=== PATIENT | male | born 1945 | race Caucasian/White ===

== ENCOUNTER 2018-12-30 11:49 | Emergency (ER) | payer OTHER ==
[~2018-12-30] VITALS: Ht 165.1 cm; Wt 50.5 kg
[2018-12-30 11:59] VITALS: Ht 165.1 cm; Wt 50.5 kg
[2018-12-30] MEDS ORDERED: LACTATED RINGER'S 1,000 ML IV STA (13:18)
[2018-12-30] MEDS ORDERED: SOD CHLORIDE 0.9% 1,000 ML IV STA (13:18)
--- NOTE | 2018-12-30 13:31 | ERD ---
ER Documentation Chief Complaint Chief Complaint sent by pcp - headahcer, neck pain, no appetite; increased bp; low hgb; HPI 73-year-old man referred here by medical clinic with complaints of anterior neck mass causing pain radiating to the back, trouble swallowing for at least 1 week, hypertension, generalized weakness, suspected anemia, and complaints of headache. Patient states he feels dizzy and weak times about 2 weeks, he has had no fevers or chills, no vomiting or diarrhea, no complaints of chest pain or shortness of breath. HPI was limited but supplemented by speaking to family member who is at the bedside and referring to his physician's notes ROS All systems reviewed and are negative except as per history of present illness. Medications Home Meds No Active Prescriptions or Reported Meds Allergies Allergies: Coded Allergies: No Known Allergy (Unverified , 12/30/18) FmHx Family History: No diabetes Physical Exam Vitals Vital Signs Date Temp Pulse Resp B/P (MAP) Pulse Ox O2 O2 Flow FiO2 Time Delivery Rate 12/30/18 75 16 194/73 98 Room Air 18:10 (113) 12/30/18 98.1 84 16 184/70 Room Air 17:00 (108) 12/30/18 83 16 208/80 100 Room Air 15:08 (122) 12/30/18 98.8 94 18 212/93 97 11:59 (132) Physical Exam GENERAL: Well-developed, appears weak, dehydrated, afebrile HEENT: Dry mucous membranes with tongue forrowing, right anterior soft nontender mass noted just above the sternum, 3/6 right carotid bruit auscultated, possible goiter, no cervical spine deformity or tenderness. No ptosis. Extremely poor dentition NEURO: Alert and oriented 3, cranial nerves II through XII intact bilaterally, pupils equal round reactive to light, no focal deficits or facial asymmetry, sensation intact distally Strength 5/5 in upper and lower extremities bilaterally CARDIAC: Tachycardic and regular, no murmurs rubs or gallops LUNGS: Clear bilaterally no wheezing crackles or stridor ABDOMEN: Soft nontender, no guarding, no rigidity, no rebound, no psoas sign no obturator sign. SKIN: Warm and dry to touch, no abrasions, contusions, or hematomas, no lacerations, no ecchymosis, no target lesions, and without ulcers EXTREMITIES: No clubbing cyanosis or edema, calves are bilaterally symmetrical, no Homans sign, no popliteal cord sign. Distal pulses equal and bilateral PSYCH: Normal affect without agitation or irritability Result Diagram: 12/30/18 1332 12/30/18 1332 Results 24 hrs Laboratory Tests Test 12/30/18 13:32 White Blood Count 15.8 10^3/ul Red Blood Count 3.90 10^6/ul Hemoglobin 10.9 g/dl Hematocrit 33.8 % Mean Corpuscular Volume 86.7 fl Mean Corpuscular Hemoglobin 27.9 pg Mean Corpuscular Hemoglobin Concent 32.2 g/dl Red Cell Distribution Width 13.4 % Platelet Count 309 10^3/UL Mean Platelet Volume 8.4 fl Immature Granulocytes % 0.600 % Neutrophils % 91.3 % Lymphocytes % 3.7 % Monocytes % 4.1 % Eosinophils % 0.0 % Basophils % 0.3 % Nucleated Red Blood Cells % 0.0 /100WBC Immature Granulocytes # 0.090 10^3/ul Neutrophils # 14.4 10^3/ul Lymphocytes # 0.6 10^3/ul Monocytes # 0.7 10^3/ul Eosinophils # 0.0 10^3/ul Basophils # 0.1 10^3/ul Nucleated Red Blood Cells # 0.0 10^3/ul Prothrombin Time 13.8 Sec Prothrombin Time Ratio 1.1 INR International Normalized Ratio 1.05 Activated Partial Thromboplast Time 35.4 Sec Sodium Level 139 mmol/L Potassium Level 3.9 mmol/L Chloride Level 100 mmol/L Carbon Dioxide Level 29 mmol/L Anion Gap 10 Blood Urea Nitrogen 16 mg/dl Creatinine 0.59 mg/dl Est Glomerular Filtrat Rate mL/min mL/min Glucose Level 145 mg/dl Calcium Level 9.3 mg/dl Total Bilirubin 0.5 mg/dl Direct Bilirubin 0.00 mg/dl Indirect Bilirubin 0.5 mg/dl Aspartate Amino Transf (AST/SGOT) 21 IU/L Alanine Aminotransferase (ALT/SGPT) 19 IU/L Alkaline Phosphatase 96 IU/L Troponin I 0.014 ng/ml Total Protein 7.5 g/dl Albumin 3.9 g/dl Globulin 3.60 g/dl Albumin/Globulin Ratio 1.08 Lipase 48 U/L Thyroid Stimulating Hormone (TSH) 0.454 MIU/L Free Thyroxine 1.68 ng/dl Free Triiodothyronine (T3) pg/mL 3.83 pg/ml Random Cortisol 22.9 ug/dl Ethyl Alcohol Level < 10.0 mg/dl Current Medications Medications Dose Sig/Mamie Start Time Status Last (Trade) Ordered Route PRN Stop Time Admin Dose Reason Admin Sodium 1,000 ml @ Q1H STAT 12/30/18 DC 12/30/18 Chloride 1,000 mls/hr IV 13:18 15:02 12/30/18 14:17 Lactated 1,000 ml @ Q1H STAT 12/30/18 DC 12/30/18 Ringer's 1,000 mls/hr IV 13:18 15:03 12/30/18 14:17 Ketorolac 15 mg ONCE STAT 12/30/18 DC 12/30/18 Tromethamine IV 15:15 15:19 (Toradol) 12/30/18 15:16 IV Flush 10 ml STK-MED 12/30/18 DC (NS 10 ml) ONCE .ROUTE 16:52 12/30/18 16:53 Sodium 100 ml @ ud STK-MED 12/30/18 DC Chloride ONCE .ROUTE 16:52 12/30/18 16:53 Iohexol 150 ml STK-MED 12/30/18 DC (Omnipaque ONCE .ROUTE 16:52 300mg/ ml) 12/30/18 16:53 Enalaprilat 1.25 mg ONCE ONCE 12/30/18 DC 12/30/18 (Vasotec Iv) IV 18:30 18:48 12/30/18 18:31 IV Flush 10 ml STK-MED 12/30/18 DC (NS 10 ml) ONCE .ROUTE 18:30 12/30/18 18:31 Sodium 100 ml @ ud STK-MED 12/30/18 DC Chloride ONCE .ROUTE 18:30 12/30/18 18:31 Iohexol 100 ml @ ud STK-MED 12/30/18 DC ONCE .ROUTE 18:30 12/30/18 18:31 Procedures/MDM IV line was established patient was placed on athletic monitor rhythm strip revealed a sinus tachycardia at 100 bpm with upright P and T waves. Patient was afebrile I administered 2 L of crystalloid IV for initial dehydration. EKG performed, read by me revealed a normal sinus rhythm at 87 bpm, normal axis, narrow QRS complex, nonspecific ST changes in precordial leads, no concerning ST elevations or depressions noted, LVH in precordial leads 1 view chest x-ray performed, read by me revealed a right supra mediastinal mass, smooth bordered, possibly vascular, aortic knob appears normal, trachea reveals mild left tracheal deviation, no acute infiltrates, no pneumothorax. CT scan of the brain was performed that was negative for acute bleed mass or shift, chronic ischemic changes noted CTA of the neck was performed, IMPRESSION: 1. 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 Stat vascular/thoracic surgery consultation recommended. 2. Associated mass effect moderately displacing the cervicothoracic trachea and esophagus to the left with resultant tracheal narrowing to 6 mm transverse dimension just above the thoracic inlet, displacing the right thyroid lobe, and right common carotid artery with flattening and displacement of the inferior right jugular vein and the right brachiocephalic vein. 3. Nonspecific lack of enhancement of the right sigmoid sinus, jugular bulb and superior right internal jugular vein may be technical related to contrast phase in the presence of a left dominant jugular venous drainage system, or could reflect venous thrombosis. Clinical correlation recommended with consideration for further evaluation with MR or CT venography of the head and neck. 4. Visualized intracranial and cervical arterial vasculature, which this examination is not tailored to evaluate, appears patent. 5. Mild reversal of upper cervical lordosis with minimal chronic degenerative C4-5 and C7-T1 listheses. 6. Multilevel cervical spondylotic changes appear most pronounced at C3-4, C4-5, C5-6 and C6-7 where there is moderate - severe canal and neural foraminal stenosis. This can be better evaluated by MRI C-spine if clinically warranted. 7. Poor dentition with multiple missing teeth, dental caries and periapical lucencies. Correlation with follow-up clinical dental exam suggested. Critical findings discussed with and acknowledged by Dr. Sullivan at 06:25 p.m. 12/30/2018. For hypertension I administered enalapril 1.25 mg IV x1 CBC reveals a leukocytosis, electrolytes revealed dehydration, liver function tests normal, troponin negative, coagulation profile normal ethanol level negative, thyroid panel unremarkable Cardiothoracic surgeon Dr. Rosenberg was consulted he agreed to see the patient in the ER, recommendations pending. Critical Care: Time: 39 minutes, this was time separate from other billable procedures. Treatments/Evaluations: Close monitoring and treatment of unstable vital signs, cardiorespiratory, and neurologic status, while maintaining tight balance of fluid, respiratory, and cardiac interventions. Departure Diagnosis: Primary Impression: Aneurysm, common carotid artery Additional Impressions: Partial obstruction of airway Dehydration Dental caries Hypertension Hypertension type: essential hypertension Qualified Codes: I10 - Essential (primary) hypertension Condition: Critical GERMAIN SULLIVAN MD Dec 30, 2018 13:31
[2018-12-30] MEDS ORDERED: KETOROLAC 15 MG INJ IV STA (15:15)
[2018-12-30] MEDS ORDERED: IOHEXOL 300MG/ML 150 ML BTL ONE (16:52)
[2018-12-30] MEDS ORDERED: SOD CHLORIDE 0.9% 100 ML ONE ×2 (16:52→18:30)
[2018-12-30] MEDS ORDERED: IOHEXOL 100 ML ONE (18:30)
[2018-12-30] MEDS ORDERED: ENALAPRILAT 1.25 MG INJ IV ONE (18:30)
[2018-12-30] MEDS ORDERED: LABETALOL HCL 20MG INJ IV ONE (23:00)
[2018-12-30] MEDS ORDERED: ESMOLOL 250 ML IV SCH (23:30)
[2018-12-30] MEDS ORDERED: hydrALAzine 20 MG INJ IV ONE (23:30)
--- NOTE | 2018-12-31 01:08 | CONS ---
DATE OF ADMISSION: 12/30/2018 DATE OF CONSULTATION: REASON FOR CONSULTATION: Innominate pseudoaneurysm. HISTORY OF PRESENT ILLNESS: This is a 73-year-old male who is homeless, cannot give us any history. He presents to us with a few day history of neck pain and a bulging mass in the neck. A CAT scan of the neck has been done which shows a large 5 cm pseudoaneurysm from the innominate artery right at i ts bifurcation extending into the right neck and having a mass effect on the trachea to the left side . The patient is breathing well. No evidence of any breathing issues, saturations are 99%. No use of accessory muscles or difficulty breathing. PAST MEDICAL HISTORY: Unknown. PAST SURGICAL HISTORY: Unknown. ALLERGIES: Unknown. MEDICATIONS: Unknown. PHYSICAL EXAMINATION: GENERAL: The patient is disheveled 73-year-old male, appears to be comfortable. VITAL SIGNS: Blood pressure is 122/63, pulse is 80, respirations 18, saturation 99% on room air. NECK: There is a mass in the right anterior to the sternal notch, which is pulsating. The right nec k is full. The left neck is softer. There is palpable radial and femoral pulses. No signs of ische lucio. CARDIOVASCULAR: Regular rate and rhythm. LUNGS: Clear. ABDOMEN: Soft. LABORATORY VALUES: Significant for hemoglobin of 10.9, white count 15.8, platelet count 309. Creati nine 0.59 and INR of 1.05 with a PTT of 35. 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 This p rocess is at least several days old, according to the patient. I have looked at the CAT scan of the chest. This patient is at a very high risk of major bleeding if he undergoes a sternotomy and open s urgical repair. He would be best treated with a stent extending from the innominate artery into the carotid artery and possible subsequent right arm bypass grafting. I discussed the patient at length with the ER physician, Dr. Martin. Arrangements have been made for this patient to be transferred to a tertiary care hospital. Dictated By: BEV PERKINS/MELYSSA Conf#: [id number] DID#: [id number]
[2018-12-31 01:22] VITALS: BP 189/68; PULSE 70; RESP 18
== END 2018-12-31 01:22 | disposition short-term general hospital (02) ==
LOC: E/R 11:49
DX: I72.0 Aneurysm of carotid artery (principal); J98.8 Other specified respiratory disorders; E86.0 Dehydration; K02.9 Dental caries, unspecified; I10 Essential (primary) hypertension; R10.9 Unspecified abdominal pain
CPT/HCPCS: 70450; 70491; 71045; 71275; 80053; 80307; 82533; 83690; 84439; 84443; 84481; 84484; 85025; 85610; 85730; 86850; 86900; 86901; 93005; 96374; 96375; 99285; J0360; J1885; J7030; J7120; Q9967

== ENCOUNTER 2019-02-04 09:26 | Emergency (ER) | payer OTHER ==
[~2019-02-04] VITALS: Wt 52.0 kg
[2019-02-04] MEDS ORDERED: CEPH-443 PO (12:01)
--- NOTE | 2019-02-04 12:08 | ERD ---
ER Documentation Chief Complaint Chief Complaint PT FROM [facility] FOR RE-INSERTION OF LUNDBERG CATH HPI This is a 73-year-old male with a known history of hypertension previous CVA atrial fibrillation and BPH. The patient resides at [facility]. He had an indwelling Lundberg catheter which was accidentally removed yesterday evening. Nursing staff noticed a small amount of blood present in his diaper. They felt that the abdomen was distended and therefore sent the patient for placement of his Lundberg catheter. He said no recent fever shaking or chills. His primary care physician is Dr. Moreno. He has a history of a repair of a brachiocephalic pseudoaneurysm. The patient said no fevers or shaking or chills. There is no other complaints other than that the patient is brought to the emergency department for replacement of his Lundberg catheter. ROS All systems reviewed and are negative except as per history of present illness. Medications Home Meds Active Scripts Cephalexin* (Keflex*) 500 Mg Capsule, 500 MG PO Q6, #40 CAP Prov:SANTOS HOLT MD 02/04/19 Allergies Allergies: Coded Allergies: No Known Allergy (Unverified , 12/30/18) PMhx/Soc History of Surgery: Yes (CABG/OPEN HEART, ABD?) Hx Neurological Disorder: Yes (CVA) Hx Cardiac Disorders: Yes (HTN, A-FIB) Hx Miscellaneous Medical Probl: Yes (BPH, ANEMIA) Hx Alcohol Use: No Hx Substance Use: No Hx Tobacco Use: No Smoking Status: Unknown if ever smoked Physical Exam Vitals Vital Signs Date Temp Pulse Resp B/P (MAP) Pulse Ox O2 O2 Flow FiO2 Time Delivery Rate 02/04/19 97.6 68 17 122/54 99 09:43 (76) Physical Exam Constitutional:Well-developed. Well-nourished. HEENT:Normocephalic. Atraumatic.Pupils were equal round reactive to light. Moist mucous membranes.No tonsillar exudates. Neck: No nuchal rigidity. No lymphadenopathy. No posterior cervical spine tenderness or step-offs. Respiratory: Not using accessory muscles of respiration.Lungs were clear to auscultation bilaterally. No rhonchi. No rales. No wheezing. Cardiovascular: Regular rate regular rhythm.No murmurs. No rubs were appreciated.S1, S2 normal. Distal pulses are palpable 2+ bilaterally. GI: Abdomen was soft. Nontender. Non Distended. No pulsatile abdominal masses or bruits. No rebound. No guarding. Bowel sounds were present and normal. Muscle skeletal: Muscle atrophy of the bilateral lower extremities : No blood present at the urethral meatus. No testicular swelling or tenderness. Skin: No petechia, no purpura. No lesions on the palms or the soles of the feet. No maculopapular rash. NEURO: Patient was alert and awake. Patient is bedbound so gait was not observed. Patient follows verbal command. Patient is Japanese-speaking. Results 24 hrs Laboratory Tests Test 02/04/19 10:48 Urine Color YELLOW Urine Clarity TURBID Urine pH 7.0 Urine Specific Bandon 1.013 Urine Ketones NEGATIVE mg/dL Urine Nitrite NEGATIVE mg/dL Urine Bilirubin NEGATIVE mg/dL Urine Urobilinogen NEGATIVE mg/dL Urine Leukocyte Esterase 2+ Claudia/ul Urine Microscopic RBC > 182 /HPF Urine Microscopic WBC > 182 /HPF Urine Bacteria FEW /HPF Urine Hemoglobin 3+ mg/dL Urine Glucose NEGATIVE mg/dL Urine Total Protein 2+ mg/dl Procedures/MDM This is a 73-year-old male that presented to the emergency department with hematuria after removal accidental of a Lundberg catheter. Patient had no signs of severe anemia. There was no blood present at the urethral meatus. Lundberg catheter had been replaced and there is no blood present in the Lundberg bag. The patient did have a palpable bladder that had resolved after the Lundberg catheter had been placed. There was microscopic hematuria that was present in the urinalysis that was thought to be secondary to traumatic removal of the Lundberg catheter, however again there was no gross blood that was present. The patient had pyuria which could be consistent with a urinary tract infection. The patient will be sent home with Keflex. I did feel the patient was stable to be discharged and no ancillary laboratory work was obtained as the patient presented to the emergency department for Lundberg catheter replacement. The patient was discharged home in fair condition. They were instructed to return to the emergency department at any time if there was any worsening of their condition. The patient stated they would follow up with their PCP in the next 24-48 hours to initiate a suitable medication regimen under the care of their PCP as well as to allow their PCP to monitor any drug reactions. The patient was discharged home with prescriptions after they gave informed consent to the new medication. They were also fully informed by myself on the adverse effects and adverse drug interactions in order to provide adequate safeguards to prevent possible adverse reactions to medications. Departure Diagnosis: Primary Impression: Encounter for urinary catheter Additional Impression: Urinary tract infection Urinary tract infection type: acute cystitis Hematuria presence: with hematuria Qualified Codes: N30.01 - Acute cystitis with hematuria Condition: Fair Patient Instructions: Urinary Tract Infections in Men, Hematuria Referrals: NO PRIMARY,CARE PHYSICIAN (PCP) SANTOS HOLT MD February 04, 2019 12:08
[2019-02-04] MEDS ORDERED: AMIO200T4 PO (12:16)
[2019-02-04] MEDS ORDERED: ASPI-903 PO (12:17)
[2019-02-04] MEDS ORDERED: AMLO-147 PO (12:17)
[2019-02-04] MEDS ORDERED: BISA10SU55 RC (12:18)
[2019-02-04] MEDS ORDERED: DOCU50LI23 PO (12:18)
[2019-02-04] MEDS ORDERED: FURO20TA3 PO (12:19)
[2019-02-04] MEDS ORDERED: HEPA500021 IJ (12:19)
[2019-02-04] MEDS ORDERED: LISI10TA2 PO (12:20)
[2019-02-04] MEDS ORDERED: NOVO3I SC (12:20)
[2019-02-04] MEDS ORDERED: POLY17PO28 PO (12:21)
[2019-02-04] MEDS ORDERED: MELA5TAB4 PO (12:21)
[2019-02-04] MEDS ORDERED: TAMS-14 PO (12:22)
[2019-02-04] MEDS ORDERED: ALBU2.5V3 NEB (12:23)
[2019-02-04] MEDS ORDERED: ACET325T33 PO (12:24)
[2019-02-04] MEDS ORDERED: MAGN400O19 PO (12:25)
[2019-02-04] MEDS ORDERED: LISI40TA3 PO (12:31)
[2019-02-04 13:19] VITALS: BP 126/45; PULSE 58; RESP 17
== END 2019-02-04 13:20 | disposition home or self-care (01) ==
LOC: E/R 09:26
DX: N30.01 Acute cystitis with hematuria (principal); R40.2252 Coma scale, best verbal response, oriented, at arrival to emergency department; I10 Essential (primary) hypertension; Z86.73 Personal history of transient ischemic attack (TIA), and cerebral infarction without residual deficits; Z95.1 Presence of aortocoronary bypass graft
CPT/HCPCS: 81001; 87086

== ENCOUNTER 2019-02-10 13:53 | Inpatient (IN) | payer OTHER ==
[~2019-02-10] VITALS: Ht 157.5 cm; Wt 58.0 kg
[~2019-02-10 13:53] MED LIST: ACET325T33 PO; ALBU2.5V3 NEB; AMIO200T4 PO; AMLO-147 PO; ASPI-903 PO; BISA10SU55 RC; CEPH-443 PO; DOCU50LI23 PO; FURO20TA3 PO; HEPA500021 IJ; LISI40TA3 PO; MAGN400O19 PO; MELA5TAB4 PO; NOVO3I SC; POLY17PO28 PO; TAMS-14 PO
[2019-02-10] MEDS ORDERED: CEFTRIAXONE 1 GM/50 ML (PMX) 50 ML IVPB STA (14:16)
[2019-02-10] MEDS ORDERED: ACETAMINOPHEN 325 MG TAB PO PRN ×2 (14:30→18:00)
[2019-02-10] MEDS ORDERED: ONDANSETRON 4 MG INJ IV PRN ×2 (14:30→18:00)
[2019-02-10 14:56] VITALS: Ht 157.5 cm; Wt 58.0 kg
[2019-02-10] MEDS ORDERED: SODIUM CHLORIDE 0.9% 1L BAG IV* STA (15:08)
--- NOTE | 2019-02-10 17:33 | HP ---
Date/Time of Note Date/Time of Note DATE: 02/10/19 TIME: 17:27 Assessment/Plan VTE Prophylaxis SCD applied (from Nsg): Yes Pharmacological prophylaxis: NA/contraindicated Pharm contraindication: bleeding Lines/Catheters IV Catheter Type (from Nrsg): Saline Lock Urinary Cath still in place: Yes Reason Cath still needed: urinary retention Assessment/Plan Assessment/Plan -Severe sepsis, continue IV fluids, broad-spectrum antibiotics, monitor lactate -Hematuria, will obtain urine culture, continue broad-spectrum antibiotics. -History of aortic aneurysm, status post repair. -Hypertension -Cerebrovascular disease -Urinary retention with urethral stricture, continue Cavanaugh catheter -Diabetes Further recommendations based on clinical course. Plan of care discussed with Dr. Moreno. Result Diagram: 02/10/19 1459 02/10/19 1459 Results 24hrs Laboratory Tests Test 02/10/19 14:59 02/10/19 15:06 02/10/19 16:51 White Blood Count 15.5 H Red Blood Count 3.47 L Hemoglobin 10.2 L Hematocrit 30.8 L Mean Corpuscular Volume 88.8 Mean Corpuscular Hemoglobin 29.4 Mean Corpuscular Hemoglobin Concent 33.1 Red Cell Distribution Width 15.2 H Platelet Count 293 Mean Platelet Volume 8.9 Immature Granulocytes % 0.600 H Neutrophils % 90.3 H Lymphocytes % 3.3 L Monocytes % 5.5 Eosinophils % 0.0 Basophils % 0.3 Nucleated Red Blood Cells % 0.0 Immature Granulocytes # 0.090 H Neutrophils # 14.0 H Lymphocytes # 0.5 L Monocytes # 0.9 Eosinophils # 0.0 Basophils # 0.0 Nucleated Red Blood Cells # 0.0 Prothrombin Time 12.5 Prothrombin Time Ratio 1.0 INR International Normalized Ratio 0.92 Activated Partial Thromboplast Time 32.7 Sodium Level 132 L Potassium Level 4.6 Chloride Level 97 Carbon Dioxide Level 27 Anion Gap 8 Blood Urea Nitrogen 15 Creatinine 0.70 Est Glomerular Filtrat Rate mL/min Glucose Level 239 H Calcium Level 9.2 Total Bilirubin 0.4 Direct Bilirubin 0.00 Indirect Bilirubin 0.4 Aspartate Amino Transf (AST/SGOT) 20 Alanine Aminotransferase (ALT/SGPT) 20 Alkaline Phosphatase 126 H Troponin I < 0.012 Total Protein 6.9 Albumin 4.0 Globulin 2.90 Albumin/Globulin Ratio 1.37 POC Venous Lactate 2.4 *H Lactic Acid Level 2.0 HPI/ROS Admit Date/Time Admit Date/Time Hx of Present Illness The patient is 73-year-old gentleman with history of aortic aneurysm, primary hypertension, late syphilis, cerebrovascular disease, pneumonia, atrial fibrillation, urinary retention, diabetes, BPH, history of urethral stricture. Patient is awake alert however cannot provide any detailed medical history, most of the history was obtained from medical records and talking to nursing staff. Patient presented from half-way facility for hematuria, patient had Cavanaugh catheter on admission. He recently finished Keflex for 10 days for UTI. Patient noted to have elevated white blood cells, hypertension, and elevated lactate. No nausea vomiting, chest pain or shortness of breath reported. ROS Unable to obtain due to patient's condition PMH/Family/Social Past Medical History per HPI Medical History: diabetes, hypertension Medications Current Medications Ondansetron HCl (Zofran Inj) 4 mg BRIDGE ORDER PRN IV NAUSEA/VOMITING; Start 02/10/19 at 14:30; Stop 02/11/19 at 14:29 Acetaminophen (Tylenol Tab) 650 mg ER BRIDGE PRN PO .MILD PAIN 1-3 OR TEMP; Start 02/10/19 at 14:30; Stop 02/11/19 at 14:29 Coded Allergies: No Known Allergy (Unverified , 02/10/19) Past Surgical History Past Surgical Hx: other (Status post aortic aneurysm repair, details are not available) Family History Significant Family History: no pertinent family hx Social History Smoking Status: Never smoker Exam/Review of Systems Vital Signs Vitals Vital Signs Date Temp Pulse Resp B/P (MAP) Pulse Ox O2 O2 Flow FiO2 Time Delivery Rate 02/10/19 88 16 130/91 100 Room Air 16:50 (104) 02/10/19 2 15:05 02/10/19 98.6 14:56 Exam Constitutional: alert, oriented Head: normocephalic Neck: supple Respiratory: clear to auscultation Cardiovascular: irregular rhythm, other (Chest healed surgical incision) Gastrointestinal: soft, non-tender Genitourinary - Male: other (Cavanaugh catheter with hematuria) Extremities: normal pulses Neurological: confused Skin: GIANNA Maddox February 10, 2019 17:33
[2019-02-10] MEDS ORDERED: DOCUSATE SODIUM 100 MG CAP PO PRN (18:00)
[2019-02-10] MEDS ORDERED: BISACODYL (EC) 5 MG TAB PO PRN (18:00)
--- NOTE | 2019-02-10 18:54 | ERD ---
ER Documentation Chief Complaint Chief Complaint from [facility], c/o hematuria HPI Patient is a 73-year-old male with dementia and previous UTI who presents with hematuria. The patient was brought in by ambulance. He recently finished Keflex for 10 days for UTI. The patient was sent by Dr. Moreno for admission. Upon review of old medical records this is the patient's third visit to the ER since December 2018. Primary doctor is Dr. Moreno. ROS All systems reviewed and are negative except as per history of present illness. Medications Home Meds Active Scripts Cephalexin* (Keflex*) 500 Mg Capsule, 500 MG PO Q6, #40 CAP Prov:SANTOS HOLT MD 02/04/19 Reported Medications Lisinopril* (Lisinopril*) 40 Mg Tablet, 40 MG PO DAILY, #30 TAB 02/04/19 Magnesium Hydroxide* (Milk Of Magnesia*) 400 Mg/5 Ml Oral.susp, 30 ML PO BID, ML 02/04/19 Acetaminophen* (Tylenol*) 325 Mg Tablet, 650 MG PO Q4H PRN for MILD PAIN LEVEL 1-3, TAB AND FEVER >100f 02/04/19 Albuterol Sulfate* (Albuterol Sulfate* Neb) 0.083%-3 Ml Neb, 2.5 MG NEB Q4H PRN for WHEEZING AND SOB, #30 VIAL 02/04/19 Tamsulosin Hcl* (Flomax*) 0.4 Mg Cap.er.24h, 0.4 MG PO DAILY, CAP 02/04/19 Polyethylene Glycol* (Polyethylene Glycol*) 17 Gm Powd.pack, 17 GM PO DAILY, #30 PACKET 02/04/19 Melatonin (Melatonin) 5 Mg Tablet, 5 MG PO HS, TAB 02/04/19 Insulin Aspart* (Novolog Insulin Pen*) 100 Unit/Ml Soln, 0 SC .SLIDING SCALE AC, EA IF BS 150-199=2 UNITS. 200-249=4 UNITS, 250-299=6 UNITS,300-349-8 UNITS,350-399=10 UNITS,400-449=12 UNITS AND CALL . 02/04/19 Heparin Sodium,Porcine/Pf (HEPARIN SOD 5,000 UNIT/ 0.5 ML) 5,000 Unit/0.5 Ml Vial, 5000 UNIT IJ Q8H, VIAL 02/04/19 Bisacodyl (Dulcolax) 10 Mg Supp.rect, 10 MG RC DAILY, SUPP.RECT 02/04/19 Aspirin* (Aspirin* Chew) 81 Mg Tab.chew, 81 MG PO DAILY, TAB.CHEW 02/04/19 Amlodipine Besylate* (Amlodipine Besylate*) 10 Mg Tablet, 10 MG PO DAILY, #30 TAB 02/04/19 Amiodarone Hcl* (Amiodarone Hcl*) 200 Mg Tablet, 200 MG PO BID, #60 TAB 02/04/19 Discontinued Reported Medications Furosemide* (Furosemide*) 20 Mg Tablet, 20 MG PO BID, #30 TAB 02/04/19 Docusate Sodium* (Colace* Liq) 50 Mg/5 Ml Liquid, 10 ML PO BID, EA 02/04/19 Lisinopril* (Lisinopril*) 10 Mg Tablet, 10 MG PO DAILY, #30 TAB 02/04/19 Allergies Allergies: Coded Allergies: No Known Allergy (Unverified , 02/10/19) PMhx/Soc History of Surgery: Yes (CABG/OPEN HEART, ABD?) Hx Neurological Disorder: Yes (CVA) Hx Cardiac Disorders: Yes (HTN, A-FIB) Hx Miscellaneous Medical Probl: Yes (BPH, ANEMIA,late stage siphylis) Hx Alcohol Use: No Hx Substance Use: No Hx Tobacco Use: No Smoking Status: Never smoker FmHx Unable to obtain Physical Exam Vitals Vital Signs Date Temp Pulse Resp B/P (MAP) Pulse Ox O2 O2 Flow FiO2 Time Delivery Rate 02/10/19 86 15 159/99 100 Room Air 18:42 (119) 02/10/19 88 16 130/91 100 Room Air 16:50 (104) 02/10/19 53 20 195/53 99 15:55 (100) 02/10/19 Nasal 2 15:05 Cannula 02/10/19 98.6 89 18 171/73 97 14:56 (105) Physical Exam Const: No acute distress Head: Atraumatic Eyes: Normal Conjunctiva ENT: Normal External Ears, Nose and Mouth. Neck: Full range of motion. No meningismus. Resp: Clear to auscultation bilaterally Cardio: Regular rate and rhythm, no murmurs Abd: Soft, non tender, non distended. Normal bowel sounds, Cavanaugh catheter in place with red urine Skin: No petechiae or rashes Back: No midline or flank tenderness Ext: No cyanosis, or edema Neur: Demented at baseline Psych: Normal Mood and Affect Result Diagram: 02/10/19 1459 02/10/19 1459 Results 24 hrs Laboratory Tests Test 02/10/19 14:59 02/10/19 15:06 02/10/19 16:51 White Blood Count 15.5 10^3/ul Red Blood Count 3.47 10^6/ul Hemoglobin 10.2 g/dl Hematocrit 30.8 % Mean Corpuscular Volume 88.8 fl Mean Corpuscular Hemoglobin 29.4 pg Mean Corpuscular 33.1 g/dl Hemoglobin Concent Red Cell Distribution Width 15.2 % Platelet Count 293 10^3/UL Mean Platelet Volume 8.9 fl Immature Granulocytes % 0.600 % Neutrophils % 90.3 % Lymphocytes % 3.3 % Monocytes % 5.5 % Eosinophils % 0.0 % Basophils % 0.3 % Nucleated Red Blood Cells % 0.0 /100WBC Immature Granulocytes # 0.090 10^3/ul Neutrophils # 14.0 10^3/ul Lymphocytes # 0.5 10^3/ul Monocytes # 0.9 10^3/ul Eosinophils # 0.0 10^3/ul Basophils # 0.0 10^3/ul Nucleated Red Blood Cells # 0.0 10^3/ul Prothrombin Time 12.5 Sec Prothrombin Time Ratio 1.0 INR International Normalized Ratio 0.92 Activated Partial Thromboplast 32.7 Sec Time Sodium Level 132 mmol/L Potassium Level 4.6 mmol/L Chloride Level 97 mmol/L Carbon Dioxide Level 27 mmol/L Anion Gap 8 Blood Urea Nitrogen 15 mg/dl Creatinine 0.70 mg/dl Est Glomerular Filtrat Rate mL/min mL/min Glucose Level 239 mg/dl Calcium Level 9.2 mg/dl Total Bilirubin 0.4 mg/dl Direct Bilirubin 0.00 mg/dl Indirect Bilirubin 0.4 mg/dl Aspartate Amino Transf (AST/SGOT) 20 IU/L Alanine 20 IU/L Aminotransferase (ALT/SGPT) Alkaline Phosphatase 126 IU/L Troponin I < 0.012 ng/ml Total Protein 6.9 g/dl Albumin 4.0 g/dl Globulin 2.90 g/dl Albumin/Globulin Ratio 1.37 POC Venous Lactate 2.4 mmol/L Lactic Acid Level 2.0 mmol/L Current Medications Medications Dose Sig/Mamie Start Time Status Last (Trade) Ordered Route PRN Stop Time Admin Dose Reason Admin Ceftriaxone 50 ml @ ONCE STAT 02/10/19 DC 02/10/19 Sodium 100 mls/hr IVPB 14:16 15:21 02/10/19 14:45 Ondansetron 4 mg BRIDGE ORDER 02/10/19 HCl (Zofran PRN IV 14:30 Inj) NAUSEA/VOMITI 02/11/19 14:29 NG 650 mg ER BRIDGE 02/10/19 Acetaminophen PRN PO 14:30 (Tylenol .MILD PAIN 02/11/19 14:29 Tab) 1-3 OR TEMP Sodium 1,740 ml BOLUS OVER 2 02/10/19 DC 02/10/19 Chloride HOURS STAT 15:08 15:20 (NS) IV* 02/10/19 15:09 Amiodarone 200 mg BID PO 02/10/19 HCl 21:00 (Cordarone) Amlodipine 10 mg DAILY PO 02/11/19 Besylate 09:00 (Norvasc) Lisinopril 40 mg DAILY PO 02/11/19 (Zestril) 09:00 Melatonin 5 mg HS PO 02/10/19 (Melatonin) 21:00 Tamsulosin 0.4 mg DAILY PO 02/11/19 HCl 09:00 (Flomax) Ondansetron 4 mg Q6H PRN 02/10/19 HCl (Zofran IV 18:00 Inj) NAUSEA/VOMITI NG 650 mg Q6H PRN 02/10/19 Acetaminophen PO .PAIN 1-3 18:00 (Tylenol OR TEMP Tab) Docusate 100 mg Q12H PRN 02/10/19 Sodium PO 18:00 (Colace) .CONSTIPATION Bisacodyl 5 mg DAILY PRN 02/10/19 (Dulcolax) PO 18:00 .CONSTIPATION 40 mg DAILY@06 02/11/19 Pantoprazole PO 06:00 (Protonix Tab) Ceftriaxone 50 ml @ Q24H IVPB 02/11/19 Sodium 100 mls/hr 15:00 Procedures/MDM Sepsis Documentation: Patient's infectious symptoms have not stabilized and the patient is at risk of rapid decompensation. The patient will be admitted for careful hydration, antibiotic therapy, and infectious source control. SEVERE SEPSIS CRITERIA: Infectious source: Likely cystitis End organ damage indicated by: Lactate greater than 2 SEPSIS MANAGEMENT Time of recognition of sepsis: 1506. Time of recognition of severe sepsis: 1506. Time of recognition of septic shock: No septic shock at this time. 3 HOUR BUNDLE Blood cultures x 2 before broad-spectrum antibiotics: Yes 30 ml/kg NS bolus completed Initial lactate 2.4 Repeat lactate 2.0 SEPTIC SHOCK ASSESSMENT: No lactic acid > 4.0 No persistent hypotension (SBP < 90 or 40 mmHg drop, MAP < 65) despite 30 mL/kg IV fluid bolus VOLUME REASSESSMENT FOR SEPTIC SHOCK: No septic shock at this time PERSISTENT HYPOTENSION TREATMENT: Comfort care no Central line not Required Vasopressor started not required I considered further perfusion assessment with CVP measurement, SCVO2, bedside ultrasound volume assessment, passive leg raise, trial of further fluid bolus. And proceeded with 30 ml/kg fluid bolus of NSS, broad spectrum antibiotics, and admission. I spoke with Dr. Moreno for admission to a medical surgical bed. CRITICAL CARE Critical care time 35 minutes Emergent fluid management while maintaining close respiratory support. Pr ovision of immediate and broad-spectrum antibiotic therapy. Simultaneous assessment for possible sources in order to direct targeted therapy. Consideration for invasive and chemical support to prevent cardiopulmonary collapse. Critical care time is independent of procedures performed. Departure Diagnosis: Primary Impression: Cystitis Additional Impressions: Hematuria Hematuria type: unspecified type Qualified Codes: R31.9 - Hematuria, unspecified Severe sepsis Condition: CECI Strange MD February 10, 2019 18:54
[2019-02-10] MEDS: MELATONIN 5 MG TABLET PO SCH (20:47)
[2019-02-10] MEDS: AMIODARONE 200 MG TAB PO SCH (20:47)
[2019-02-10 21:51] VITALS: BP 166/72; PULSE 84; RESP 18
[2019-02-10] MEDS ORDERED: GLUCOSE GEL 15 GRAM TUBE PO PRN ×2 (23:00)
[2019-02-10] MEDS ORDERED: GLUCOSE GEL 15 GRAM TUBE BUCCAL PRN (23:00)
[2019-02-10] MEDS ORDERED: DEXTROSE 50% 50 ML SYRINGE IV PRN ×2 (23:00)
[2019-02-10] MEDS ORDERED: GLUCAGON 1 MG INJ IM PRN (23:00)
[2019-02-11] MEDS: ACCU-CHEK XX SCH (02:00)
[2019-02-11] MEDS: PANTOPRAZOLE (EC) 40 MG TAB PO SCH (06:14)
[2019-02-11] MEDS: INSULIN ASPART [NOVOLOG] 3 ML PEN SC SCH ×4 (07:50→21:00)
[2019-02-11 07:52] VITALS: BP 146/63; PULSE 62; RESP 18
[2019-02-11] MEDS: TAMSULOSIN (SR) 0.4 MG CAP PO SCH (08:38)
[2019-02-11] MEDS: AMLODIPINE 10 MG TAB PO SCH (08:38)
[2019-02-11] MEDS: LISINOPRIL 20 MG TAB PO SCH (08:39)
[2019-02-11] MEDS: AMIODARONE 200 MG TAB PO SCH ×2 (08:39→21:16)
[2019-02-11 14:26] VITALS: BP 138/66; PULSE 64; RESP 18
[2019-02-11] MEDS: CEFTRIAXONE 1 GM/50 ML (PMX) 50 ML IVPB SCH (16:20)
[2019-02-11 19:20] VITALS: BP 116/58; PULSE 65; RESP 18
--- NOTE | 2019-02-11 19:55 | PN ---
Date/Time of Note Date/Time of Note DATE: 02/11/19 TIME: 19:52 Assessment/Plan VTE Prophylaxis Risk score (from Ns)>0 risk: 4 SCD applied (from Ns): Yes Pharmacological prophylaxis: NA/contraindicated Pharm contraindication: bleeding Lines/Catheters IV [facility]ine [facility] Urinary Cath still in place: Yes Reason Cath still needed: urinary retention Assessment/Plan Hospital Course Assessment/Plan -Severe sepsis, continue IV fluids, broad-spectrum antibiotics, monitor lactate. Dr. Amaro is asked to see patient in infection disease consultation. -Hematuria, f/up on urine culture, continue broad-spectrum antibiotics. Dr. Cristina is asked to see patient in urology consultation. -History of aortic aneurysm, status post repair. -Atrial fibrillation, anticoagulation is held due to hematuria. -Hypertension, continue Norvasc and lisinopril. -Cerebrovascular disease -Urinary retention with urethral stricture, continue Cavanaugh catheter -Diabetes, continue Lantus and NovoLog. Further recommendations based on clinical course. Plan of care discussed with Dr. Moreno. Result Diagram: 02/11/19 0430 02/11/19 0430 Results 24hrs Laboratory Tests Test 02/10/19 23:54 02/11/19 04:30 02/11/19 06:55 02/11/19 08:30 Bedside Glucose 142 113 White Blood Count 8.0 # Red Blood Count 3.15 L Hemoglobin 9.4 L Hematocrit 28.1 L Mean Corpuscular 89.2 Volume Mean Corpuscular 29.8 Hemoglobin Mean Corpuscular 33.5 Hemoglobin Concent Red Cell 15.0 H Distribution Width Platelet Count 253 Mean Platelet 8.8 Volume Immature 0.600 H Granulocytes % Neutrophils % 82.5 H Lymphocytes % 8.6 L Monocytes % 7.2 Eosinophils % 0.6 Basophils % 0.5 Nucleated Red 0.0 Blood Cells % Immature 0.050 H Granulocytes # Neutrophils # 6.6 Lymphocytes # 0.7 L Monocytes # 0.6 Eosinophils # 0.1 Basophils # 0.0 Nucleated Red 0.0 Blood Cells # Sodium Level 134 L Potassium Level 3.9 Chloride Level 101 Carbon Dioxide 27 Level Anion Gap 6 Blood Urea 7 Nitrogen Creatinine 0.54 L Est Glomerular Filtrat Rate mL/min Glucose Level 109 # Calcium Level 8.9 Lab Scanned Report REFERENCE LAB Test 02/11/19 12:19 02/11/19 17:49 Bedside Glucose 152 121 Exam/Review of Systems Exam Vitals Vital Signs Date Temp Pulse Resp B/P (MAP) Pulse Ox O2 O2 Flow FiO2 Time Delivery Rate 02/11/19 97.8 64 18 138/66 94 Room Air 14:26 (90) 02/10/19 2 15:05 Exam Constitutional: alert, oriented Respiratory: clear to auscultation Cardiovascular: irregular rhythm, other (Chest healed surgical incision) Gastrointestinal: soft, non-tender Genitourinary - Male: other (Cavanaugh catheter with hematuria) Extremities: normal pulses Neurological: confused Results Results 24hrs Laboratory Tests Test 02/10/19 23:54 02/11/19 04:30 02/11/19 06:55 02/11/19 08:30 Bedside Glucose 142 113 White Blood Count 8.0 # Red Blood Count 3.15 L Hemoglobin 9.4 L Hematocrit 28.1 L Mean Corpuscular 89.2 Volume Mean Corpuscular 29.8 Hemoglobin Mean Corpuscular 33.5 Hemoglobin Concent Red Cell 15.0 H Distribution Width Platelet Count 253 Mean Platelet 8.8 Volume Immature 0.600 H Granulocytes % Neutrophils % 82.5 H Lymphocytes % 8.6 L Monocytes % 7.2 Eosinophils % 0.6 Basophils % 0.5 Nucleated Red 0.0 Blood Cells % Immature 0.050 H Granulocytes # Neutrophils # 6.6 Lymphocytes # 0.7 L Monocytes # 0.6 Eosinophils # 0.1 Basophils # 0.0 Nucleated Red 0.0 Blood Cells # Sodium Level 134 L Potassium Level 3.9 Chloride Level 101 Carbon Dioxide 27 Level Anion Gap 6 Blood Urea 7 Nitrogen Creatinine 0.54 L Est Glomerular Filtrat Rate mL/min Glucose Level 109 # Calcium Level 8.9 Lab Scanned Report REFERENCE LAB Test 02/11/19 12:19 02/11/19 17:49 Bedside Glucose 152 121 Medications Medication Current Medications Amiodarone HCl (Cordarone) 200 mg BID PO Last administered on 02/11/19at 08:39; Admin Dose 200 MG; Start 02/10/19 at 21:00 Amlodipine Besylate (Norvasc) 10 mg DAILY PO Last administered on 02/11/19at 08:38; Admin Dose 10 MG; Start 02/11/19 at 09:00 Lisinopril (Zestril) 40 mg DAILY PO Last administered on 02/11/19at 08:39; Admin Dose 40 MG; Start 02/11/19 at 09:00 Melatonin (Melatonin) 5 mg HS PO Last administered on 02/10/19at 20:47; Admin Dose 5 MG; Start 02/10/19 at 21:00 Tamsulosin HCl (Flomax) 0.4 mg DAILY PO Last administered on 02/11/19at 08:38; Admin Dose 0.4 MG; Start 02/11/19 at 09:00 Ondansetron HCl (Zofran Inj) 4 mg Q6H PRN IV NAUSEA/VOMITING; Start 02/10/19 at 18:00 Acetaminophen (Tylenol Tab) 650 mg Q6H PRN PO .PAIN 1-3 OR TEMP; Start 02/10/19 at 18:00 Docusate Sodium (Colace) 100 mg Q12H PRN PO .CONSTIPATION; Start 02/10/19 at 18:00 Bisacodyl (Dulcolax) 5 mg DAILY PRN PO .CONSTIPATION; Start 02/10/19 at 18:00 Pantoprazole (Protonix Tab) 40 mg DAILY@06 PO Last administered on 02/11/19at 06:14; Admin Dose 40 MG; Start 02/11/19 at 06:00 Ceftriaxone Sodium 50 ml @ 100 mls/hr Q24H IVPB Last administered on 02/11/19at 16:20; Admin Dose 100 MLS/HR; Start 02/11/19 at 15:00 Diagnostic Test (Pha) (Accu-Chek) 1 ea 02 XX ; Start 02/11/19 at 02:00 Insulin Aspart (Novolog Insulin Pen) NOVOLOG *MODERATE* ALGORITHM WITH MEALS BEDTIME SC Last administered on 02/11/19at 12:26; Admin Dose 2 UNIT; Start 02/11/19 at 07:50 Miscellaneous Information 1 ea NOTE XX ; Start 02/10/19 at 23:00 Glucose (Glutose) 15 gm Q15M PRN PO DECREASED GLUCOSE; Start 02/10/19 at 23:00 Glucose (Glutose) 22.5 gm Q15M PRN PO DECREASED GLUCOSE; Start 02/10/19 at 23:00 Dextrose (D50w Syringe) 25 ml Q15M PRN IV DECREASED GLUCOSE; Start 02/10/19 at 23:00 Dextrose (D50w Syringe) 50 ml Q15M PRN IV DECREASED GLUCOSE; Start 02/10/19 at 23:00 Glucagon (Glucagen) 1 mg Q15M PRN IM DECREASED GLUCOSE; Start 02/10/19 at 23:00 Glucose (Glutose) 15 gm Q15M PRN BUCCAL DECREASED GLUCOSE; Start 02/10/19 at 23:00 GIANNA DE JESUS February 11, 2019 19:55
--- NOTE | 2019-02-11 20:29 | CONS ---
Assessment/Plan Assessment/Plan Hospital Course (Demo Recall) The patient is 73-year-old gentleman who presented from a [facility] facility with a history of gross hematuria. He does have a history of aortic aneurysm, hypertension, late syphilis, cerebrovascular disease, pneumonia, atrial fibrillation, diabetes, BPH and a history of urethral stricture. Patient is awake alert however cannot provide any detailed medical history. Most of the history was obtained from medical records. Patient had Cavanaugh catheter on admission and the urine was bloody but now it is clear. He recently finished Keflex for 10 days for UTI Presently the urine in the catheter is clear. I was concerned about the catheter not being all the way inside the bladder. I did hand irrigate it and it did irrigate well. I did deflate the balloon and advanced the catheter all the way inside the bladder, reinflated the balloon and irrigated it again and it did irrigate well. The rectal exam did not show a large prostate. And when I advanced the catheter into the bladder it did not feel that there is any stricture. For now we shall keep the catheter in and treat the infection and may try to give him another chance to urinate on his own. Consultation Date/Type/Reason Admit Date/Time February 10, 2019 Date of Consultation: February 11, 2019 Type of Consult Urology Reason for Consultation Hematuria Requesting Provider: CLARISA RODAS MD Date/Time of Note DATE: 02/11/19 TIME: 20:16 Hx of Present Illness The patient is 73-year-old gentleman who presented from a [facility] facility with a history of gross hematuria. He does have a history of aortic aneurysm, hypertension, late syphilis, cerebrovascular disease, pneumonia, atrial fibrillation, diabetes, BPH and a history of urethral stricture. Patient is awake alert however cannot provide any detailed medical history. Most of the history was obtained from medical records. Patient had Cavanaugh catheter on admission and the urine was bloody but now it is clear. He recently finished Keflex for 10 days for UTI Constitutional: other (Patient wants to sleep) Eyes: no complaints ENT: no complaints Respiratory: No shortness of breath Cardiovascular: No chest pain Gastrointestinal: No pain, No nausea, No vomiting Genitourinary: hematuria Skin: other (Patient has bedsores) Past Medical History Medical History: diabetes, hypertension Home Meds Active Scripts Cephalexin* (Keflex*) 500 Mg Capsule, 500 MG PO Q6, #40 CAP Prov:SANTOS HOLT MD 02/04/19 Reported Medications Lisinopril* (Lisinopril*) 40 Mg Tablet, 40 MG PO DAILY, #30 TAB 02/04/19 Magnesium Hydroxide* (Milk Of Magnesia*) 400 Mg/5 Ml Oral.susp, 30 ML PO BID, ML 02/04/19 Acetaminophen* (Tylenol*) 325 Mg Tablet, 650 MG PO Q4H PRN for MILD PAIN LEVEL 1-3, TAB AND FEVER >100f 02/04/19 Albuterol Sulfate* (Albuterol Sulfate* Neb) 0.083%-3 Ml Neb, 2.5 MG NEB Q4H PRN for WHEEZING AND SOB, #30 VIAL 02/04/19 Tamsulosin Hcl* (Flomax*) 0.4 Mg Cap.er.24h, 0.4 MG PO DAILY, CAP 02/04/19 Polyethylene Glycol* (Polyethylene Glycol*) 17 Gm Powd.pack, 17 GM PO DAILY, #30 PACKET 02/04/19 Melatonin (Melatonin) 5 Mg Tablet, 5 MG PO HS, TAB 02/04/19 Insulin Aspart* (Novolog Insulin Pen*) 100 Unit/Ml Soln, 0 SC .SLIDING SCALE AC, EA IF BS 150-199=2 UNITS. 200-249=4 UNITS, 250-299=6 UNITS,300-349-8 UNITS,350-399=10 UNITS,400-449=12 UNITS AND CALL . 02/04/19 Heparin Sodium,Porcine/Pf (HEPARIN SOD 5,000 UNIT/ 0.5 ML) 5,000 Unit/0.5 Ml Vial, 5000 UNIT IJ Q8H, VIAL 02/04/19 Bisacodyl (Dulcolax) 10 Mg Supp.rect, 10 MG RC DAILY, SUPP.RECT 02/04/19 Aspirin* (Aspirin* Chew) 81 Mg Tab.chew, 81 MG PO DAILY, TAB.CHEW 02/04/19 Amlodipine Besylate* (Amlodipine Besylate*) 10 Mg Tablet, 10 MG PO DAILY, #30 TAB 02/04/19 Amiodarone Hcl* (Amiodarone Hcl*) 200 Mg Tablet, 200 MG PO BID, #60 TAB 02/04/19 Discontinued Reported Medications Furosemide* (Furosemide*) 20 Mg Tablet, 20 MG PO BID, #30 TAB 02/04/19 Docusate Sodium* (Colace* Liq) 50 Mg/5 Ml Liquid, 10 ML PO BID, EA 02/04/19 Lisinopril* (Lisinopril*) 10 Mg Tablet, 10 MG PO DAILY, #30 TAB 02/04/19 Medications Current Medications Amiodarone HCl (Cordarone) 200 mg BID PO Last administered on 02/11/19at 08:39; Admin Dose 200 MG; Start 02/10/19 at 21:00 Amlodipine Besylate (Norvasc) 10 mg DAILY PO Last administered on 02/11/19at 08:38; Admin Dose 10 MG; Start 02/11/19 at 09:00 Lisinopril (Zestril) 40 mg DAILY PO Last administered on 02/11/19at 08:39; Admin Dose 40 MG; Start 02/11/19 at 09:00 Melatonin (Melatonin) 5 mg HS PO Last administered on 02/10/19at 20:47; Admin Dose 5 MG; Start 02/10/19 at 21:00 Tamsulosin HCl (Flomax) 0.4 mg DAILY PO Last administered on 02/11/19at 08:38; Admin Dose 0.4 MG; Start 02/11/19 at 09:00 Ondansetron HCl (Zofran Inj) 4 mg Q6H PRN IV NAUSEA/VOMITING; Start 02/10/19 at 18:00 Acetaminophen (Tylenol Tab) 650 mg Q6H PRN PO .PAIN 1-3 OR TEMP; Start 02/10/19 at 18:00 Docusate Sodium (Colace) 100 mg Q12H PRN PO .CONSTIPATION; Start 02/10/19 at 18:00 Bisacodyl (Dulcolax) 5 mg DAILY PRN PO .CONSTIPATION; Start 02/10/19 at 18:00 Pantoprazole (Protonix Tab) 40 mg DAILY@06 PO Last administered on 02/11/19at 06:14; Admin Dose 40 MG; Start 02/11/19 at 06:00 Ceftriaxone Sodium 50 ml @ 100 mls/hr Q24H IVPB Last administered on 02/11/19at 16:20; Admin Dose 100 MLS/HR; Start 02/11/19 at 15:00 Diagnostic Test (Pha) (Accu-Chek) 1 ea 02 XX ; Start 02/11/19 at 02:00 Insulin Aspart (Novolog Insulin Pen) NOVOLOG *MODERATE* ALGORITHM WITH MEALS BEDTIME SC Last administered on 02/11/19at 12:26; Admin Dose 2 UNIT; Start 02/11/19 at 07:50 Miscellaneous Information 1 ea NOTE XX ; Start 02/10/19 at 23:00 Glucose (Glutose) 15 gm Q15M PRN PO DECREASED GLUCOSE; Start 02/10/19 at 23:00 Glucose (Glutose) 22.5 gm Q15M PRN PO DECREASED GLUCOSE; Start 02/10/19 at 23:00 Dextrose (D50w Syringe) 25 ml Q15M PRN IV DECREASED GLUCOSE; Start 02/10/19 at 23:00 Dextrose (D50w Syringe) 50 ml Q15M PRN IV DECREASED GLUCOSE; Start 02/10/19 at 23:00 Glucagon (Glucagen) 1 mg Q15M PRN IM DECREASED GLUCOSE; Start 02/10/19 at 23:00 Glucose (Glutose) 15 gm Q15M PRN BUCCAL DECREASED GLUCOSE; Start 02/10/19 at 23:00 Allergies: Coded Allergies: No Known Allergy (Unverified , 02/10/19) Past Surgical History Past Surgical Hx: other (Status post aortic aneurysm repair) Social History Alcohol Use: other (Unknown) Smoking Status: Never smoker Exam/Review of Systems Exam Vitals Vital Signs Date Temp Pulse Resp B/P (MAP) Pulse Ox O2 O2 Flow FiO2 Time Delivery Rate 02/11/19 97.8 64 18 138/66 94 Room Air 14:26 (90) 02/10/19 2 15:05 Constitutional: alert, other (Cachectic) Psych: no complaints Head: normocephalic Eyes: nl conjunctiva ENMT: nl external ears & nose Neck: supple Respiratory: normal air movement, other (Scar on the chest and upper abdomen from his recent aortic aneurysm repair); No wheezing Cardiovascular: No jugular venous distention (JVD) Gastrointestinal: soft, other (Bladder is not distended) Genitourinary - Male: other (Has an indwelling Cavanaugh catheter that appeared not to be all the way inside the bladder.) Extremities: No calf tenderness, No edema Neurological: lethargic Skin: other (Bedsores) Results Result Diagram: 02/11/19 0430 02/11/19 0430 Results 24hrs Laboratory Tests Test 02/10/19 23:54 02/11/19 04:30 02/11/19 06:55 02/11/19 08:30 Bedside Glucose 142 113 White Blood Count 8.0 # Red Blood Count 3.15 L Hemoglobin 9.4 L Hematocrit 28.1 L Mean Corpuscular 89.2 Volume Mean Corpuscular 29.8 Hemoglobin Mean Corpuscular 33.5 Hemoglobin Concent Red Cell 15.0 H Distribution Width Platelet Count 253 Mean Platelet 8.8 Volume Immature 0.600 H Granulocytes % Neutrophils % 82.5 H Lymphocytes % 8.6 L Monocytes % 7.2 Eosinophils % 0.6 Basophils % 0.5 Nucleated Red 0.0 Blood Cells % Immature 0.050 H Granulocytes # Neutrophils # 6.6 Lymphocytes # 0.7 L Monocytes # 0.6 Eosinophils # 0.1 Basophils # 0.0 Nucleated Red 0.0 Blood Cells # Sodium Level 134 L Potassium Level 3.9 Chloride Level 101 Carbon Dioxide 27 Level Anion Gap 6 Blood Urea 7 Nitrogen Creatinine 0.54 L Est Glomerular Filtrat Rate mL/min Glucose Level 109 # Calcium Level 8.9 Lab Scanned Report REFERENCE LAB Test 02/11/19 12:19 02/11/19 17:49 Bedside Glucose 152 121 Medications Medication Current Medications Amiodarone HCl (Cordarone) 200 mg BID PO Last administered on 02/11/19 08:39; Admin Dose 200 MG; Start 02/10/19 at 21:00 Amlodipine Besylate (Norvasc) 10 mg DAILY PO Last administered on 02/11/19 08:38; Admin Dose 10 MG; Start 02/11/19 at 09:00 Lisinopril (Zestril) 40 mg DAILY PO Last administered on 02/11/19 08:39; Admin Dose 40 MG; Start 02/11/19 at 09:00 Melatonin (Melatonin) 5 mg HS PO Last administered on 02/10/19at 20:47; Admin Dose 5 MG; Start 02/10/19 at 21:00 Tamsulosin HCl (Flomax) 0.4 mg DAILY PO Last administered on 02/11/19 08:38; Admin Dose 0.4 MG; Start 02/11/19 at 09:00 Ondansetron HCl (Zofran Inj) 4 mg Q6H PRN IV NAUSEA/VOMITING; Start 02/10/19 at 18:00 Acetaminophen (Tylenol Tab) 650 mg Q6H PRN PO .PAIN 1-3 OR TEMP; Start 02/10/19 at 18:00 Docusate Sodium (Colace) 100 mg Q12H PRN PO .CONSTIPATION; Start 02/10/19 at 18:00 Bisacodyl (Dulcolax) 5 mg DAILY PRN PO .CONSTIPATION; Start 02/10/19 at 18:00 Pantoprazole (Protonix Tab) 40 mg DAILY@06 PO Last administered on 02/11/19at 06:14; Admin Dose 40 MG; Start 02/11/19 at 06:00 Ceftriaxone Sodium 50 ml @ 100 mls/hr Q24H IVPB Last administered on 02/11/19at 16:20; Admin Dose 100 MLS/HR; Start 02/11/19 at 15:00 Diagnostic Test (Pha) (Accu-Chek) 1 ea 02 XX ; Start 02/11/19 at 02:00 Insulin Aspart (Novolog Insulin Pen) NOVOLOG *MODERATE* ALGORITHM WITH MEALS BEDTIME SC Last administered on 02/11/19at 12:26; Admin Dose 2 UNIT; Start 02/11/19 at 07:50 Miscellaneous Information 1 ea NOTE XX ; Start 02/10/19 at 23:00 Glucose (Glutose) 15 gm Q15M PRN PO DECREASED GLUCOSE; Start 02/10/19 at 23:00 Glucose (Glutose) 22.5 gm Q15M PRN PO DECREASED GLUCOSE; Start 02/10/19 at 23:00 Dextrose (D50w Syringe) 25 ml Q15M PRN IV DECREASED GLUCOSE; Start 02/10/19 at 23:00 Dextrose (D50w Syringe) 50 ml Q15M PRN IV DECREASED GLUCOSE; Start 02/10/19 at 23:00 Glucagon (Glucagen) 1 mg Q15M PRN IM DECREASED GLUCOSE; Start 02/10/19 at 23:00 Glucose (Glutose) 15 gm Q15M PRN BUCCAL DECREASED GLUCOSE; Start 02/10/19 at 23:00 JEOVANNY VILLAGRAN MD February 11, 2019 20:28
[2019-02-11] MEDS: MELATONIN 5 MG TABLET PO SCH (21:16)
[2019-02-12] MEDS: ACCU-CHEK XX SCH (02:00)
[2019-02-12] MEDS: PANTOPRAZOLE (EC) 40 MG TAB PO SCH (06:20)
[2019-02-12 07:26] VITALS: BP 119/56; PULSE 51; RESP 18
[2019-02-12] MEDS: INSULIN ASPART [NOVOLOG] 3 ML PEN SC SCH ×4 (07:50→20:59)
[2019-02-12] MEDS: AMLODIPINE 10 MG TAB PO SCH (08:15)
[2019-02-12] MEDS: TAMSULOSIN (SR) 0.4 MG CAP PO SCH (08:15)
[2019-02-12] MEDS: AMIODARONE 200 MG TAB PO SCH ×2 (08:17→20:53)
[2019-02-12] MEDS: LISINOPRIL 20 MG TAB PO SCH (08:18)
--- NOTE | 2019-02-12 12:17 | PN ---
DATE: 02/12/2019 SUBJECTIVE: Patient denies any chest pain or shortness of breath. Urine is clear now. The patient was seen by Dr. Cristina yesterday and irrigated his Cavanaugh catheter and recommended to keep Cavanaugh in f or now and monitor closely. The patient did not have any fever or chills. The patient is awake, harvinder rt. VITAL SIGNS: Stable. Blood pressure 119/56, temperature 98.9, pulse 51, respirations 18, O2 saturat ion 100% on room air. HEENT: No eye discharge or redness. Conjunctivae normal. Oropharynx clear. NECK: No mass. CHEST: Fairly clear. CARDIOVASCULAR: S1, S2 normal. ABDOMEN: Soft, nondistended, nontender. EXTREMITIES: No edema. NEUROLOGIC: The patient is awake, alert, follows simple commands, does have generalized weakness. LABORATORY DATA: WBC 6.6, hemoglobin 9, platelet 243. Sodium 136, potassium 4.2, BUN 13, creatinine 38.7. Blood culture negative. Recent urine culture is negative after 48 hours. IMPRESSION: 1. Hematuria. 2. Recent urinary tract infection, status post antibiotic treatment. 3. History of aortic aneurysm repair. 4. Hypertension 5. History of CVA. 6. Atrial fibrillation. The patient is currently in sinus rhythm clinically and also had an EKG on 2018 which showed that he was in sinus rhythm. Patient also had EKG done on 02/10/2019 which al so revealed normal sinus rhythm. aortic aneurysm repair. The patient underwent repair of pseudoaneurysm innominate artery at a tertiary [facility] hospital recently. Dictated By: CLARISA MICHELLE/MELYSSA Conf#: [id number] DID#: [id number]
[2019-02-12 13:27] VITALS: BP 126/60; PULSE 62; RESP 18
[2019-02-12] MEDS: CEFTRIAXONE 1 GM/50 ML (PMX) 50 ML IVPB SCH (15:02)
--- NOTE | 2019-02-12 17:47 | CONS ---
DATE OF ADMISSION: 02/11/2019 DATE OF CONSULTATION: 02/12/2019 TYPE OF CONSULTATION: Infectious Disease REQUESTING PHYSICIAN: Klarissa Freeman NP Thank you for this consultation. HISTORY OF PRESENT ILLNESS: This is a chronically ill, debilitated, elderly man with a history of aortic aneurysm, hypertension, latent syphilis, CVA, pneumonia, atrial fibrillation, urinary retention, diabetes, BPH and history of urethral stricture with chronic Cavanaugh catheter. [facility] with [facility]. He is status post 10 days of Keflex for urinary tract infection. The patient came with white blood cell count of 15.5, H and H 10.2 and 30.8, platelets 293, neutrophils 90.3. Sodium 132, potassium 4.6, BUN 15, creatinine 0.7, normal bilirubin and LFT, alkaline phosphatase 126. All cultures have been negative since admission. Urinalysis was negative for nitrite, leukocyte esterase, positive for white blood cell. The patient has no allergies. He was started on IV Rocephin. The patient was seen by Dr. Cristina in urology consultation who recommends to keep the Cavanaugh catheter in. His rectal exam did not show a large prostate. LABORATORY DATA: WBC today 6.6 with platelets 243, neutrophils 76.3, BUN 13, creatinine 0.77. PHYSICAL EXAMINATION: GENERAL: This is a chronically ill-appearing, cachectic elderly man who is lethargic, in no distress. HEENT: Head atraumatic, normocephalic. Sclerae anicteric. Buccal mucosa dry. NECK: Supple. CHEST: Rise symmetrical. Breath sounds diminished to bases. HEART: S1, S2. ABDOMEN: Soft, bowel tones present. EXTREMITIES: Without cyanosis. DIAGNOSTIC IMPRESSION: A 73-year-old man admitted with sepsis secondary to urinary tract infection. The patient is being seen by Dr. Cristina. He has a chronic Cavanaugh catheter. His cultures are negative, likely secondary to the fact that he was on Keflex prior to admission. His white blood cell count improving, neutrophils normalized. We will continue him on IV Rocephin to complete 7 days' total. Discussed with Dr. Colvin who was covering Dr. Amaro. Dictated By: LUCINA DOMINGUEZ [employer] for [employer]/MELYSSA Conf#: [id number] [facility]#: [id number] MTDD
--- NOTE | 2019-02-12 18:13 | CONS ---
Consult Date/Type/Reason Admit Date/Time February 11, 2019 at 19:57 Initial Consult Date 02/11/19 Type of Consultation: Urology Reason for Consultation Hematuria Requesting Provider: CLARISA RODAS MD Date/Time of Note DATE: 02/12/19 TIME: 18:09 Subjective Patient is restless from time and tries to reach for the Cavanaugh catheter. Objective Vitals Vital Signs Date Temp Pulse Resp B/P (MAP) Pulse Ox O2 O2 Flow FiO2 Time Delivery Rate 02/12/19 99.2 62 18 126/60 99 13:27 (82) 02/11/19 Room Air 14:26 02/10/19 2 15:05 Intake and Output 02/11/19 02/11/19 02/12/19 1414:59 22:59 06:59 IntakeIntake Total 440 ml 300 ml OutputOutput Total 450 ml 350 ml BalanceBalance 440 ml -150 ml -350 ml Exam The Cavanaugh catheter is in place and it is draining clear urine. Urine culture showed no growth after 48 hours Results/Medications Result Diagram: 02/12/19 0444 02/12/19 0444 Results 24 hrs Laboratory Tests Test 02/11/19 21:14 02/12/19 04:44 02/12/19 08:20 02/12/19 12:34 Bedside Glucose 162 124 123 White Blood Count 6.6 Red Blood Count 2.99 L Hemoglobin 9.0 L Hematocrit 26.7 L Mean Corpuscular 89.3 Volume Mean Corpuscular 30.1 Hemoglobin Mean Corpuscular 33.7 Hemoglobin Concent Red Cell 14.9 H Distribution Width Platelet Count 243 Mean Platelet Volume 8.4 Immature 0.300 Granulocytes % Neutrophils % 76.3 Lymphocytes % 14.4 L Monocytes % 7.6 Eosinophils % 0.8 Basophils % 0.6 Nucleated Red Blood 0.0 Cells % Immature 0.020 Granulocytes # Neutrophils # 5.0 Lymphocytes # 1.0 Monocytes # 0.5 Eosinophils # 0.1 Basophils # 0.0 Nucleated Red Blood 0.0 Cells # Sodium Level 133 L Potassium Level 4.2 Chloride Level 100 Carbon Dioxide Level 27 Anion Gap 6 Blood Urea Nitrogen 13 Creatinine 0.77 Est Glomerular Filtrat Rate mL/min Glucose Level 99 Calcium Level 8.7 Test 02/12/19 17:47 Bedside Glucose 115 Home Meds Active Scripts Cephalexin* (Keflex*) 500 Mg Capsule, 500 MG PO Q6, #40 CAP Prov:SANTOS HOLT MD 02/04/19 Reported Medications Lisinopril* (Lisinopril*) 40 Mg Tablet, 40 MG PO DAILY, #30 TAB 02/04/19 Magnesium Hydroxide* (Milk Of Magnesia*) 400 Mg/5 Ml Oral.susp, 30 ML PO BID, ML 02/04/19 Acetaminophen* (Tylenol*) 325 Mg Tablet, 650 MG PO Q4H PRN for MILD PAIN LEVEL 1-3, TAB AND FEVER >100f 02/04/19 Albuterol Sulfate* (Albuterol Sulfate* Neb) 0.083%-3 Ml Neb, 2.5 MG NEB Q4H PRN for WHEEZING AND SOB, #30 VIAL 02/04/19 Tamsulosin Hcl* (Flomax*) 0.4 Mg Cap.er.24h, 0.4 MG PO DAILY, CAP 02/04/19 Polyethylene Glycol* (Polyethylene Glycol*) 17 Gm Powd.pack, 17 GM PO DAILY, #30 PACKET 02/04/19 Melatonin (Melatonin) 5 Mg Tablet, 5 MG PO HS, TAB 02/04/19 Insulin Aspart* (Novolog Insulin Pen*) 100 Unit/Ml Soln, 0 SC .SLIDING SCALE AC, EA IF BS 150-199=2 UNITS. 200-249=4 UNITS, 250-299=6 UNITS,300-349-8 UNITS,350-399=10 UNITS,400-449=12 UNITS AND CALL MD. 02/04/19 Heparin Sodium,Porcine/Pf (HEPARIN SOD 5,000 UNIT/ 0.5 ML) 5,000 Unit/0.5 Ml Vial, 5000 UNIT IJ Q8H, VIAL 02/04/19 Bisacodyl (Dulcolax) 10 Mg Supp.rect, 10 MG RC DAILY, SUPP.RECT 02/04/19 Aspirin* (Aspirin* Chew) 81 Mg Tab.chew, 81 MG PO DAILY, TAB.CHEW 02/04/19 Amlodipine Besylate* (Amlodipine Besylate*) 10 Mg Tablet, 10 MG PO DAILY, #30 TAB 02/04/19 Amiodarone Hcl* (Amiodarone Hcl*) 200 Mg Tablet, 200 MG PO BID, #60 TAB 02/04/19 Discontinued Reported Medications Furosemide* (Furosemide*) 20 Mg Tablet, 20 MG PO BID, #30 TAB 02/04/19 Docusate Sodium* (Colace* Liq) 50 Mg/5 Ml Liquid, 10 ML PO BID, EA 02/04/19 Medications Current Medications Amiodarone HCl (Cordarone) 200 mg BID PO Last administered on 02/12/19 08:17; Admin Dose 200 MG; Start 02/10/19 at 21:00 Amlodipine Besylate (Norvasc) 10 mg DAILY PO Last administered on 02/12/19at 08:15; Admin Dose 10 MG; Start 02/11/19 at 09:00 Lisinopril (Zestril) 40 mg DAILY PO Last administered on 02/12/19 08:18; Admin Dose 40 MG; Start 02/11/19 at 09:00 Melatonin (Melatonin) 5 mg HS PO Last administered on 02/11/19at 21:16; Admin Dose 5 MG; Start 02/10/19 at 21:00 Tamsulosin HCl (Flomax) 0.4 mg DAILY PO Last administered on 02/12/19at 08:15; Admin Dose 0.4 MG; Start 02/11/19 at 09:00 Ondansetron HCl (Zofran Inj) 4 mg Q6H PRN IV NAUSEA/VOMITING; Start 02/10/19 at 18:00 Acetaminophen (Tylenol Tab) 650 mg Q6H PRN PO .PAIN 1-3 OR TEMP; Start 02/10/19 at 18:00 Docusate Sodium (Colace) 100 mg Q12H PRN PO .CONSTIPATION; Start 02/10/19 at 18:00 Bisacodyl (Dulcolax) 5 mg DAILY PRN PO .CONSTIPATION; Start 02/10/19 at 18:00 Pantoprazole (Protonix Tab) 40 mg DAILY@06 PO Last administered on 02/12/19at 06:20; Admin Dose 40 MG; Start 02/11/19 at 06:00 Ceftriaxone Sodium 50 ml @ 100 mls/hr Q24H IVPB Last administered on 02/12/19at 15:02; Admin Dose 100 MLS/HR; Start 02/11/19 at 15:00 Diagnostic Test (Pha) (Accu-Chek) 1 ea 02 XX ; Start 02/11/19 at 02:00 Insulin Aspart (Novolog Insulin Pen) NOVOLOG *MODERATE* ALGORITHM WITH MEALS BEDTIME SC Last administered on 02/11/19at 12:26; Admin Dose 2 UNIT; Start 02/11/19 at 07:50 Miscellaneous Information 1 ea NOTE XX ; Start 02/10/19 at 23:00 Glucose (Glutose) 15 gm Q15M PRN PO DECREASED GLUCOSE; Start 02/10/19 at 23:00 Glucose (Glutose) 22.5 gm Q15M PRN PO DECREASED GLUCOSE; Start 02/10/19 at 23:00 Dextrose (D50w Syringe) 25 ml Q15M PRN IV DECREASED GLUCOSE; Start 02/10/19 at 23:00 Dextrose (D50w Syringe) 50 ml Q15M PRN IV DECREASED GLUCOSE; Start 02/10/19 at 23:00 Glucagon (Glucagen) 1 mg Q15M PRN IM DECREASED GLUCOSE; Start 02/10/19 at 23:00 Glucose (Glutose) 15 gm Q15M PRN BUCCAL DECREASED GLUCOSE; Start 02/10/19 at 23:00 Assessment/Plan Hospital Course (Demo Recall) The patient is 73-year-old gentleman who presented from a assisted facility with a history of gross hematuria. He does have a history of aortic aneurysm, hypertension, late syphilis, cerebrovascular disease, pneumonia, atrial fibrillation, diabetes, BPH and a history of urethral stricture. Patient is awake alert however cannot provide any detailed medical history. Most of the history was obtained from medical records. Patient had Cavanaugh catheter on admission and the urine was bloody. He recently finished Keflex for 10 days for UTI Presently the urine in the catheter is clear. He tends to reach for the catheter and pulled on it sometime. We will discontinue the Cavanaugh catheter in the morning and see if he is able to urinate on his own and check his postvoid residual. JEOVANNY VILLAGRAN MD February 12, 2019 18:13
[2019-02-12 19:25] VITALS: BP 143/62; PULSE 67; RESP 18
[2019-02-12] MEDS: MELATONIN 5 MG TABLET PO SCH (20:50)
[2019-02-13] MEDS: ACCU-CHEK XX SCH (02:00)
[2019-02-13 02:10] VITALS: BP 119/56; PULSE 58; RESP 20
[2019-02-13] MEDS: PANTOPRAZOLE (EC) 40 MG TAB PO SCH (06:58)
[2019-02-13] MEDS: INSULIN ASPART [NOVOLOG] 3 ML PEN SC SCH ×4 (07:50→21:00)
[2019-02-13 08:28] VITALS: BP 139/63; PULSE 56; RESP 19
[2019-02-13] MEDS: AMLODIPINE 10 MG TAB PO SCH (10:44)
[2019-02-13] MEDS: LISINOPRIL 20 MG TAB PO SCH (10:45)
[2019-02-13] MEDS: TAMSULOSIN (SR) 0.4 MG CAP PO SCH (10:45)
[2019-02-13] MEDS: AMIODARONE 200 MG TAB PO SCH ×2 (10:46→21:07)
[2019-02-13] MEDS: CEFTRIAXONE 1 GM/50 ML (PMX) 50 ML IVPB SCH (15:40)
[2019-02-13] MEDS: SOD CHLORIDE 0.45% 1,000 ML IV SCH (15:40)
[2019-02-13 16:57] VITALS: BP 151/69; PULSE 72
--- NOTE | 2019-02-13 17:09 | PN ---
Date/Time of Note Date/Time of Note DATE: 02/13/19 TIME: 17:07 Assessment/Plan VTE Prophylaxis Risk score (from Ns)>0 risk: 6 SCD applied (from Ns): Yes SCD contraindicated: other Pharmacological prophylaxis: other Pharm contraindication: other Lines/Catheters IV Catheter Type (from [facility]): Peripheral IV Urinary Cath still in place: No (Condom cath) Assessment/Plan Assessment/Plan 1. Hematuria. - PER UROLOGY 2. Recent urinary tract infection, status post antibiotic treatment. 3. History of aortic aneurysm repair. 4. Hypertension 5. History of CVA. 6. Atrial fibrillation. The patient is currently in sinus rhythm clinically and also had an EKG on 2019 which showed that he was in sinus rhythm. Patient also had EKG done on 02/10/2019 which also revealed normal sinus rhythm. 7. Aortic aneurysm repair. The patient underwent repair of pseudoaneurysm innominate artery at a tertiary care hospital recently. Patient seen in collaboration with Dr Moreno Result Diagram: 02/12/19 0444 02/12/19 0444 Results 24hrs Laboratory Tests Test 02/12/19 17:47 02/12/19 20:51 02/13/19 08:32 02/13/19 12:32 Bedside Glucose 115 129 127 126 Subjective 24 Hr Interval Summary Free Text/Dictation nad afebrile Hematuria positive no events reported last night dw staff Eyes: no complaints ENT: no complaints Respiratory: no complaints Cardiovascular: no complaints Gastrointestinal: no complaints Genitourinary: bleeding Musculoskeletal: no complaints Skin: no complaints Exam/Review of Systems Exam Vitals Vital Signs Date Temp Pulse Resp B/P (MAP) Pulse Ox O2 O2 Flow FiO2 Time Delivery Rate 02/13/19 98.4 72 151/69 98 16:57 (96) 02/13/19 19 08:28 02/13/19 Room Air 02:10 02/10/19 2 15:05 Intake and Output 02/12/19 02/12/19 02/13/19 1515:00 23:00 07:00 IntakeIntake Total 170 ml 120 ml OutputOutput Total 250 ml 400 ml BalanceBalance -80 ml -280 ml Constitutional: alert, well developed Psych: nl mood/affect Head: atraumatic Eyes: nl lids, nl sclera ENMT: nl external ears & nose Neck: non-tender Respiratory: clear to auscultation Cardiovascular: nl pulses, other Gastrointestinal: soft, non-tender Genitourinary - Male: other Musculoskeletal: nl extremities to inspection Extremities: normal pulses Neurological: nl speech, other Results Results 24hrs Laboratory Tests Test 02/12/19 17:47 02/12/19 20:51 02/13/19 08:32 02/13/19 12:32 Bedside Glucose 115 129 127 126 Medications Medication Current Medications Amiodarone HCl (Cordarone) 200 mg BID PO Last administered on 02/13/19 10:46; Admin Dose 200 MG; Start 02/10/19 at 21:00 Amlodipine Besylate (Norvasc) 10 mg DAILY PO Last administered on 02/13/19 10:44; Admin Dose 10 MG; Start 02/11/19 at 09:00 Lisinopril (Zestril) 40 mg DAILY PO Last administered on 02/13/19 10:45; Admin Dose 40 MG; Start 02/11/19 at 09:00 Melatonin (Melatonin) 5 mg HS PO Last administered on 02/12/19 20:50; Admin Dose 5 MG; Start 02/10/19 at 21:00 Tamsulosin HCl (Flomax) 0.4 mg DAILY PO Last administered on 02/13/19 10:45; Admin Dose 0.4 MG; Start 02/11/19 at 09:00 Ondansetron HCl (Zofran Inj) 4 mg Q6H PRN IV NAUSEA/VOMITING; Start 02/10/19 at 18:00 Acetaminophen (Tylenol Tab) 650 mg Q6H PRN PO .PAIN 1-3 OR TEMP; Start 02/10/19 at 18:00 Docusate Sodium (Colace) 100 mg Q12H PRN PO .CONSTIPATION; Start 02/10/19 at 18:00 Bisacodyl (Dulcolax) 5 mg DAILY PRN PO .CONSTIPATION; Start 02/10/19 at 18:00 Pantoprazole (Protonix Tab) 40 mg DAILY@06 PO Last administered on 02/13/19 06:58; Admin Dose 40 MG; Start 02/11/19 at 06:00 Ceftriaxone Sodium 50 ml @ 100 mls/hr Q24H IVPB Last administered on 02/13/19 15:40; Admin Dose 100 MLS/HR; Start 02/11/19 at 15:00 Diagnostic Test (Pha) (Accu-Chek) 1 ea 02 XX ; Start 02/11/19 at 02:00 Insulin Aspart (Novolog Insulin Pen) NOVOLOG *MODERATE* ALGORITHM WITH MEALS BEDTIME SC Last administered on 02/11/19at 12:26; Admin Dose 2 UNIT; Start 02/11/19 at 07:50 Miscellaneous Information 1 ea NOTE XX ; Start 02/10/19 at 23:00 Glucose (Glutose) 15 gm Q15M PRN PO DECREASED GLUCOSE; Start 02/10/19 at 23:00 Glucose (Glutose) 22.5 gm Q15M PRN PO DECREASED GLUCOSE; Start 02/10/19 at 23:00 Dextrose (D50w Syringe) 25 ml Q15M PRN IV DECREASED GLUCOSE; Start 02/10/19 at 23:00 Dextrose (D50w Syringe) 50 ml Q15M PRN IV DECREASED GLUCOSE; Start 02/10/19 at 23:00 Glucagon (Glucagen) 1 mg Q15M PRN IM DECREASED GLUCOSE; Start 02/10/19 at 23:00 Glucose (Glutose) 15 gm Q15M PRN BUCCAL DECREASED GLUCOSE; Start 02/10/19 at 2 3:00 Sodium Chloride 1,000 ml @ 50 mls/hr Q20H IV Last administered on 02/13/19at 15:40; Admin Dose 50 MLS/HR; Start 02/13/19 at 15:30 CAMILLE NIEVES February 13, 2019 17:09
--- NOTE | 2019-02-13 18:41 | CONS ---
Assessment/Plan Assessment/Plan Hospital Course (Demo Recall) ID PROGRESS NOTE CURRENT ABX: DAY #=>Ceftriaxone 24H INTERVAL SUMMARY * Patient w/dementia and non-verbal, no fever, VSS, NAD HPI * 73-yo M admit from SNF with UTI and gross hematuria. Patient had Cavanaugh cat heter on admission and the urine was bloody. He recently finished Keflex for 10 days for UTI. PMHX: * Aortic aneurysm, hypertension, late syphilis, cerebrovascular disease, pneu monia, atrial fibrillation, diabetes, BPH and a history of urethral stricture IMAGING * 12/30/18 CT BRAIN: Diffuse ventriculomegaly, cannot rule out normal pressure hydrocephalus. Periventricular low density area suggestive of deep white matter ischemic changes. Proportionate overlying brain atrophy seen. Brain stem, posterior fossa appears unremarkable. MICRO/OTHER * 02/10/19 BCX (-) * 02/10/19 URINE CX: (-) * 02/04/19 URINE CX: URINE CULTURE Final Organism 1 CITROBACTER KOSERI COLONY COUNT 80,000 - 90,000 CFU/ml C KOSERI M.I.C. RX --------- --- CEFOTAXIME S CIPROFLOXACIN 1 S GENTAMICIN <=1 S LEVOFLOXACIN 1 S NITROFURANTOIN 32 S TOBRAMYCIN <=1 S TRIMETHOPRIM/SULFAMETHOXAZOLE <=20 S PHYSICAL EXAMINATION: GENERAL: VSS, NAD, HEENT: AT, NC, NECK: WNL CHEST: Equal chest rise bilaterally without dyspnea on observation ABD: Soft, ND EXTREMITIES: Warm, dry SKIN: No rash, no diaphoresis ID ASSESSMENT 73 yo M admit with: 1. Gross Hematuria. 2. Recent GNR urinary tract infection, status post antibiotic treatment. 3. Urethral stricture -- urinary retention requires FC intermittent 4. Hypertension 5. 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 Atrial fibrillation. The patient is currently in sinus rhythm clinically and also had an EKG on 2019 which showed that he was in sinus rhythm. Patient also had EKG done on 02/10/2019 which also revealed normal sinus rhythm. 7. Aortic aneurysm repair. The patient underwent repair of pseudoaneurysm innominate artery at a tertiary care hospital recently. ABX ALLERGIES: NKDA INVASIVES: PIV CURRENT ABX: DAY # =>Ceftriaxone ID RECOMMENDATIONS/PLAN: 1. Per ID colleague -- treat for total 7 days w/current ABX 2. Follow recommendations re: urethral stricture & FC removal, PVRs . Consultation Date/Type/Reason Admit Date/Time February 11, 2019 at 19:57 Initial Consult Date 02/11/19 Requesting Provider: CLARISA RODAS MD Date/Time of Note DATE: 02/13/19 TIME: 18:40 Exam/Review of Systems Exam Vitals Vital Signs Date Temp Pulse Resp B/P (MAP) Pulse Ox O2 O2 Flow FiO2 Time Delivery Rate 02/13/19 98.4 72 151/69 98 16:57 (96) 02/13/19 08:28 02/13/19 Room Air 02:10 02/10/19 2 15:05 Intake and Output 02/12/19 02/12/19 02/13/19 1515:00 23:00 07:00 IntakeIntake Total 170 ml 120 ml OutputOutput Total 250 ml 400 ml BalanceBalance -80 ml -280 ml Results Result Diagram: 02/12/19 0444 02/12/19 0444 Results 24hrs Laboratory Tests Test 02/12/19 20:51 02/13/19 08:32 02/13/19 12:32 02/13/19 18:06 Bedside Glucose 129 127 126 174 Medications Medication Current Medications Amiodarone HCl (Cordarone) 200 mg BID PO Last administered on 02/13/19 10:46; Admin Dose 200 MG; Start 02/10/19 at 21:00 Amlodipine Besylate (Norvasc) 10 mg DAILY PO Last administered on 02/13/19 10:44; Admin Dose 10 MG; Start 02/11/19 at 09:00 Lisinopril (Zestril) 40 mg DAILY PO Last administered on 02/13/19 10:45; Admin Dose 40 MG; Start 02/11/19 at 09:00 Melatonin (Melatonin) 5 mg HS PO Last administered on 02/12/19at 20:50; Admin Dose 5 MG; Start 02/10/19 at 21:00 Tamsulosin HCl (Flomax) 0.4 mg DAILY PO Last administered on 02/13/19 10:45; Admin Dose 0.4 MG; Start 02/11/19 at 09:00 Ondansetron HCl (Zofran Inj) 4 mg Q6H PRN IV NAUSEA/VOMITING; Start 02/10/19 at 18:00 Acetaminophen (Tylenol Tab) 650 mg Q6H PRN PO .PAIN 1-3 OR TEMP; Start 02/10/19 at 18:00 Docusate Sodium (Colace) 100 mg Q12H PRN PO .CONSTIPATION; Start 02/10/19 at 18:00 Bisacodyl (Dulcolax) 5 mg DAILY PRN PO .CONSTIPATION; Start 02/10/19 at 18:00 Pantoprazole (Protonix Tab) 40 mg DAILY@06 PO Last administered on 02/13/19at 06:58; Admin Dose 40 MG; Start 02/11/19 at 06:00 Ceftriaxone Sodium 50 ml @ 100 mls/hr Q24H IVPB Last administered on 02/13/19at 15:40; Admin Dose 100 MLS/HR; Start 02/11/19 at 15:00 Diagnostic Test (Pha) (Accu-Chek) 1 ea 02 XX ; Start 02/11/19 at 02:00 Insulin Aspart (Novolog Insulin Pen) NOVOLOG *MODERATE* ALGORITHM WITH MEALS BEDTIME SC Last administered on 02/13/19at 18:17; Admin Dose 2 UNIT; Start 02/11/19 at 07:50 Miscellaneous Information 1 ea NOTE XX ; Start 02/10/19 at 23:00 Glucose (Glutose) 15 gm Q15M PRN PO DECREASED GLUCOSE; Start 02/10/19 at 23:00 Glucose (Glutose) 22.5 gm Q15M PRN PO DECREASED GLUCOSE; Start 02/10/19 at 23:00 Dextrose (D50w Syringe) 25 ml Q15M PRN IV DECREASED GLUCOSE; Start 02/10/19 at 23:00 Dextrose (D50w Syringe) 50 ml Q15M PRN IV DECREASED GLUCOSE; Start 02/10/19 at 23:00 Glucagon (Glucagen) 1 mg Q15M PRN IM DECREASED GLUCOSE; Start 02/10/19 at 23:00 Glucose (Glutose) 15 gm Q15M PRN BUCCAL DECREASED GLUCOSE; Start 02/10/19 at 23:00 Sodium Chloride 1,000 ml @ 50 mls/hr Q20H IV Last administered on 02/13/19at 15:40; Admin Dose 50 MLS/HR; Start 02/13/19 at 15:30 DAYAN DAILEY NP February 13, 2019 18:41
[2019-02-13 19:20] VITALS: BP 153/69; PULSE 66; RESP 20
[2019-02-13] MEDS: MELATONIN 5 MG TABLET PO SCH (21:07)
[2019-02-14] MEDS: ACCU-CHEK XX SCH (02:00)
[2019-02-14 02:10] VITALS: BP 155/65; PULSE 63; RESP 20
[2019-02-14] MEDS: PANTOPRAZOLE (EC) 40 MG TAB PO SCH (05:16)
--- NOTE | 2019-02-14 06:12 | PN ---
Date/Time of Note Date/Time of Note DATE: 02/14/19 TIME: 06:12 Assessment/Plan VTE Prophylaxis Risk score (from Ns)>0 risk: 6 SCD applied (from Ns): Yes SCD contraindicated: other Pharmacological prophylaxis: other Pharm contraindication: other Lines/Catheters [facility] IV Urinary Cath still in place: No (Condom catheter) Assessment/Plan Assessment/Plan 1. Hematuria. - PER UROLOGY 2. Recent urinary tract infection, status post antibiotic treatment. 3. History of aortic aneurysm repair. 4. Hypertension 5. History of CVA. 6. Atrial fibrillation. The patient is currently in sinus rhythm clinically and also had an EKG on 2019 which showed that he was in sinus rhythm. Patient also had EKG done on 02/10/2019 which also revealed normal sinus rhythm. 7. Aortic aneurysm repair. The patient underwent repair of pseudoaneurysm innominate artery at a tertiary care hospital recently. dw Dr Moreno Result Diagram: 02/12/19 0444 02/12/19 0444 Results 24hrs Laboratory Tests Test 02/13/19 08:32 02/13/19 12:32 02/13/19 18:06 02/13/19 21:05 Bedside Glucose 127 126 174 161 Exam/Review of Systems Exam Vitals Vital Signs Date Temp Pulse Resp B/P (MAP) Pulse Ox O2 O2 Flow FiO2 Time Delivery Rate 02/14/19 98.2 63 20 155/65 98 Room Air 02:10 (95) 02/10/19 2 15:05 Intake and Output 02/13/19 02/13/19 02/14/19 1515:00 23:00 07:00 IntakeIntake Total 340 ml 540 ml BalanceBalance 340 ml 540 ml Constitutional: alert, well developed Psych: nl mood/affect Head: atraumatic Eyes: nl lids ENMT: nl external ears & nose Neck: non-tender Respiratory: clear to auscultation Cardiovascular: nl pulses, other (s1s2) Gastrointestinal: soft, non-tender Neurological: other (alert/reponsive) Skin: nl turgor Lymph: nontender Results Results 24hrs Laboratory Tests Test 02/13/19 08:32 02/13/19 12:32 02/13/19 18:06 02/13/19 21:05 Bedside Glucose 127 126 174 161 Medications Medication Current Medications Amiodarone HCl (Cordarone) 200 mg BID PO Last administered on 02/13/19 21:07; Admin Dose 200 MG; Start 02/10/19 at 21:00 Amlodipine Besylate (Norvasc) 10 mg DAILY PO Last administered on 02/13/19 10:44; Admin Dose 10 MG; Start 02/11/19 at 09:00 Lisinopril (Zestril) 40 mg DAILY PO Last administered on 02/13/19 10:45; Admin Dose 40 MG; Start 02/11/19 at 09:00 Melatonin (Melatonin) 5 mg HS PO Last administered on 02/13/19 21:07; Admin Dose 5 MG; Start 02/10/19 at 21:00 Tamsulosin HCl (Flomax) 0.4 mg DAILY PO Last administered on 02/13/19 10:45; Admin Dose 0.4 MG; Start 02/11/19 at 09:00 Ondansetron HCl (Zofran Inj) 4 mg Q6H PRN IV NAUSEA/VOMITING; Start 02/10/19 at 18:00 Acetaminophen (Tylenol Tab) 650 mg Q6H PRN PO .PAIN 1-3 OR TEMP; Start 02/10/19 at 18:00 Docusate Sodium (Colace) 100 mg Q12H PRN PO .CONSTIPATION; Start 02/10/19 at 18:00 Bisacodyl (Dulcolax) 5 mg DAILY PRN PO .CONSTIPATION; Start 02/10/19 at 18:00 Pantoprazole (Protonix Tab) 40 mg DAILY@06 PO Last administered on 02/14/19at 05:16; Admin Dose 40 MG; Start 02/11/19 at 06:00 Ceftriaxone Sodium 50 ml @ 100 mls/hr Q24H IVPB Last administered on 02/13/19at 15:40; Admin Dose 100 MLS/HR; Start 02/11/19 at 15:00 Diagnostic Test (Pha) (Accu-Chek) 1 ea 02 XX ; Start 02/11/19 at 02:00 Insulin Aspart (Novolog Insulin Pen) NOVOLOG *MODERATE* ALGORITHM WITH MEALS BEDTIME SC Last administered on 02/13/19 18:17; Admin Dose 2 UNIT; Start 02/11/19 at 07:50 Miscellaneous Information 1 ea NOTE XX ; Start 02/10/19 at 23:00 Glucose (Glutose) 15 gm Q15M PRN PO DECREASED GLUCOSE; Start 02/10/19 at 23:00 Glucose (Glutose) 22.5 gm Q15M PRN PO DECREASED GLUCOSE; Start 02/10/19 at 23:00 Dextrose (D50w Syringe) 25 ml Q15M PRN IV DECREASED GLUCOSE; Start 02/10/19 at 23:00 Dextrose (D50w Syringe) 50 ml Q15M PRN IV DECREASED GLUCOSE; Start 02/10/19 at 23:00 Glucagon (Glucagen) 1 mg Q15M PRN IM DECREASED GLUCOSE; Start 02/10/19 at 23:00 Glucose (Glutose) 15 gm Q15M PRN BUCCAL DECREASED GLUCOSE; Start 02/10/19 at 23:00 Sodium Chloride 1,000 ml @ 50 mls/hr Q20H IV Last administered on 02/13/19at 15:40; Admin Dose 50 MLS/HR; Start 02/13/19 at 15:30 CAMILLE NIEVES February 14, 2019 06:12
[2019-02-14 08:18] VITALS: BP 156/68; PULSE 60; RESP 16
[2019-02-14] MEDS: INSULIN ASPART [NOVOLOG] 3 ML PEN SC SCH ×4 (09:20→21:00)
[2019-02-14] MEDS: LISINOPRIL 20 MG TAB PO SCH (09:21)
[2019-02-14] MEDS: AMLODIPINE 10 MG TAB PO SCH (09:21)
[2019-02-14] MEDS: TAMSULOSIN (SR) 0.4 MG CAP PO SCH (09:21)
[2019-02-14] MEDS: AMIODARONE 200 MG TAB PO SCH ×2 (09:21→21:23)
--- NOTE | 2019-02-14 12:14 | CONS ---
Assessment/Plan Assessment/Plan Hospital Course (Demo Recall) ID PROGRESS NOTE CURRENT ABX: DAY #4 =>Ceftriaxone 24H INTERVAL SUMMARY * Awake alert, in pain due to suprapubic distension -- Urinary retension due to hx of severe urethral stricture -- FC dependent, * FC was DC'd with instructions for PVR -- PVR with high volume; RNs not able to pass the In/Out catheter due to urethral stricture --- Dr. Cristina aware and to come in to assess. Admitted with gross hematuria and GNR UTI from 02/04/19 * Today => no fever, VSS HPI * 73-yo M admit from SNF with UTI and gross hematuria. Patient had Cavanaugh catheter on admission and the urine was bloody. He recently finished Keflex for 10 days for UTI. PMHX: * Aortic aneurysm, hypertension, late syphilis, cerebrovascular disease, pneumonia, atrial fibrillation, diabetes, BPH and a history of urethral stricture IMAGING * 12/30/18 CT BRAIN: Diffuse ventriculomegaly, cannot rule out normal pressure hydrocephalus. Periventricular low density area suggestive of deep white matter ischemic changes. Proportionate overlying brain atrophy seen. Brain stem, posterior fossa appears unremarkable. MICRO/OTHER * 02/10/19 BCX (-) * 02/10/19 URINE CX: (-) * 02/04/19 URINE CX: URINE CULTURE Final Organism 1 CITROBACTER KOSERI COLONY COUNT 80,000 - 90,000 CFU/ml C KOSERI M.I.C. RX --------- --- CEFOTAXIME S CIPROFLOXACIN 1 S GENTAMICIN <=1 S LEVOFLOXACIN 1 S NITROFURANTOIN 32 S TOBRAMYCIN <=1 S TRIMETHOPRIM/SULFAMETHOXAZOLE <=20 S PHYSICAL EXAMINATION: GENERAL: VSS, NAD, HEENT: AT, NC, NECK: WNL CHEST: Equal chest rise bilaterally without dyspnea on observation ABD: Soft, ND EXTREMITIES: Warm, dry SKIN: No rash, no diaphoresis ID ASSESSMENT 73 yo M admit with: 1. Gross Hematuria-- due to FC and severe urethral stricture. 2. Recent GNR urinary tract infection, status post antibiotic treatment. 3. Urethral stricture -- urinary retention requires FC intermittent * Severe urethral stricture - urinary retention post FC removal, PVRs high 4. Hypertension 5. 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 Atrial fibrillation. The patient is currently in sinus rhythm clinically and also had an EKG on 2019 which showed that he was in sinus rhythm. Patient a lso had EKG done on 02/10/2019 which also revealed normal sinus rhythm. 7. Aortic aneurysm repair. The patient underwent repair of pseudoaneurysm innominate artery at a tertiary care hospital recently. ABX ALLERGIES: NKDA INVASIVES: PIV CURRENT ABX: DAY # 4=>Ceftriaxone ID RECOMMENDATIONS/PLAN: 1. Per ID colleague -- treat for total 7 days w/current ABX 2. Follow recommendations re: Severe urethral stricture - urinary retention post FC removal, PVRs high * Needs FC re-inserted in order to void . Consultation Date/Type/Reason Admit Date/Time February 11, 2019 at 19:57 Initial Consult Date 02/11/19 Requesting Provider: CLARISA RODAS MD Date/Time of Note DATE: 02/14/19 TIME: 12:08 Exam/Review of Systems Exam Vitals Vital Signs Date Temp Pulse Resp B/P (MAP) Pulse Ox O2 O2 Flow FiO2 Time Delivery Rate 02/14/19 97.8 60 16 156/68 99 08:18 (97) 02/14/19 Room Air 02:10 02/10/19 2 15:05 Intake and Output 02/13/19 02/13/19 02/14/19 1515:00 23:00 07:00 IntakeIntake Total 340 ml 780 ml 240 ml OutputOutput Total 450 ml BalanceBalance 340 ml 330 ml 240 ml Results Result Diagram: 02/12/19 0444 02/12/19 0444 Results 24hrs Laboratory Tests Test 02/13/19 12:32 02/13/19 18:06 02/13/19 21:05 02/14/19 09:20 Bedside Glucose 126 174 161 107 Medications Medication Current Medications Amiodarone HCl (Cordarone) 200 mg BID PO Last administered on 02/14/19at 09:21; Admin Dose 200 MG; Start 02/10/19 at 21:00 Amlodipine Besylate (Norvasc) 10 mg DAILY PO Last administered on 02/14/19at 09:21; Admin Dose 10 MG; Start 02/11/19 at 09:00 Lisinopril (Zestril) 40 mg DAILY PO Last administered on 02/14/19at 09:21; Admin Dose 40 MG; Start 02/11/19 at 09:00 Melatonin (Melatonin) 5 mg HS PO Last administered on 02/13/19at 21:07; Admin Dose 5 MG; Start 02/10/19 at 21:00 Tamsulosin HCl (Flomax) 0.4 mg DAILY PO Last administered on 02/14/19at 09:21; Admin Dose 0.4 MG; Start 02/11/19 at 09:00 Ondansetron HCl (Zofran Inj) 4 mg Q6H PRN IV NAUSEA/VOMITING; Start 02/10/19 at 18:00 Acetaminophen (Tylenol Tab) 650 mg Q6H PRN PO .PAIN 1-3 OR TEMP; Start 02/10/19 at 18:00 Docusate Sodium (Colace) 100 mg Q12H PRN PO .CONSTIPATION; Start 02/10/19 at 18:00 Bisacodyl (Dulcolax) 5 mg DAILY PRN PO .CONSTIPATION; Start 02/10/19 at 18:00 Pantoprazole (Protonix Tab) 40 mg DAILY@06 PO Last administered on 02/14/19at 05:16; Admin Dose 40 MG; Start 02/11/19 at 06:00 Ceftriaxone Sodium 50 ml @ 100 mls/hr Q24H IVPB Last administered on 02/13/19at 15:40; Admin Dose 100 MLS/HR; Start 02/11/19 at 15:00 Diagnostic Test (Pha) (Accu-Chek) 1 ea 02 XX ; Start 02/11/19 at 02:00 Insulin Aspart (Novolog Insulin Pen) NOVOLOG *MODERATE* ALGORITHM WITH MEALS BEDTIME SC Last administered on 02/13/19at 18:17; Admin Dose 2 UNIT; Start 02/11/19 at 07:50 Miscellaneous Information 1 ea NOTE XX ; Start 02/10/19 at 23:00 Glucose (Glutose) 15 gm Q15M PRN PO DECREASED GLUCOSE; Start 02/10/19 at 23:00 Glucose (Glutose) 22.5 gm Q15M PRN PO DECREASED GLUCOSE; Start 02/10/19 at 23:00 Dextrose (D50w Syringe) 25 ml Q15M PRN IV DECREASED GLUCOSE; Start 02/10/19 at 23:00 Dextrose (D50w Syringe) 50 ml Q15M PRN IV DECREASED GLUCOSE; Start 02/10/19 at 23:00 Glucagon (Glucagen) 1 mg Q15M PRN IM DECREASED GLUCOSE; Start 02/10/19 at 23:00 Glucose (Glutose) 15 gm Q15M PRN BUCCAL DECREASED GLUCOSE; Start 02/10/19 at 23:00 Sodium Chloride 1,000 ml @ 50 mls/hr Q20H IV Last administered on 02/13/19at 15:40; Admin Dose 50 MLS/HR; Start 02/13/19 at 15:30 DAYAN DAILEY NP February 14, 2019 12:14
[2019-02-14] MEDS: SOD CHLORIDE 0.45% 1,000 ML IV SCH (12:41)
[2019-02-14] MEDS: CEFTRIAXONE 1 GM/50 ML (PMX) 50 ML IVPB SCH (14:35)
[2019-02-14 15:23] VITALS: BP 142/64; PULSE 59; RESP 18
--- NOTE | 2019-02-14 17:52 | CONS ---
Consult Date/Type/Reason Admit Date/Time February 11, 2019 at 19:57 Initial Consult Date 02/11/19 Type of Consultation: Urology Reason for Consultation Hematuria at the time of admission and urinary retention. Requesting Provider: CLARISA RODAS MD Date/Time of Note DATE: 02/14/19 TIME: 17:45 Subjective The patient is weak and laying in bed. He responds and very soft voice. Objective Vitals Vital Signs Date Temp Pulse Resp B/P (MAP) Pulse Ox O2 O2 Flow FiO2 Time Delivery Rate 02/14/19 98.7 59 18 142/64 100 15:23 (90) 02/14/19 Room Air 02:10 02/10/19 2 15:05 Intake and Output 02/13/19 02/13/19 02/14/19 1515:00 23:00 07:00 IntakeIntake Total 340 ml 780 ml 240 ml OutputOutput Total 450 ml BalanceBalance 340 ml 330 ml 240 ml Exam The patient had the urinal at his bedside and had urinated and it and the urine is clear. I did do bladder scan on him and the bladder volume was about 157 mL. The abdomen is soft and the bladder is not percussible Results/Medications Result Diagram: 02/12/19 0444 02/12/19 0444 Results 24 hrs Laboratory Tests Test 02/13/19 18:06 02/13/19 21:05 02/14/19 09:20 02/14/19 12:40 Bedside Glucose 174 161 107 238 H Home Meds Active Scripts Cephalexin* (Keflex*) 500 Mg Capsule, 500 MG PO Q6, #40 CAP Prov:SANTOS HOLT MD 02/04/19 Reported Medications Lisinopril* (Lisinopril*) 40 Mg Tablet, 40 MG PO DAILY, #30 TAB 02/04/19 Magnesium Hydroxide* (Milk Of Magnesia*) 400 Mg/5 Ml Oral.susp, 30 ML PO BID, ML 02/04/19 Acetaminophen* (Tylenol*) 325 Mg Tablet, 650 MG PO Q4H PRN for MILD PAIN LEVEL 1-3, TAB AND FEVER >100f 02/04/19 Albuterol Sulfate* (Albuterol Sulfate* Neb) 0.083%-3 Ml Neb, 2.5 MG NEB Q4H PRN for WHEEZING AND SOB, #30 VIAL 02/04/19 Tamsulosin Hcl* (Flomax*) 0.4 Mg Cap.er.24h, 0.4 MG PO DAILY, CAP 02/04/19 Polyethylene Glycol* (Polyethylene Glycol*) 17 Gm Powd.pack, 17 GM PO DAILY, #30 PACKET 02/04/19 Melatonin (Melatonin) 5 Mg Tablet, 5 MG PO HS, TAB 02/04/19 Insulin Aspart* (Novolog Insulin Pen*) 100 Unit/Ml Soln, 0 SC .SLIDING SCALE AC, JINA IF BS 150-199=2 UNITS. 200-249=4 UNITS, 250-299=6 UNITS,300-349-8 UNITS,350-399=10 UNITS,400-449=12 UNITS AND CALL MD. 02/04/19 Heparin Sodium,Porcine/Pf (HEPARIN SOD 5,000 UNIT/ 0.5 ML) 5,000 Unit/0.5 Ml Vial, 5000 UNIT IJ Q8H, VIAL 02/04/19 Bisacodyl (Dulcolax) 10 Mg Supp.rect, 10 MG RC DAILY, SUPP.RECT 02/04/19 Aspirin* (Aspirin* Chew) 81 Mg Tab.chew, 81 MG PO DAILY, TAB.CHEW 02/04/19 Amlodipine Besylate* (Amlodipine Besylate*) 10 Mg Tablet, 10 MG PO DAILY, #30 TAB 02/04/19 Amiodarone Hcl* (Amiodarone Hcl*) 200 Mg Tablet, 200 MG PO BID, #60 TAB 02/04/19 Discontinued Reported Medications Furosemide* (Furosemide*) 20 Mg Tablet, 20 MG PO BID, #30 TAB 02/04/19 Docusate Sodium* (Colace* Liq) 50 Mg/5 Ml Liquid, 10 ML PO BID, EA 02/04/19 Medications Current Medications Amiodarone HCl (Cordarone) 200 mg BID PO Last administered on 02/14/19at 09:21; Admin Dose 200 MG; Start 02/10/19 at 21:00 Amlodipine Besylate (Norvasc) 10 mg DAILY PO Last administered on 02/14/19at 09:21; Admin Dose 10 MG; Start 02/11/19 at 09:00 Lisinopril (Zestril) 40 mg DAILY PO Last administered on 02/14/19at 09:21; Admin Dose 40 MG; Start 02/11/19 at 09:00 Melatonin (Melatonin) 5 mg HS PO Last administered on 02/13/19at 21:07; Admin Dose 5 MG; Start 02/10/19 at 21:00 Tamsulosin HCl (Flomax) 0.4 mg DAILY PO Last administered on 02/14/19at 09:21; Admin Dose 0.4 MG; Start 02/11/19 at 09:00 Ondansetron HCl (Zofran Inj) 4 mg Q6H PRN IV NAUSEA/VOMITING; Start 02/10/19 at 18:00 Acetaminophen (Tylenol Tab) 650 mg Q6H PRN PO .PAIN 1-3 OR TEMP; Start 02/10/19 at 18:00 Docusate Sodium (Colace) 100 mg Q12H PRN PO .CONSTIPATION; Start 02/10/19 at 18:00 Bisacodyl (Dulcolax) 5 mg DAILY PRN PO .CONSTIPATION; Start 02/10/19 at 18:00 Pantoprazole (Protonix Tab) 40 mg DAILY@06 PO Last administered on 02/14/19at 05:16; Admin Dose 40 MG; Start 02/11/19 at 06:00 Ceftriaxone Sodium 50 ml @ 100 mls/hr Q24H IVPB Last administered on 02/14/19at 14:35; Admin Dose 100 MLS/HR; Start 02/11/19 at 15:00 Diagnostic Test (Pha) (Accu-Chek) 1 ea 02 XX ; Start 02/11/19 at 02:00 Insulin Aspart (Novolog Insulin Pen) NOVOLOG *MODERATE* ALGORITHM WITH MEALS BEDTIME SC Last administered on 02/14/19at 12:45; Admin Dose 6 UNIT; Start 02/11/19 at 07:50 Miscellaneous Information 1 ea NOTE XX ; Start 02/10/19 at 23:00 Glucose (Glutose) 15 gm Q15M PRN PO DECREASED GLUCOSE; Start 02/10/19 at 23:00 Glucose (Glutose) 22.5 gm Q15M PRN PO DECREASED GLUCOSE; Start 02/10/19 at 23:00 Dextrose (D50w Syringe) 25 ml Q15M PRN IV DECREASED GLUCOSE; Start 02/10/19 at 23:00 Dextrose (D50w Syringe) 50 ml Q15M PRN IV DECREASED GLUCOSE; Start 02/10/19 at 23:00 Glucagon (Glucagen) 1 mg Q15M PRN IM DECREASED GLUCOSE; Start 02/10/19 at 23:00 Glucose (Glutose) 15 gm Q15M PRN BUCCAL DECREASED GLUCOSE; Start 02/10/19 at 23:00 Sodium Chloride 1,000 ml @ 50 mls/hr Q20H IV Last administered on 02/14/19at 12:41; Admin Dose 50 MLS/HR; Start 02/13/19 at 15:30 Assessment/Plan Hospital Course (Demo Recall) The patient is 73-year-old gentleman who presented from a [facility] facility with a history of gross hematuria. He does have a history of aortic aneurysm, hypertension, late syphilis, cerebrovascular disease, pneumonia, atrial fibrillation, diabetes, BPH and a history of urethral stricture.Patient had Cavanaugh catheter on admission and the urine was bloody. The Cavanaugh catheter was removed yesterday. The patient has voided and the postvoid residual has been less then 200 mL. As a matter of fact I just did a bladder scan on him and the bladder volume ranged between 150-170ml. Earlier in the day the nurses were checking him and the bladder scan was showing over 500 mL and the nurses had difficulty doing in and out cath for him. Later on the patient sat at the edge of the bed and used the urinal and voided about 210 mL and the postvoid residual was less than 200. Therefore for now we will not do any in and out cath on him and continue to monitor his voiding and check his residual urine. I prefer not to do in and out cath so no trauma to his urethra would happen as the nursing staff were having difficulty doing the straight cath on him today.. JEOVANNY VILLAGRAN MD February 14, 2019 17:52
[2019-02-14 19:55] VITALS: BP 129/65; PULSE 64; RESP 18
[2019-02-14] MEDS: MELATONIN 5 MG TABLET PO SCH (21:21)
[2019-02-15 01:42] VITALS: BP 133/60; PULSE 52; RESP 16
[2019-02-15] MEDS: ACCU-CHEK XX SCH (02:00)
[2019-02-15] MEDS: PANTOPRAZOLE (EC) 40 MG TAB PO SCH (05:15)
[2019-02-15 07:24] VITALS: BP 128/62; PULSE 68; RESP 18
[2019-02-15] MEDS: INSULIN ASPART [NOVOLOG] 3 ML PEN SC SCH ×4 (09:00→21:13)
[2019-02-15] MEDS: TAMSULOSIN (SR) 0.4 MG CAP PO SCH (09:37)
[2019-02-15] MEDS: AMIODARONE 200 MG TAB PO SCH ×2 (09:38→21:23)
[2019-02-15] MEDS: LISINOPRIL 20 MG TAB PO SCH (09:38)
[2019-02-15] MEDS: AMLODIPINE 10 MG TAB PO SCH (09:38)
[2019-02-15] MEDS: SOD CHLORIDE 0.45% 1,000 ML IV SCH (09:56)
--- NOTE | 2019-02-15 14:47 | CONS ---
Assessment/Plan Assessment/Plan Hospital Course (Demo Recall) ID PROGRESS NOTE CURRENT ABX: DAY #5 =>Ceftriaxone 24H INTERVAL SUMMARY * Patient is stable -- voiding trials ongoing under supervision of Dr. Cristina who advises no IN/Out catheterizations PVR due to recurrent urethral stricture trauma w/hematuria. * Awake, alerft, no fever, VSS, resting comfortably without complaints today, NAD * He attempts to get OOB to void; hence his room was changed to location in front of nursing station with bed alarm HPI * 73-yo M admit from SNF with UTI and gross hematuria. Patient had Cavanaugh catheter on admission and the urine was bloody. He recently finished Keflex for 10 days for UTI. PMHX: * Aortic aneurysm, hypertension, late syphilis, cerebrovascular disease, pneumonia, atrial fibrillation, diabetes, BPH and a history of urethral stricture IMAGING * 12/30/18 CT BRAIN: Diffuse ventriculomegaly, cannot rule out normal pressure hydrocephalus. Periventricular low density area suggestive of deep white m atter ischemic changes. Proportionate overlying brain atrophy seen. Brain stem, posterior fossa appears unremarkable. MICRO/OTHER * 02/10/19 BCX (-) * 02/10/19 URINE CX: (-) * 02/04/19 URINE CX: URINE CULTURE Final Organism 1 CITROBACTER KOSERI COLONY COUNT 80,000 - 90,000 CFU/ml C KOSERI M.I.C. RX --------- --- CEFOTAXIME S CIPROFLOXACIN 1 S GENTAMICIN <=1 S LEVOFLOXACIN 1 S NITROFURANTOIN 32 S TOBRAMYCIN <=1 S TRIMETHOPRIM/SULFAMETHOXAZOLE <=20 S PHYSICAL EXAMINATION: GENERAL: VSS, NAD, HEENT: AT, NC, NECK: WNL CHEST: Equal chest rise bilaterally without dyspnea on observation ABD: Soft, ND EXTREMITIES: Warm, dry SKIN: No rash, no diaphoresis ID ASSESSMENT 73 yo M admit with: 1. Gross Hematuria-- due to FC and severe urethral stricture. 2. Recent GNR urinary tract infection, status post antibiotic treatment. 3. Urinary retention * Urethral stricture * Query BPH as he attempts to get OOB to void; hence his room was changed to location in front of nursing station with bed alarm 4. Hypertension 5. 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 Atrial fibrillation. The patient is currently in sinus rhythm clinically and also had an EKG on 2019 which showed that he was in sinus rhythm. Patient also had EKG done on 02/10/2019 which also revealed normal sinus rhythm. 7. Aortic aneurysm repair. The patient underwent repair of pseudoaneurysm innominate artery at a tertiary [facility] recently. ABX ALLERGIES: NKDA INVASIVES: PIV CURRENT ABX: DAY # 5=>Ceftriaxone ID RECOMMENDATIONS/PLAN: 1. Per ID colleague -- treat for total 7 days w/current ABX 2. Follow recommendations which are appreciated 3. Falls risk * => ?BPH as he attempts to get OOB to STAND to void (unassisted); hence room changed to location in front RN station with bed alarm . Consultation Date/Type/Reason Admit Date/Time February 11, 2019 at 19:57 Initial Consult Date 02/11/19 Requesting Provider: CLARISA RODAS MD Date/Time of Note DATE: 02/15/19 TIME: 14:45 Exam/Review of Systems Exam Vitals Vital Signs Date Temp Pulse Resp B/P (MAP) Pulse Ox O2 O2 Flow FiO2 Time Delivery Rate 02/15/19 98.2 68 18 128/62 99 Room Air 07:24 (84) Intake and Output 02/14/19 02/14/19 02/15/19 1515:00 23:00 07:00 IntakeIntake Total 950 ml 325 ml 620 ml OutputOutput Total 240 ml 430 ml 260 ml BalanceBalance 710 ml -105 ml 360 ml Results Result Diagram: 02/15/19 0454 02/15/19 0454 Results 24hrs Laboratory Tests Test 02/14/19 18:13 02/14/19 21:18 02/15/19 04:54 02/15/19 09:33 Bedside Glucose 85 93 95 White Blood Count 7.7 Red Blood Count 3.21 L Hemoglobin 9.4 L Hematocrit 28.4 L Mean Corpuscular 88.5 Volume Mean Corpuscular 29.3 Hemoglobin Mean Corpuscular 33.1 Hemoglobin Concent Red Cell 14.6 H Distribution Width Platelet Count 276 Mean Platelet Volume 8.8 Immature 0.400 Granulocytes % Neutrophils % 79.6 H Lymphocytes % 11.7 L Monocytes % 6.1 Eosinophils % 1.7 Basophils % 0.5 Nucleated Red Blood 0.0 Cells % Immature 0.030 Granulocytes # Neutrophils # 6.1 Lymphocytes # 0.9 Monocytes # 0.5 Eosinophils # 0.1 Basophils # 0.0 Nucleated Red Blood 0.0 Cells # Sodium Level 133 L Potassium Level 4.1 Chloride Level 100 Carbon Dioxide Level 27 Anion Gap 6 Blood Urea Nitrogen 14 Creatinine 0.62 Est Glomerular Filtrat Rate mL/min Glucose Level 79 Calcium Level 8.5 Test 02/15/19 12:46 Bedside Glucose 112 Medications Medication Current Medications Amiodarone HCl (Cordarone) 200 mg BID PO Last administered on 02/15/19 09:38; Admin Dose 200 MG; Start 02/10/19 at 21:00 Amlodipine Besylate (Norvasc) 10 mg DAILY PO Last administered on 02/15/19 09:38; Admin Dose 10 MG; Start 02/11/19 at 09:00 Lisinopril (Zestril) 40 mg DAILY PO Last administered on 02/15/19 09:38; Admin Dose 40 MG; Start 02/11/19 at 09:00 Melatonin (Melatonin) 5 mg HS PO Last administered on 02/14/19 21:21; Admin Dose 5 MG; Start 02/10/19 at 21:00 Tamsulosin HCl (Flomax) 0.4 mg DAILY PO Last administered on 02/15/19 09:37; Admin Dose 0.4 MG; Start 02/11/19 at 09:00 Ondansetron HCl (Zofran Inj) 4 mg Q6H PRN IV NAUSEA/VOMITING; Start 02/10/19 at 18:00 Acetaminophen (Tylenol Tab) 650 mg Q6H PRN PO .PAIN 1-3 OR TEMP; Start 02/10/19 at 18:00 Docusate Sodium (Colace) 100 mg Q12H PRN PO .CONSTIPATION; Start 02/10/19 at 18:00 Bisacodyl (Dulcolax) 5 mg DAILY PRN PO .CONSTIPATION; Start 02/10/19 at 18:00 Pantoprazole (Protonix Tab) 40 mg DAILY@06 PO Last administered on 02/15/19 05:15; Admin Dose 40 MG; Start 02/11/19 at 06:00 Ceftriaxone Sodium 50 ml @ 100 mls/hr Q24H IVPB Last administered on 02/14/19 14:35; Admin Dose 100 MLS/HR; Start 02/11/19 at 15:00 Diagnostic Test (Pha) (Accu-Chek) 1 ea 02 XX ; Start 02/11/19 at 02:00 Insulin Aspart (Novolog Insulin Pen) NOVOLOG *MODERATE* ALGORITHM WITH MEALS BEDTIME SC Last administered on 02/14/19at 12:45; Admin Dose 6 UNIT; Start 02/11/19 at 07:50 Miscellaneous Information 1 ea NOTE XX ; Start 02/10/19 at 23:00 Glucose (Glutose) 15 gm Q15M PRN PO DECREASED GLUCOSE; Start 02/10/19 at 23:00 Glucose (Glutose) 22.5 gm Q15M PRN PO DECREASED GLUCOSE; Start 02/10/19 at 23:00 Dextrose (D50w Syringe) 25 ml Q15M PRN IV DECREASED GLUCOSE; Start 02/10/19 at 23:00 Dextrose (D50w Syringe) 50 ml Q15M PRN IV DECREASED GLUCOSE; Start 02/10/19 at 23:00 Glucagon (Glucagen) 1 mg Q15M PRN IM DECREASED GLUCOSE; Start 02/10/19 at 23:00 Glucose (Glutose) 15 gm Q15M PRN BUCCAL DECREASED GLUCOSE; Start 02/10/19 at 23:00 Sodium Chloride 1,000 ml @ 50 mls/hr Q20H IV Last administered on 02/15/19at 09:56; Admin Dose 50 MLS/HR; Start 02/13/19 at 15:30 DAYAN DAILEY NP February 15, 2019 14:47
[2019-02-15 15:42] VITALS: BP 132/64; RESP 19
[2019-02-15] MEDS: CEFTRIAXONE 1 GM/50 ML (PMX) 50 ML IVPB SCH (15:43)
--- NOTE | 2019-02-15 17:27 | PN ---
Date/Time of Note Date/Time of Note DATE: 02/15/19 TIME: 17:26 Assessment/Plan VTE Prophylaxis Risk score (from Ns)>0 risk: 7 SCD applied (from [facility] [place]): Yes Pharmacological prophylaxis: NA/contraindicated Pharm contraindication: bleeding Lines/Catheters IV Catheter Type (from [facility]): Peripheral IV Urinary Cath still in place: No Assessment/Plan Hospital Course Patient is awake alert however impulsive continue close monitoring with room close to nursing station, patient currently able to void after Cavanaugh catheter discontinued, continue to monitor. No hematuria reported. Assessment/Plan -Severe sepsis due to recent gram-negative rods UTI, resolving, continue antibiotics per ID. Dr. Amaro is following in infection disease consultation. -Hematuria, resolving. Dr. Cristina is following in urology consultation. -History of aortic aneurysm, status post repair. -Atrial fibrillation, anticoagulation is held due to hematuria. -Hypertension, continue Norvasc and lisinopril. -Cerebrovascular disease -Urinary retention with urethral stricture. -Diabetes, continue Lantus and NovoLog. -Fall risk, continue close monitoring fall precaution. Further recommendations based on clinical course. Plan of care discussed with Dr. Moreno. Result Diagram: 02/15/19 0454 02/15/19 0454 Results 24hrs Laboratory Tests Test 02/14/19 18:13 02/14/19 21:18 02/15/19 04:54 02/15/19 09:33 Bedside Glucose 85 93 95 White Blood Count 7.7 Red Blood Count 3.21 L Hemoglobin 9.4 L Hematocrit 28.4 L Mean Corpuscular 88.5 Volume Mean Corpuscular 29.3 Hemoglobin Mean Corpuscular 33.1 Hemoglobin Concent Red Cell 14.6 H Distribution Width Platelet Count 276 Mean Platelet Volume 8.8 Immature 0.400 Granulocytes % Neutrophils % 79.6 H Lymphocytes % 11.7 L Monocytes % 6.1 Eosinophils % 1.7 Basophils % 0.5 Nucleated Red Blood 0.0 Cells % Immature 0.030 Granulocytes # Neutrophils # 6.1 Lymphocytes # 0.9 Monocytes # 0.5 Eosinophils # 0.1 Basophils # 0.0 Nucleated Red Blood 0.0 Cells # Sodium Level 133 L Potassium Level 4.1 Chloride Level 100 Carbon Dioxide Level 27 Anion Gap 6 Blood Urea Nitrogen 14 Creatinine 0.62 Est Glomerular Filtrat Rate mL/min Glucose Level 79 Calcium Level 8.5 Test 02/15/19 12:46 Bedside Glucose 112 Exam/Review of Systems Exam Vitals Vital Signs Date Temp Pulse Resp B/P (MAP) Pulse Ox O2 O2 Flow FiO2 Time Delivery Rate 02/15/19 98.0 19 132/64 99 15:42 (86) 02/15/19 68 Room Air 07:24 Intake and Output 02/14/19 02/14/19 02/15/19 1515:00 23:00 07:00 IntakeIntake Total 950 ml 325 ml 620 ml OutputOutput Total 240 ml 430 ml 260 ml BalanceBalance 710 ml -105 ml 360 ml Exam Constitutional: alert, oriented *2 Respiratory: clear to auscultation Cardiovascular: irregular rhythm, other (Chest healed surgical incision) Gastrointestinal: soft, non-tender Extremities: normal pulses Neurological: confused Results Results 24hrs Laboratory Tests Test 02/14/19 18:13 02/14/19 21:18 02/15/19 04:54 02/15/19 09:33 Bedside Glucose 85 93 95 White Blood Count 7.7 Red Blood Count 3.21 L Hemoglobin 9.4 L Hematocrit 28.4 L Mean Corpuscular 88.5 Volume Mean Corpuscular 29.3 Hemoglobin Mean Corpuscular 33.1 Hemoglobin Concent Red Cell 14.6 H Distribution Width Platelet Count 276 Mean Platelet Volume 8.8 Immature 0.400 Granulocytes % Neutrophils % 79.6 H Lymphocytes % 11.7 L Monocytes % 6.1 Eosinophils % 1.7 Basophils % 0.5 Nucleated Red Blood 0.0 Cells % Immature 0.030 Granulocytes # Neutrophils # 6.1 Lymphocytes # 0.9 Monocytes # 0.5 Eosinophils # 0.1 Basophils # 0.0 Nucleated Red Blood 0.0 Cells # Sodium Level 133 L Potassium Level 4.1 Chloride Level 100 Carbon Dioxide Level 27 Anion Gap 6 Blood Urea Nitrogen 14 Creatinine 0.62 Est Glomerular Filtrat Rate mL/min Glucose Level 79 Calcium Level 8.5 Test 02/15/19 12:46 Bedside Glucose 112 Medications Medication Current Medications Amiodarone HCl (Cordarone) 200 mg BID PO Last administered on 02/15/19at 09:38; Admin Dose 200 MG; Start 02/10/19 at 21:00 Amlodipine Besylate (Norvasc) 10 mg DAILY PO Last administered on 02/15/19at 09:38; Admin Dose 10 MG; Start 02/11/19 at 09:00 Lisinopril (Zestril) 40 mg DAILY PO Last administered on 02/15/19at 09:38; Admin Dose 40 MG; Start 02/11/19 at 09:00 Melatonin (Melatonin) 5 mg HS PO Last administered on 02/14/19at 21:21; Admin Dose 5 MG; Start 02/10/19 at 21:00 Tamsulosin HCl (Flomax) 0.4 mg DAILY PO Last administered on 02/15/19at 09:37; Admin Dose 0.4 MG; Start 02/11/19 at 09:00 Ondansetron HCl (Zofran Inj) 4 mg Q6H PRN IV NAUSEA/VOMITING; Start 02/10/19 at 18:00 Acetaminophen (Tylenol Tab) 650 mg Q6H PRN PO .PAIN 1-3 OR TEMP; Start 02/10/19 at 18:00 Docusate Sodium (Colace) 100 mg Q12H PRN PO .CONSTIPATION; Start 02/10/19 at 18:00 Bisacodyl (Dulcolax) 5 mg DAILY PRN PO .CONSTIPATION; Start 02/10/19 at 18:00 Pantoprazole (Protonix Tab) 40 mg DAILY@06 PO Last administered on 02/15/19at 05:15; Admin Dose 40 MG; Start 02/11/19 at 06:00 Ceftriaxone Sodium 50 ml @ 100 mls/hr Q24H IVPB Last administered on 02/15/19at 15:43; Admin Dose 100 MLS/HR; Start 02/11/19 at 15:00 Diagnostic Test (Pha) (Accu-Chek) 1 ea 02 XX ; Start 02/11/19 at 02:00 Insulin Aspart (Novolog Insulin Pen) NOVOLOG *MODERATE* ALGORITHM WITH MEALS BEDTIME SC Last administered on 02/14/19at 12:45; Admin Dose 6 UNIT; Start at 07:50 Miscellaneous Information 1 ea NOTE XX ; Start 02/10/19 at 23:00 Glucose (Glutose) 15 gm Q15M PRN PO DECREASED GLUCOSE; Start 02/10/19 at 23:00 Glucose (Glutose) 22.5 gm Q15M PRN PO DECREASED GLUCOSE; Start 02/10/19 at 23:00 Dextrose (D50w Syringe) 25 ml Q15M PRN IV DECREASED GLUCOSE; Start 02/10/19 at 23:00 Dextrose (D50w Syringe) 50 ml Q15M PRN IV DECREASED GLUCOSE; Start 02/10/19 at 23:00 Glucagon (Glucagen) 1 mg Q15M PRN IM DECREASED GLUCOSE; Start 02/10/19 at 23:00 Glucose (Glutose) 15 gm Q15M PRN BUCCAL DECREASED GLUCOSE; Start 02/10/19 at 23:00 Sodium Chloride 1,000 ml @ 50 mls/hr Q20H IV Last administered on 02/15/19at 09:56; Admin Dose 50 MLS/HR; Start 02/13/19 at 15:30 GIANNA DE JESUS February 15, 2019 17:27
[2019-02-15 20:30] VITALS: BP 158/67; PULSE 62; RESP 17
--- NOTE | 2019-02-15 20:38 | CONS ---
Consult Date/Type/Reason Admit Date/Time February 11, 2019 at 19:57 Initial Consult Date 02/11/19 Type of Consultation: Urology Reason for Consultation Hematuria Requesting Provider: CLARISA ORDAS MD Date/Time of Note DATE: 02/15/19 TIME: 20:35 Subjective Patient appears to be comfortable and he complains of constipation. Objective Vitals Vital Signs Date Temp Pulse Resp B/P (MAP) Pulse Ox O2 O2 Flow FiO2 Time Delivery Rate 02/15/19 98.0 19 132/64 99 15:42 (86) 02/15/19 68 Room Air 07:24 Intake and Output 02/14/19 02/14/19 02/15/19 1515:00 23:00 07:00 IntakeIntake Total 950 ml 325 ml 620 ml OutputOutput Total 240 ml 430 ml 260 ml BalanceBalance 710 ml -105 ml 360 ml Exam Abdomen is soft, the bladder is not distended. Results/Medications Result Diagram: 02/15/19 0454 02/15/19 0454 Results 24 hrs Laboratory Tests Test 02/14/19 21:18 02/15/19 04:54 02/15/19 09:33 02/15/19 12:46 Bedside Glucose 93 95 112 White Blood Count 7.7 Red Blood Count 3.21 L Hemoglobin 9.4 L Hematocrit 28.4 L Mean Corpuscular 88.5 Volume Mean Corpuscular 29.3 Hemoglobin Mean Corpuscular 33.1 Hemoglobin Concent Red Cell 14.6 H Distribution Width Platelet Count 276 Mean Platelet Volume 8.8 Immature 0.400 Granulocytes % Neutrophils % 79.6 H Lymphocytes % 11.7 L Monocytes % 6.1 Eosinophils % 1.7 Basophils % 0.5 Nucleated Red Blood 0.0 Cells % Immature 0.030 Granulocytes # Neutrophils # 6.1 Lymphocytes # 0.9 Monocytes # 0.5 Eosinophils # 0.1 Basophils # 0.0 Nucleated Red Blood 0.0 Cells # Sodium Level 133 L Potassium Level 4.1 Chloride Level 100 Carbon Dioxide Level 27 Anion Gap 6 Blood Urea Nitrogen 14 Creatinine 0.62 Est Glomerular Filtrat Rate mL/min Glucose Level 79 Calcium Level 8.5 Test 02/15/19 17:40 Bedside Glucose 172 Home Meds Active Scripts Cephalexin* (Keflex*) 500 Mg Capsule, 500 MG PO Q6, #40 CAP Prov:SANTOS HOLT MD 02/04/19 Reported Medications Lisinopril* (Lisinopril*) 40 Mg Tablet, 40 MG PO DAILY, #30 TAB 02/04/19 Magnesium Hydroxide* (Milk Of Magnesia*) 400 Mg/5 Ml Oral.susp, 30 ML PO BID, ML 02/04/19 Acetaminophen* (Tylenol*) 325 Mg Tablet, 650 MG PO Q4H PRN for MILD PAIN LEVEL 1-3, TAB AND FEVER >100f 02/04/19 Albuterol Sulfate* (Albuterol Sulfate* Neb) 0.083%-3 Ml Neb, 2.5 MG NEB Q4H PRN for WHEEZING AND SOB, #30 VIAL 02/04/19 Tamsulosin Hcl* (Flomax*) 0.4 Mg Cap.er.24h, 0.4 MG PO DAILY, CAP 02/04/19 Polyethylene Glycol* (Polyethylene Glycol*) 17 Gm Powd.pack, 17 GM PO DAILY, #30 PACKET 02/04/19 Melatonin (Melatonin) 5 Mg Tablet, 5 MG PO HS, TAB 02/04/19 Insulin Aspart* (Novolog Insulin Pen*) 100 Unit/Ml Soln, 0 SC .SLIDING SCALE AC, EA IF BS 150-199=2 UNITS. 200-249=4 UNITS, 250-299=6 UNITS,300-349-8 UNITS,350-399=10 UNITS,400-449=12 UNITS AND CALL . 02/04/19 Heparin Sodium,Porcine/Pf (HEPARIN SOD 5,000 UNIT/ 0.5 ML) 5,000 Unit/0.5 Ml V ial, 5000 UNIT IJ Q8H, VIAL 02/04/19 Bisacodyl (Dulcolax) 10 Mg Supp.rect, 10 MG RC DAILY, SUPP.RECT 02/04/19 Aspirin* (Aspirin* Chew) 81 Mg Tab.chew, 81 MG PO DAILY, TAB.CHEW 02/04/19 Amlodipine Besylate* (Amlodipine Besylate*) 10 Mg Tablet, 10 MG PO DAILY, #30 TAB 02/04/19 Amiodarone Hcl* (Amiodarone Hcl*) 200 Mg Tablet, 200 MG PO BID, #60 TAB 02/04/19 Discontinued Reported Medications Furosemide* (Furosemide*) 20 Mg Tablet, 20 MG PO BID, #30 TAB 02/04/19 Docusate Sodium* (Colace* Liq) 50 Mg/5 Ml Liquid, 10 ML PO BID, EA 02/04/19 Medications Current Medications Amiodarone HCl (Cordarone) 200 mg BID PO Last administered on 02/15/19 09:38; Admin Dose 200 MG; Start 02/10/19 at 21:00 Amlodipine Besylate (Norvasc) 10 mg DAILY PO Last administered on 02/15/19 09:38; Admin Dose 10 MG; Start 02/11/19 at 09:00 Lisinopril (Zestril) 40 mg DAILY PO Last administered on 02/15/19 09:38; Admin Dose 40 MG; Start 02/11/19 at 09:00 Melatonin (Melatonin) 5 mg HS PO Last administered on 02/14/19at 21:21; Admin Dose 5 MG; Start 02/10/19 at 21:00 Tamsulosin HCl (Flomax) 0.4 mg DAILY PO Last administered on 02/15/19 09:37; Admin Dose 0.4 MG; Start 02/11/19 at 09:00 Ondansetron HCl (Zofran Inj) 4 mg Q6H PRN IV NAUSEA/VOMITING; Start 02/10/19 at 18:00 Acetaminophen (Tylenol Tab) 650 mg Q6H PRN PO .PAIN 1-3 OR TEMP; Start 02/10/19 at 18:00 Docusate Sodium (Colace) 100 mg Q12H PRN PO .CONSTIPATION Last administered on 02/15/19at 17:49; Admin Dose 100 MG; Start 02/10/19 at 18:00 Bisacodyl (Dulcolax) 5 mg DAILY PRN PO .CONSTIPATION; Start 02/10/19 at 18:00 Pantoprazole (Protonix Tab) 40 mg DAILY@06 PO Last administered on 02/15/19at 05:15; Admin Dose 40 MG; Start 02/11/19 at 06:00 Ceftriaxone Sodium 50 ml @ 100 mls/hr Q24H IVPB Last administered on 02/15/19at 15:43; Admin Dose 100 MLS/HR; Start 02/11/19 at 15:00 Diagnostic Test (Pha) (Accu-Chek) 1 ea 02 XX ; Start 02/11/19 at 02:00 Insulin Aspart (Novolog Insulin Pen) NOVOLOG *MODERATE* ALGORITHM WITH MEALS BEDTIME SC Last administered on 02/15/19at 17:45; Admin Dose 2 UNIT; Start 02/11/19 at 07:50 Miscellaneous Information 1 ea NOTE XX ; Start 02/10/19 at 23:00 Glucose (Glutose) 15 gm Q15M PRN PO DECREASED GLUCOSE; Start 02/10/19 at 23:00 Glucose (Glutose) 22.5 gm Q15M PRN PO DECREASED GLUCOSE; Start 02/10/19 at 23:00 Dextrose (D50w Syringe) 25 ml Q15M PRN IV DECREASED GLUCOSE; Start 02/10/19 at 23:00 Dextrose (D50w Syringe) 50 ml Q15M PRN IV DECREASED GLUCOSE; Start 02/10/19 at 23:00 Glucagon (Glucagen) 1 mg Q15M PRN IM DECREASED GLUCOSE; Start 02/10/19 at 23:00 Glucose (Glutose) 15 gm Q15M PRN BUCCAL DECREASED GLUCOSE; Start 02/10/19 at 23 :00 Sodium Chloride 1,000 ml @ 50 mls/hr Q20H IV Last administered on 02/15/19at 09:56; Admin Dose 50 MLS/HR; Start 02/13/19 at 15:30 Assessment/Plan Hospital Course (Demo Recall) The patient is 73-year-old gentleman who presented from a correction facility with a history of gross hematuria. He does have a history of aortic aneurysm, hypertension, late syphilis, cerebrovascular disease, pneumonia, atrial fibrillation, diabetes, BPH and a history of urethral stricture.Patient had Cavanaugh catheter on admission and the urine was bloody. The Cavanaugh catheter was removed . The patient has voided and the postvoid residual has been less then 200 mL. At the present he complains of constipation and he states that he is urinating well. Urologically continue to observe him. JEOVANNY VILLAGRAN MD February 15, 2019 20:38
[2019-02-15] MEDS: MELATONIN 5 MG TABLET PO SCH (21:14)
[2019-02-16] MEDS: ACCU-CHEK XX SCH (02:00)
[2019-02-16 02:36] VITALS: BP 136/63; PULSE 63; RESP 18
[2019-02-16] MEDS: PANTOPRAZOLE (EC) 40 MG TAB PO SCH (05:49)
[2019-02-16] MEDS: SOD CHLORIDE 0.45% 1,000 ML IV SCH (05:49)
[2019-02-16 08:10] VITALS: BP 121/54; PULSE 54; RESP 18
[2019-02-16] MEDS: INSULIN ASPART [NOVOLOG] 3 ML PEN SC SCH ×4 (08:45→21:00)
[2019-02-16] MEDS: TAMSULOSIN (SR) 0.4 MG CAP PO SCH (08:57)
[2019-02-16] MEDS: AMLODIPINE 10 MG TAB PO SCH (08:57)
[2019-02-16] MEDS: LISINOPRIL 20 MG TAB PO SCH (08:58)
[2019-02-16] MEDS: AMIODARONE 200 MG TAB PO SCH ×2 (08:58→21:55)
--- NOTE | 2019-02-16 14:32 | CONS ---
Assessment/Plan Assessment/Plan Hospital Course (Demo Recall) Patient is alert feels good denies pain he is voiding without difficulties. He remains on Rocephin, day #6 PHYSICAL EXAMINATION: GENERAL: This is a chronically ill-appearing, cachectic elderly man who is lethargic, in no distress. HEENT: Head atraumatic, normocephalic. Sclerae anicteric. Buccal mucosa dry. NECK: Supple. CHEST: Rise symmetrical. Breath sounds diminished to bases. HEART: S1, S2. ABDOMEN: Soft, bowel tones present. EXTREMITIES: Without cyanosis. Assessment: 1. Resolving UTI 2. Diabetes 3. BPH 4. History of CVA 5. History of atrial fibrillation 6. History of latent syphilis Plan: Patient remains stable, urology follows, continue antibiotics for 1 more d ay Consultation Date/Type/Reason Admit Date/Time February 11, 2019 at 19:57 Initial Consult Date 02/11/19 Type of Consult id Requesting Provider: CLARISA RODAS MD Date/Time of Note DATE: 02/16/19 TIME: 14:32 Exam/Review of Systems Exam Vitals Vital Signs Date Temp Pulse Resp B/P (MAP) Pulse Ox O2 O2 Flow FiO2 Time Delivery Rate 02/16/19 98.0 54 18 121/54 90 Room Air 08:10 (76) Intake and Output 02/15/19 02/15/19 02/16/19 1515:00 23:00 07:00 IntakeIntake Total 175 ml 510 ml 740 ml OutputOutput Total 250 ml 300 ml BalanceBalance -75 ml 210 ml 740 ml Results Result Diagram: 02/15/19 0454 02/16/19 0437 Results 24hrs Laboratory Tests Test 02/15/19 17:40 02/15/19 21:09 02/16/19 02:16 02/16/19 04:37 Bedside Glucose 172 188 108 Sodium Level 131 L Potassium Level 4.0 Chloride Level 100 Carbon Dioxide Level 27 Anion Gap 4 L Blood Urea Nitrogen 13 Creatinine 0.66 Est Glomerular Filtrat Rate mL/min Glucose Level 90 Calcium Level 8.5 Test 02/16/19 08:53 02/16/19 12:54 Bedside Glucose 110 112 Medications Medication Current Medications Amiodarone HCl (Cordarone) 200 mg BID PO Last administered on 02/16/19at 08:58; Admin Dose 200 MG; Start 02/10/19 at 21:00 Amlodipine Besylate (Norvasc) 10 mg DAILY PO Last administered on 02/16/19 08:57; Admin Dose 10 MG; Start 02/11/19 at 09:00 Lisinopril (Zestril) 40 mg DAILY PO Last administered on 02/16/19 08:58; Admin Dose 40 MG; Start 02/11/19 at 09:00 Melatonin (Melatonin) 5 mg HS PO Last administered on 02/15/19 21:14; Admin Dose 5 MG; Start 02/10/19 at 21:00 Tamsulosin HCl (Flomax) 0.4 mg DAILY PO Last administered on 02/16/19 08:57; Admin Dose 0.4 MG; Start 02/11/19 at 09:00 Ondansetron HCl (Zofran Inj) 4 mg Q6H PRN IV NAUSEA/VOMITING; Start 02/10/19 at 18:00 Acetaminophen (Tylenol Tab) 650 mg Q6H PRN PO .PAIN 1-3 OR TEMP; Start 02/10/19 at 18:00 Docusate Sodium (Colace) 100 mg Q12H PRN PO .CONSTIPATION Last administered on 02/15/19 17:49; Admin Dose 100 MG; Start 02/10/19 at 18:00 Bisacodyl (Dulcolax) 5 mg DAILY PRN PO .CONSTIPATION; Start 02/10/19 at 18:00 Pantoprazole (Protonix Tab) 40 mg DAILY@06 PO Last administered on 02/16/19 05:49; Admin Dose 40 MG; Start 02/11/19 at 06:00 Ceftriaxone Sodium 50 ml @ 100 mls/hr Q24H IVPB Last administered on 02/15/19at 15:43; Admin Dose 100 MLS/HR; Start 02/11/19 at 15:00 Diagnostic Test (Pha) (Accu-Chek) 1 ea 02 XX ; Start 02/11/19 at 02:00 Insulin Aspart (Novolog Insulin Pen) NOVOLOG *MODERATE* ALGORITHM WITH MEALS BEDTIME SC Last administered on 02/15/19 21:13; Admin Dose 1 UNIT; Start 02/11/19 at 07:50 Miscellaneous Information 1 ea NOTE XX ; Start 02/10/19 at 23:00 Glucose (Glutose) 15 gm Q15M PRN PO DECREASED GLUCOSE; Start 02/10/19 at 23:00 Glucose (Glutose) 22.5 gm Q15M PRN PO DECREASED GLUCOSE; Start 02/10/19 at 23:00 Dextrose (D50w Syringe) 25 ml Q15M PRN IV DECREASED GLUCOSE; Start 02/10/19 at 23:00 Dextrose (D50w Syringe) 50 ml Q15M PRN IV DECREASED GLUCOSE; Start 02/10/19 at 23:00 Glucagon (Glucagen) 1 mg Q15M PRN IM DECREASED GLUCOSE; Start 02/10/19 at 23:00 Glucose (Glutose) 15 gm Q15M PRN BUCCAL DECREASED GLUCOSE; Start 02/10/19 at 23:00 Sodium Chloride 1,000 ml @ 50 mls/hr Q20H IV Last administered on 02/16/19at 05:49; Admin Dose 50 MLS/HR; Start 02/13/19 at 15:30 LUCINA DOMINGUEZ NP February 16, 2019 14:32
[2019-02-16 15:12] VITALS: BP 128/62; PULSE 60; RESP 18
--- NOTE | 2019-02-16 15:26 | PN ---
Date/Time of Note Date/Time of Note DATE: 02/16/19 TIME: 15:22 Assessment/Plan VTE Prophylaxis Risk score (from Ns)>0 risk: 7 SCD applied (from Ns): Yes Pharmacological prophylaxis: NA/contraindicated Pharm contraindication: bleeding Lines/Catheters IV [facility] Peripheral IV Central line still needed: Yes Urinary Cath still in place: No Assessment/Plan Hospital Course Patient started on regimen for constipation, able to void, incontinent on urine, continue to monitor, urology recommendations. Assessment/Plan -Severe sepsis due to recent gram-negative rods UTI, resolving, continue antibiotics per ID. Dr. Amaro is following in infection disease consultation. -Hematuria, resolving. Dr. Cristina is following in urology consultation. -History of aortic aneurysm, status post repair. -Atrial fibrillation, anticoagulation is held due to hematuria. -Hypertension, continue Norvasc and lisinopril. -Cerebrovascular disease -Urinary retention with urethral stricture. -Diabetes, continue Lantus and NovoLog. -Fall risk, continue close monitoring fall precaution. Further recommendations based on clinical course. Plan of care discussed with Dr. Moreno. Result Diagram: 02/15/19 0454 02/16/19 0437 Results 24hrs Laboratory Tests Test 02/15/19 17:40 02/15/19 21:09 02/16/19 02:16 02/16/19 04:37 Bedside Glucose 172 188 108 Sodium Level 131 L Potassium Level 4.0 Chloride Level 100 Carbon Dioxide Level 27 Anion Gap 4 L Blood Urea Nitrogen 13 Creatinine 0.66 Est Glomerular Filtrat Rate mL/min Glucose Level 90 Calcium Level 8.5 Test 02/16/19 08:53 02/16/19 12:54 Bedside Glucose 110 112 Exam/Review of Systems Exam Vitals Vital Signs Date Temp Pulse Resp B/P (MAP) Pulse Ox O2 O2 Flow FiO2 Time Delivery Rate 02/16/19 98.0 60 18 128/62 94 Room Air 15:12 (84) Intake and Output 02/15/19 02/15/19 02/16/19 1515:00 23:00 07:00 IntakeIntake Total 175 ml 510 ml 740 ml OutputOutput Total 250 ml 300 ml BalanceBalance -75 ml 210 ml 740 ml Exam Constitutional: alert, oriented *2 Respiratory: clear to auscultation Cardiovascular: irregular rhythm, other (Mid Chest healed surgical incision) Gastrointestinal: soft, non-tender Extremities: normal pulses Neurological: confused Results Results 24hrs Laboratory Tests Test 02/15/19 17:40 02/15/19 21:09 02/16/19 02:16 02/16/19 04:37 Bedside Glucose 172 188 108 Sodium Level 131 L Potassium Level 4.0 Chloride Level 100 Carbon Dioxide Level 27 Anion Gap 4 L Blood Urea Nitrogen 13 Creatinine 0.66 Est Glomerular Filtrat Rate mL/min Glucose Level 90 Calcium Level 8.5 Test 02/16/19 08:53 02/16/19 12:54 Bedside Glucose 110 112 Medications Medication Current Medications Amiodarone HCl (Cordarone) 200 mg BID PO Last administered on 02/16/19 08:58; Admin Dose 200 MG; Start 02/10/19 at 21:00 Amlodipine Besylate (Norvasc) 10 mg DAILY PO Last administered on 02/16/19 08:57; Admin Dose 10 MG; Start 02/11/19 at 09:00 Lisinopril (Zestril) 40 mg DAILY PO Last administered on 02/16/19 08:58; Admin Dose 40 MG; Start 02/11/19 at 09:00 Melatonin (Melatonin) 5 mg HS PO Last administered on 02/15/19 21:14; Admin Dose 5 MG; Start 02/10/19 at 21:00 Tamsulosin HCl (Flomax) 0.4 mg DAILY PO Last administered on 02/16/19 08:57; Admin Dose 0.4 MG; Start 02/11/19 at 09:00 Ondansetron HCl (Zofran Inj) 4 mg Q6H PRN IV NAUSEA/VOMITING; Start 02/10/19 at 18:00 Acetaminophen (Tylenol Tab) 650 mg Q6H PRN PO .PAIN 1-3 OR TEMP; Start 02/10/19 at 18:00 Docusate Sodium (Colace) 100 mg Q12H PRN PO .CONSTIPATION Last administered on 02/15/19 17:49; Admin Dose 100 MG; Start 02/10/19 at 18:00 Bisacodyl (Dulcolax) 5 mg DAILY PRN PO .CONSTIPATION; Start 02/10/19 at 18:00 Pantoprazole (Protonix Tab) 40 mg DAILY@06 PO Last administered on 02/16/19at 05:49; Admin Dose 40 MG; Start 02/11/19 at 06:00 Ceftriaxone Sodium 50 ml @ 100 mls/hr Q24H IVPB Last administered on 02/15/19at 15:43; Admin Dose 100 MLS/HR; Start 02/11/19 at 15:00 Diagnostic Test (Pha) (Accu-Chek) 1 ea 02 XX ; Start 02/11/19 at 02:00 Insulin Aspart (Novolog Insulin Pen) NOVOLOG *MODERATE* ALGORITHM WITH MEALS BEDTIME SC Last administered on 02/15/19at 21:13; Admin Dose 1 UNIT; Start 02/11/19 at 07:50 Miscellaneous Information 1 ea NOTE XX ; Start 02/10/19 at 23:00 Glucose (Glutose) 15 gm Q15M PRN PO DECREASED GLUCOSE; Start 02/10/19 at 23:00 Glucose (Glutose) 22.5 gm Q15M PRN PO DECREASED GLUCOSE; Start 02/10/19 at 23:00 Dextrose (D50w Syringe) 25 ml Q15M PRN IV DECREASED GLUCOSE; Start 02/10/19 at 23:00 Dextrose (D50w Syringe) 50 ml Q15M PRN IV DECREASED GLUCOSE; Start 02/10/19 at 23:00 Glucagon (Glucagen) 1 mg Q15M PRN IM DECREASED GLUCOSE; Start 02/10/19 at 23:00 Glucose (Glutose) 15 gm Q15M PRN BUCCAL DECREASED GLUCOSE; Start 02/10/19 at 23:00 Sodium Chloride 1,000 ml @ 50 mls/hr Q20H IV Last administered on 02/16/19at 05:49; Admin Dose 50 MLS/HR; Start 02/13/19 at 15:30 GIANNA DE JESUS February 16, 2019 15:26
[2019-02-16] MEDS: CEFTRIAXONE 1 GM/50 ML (PMX) 50 ML IVPB SCH (15:27)
[2019-02-16] MEDS: POLYETHYLENE GLYCOL 17 GM PACKET PO SCH (15:30)
[2019-02-16] MEDS: DOCUSATE SODIUM 100 MG CAP PO SCH (17:49)
[2019-02-16 20:25] VITALS: BP 141/64; PULSE 58; RESP 18
[2019-02-16] MEDS: MELATONIN 5 MG TABLET PO SCH (21:53)
[2019-02-17 01:06] VITALS: BP 146/65; PULSE 62; RESP 18
[2019-02-17] MEDS: ACCU-CHEK XX SCH (02:00)
[2019-02-17] MEDS: DOCUSATE SODIUM 100 MG CAP PO SCH (05:25)
[2019-02-17] MEDS: PANTOPRAZOLE (EC) 40 MG TAB PO SCH (05:51)
[2019-02-17] MEDS: INSULIN ASPART [NOVOLOG] 3 ML PEN SC SCH ×2 (07:50→12:29)
[2019-02-17 07:58] VITALS: BP 157/87; PULSE 69; RESP 20
[2019-02-17] MEDS: AMIODARONE 200 MG TAB PO SCH (08:31)
[2019-02-17] MEDS: AMLODIPINE 10 MG TAB PO SCH (08:31)
[2019-02-17] MEDS: LISINOPRIL 20 MG TAB PO SCH (08:32)
[2019-02-17] MEDS: POLYETHYLENE GLYCOL 17 GM PACKET PO SCH (08:32)
[2019-02-17] MEDS: TAMSULOSIN (SR) 0.4 MG CAP PO SCH (08:32)
[2019-02-17] MEDS ORDERED: QUETIAPINE 25 MG TAB PO SCH (09:00)
[2019-02-17] MEDS: CEFTRIAXONE 1 GM/50 ML (PMX) 50 ML IVPB SCH (12:26)
--- NOTE | 2019-02-17 14:35 | CONS ---
Assessment/Plan Assessment/Plan Hospital Course (Demo Recall) Patient is alert feels good PHYSICAL EXAMINATION: GENERAL: This is a chronically ill-appearing, cachectic elderly man who is lethargic, in no distress. HEENT: Head atraumatic, normocephalic. Sclerae anicteric. Buccal mucosa dry. NECK: Supple. CHEST: Rise symmetrical. Breath sounds diminished to bases. HEART: S1, S2. ABDOMEN: Soft, bowel tones present. EXTREMITIES: Without cyanosis. Assessment: 1. Resolving UTI 2. Diabetes 3. BPH 4. History of CVA 5. History of atrial fibrillation 6. History of latent syphilis Plan: Patient remains stable, dc abx in am Consultation Date/Type/Reason Admit Date/Time February 11, 2019 at 19:57 Initial Consult Date 02/11/19 Type of Consult id Requesting Provider: CLARISA RODAS MD Date/Time of Note DATE: 02/17/19 TIME: 14:34 Exam/Review of Systems Exam Vitals Vital Signs Date Temp Pulse Resp B/P (MAP) Pulse Ox O2 O2 Flow FiO2 Time Delivery Rate 02/17/19 98.6 69 20 157/87 97 07:58 (110) 02/17/19 Room Air 01:06 Intake and Output 02/16/19 02/16/19 02/17/19 1515:00 23:00 07:00 IntakeIntake Total 320 ml 340 ml 350 ml OutputOutput Total 150 ml 200 ml 200 ml BalanceBalance 170 ml 140 ml 150 ml Results Result Diagram: 02/17/19 0549 02/17/19 0549 Results 24hrs Laboratory Tests Test 02/16/19 17:45 02/16/19 21:50 02/17/19 05:49 02/17/19 08:29 Bedside Glucose 103 108 126 White Blood Count 9.1 Red Blood Count 2.99 L Hemoglobin 8.8 L Hematocrit 26.3 L Mean Corpuscular 88.0 Volume Mean Corpuscular 29.4 Hemoglobin Mean Corpuscular 33.5 Hemoglobin Concent Red Cell 14.6 H Distribution Width Platelet Count 253 Mean Platelet Volume 8.7 Immature 0.400 Granulocytes % Neutrophils % 88.1 H Lymphocytes % 5.9 L Monocytes % 4.8 Eosinophils % 0.3 Basophils % 0.5 Nucleated Red Blood 0.0 Cells % Immature 0.040 H Granulocytes # Neutrophils # 8.0 H Lymphocytes # 0.5 L Monocytes # 0.4 Eosinophils # 0.0 Basophils # 0.1 Nucleated Red Blood 0.0 Cells # Sodium Level 130 L Potassium Level 3.8 Chloride Level 98 Carbon Dioxide Level 27 Anion Gap 5 Blood Urea Nitrogen 12 Creatinine 0.68 Est Glomerular Filtrat Rate mL/min Glucose Level 152 Calcium Level 8.3 L Test 02/17/19 12:25 Bedside Glucose 143 Medications Medication Current Medications Amiodarone HCl (Cordarone) 200 mg BID PO Last administered on 02/17/19 08:31; Admin Dose 200 MG; Start 02/10/19 at 21:00 Amlodipine Besylate (Norvasc) 10 mg DAILY PO Last administered on 02/17/19 08:31; Admin Dose 10 MG; Start 02/11/19 at 09:00 Lisinopril (Zestril) 40 mg DAILY PO Last administered on 02/17/19 08:32; Admin Dose 40 MG; Start 02/11/19 at 09:00 Melatonin (Melatonin) 5 mg HS PO Last administered on 02/16/19 21:53; Admin Dose 5 MG; Start 02/10/19 at 21:00 Tamsulosin HCl (Flomax) 0.4 mg DAILY PO Last administered on 02/17/19 08:32; Admin Dose 0.4 MG; Start 02/11/19 at 09:00 Ondansetron HCl (Zofran Inj) 4 mg Q6H PRN IV NAUSEA/VOMITING; Start 02/10/19 at 18:00 Acetaminophen (Tylenol Tab) 650 mg Q6H PRN PO .PAIN 1-3 OR TEMP; Start 02/10/19 at 18:00 Bisacodyl (Dulcolax) 5 mg DAILY PRN PO .CONSTIPATION; Start 02/10/19 at 18:00 Pantoprazole (Protonix Tab) 40 mg DAILY@06 PO Last administered on 02/17/19 05:51; Admin Dose 40 MG; Start 02/11/19 at 06:00 Ceftriaxone Sodium 50 ml @ 100 mls/hr Q24H IVPB Last administered on 02/17/19 12:26; Admin Dose 100 MLS/HR; Start 02/11/19 at 15:00 Diagnostic Test (Pha) (Accu-Chek) 1 ea 02 XX ; Start 02/11/19 at 02:00 Insulin Aspart (Novolog Insulin Pen) NOVOLOG *MODERATE* ALGORITHM WITH MEALS BEDTIME SC Last administered on 02/17/19at 12:29; Admin Dose 2 UNIT; Start 02/11/19 at 07:50 Miscellaneous Information 1 ea NOTE XX ; Start 02/10/19 at 23:00 Glucose (Glutose) 15 gm Q15M PRN PO DECREASED GLUCOSE; Start 02/10/19 at 23:00 Glucose (Glutose) 22.5 gm Q15M PRN PO DECREASED GLUCOSE; Start 02/10/19 at 23:00 Dextrose (D50w Syringe) 25 ml Q15M PRN IV DECREASED GLUCOSE; Start 02/10/19 at 23:00 Dextrose (D50w Syringe) 50 ml Q15M PRN IV DECREASED GLUCOSE; Start 02/10/19 at 23:00 Glucagon (Glucagen) 1 mg Q15M PRN IM DECREASED GLUCOSE; Start 02/10/19 at 23:00 Glucose (Glutose) 15 gm Q15M PRN BUCCAL DECREASED GLUCOSE; Start 02/10/19 at 23:00 Docusate Sodium (Colace) 100 mg Q12H PO Last administered on 02/16/19at 17:49; Admin Dose 100 MG; Start 02/16/19 at 18:00 Polyethylene Glycol (Miralax) 8.5 gm DAILY PO Last administered on 02/17/19at 08:32; Admin Dose 8.5 GM; Start 02/16/19 at 15:30 Quetiapine Fumarate (Seroquel) 25 mg BID PO Last administered on 02/17/19at 08:30; Admin Dose 25 MG; Start 02/17/19 at 09:00 LUCINA DOMINGUEZ NP February 17, 2019 14:35
--- NOTE | 2019-02-17 20:37 | DS ---
Date/Time of Note Date/Time of Note DATE: 02/17/19 TIME: 20:34 Discharge Summary Admission/Discharge Info Admit Date/Time February 11, 2019 at 19:57 Discharge Date/Time February 17, 2019 at 14:36 Patient Condition: Stable Hx of Present Illness The patient is 73-year-old gentleman with history of aortic aneurysm, primary hypertension, late syphilis, cerebrovascular disease, pneumonia, atrial fibrillation, urinary retention, diabetes, BPH, history of urethral stricture. Patient is awake alert however cannot provide any detailed medical history, most of the history was obtained from medical records and talking to nursing staff. [facility] for hematuria, patient had Cavanaugh catheter on admission. He recently finished Keflex for 10 days for UTI. Patient noted to have elevated white blood cells, hypertension, and elevated lactate. No nausea vomiting, chest pain or shortness of breath reported. Hospital Course -Severe sepsis due to recent gram-negative rods UTI, resolved, completed treatment with antibiotics. Dr. Amaro is following in infection disease consultation. -Hematuria, resolved, pt is able to void, low post void residual, continue Flomax. Dr. Cristina is following in urology consultation. -Constipation, resolved. -History of aortic aneurysm, status post repair. -Atrial fibrillation, anticoagulation is held due to hematuria. -Hypertension, continue Norvasc and lisinopril. -Cerebrovascular disease -Urinary retention with urethral stricture. -Diabetes, continue Lantus and NovoLog. -Fall risk, continue close monitoring fall precaution. Plan of care discussed with Dr. Moreno. Home Meds Active Scripts Cephalexin* (Keflex*) 500 Mg Capsule, 500 MG PO Q6, #40 CAP Prov:SANTOS HOLT MD 02/04/19 Reported Medications Lisinopril* (Lisinopril*) 40 Mg Tablet, 40 MG PO DAILY, #30 TAB 02/04/19 Magnesium Hydroxide* (Milk Of Magnesia*) 400 Mg/5 Ml Oral.susp, 30 ML PO BID, ML 02/04/19 Acetaminophen* (Tylenol*) 325 Mg Tablet, 650 MG PO Q4H PRN for MILD PAIN LEVEL 1-3, TAB AND FEVER >100f 02/04/19 Albuterol Sulfate* (Albuterol Sulfate* Neb) 0.083%-3 Ml Neb, 2.5 MG NEB Q4H PRN for WHEEZING AND SOB, #30 VIAL 02/04/19 Tamsulosin Hcl* (Flomax*) 0.4 Mg Cap.er.24h, 0.4 MG PO DAILY, CAP 02/04/19 Polyethylene Glycol* (Polyethylene Glycol*) 17 Gm Powd.pack, 17 GM PO DAILY, #30 PACKET 02/04/19 Melatonin (Melatonin) 5 Mg Tablet, 5 MG PO HS, TAB 02/04/19 Insulin Aspart* (Novolog Insulin Pen*) 100 Unit/Ml Soln, 0 SC .SLIDING SCALE AC, EA IF BS 150-199=2 UNITS. 200-249=4 UNITS, 250-299=6 UNITS,300-349-8 UNITS,350-399=10 UNITS,400-449=12 UNITS AND CALL MD. 02/04/19 Heparin Sodium,Porcine/Pf (HEPARIN SOD 5,000 UNIT/ 0.5 ML) 5,000 Unit/0.5 Ml Vial, 5000 UNIT IJ Q8H, VIAL 02/04/19 Bisacodyl (Dulcolax) 10 Mg Supp.rect, 10 MG RC DAILY, SUPP.RECT 02/04/19 Aspirin* (Aspirin* Chew) 81 Mg Tab.chew, 81 MG PO DAILY, TAB.CHEW 02/04/19 Amlodipine Besylate* (Amlodipine Besylate*) 10 Mg Tablet, 10 MG PO DAILY, #30 TAB 02/04/19 Amiodarone Hcl* (Amiodarone Hcl*) 200 Mg Tablet, 200 MG PO BID, #60 TAB 02/04/19 Discontinued Reported Medications Furosemide* (Furosemide*) 20 Mg Tablet, 20 MG PO BID, #30 TAB 02/04/19 Docusate Sodium* (Colace* Liq) 50 Mg/5 Ml Liquid, 10 ML PO BID, EA 02/04/19 Follow-up Plan BMP in 1 week. Primary Care Provider Care Physician No Primary Time spent on discharge: > 30 minutes Pending Labs Laboratory Tests Test 02/16/19 21:50 02/17/19 05:49 02/17/19 08:29 02/17/19 12:25 Bedside 108 126 143 Glucose mg/dL (70-220) mg/dL (70-220) mg/dL (70-220) White Blood 9.1 Count 10^3/ul (4.8-1 0.8) Red Blood 2.99 Count 10^6/ul (4.70- 6.10) Hemoglobin 8.8 g/dl (14.0-18. 0) Hematocrit 26.3 % (42.0-52.0) Mean 88.0 Corpuscular fl (82.0-101.0 Volume ) Mean 29.4 Corpuscular pg (29.0-33.0) Hemoglobin Mean 33.5 Corpuscular g/dl (32.0-37. Hemoglobin Conc 0) ent Red Cell 14.6 Distribution % (11.5-14.5) Width Platelet Count 253 10^3/UL (140-4 15) Mean Platelet 8.7 Volume fl (7.4-10.4) Immature 0.400 Granulocytes % % (0.001-0.429 ) Neutrophils % 88.1 % (39.0-77.0) Lymphocytes % 5.9 % (15.0-51.0) Monocytes % 4.8 % (0.0-11.0) Eosinophils % 0.3 % (0.0-7.0) Basophils % 0.5 % (0.0-2.0) Nucleated Red 0.0 Blood Cells % /100WBC (0.0-0 .0) Immature 0.040 Granulocytes # 10^3/ul (0.0-0 .031) Neutrophils # 8.0 10^3/ul (1.6-7 .5) Lymphocytes # 0.5 10^3/ul (0.8-2 .9) Monocytes # 0.4 10^3/ul (0.3-0 .9) Eosinophils # 0.0 10^3/ul (0.0-0 .5) Basophils # 0.1 10^3/ul (0.0-0 .1) Nucleated Red 0.0 Blood Cells # 10^3/ul (0.0-0 .0) Sodium Level 130 mmol/L (135-14 4) Potassium 3.8 Level mmol/L (3.5-5. 1) Chloride Level 98 mmol/L (97-110 ) Carbon Dioxide 27 Level mmol/L (21-31) Anion Gap 5 (5-13) Blood Urea 12 Nitrogen mg/dl (7-20) Creatinine 0.68 mg/dl (0.61-1. 24) Est Glomerular mL/min (>60) Filtrat Rate mL/min Glucose Level 152 mg/dl (70-220) Calcium Level 8.3 mg/dl (8.4-10. 2) GIANNA DE JESUS February 17, 2019 20:37
[2019-02-18] MEDS ORDERED: QUET25TA33 PO (17:48)
[2019-02-18] MEDS ORDERED: PANT40TA4 PO (17:49)
== END 2019-02-17 14:36 | DRG 872 ==
LOC: E/R 13:53 → MS1 14:17 → OBSVTOIN 02-11 19:57 → MS1 02-15 09:01
PROVIDERS: ADMIT Internal Medicine; ATTEND Internal Medicine
DX: A41.9 Sepsis, unspecified organism (principal); R64 Cachexia; N39.0 Urinary tract infection, site not specified; E11.8 Type 2 diabetes mellitus with unspecified complications; I48.91 Unspecified atrial fibrillation; D64.9 Anemia, unspecified; I10 Essential (primary) hypertension; I67.9 Cerebrovascular disease, unspecified; Z68.23 Body mass index [BMI] 23.0-23.9, adult; K59.00 Constipation, unspecified; N40.1 Benign prostatic hyperplasia with lower urinary tract symptoms; R33.8 Other retention of urine; A53.0 Latent syphilis, unspecified as early or late; R31.0 Gross hematuria; G93.89 Other specified disorders of brain
CPT/HCPCS: 36415; 80048; 80053; 81001; 82962; 83605; 84484; 85025; 85610; 85730; 87086; 93005; A4310; G0378; J0696; J1815; J7030

== ENCOUNTER 2019-02-18 17:17 | Inpatient (IN) | payer OTHER ==
[~2019-02-18] VITALS: Ht 162.6 cm; Wt 48.7 kg
[2019-02-18] MEDS: TAMSULOSIN (SR) 0.4 MG CAP PO SCH
[2019-02-18] MEDS: D5W-0.45 NACL + KCL 20 MEQ 1,000 ML IV SCH
[2019-02-18] MEDS: INSULIN ASPART [NOVOLOG] 3 ML PEN SC SCH
[~2019-02-18 17:17] MED LIST changes: +ACET325T33 GTB; -ACET325T33 PO; +AMIO200T4 GTB; -AMIO200T4 PO; +AMLO-147 GTB; -AMLO-147 PO; +ASPI-903 GTB; -ASPI-903 PO; -DOCU50LI23 PO; +ETOMIDATE 20 MG INJ ONE; -FURO20TA3 PO; +LISI40TA3 GTB; -LISI40TA3 PO; +MAGN400O19 GTB; -MAGN400O19 PO; +POLY17PO28 GTB; -POLY17PO28 PO; +SUCCINYLCHOLINE CHLORIDE 100 MG/5 ML SYG IV ONE; +TAMS-14 GTB; -TAMS-14 PO
[2019-02-18] MEDS ORDERED: ACETAMINOPHEN 650 MG SUPP PR STA (17:26)
[2019-02-18] MEDS ORDERED: CEFEPIME 2GM/50 ML (PMX) 50 ML IVPB STA (17:26)
[2019-02-18] MEDS ORDERED: PROPOFOL 100 ML IV STA (17:26)
[2019-02-18] MEDS ORDERED: FENTAnyl (DRIP) 1000 mcg/100mL 100 ML IV ONE (17:30)
[2019-02-18] MEDS ORDERED: ETOMIDATE 20 MG INJ IV ONE (17:30)
[2019-02-18] MEDS ORDERED: SUCCINYLCHOLINE CHLORIDE 100 MG/5 ML SYG IV ONE (17:30)
[2019-02-18] MEDS ORDERED: VANCOMYCIN 1 GM (PMX) 250 ML IVPB ONE (17:30)
[2019-02-18] MEDS ORDERED: QUET25TA33 GTB (17:48)
[2019-02-18] MEDS ORDERED: PANT40TA4 PO (17:49)
[2019-02-18] MEDS: SODIUM CHLORIDE 0.9% 1L BAG IV* STA ×2 (18:35→18:36)
--- NOTE | 2019-02-18 18:49 | ERD ---
ER Documentation Chief Complaint Chief Complaint BIBA, resp distress per EMS from SNF; bagged by EMT upon arrival sat @95% HPI Patient is a 73-year-old male who presents altered and hypoxic. The patient was brought in by ambulance. Please note the history and physical exam is limited secondary to the patient's altered mental status. He came from a [place] [facility] facility. Paramedics were bagging upon arrival. The patient's sugar was 226. He was discharged yesterday from the hospital after having a gram- negative UTI. I cannot obtain history otherwise given mental status. ROS All systems reviewed and are negative except as per history of present illness. Medications Home Meds Active Scripts Cephalexin* (Keflex*) 500 Mg Capsule, 500 MG PO Q6, #40 CAP Prov:SANTOS HOLT MD 02/04/19 Reported Medications Pantoprazole* (Pantoprazole*) 40 Mg Tablet.dr, 40 MG PO AC BREAKFAST, TAB 02/18/19 Quetiapine Fumarate* (Quetiapine Fumarate*) 25 Mg Tablet, 25 MG PO BID, TAB 02/18/19 Lisinopril* (Lisinopril*) 40 Mg Tablet, 40 MG PO DAILY, #30 TAB 02/04/19 Magnesium Hydroxide* (Milk Of Magnesia*) 400 Mg/5 Ml Oral.susp, 30 ML PO BID, ML 02/04/19 Acetaminophen* (Tylenol*) 325 Mg Tablet, 650 MG PO Q4H PRN for MILD PAIN LEVEL 1-3, TAB AND FEVER >100f 02/04/19 Albuterol Sulfate* (Albuterol Sulfate* Neb) 0.083%-3 Ml Neb, 2.5 MG NEB Q4H PRN for WHEEZING AND SOB, #30 VIAL 02/04/19 Tamsulosin Hcl* (Flomax*) 0.4 Mg Cap.er.24h, 0.4 MG PO DAILY, CAP 02/04/19 Polyethylene Glycol* (Polyethylene Glycol*) 17 Gm Powd.pack, 17 GM PO DAILY, #30 PACKET 02/04/19 Melatonin (Melatonin) 5 Mg Tablet, 5 MG PO HS, TAB 02/04/19 Insulin Aspart* (Novolog Insulin Pen*) 100 Unit/Ml Soln, 0 SC .SLIDING SCALE AC, EA IF BS 150-199=2 UNITS. 200-249=4 UNITS, 250-299=6 UNITS,300-349-8 UNITS,350-399=10 UNITS,400-449=12 UNITS AND CALL MD. 02/04/19 Heparin Sodium,Porcine/Pf (HEPARIN SOD 5,000 UNIT/ 0.5 ML) 5,000 Unit/0.5 Ml Vial, 5000 UNIT IJ Q8H, VIAL 02/04/19 Bisacodyl (Dulcolax) 10 Mg Supp.rect, 10 MG RC DAILY, SUPP.RECT 02/04/19 Aspirin* (Aspirin* Chew) 81 Mg Tab.chew, 81 MG PO DAILY, TAB.CHEW 02/04/19 Amlodipine Besylate* (Amlodipine Besylate*) 10 Mg Tablet, 10 MG PO DAILY, #30 TAB 02/04/19 Amiodarone Hcl* (Amiodarone Hcl*) 200 Mg Tablet, 200 MG PO BID, #60 TAB 02/04/19 Allergies Allergies: Coded Allergies: No Known Allergy (Unverified , 02/18/19) PMhx/Soc History of Surgery: Yes (CABG/OPEN HEART, ABD?) Anesthesia Reaction: No Hx Neurological Disorder: Yes (CVA) Hx Respiratory Disorders: Yes (respiratory distress) Hx Cardiac Disorders: Yes (HTN, A-FIB) Hx Psychiatric Problems: No Hx Miscellaneous Medical Probl: No Hx Alcohol Use: No Hx Substance Use: No Hx Tobacco Use: No Smoking Status: Unknown if ever smoked FmHx Unable to obtain Physical Exam Vitals Vital Signs Date Temp Pulse Resp B/P (MAP) Pulse Ox O2 O2 Flow FiO2 Time Delivery Rate 02/18/19 96.7 17:52 02/18/19 96.7 97 17 138/72 94 17:34 (94) 02/18/19 89 28 100 100 17:30 02/18/19 Bag Valve 10.0 17:20 Mask Physical Exam Const: No acute distress Head: Atraumatic Eyes: Normal Conjunctiva ENT: Normal External Ears, Nose and Mouth. Neck: Full range of motion. No meningismus. Resp: Clear to auscultation bilaterally Cardio: Regular rate and rhythm, no murmurs Abd: Soft, non tender, non distended. Normal bowel sounds Skin: No petechiae or rashes Back: No midline or flank tenderness Ext: No cyanosis, or edema Neur: Awake and alert Psych: Normal Mood and Affect Result Diagram: 02/18/19 1817 02/18/19 1739 Results 24 hrs Laboratory Tests Test 02/18/19 17:26 02/18/19 17:27 02/18/19 17:39 02/18/19 18:17 Blood Gas Blood arterial Specimen Source Arterial Blood 02/18/2019 6:10: Date Drawn 44 PM Arterial Blood 7.348 pH (Temp corrected ) Arterial Blood 41.7 mmhg pCO2 (Temp correct) Arterial Blood 228.2 mmHG pO2 (Temp corrected ) Arterial Blood 22.4 mmol/L HCO3 Arterial Blood -3.1 mmol/L Base Excess Arterial Blood 98.9 mmHG Oxygen Saturati on Sven Test ACCEPTAB Arterial Blood Left Radial Gas Puncture Site Arterial 0.3 % Blood Carboxyhe moglobin Arterial Blood 0.4 % Methemoglobin Blood Gas A-a 443.1 mmHg O2 Differential Oxyhemoglobin 98.2 % Percent Blood Gas 37.0 C Temperature Blood Gas 16.0 Respiration Rate Blood Gas 28 Actual Respiration Rat e Blood Gas VENT - AC Modality FiO2 100.0 % Blood Gas Tidal 500.0 mL Volume Blood Gas Low 5.0 cmH2O PEEP Setting Blood Gas MDA Notified Whom Blood Gas 02/18/2019 6:13: Notified Time 34 PM POC Venous 2.1 mmol/L Lactate Prothrombin 13.4 Sec Time Prothrombin 1.0 Time Ratio INR 1.01 International Normalized Rati o Activated 28.1 Sec Partial Thrombo plast Time Urine Color YELLOW Urine Clarity CLEAR Urine pH 6.0 Urine Specific 1.006 [place] Urine Ketones NEGATIVE mg/dL Urine Nitrite NEGATIVE mg/dL Urine Bilirubin NEGATIVE mg/dL Urine NEGATIVE mg/dL Urobilinogen Urine Leukocyte NEGATIVE Claudia/ul Esterase Urine 1 /HPF Microscopic RBC Urine 2 /HPF Microscopic WBC Urine 1+ mg/dL Hemoglobin Urine Glucose NEGATIVE mg/dL Urine Total NEGATIVE mg/dl Protein Sodium Level 134 mmol/L Potassium Level 5.1 mmol/L Chloride Level 101 mmol/L Carbon Dioxide 24 mmol/L Level Anion Gap 9 Blood Urea 17 mg/dl Nitrogen Creatinine 0.62 mg/dl Est Glomerular mL/min Filtrat Rate mL/min Glucose Level 209 mg/dl Calcium Level 9.2 mg/dl Total Bilirubin 0.4 mg/dl Direct 0.00 mg/dl Bilirubin Indirect 0.4 mg/dl Bilirubin Aspartate Amino 25 IU/L Transf (AST/SGO T) Alanine 25 IU/L Aminotransferas e (ALT/SGPT) Alkaline 123 IU/L Phosphatase Troponin I < 0.012 ng/ml Total Protein 7.0 g/dl Albumin 3.7 g/dl Globulin 3.30 g/dl Albumin/Globuli 1.12 n Ratio White Blood 32.1 10^3/ul Count Red Blood Count 3.26 10^6/ul Hemoglobin 9.7 g/dl Hematocrit 29.6 % Mean 90.8 fl Corpuscular Volume Mean 29.8 pg Corpuscular Hemoglobin Mean 32.8 g/dl Corpuscular Hemoglobin Conc ent Red Cell 15.1 % Distribution Width Platelet Count 239 10^3/UL Mean Platelet 8.6 fl Volume Immature 0.900 % Granulocytes % Neutrophils % % Lymphocytes % % Monocytes % % Eosinophils % % Basophils % % Nucleated Red 0.0 /100WBC Blood Cells % Immature 0.290 10^3/ul Granulocytes # Neutrophils # 10^3/ul Lymphocytes # 10^3/ul Monocytes # 10^3/ul Eosinophils # 10^3/ul Basophils # 10^3/ul Nucleated Red 10^3/ul Blood Cells # Current Medications Medications Dose Sig/Mamie Start Time Status Last (Trade) Ordered Route PRN Stop Time Admin Dose Reason Admin Etomidate 20 mg ONCE ONCE 02/18/19 DC (Amidate) IV 17:30 02/18/19 17:31 150 mg ONCE ONCE 02/18/19 DC Succinylcholi IV 17:30 ne Chloride 02/18/19 17:31 (Anectine Syringe) Propofol 100 ml @ ONCE STAT 02/18/19 02/18/19 2.1 mls/hr IV 17:26 02/20/19 17:53 17:03 Fentanyl 100 ml @ 5 CONTINUOUS 02/18/19 mls/hr DRIP ONCE 17:30 IV 02/19/19 13:29 650 mg ONCE STAT 02/18/19 DC 02/18/19 Acetaminophen NH 17:26 17:52 (Tylenol 02/18/19 17:29 Supp) Cefepime HCl 50 ml @ ONCE STAT 02/18/19 DC 02/18/19 100 mls/hr IVPB 17:26 17:53 02/18/19 17:55 Vancomycin 250 ml @ ONCE ONCE 02/18/19 02/18/19 HCl 125 mls/hr IVPB 17:30 18:29 02/18/19 19:29 Sodium 1,740 ml BOLUS OVER 2 02/18/19 DC 02/18/19 Chloride HOURS STAT 17:36 18:36 (NS) IV* 02/18/19 17:37 Procedures/MDM EKG read by me: Rate/Rhythm: Regular rate and rhythm at a normal rate Intervals: Normal Impression: No evidence of ischemia or arrhythmia Endotracheal Intubation by me: Pre assessment performed. Pre-oxygenation performed with 100% oxygen RSI: Performed w/o complication or hypoxic events. Medications as ordered. Blade: MAC 4 video laryngoscope ET Tube: 7.5 cm Depth: 24 cm at the lip Intubation confirmed by colorimetric CO2, equal breath sounds, quiet over the stomach. Chest x-ray read by radiology shows ET tube in good position without pneumonia or pneumothorax. Sepsis Documentation: Patient's infectious symptoms have not stabilized and the patient is at risk of rapid decompensation. The patient will be admitted for careful hydration, antibiotic therapy, and infectious source control. SEVERE SEPSIS CRITERIA: Infectious source: Likely bacteremia End organ damage indicated by: Lactate greater than 2 and respiratory failure SEPSIS MANAGEMENT Time of recognition of sepsis: 1726. Time of recognition of severe sepsis: 1726. Time of recognition of septic shock: No septic shock at this time. 3 HOUR BUNDLE Blood cultures x 2 before broad-spectrum antibiotics: Yes 30 ml/kg NS bolus completed Initial lactate 2.1 Repeat lactate pending SEPTIC SHOCK ASSESSMENT: No lactic acid > 4.0 No persistent hypotension (SBP < 90 or 40 mmHg drop, MAP < 65) despite 30 mL/kg IV fluid bolus VOLUME REASSESSMENT FOR SEPTIC SHOCK: No septic shock at this time PERSISTENT HYPOTENSION TREATMENT: Comfort care no Central line not Required Vasopressor started not required I considered further perfusion assessment with CVP measurement, SCVO2, bedside ultrasound volume assessment, passive leg raise, trial of further fluid bolus. And proceeded with 30 ml/kg fluid bolus of NSS, broad spectrum antibiotics, and admission. The patient required intubation upon arrival for altered mental status and hypoxia. The patient was just discharged yesterday by Dr. Moreno and will be readmitted to Dr. Moreno for continuity of care. CRITICAL CARE Critical care time 35 minutes Emergent fluid management while maintaining close respiratory support. Provision of immediate and broad-spectrum antibiotic therapy. Simultaneous assessment for possible sources in order to direct targeted therapy. Consideration for invasive and chemical support to prevent cardiopulmonary collapse. Critical care time is independent of procedures performed. Departure Diagnosis: Primary Impression: Respiratory failure Chronicity: acute Respiratory failure complication: hypoxia Qualified Codes: J96.01 - Acute respiratory failure with hypoxia Additional Impressions: Severe sepsis Altered mental status Altered mental status type: unspecified Qualified Codes: R41.82 - Altered mental status, unspecified Condition: Critical CECI CESPEDES MD February 18, 2019 18:49
--- NOTE | 2019-02-18 19:42 | HP ---
Date/Time of Note Date/Time of Note DATE: 02/18/19 TIME: 19:37 Assessment/Plan VTE Prophylaxis SCD applied (from Nsg): Yes Pharmacological prophylaxis: LMWH Lines/Catheters IV Catheter Type (from Nrsg): Saline Lock Assessment/Plan Assessment/Plan -Acute respiratory failure requiring intubation and placement on mechanical ventilation. Will obtain pulm consult from Dr Addison. -Severe sepsis with shock. UA and CXR unremarkable. Will obtain Urine and Blood cx. Started on broad-spectrum antibiotics and IV fluids. ID Consult Dr. Guevara. -ALOC, brains CT -History of aortic aneurysm, status post repair. -Atrial fibrillation -Hypertension -Cerebrovascular disease -Urinary retention with urethral stricture. -Diabetes, continue Lantus and NovoLog. Further recommendations based on clinical course. Plan of care discussed with Fabio Moreno. Result Diagram: 02/18/19 1817 02/18/19 1739 Results 24hrs Laboratory Tests Test 02/18/19 17:26 02/18/19 17:27 02/18/19 17:39 02/18/19 18:17 Blood Gas Blood arterial Specimen Source Arterial Blood 02/18/2019 6:10:4 Date Drawn 4 PM Arterial Blood pH 7.348 L (Temp corrected) Arterial Blood 41.7 pCO2 (Temp correct) Arterial Blood 228.2 H pO2 (Temp corrected) Arterial Blood 22.4 HCO3 Arterial Blood -3.1 L Base Excess Arterial Blood 98.9 Oxygen Saturation Sven Test ACCEPTAB Arterial Blood Left Radial Gas Puncture Site Arterial 0.3 Blood Carboxyhemo globin Arterial Blood 0.4 Methemoglobin Blood Gas A-a O2 443.1 H Differential Oxyhemoglobin 98.2 Percent Blood Gas 37.0 Temperature Blood Gas 16.0 Respiration Rate Blood Gas Actual 28 Respiration Rate Blood Gas VENT - AC Modality FiO2 100.0 Blood Gas Tidal 500.0 Volume Blood Gas Low 5.0 PEEP Setting Blood Gas MDA Notified Whom Blood Gas 02/18/2019 6:13:3 Notified Time 4 PM POC Venous 2.1 *H Lactate Prothrombin Time 13.4 Prothrombin Time 1.0 Ratio INR International 1.01 Normalized Ratio Activated 28.1 Partial Thrombopl ast Time Urine Color YELLOW Urine Clarity CLEAR Urine pH 6.0 Urine Specific 1.006 [place] Urine Ketones NEGATIVE Urine Nitrite NEGATIVE Urine Bilirubin NEGATIVE Urine NEGATIVE Urobilinogen Urine Leukocyte NEGATIVE Esterase Urine Microscopic 1 RBC Urine Microscopic 2 WBC Urine Hemoglobin 1+ H Urine Glucose NEGATIVE Urine Total NEGATIVE Protein Sodium Level 134 L Potassium Level 5.1 Chloride Level 101 Carbon Dioxide 24 Level Anion Gap 9 Blood Urea 17 Nitrogen Creatinine 0.62 Est Glomerular Filtrat Rate mL/min Glucose Level 209 Calcium Level 9.2 Total Bilirubin 0.4 Direct Bilirubin 0.00 Indirect 0.4 Bilirubin Aspartate Amino 25 Transf (AST/SGOT) Alanine 25 Aminotransferase (ALT/SGPT) Alkaline 123 H Phosphatase Troponin I < 0.012 Total Protein 7.0 Albumin 3.7 Globulin 3.30 H Albumin/Globulin 1.12 Ratio White Blood Count 32.1 #H Red Blood Count 3.26 L Hemoglobin 9.7 L Hematocrit 29.6 L Mean Corpuscular 90.8 Volume Mean Corpuscular 29.8 Hemoglobin Mean Corpuscular 32.8 Hemoglobin Concen t Red Cell 15.1 H Distribution Width Platelet Count 239 Mean Platelet 8.6 Volume Immature 0.900 H Granulocytes % Neutrophils % Segmented 90 H Neutrophils % (Manual) Band Neutrophils 7 H % (Manual) Lymphocytes % Monocytes % Monocytes % 3 (Manual) Eosinophils % Basophils % Nucleated Red 0.0 Blood Cells % Immature 0.290 H Granulocytes # Neutrophils # Neutrophils # 29.6 H (Manual) Band Neutrophils 2.2 H # Lymphocytes # Monocytes # Monocytes # 0.9 (Manual) Eosinophils # Basophils # Nucleated Red Blood Cells # Platelet Estimate NORMAL Polychromasia 1+ Poikilocytosis 3+ Anisocytosis 2+ Microcytosis 1+ Macrocytosis 1+ HPI/ROS Admit Date/Time Admit Date/Time Hx of Present Illness The patient is 73-year-old male known to me from previous admission. Patient with extensive medical history including aortic aneurysm status post repair, hypertension, CVA, late syphilis, diabetes, history of pneumonia and urinary tract infection, diabetes BPH, history of urethral stricture. Patient was recently admitted UTI and hematuria. Patient was able void, completed treatment with antibiotic for urinary tract infection, and was discharged to [facility] in stable condition. Patient was brought tonight to emergency room from [facility] due to hypoxic respiratory failure and altered mental status. Patient was intubated and placed on mechanical ventilation patient. Patient was noted to have leukocytosis and elevated lactate. Urinalysis and chest x-ray were unremarkable. Patient was started on broad-spectrum antibiotics. Patient is seen in ER and he will be admitted for further evaluation and management to intensive care unit. ROS Unable to obtain due to patient's condition PMH/Family/Social Past Medical History per HPI Medications Current Medications Propofol 100 ml @ 2.1 mls/hr ONCE STAT IV Last administered on 02/18/19at 17:53; Admin Dose 2.1 MLS/HR; Start 02/18/19 at 17:26; Stop 02/20/19 at 17:03 Fentanyl 100 ml @ 5 mls/hr CONTINUOUS DRIP ONCE IV Last administered on 02/18/19at 19:14; Admin Dose 5 MLS/HR; Start 02/18/19 at 17:30; Stop 02/19/19 at 13:29 Coded Allergies: No Known Allergy (Unverified , 02/18/19) Past Surgical History Past Surgical Hx: other (Status post aortic aneurysm repair, details are not available) Family History Significant Family History: no pertinent family hx Social History Alcohol Use: none Smoking Status: Unknown if ever smoked Drug Use: none Exam/Review of Systems Vital Signs Vitals Vital Signs Date Temp Pulse Resp B/P (MAP) Pulse Ox O2 O2 Flow FiO2 Time Delivery Rate 02/18/19 87 28 99 50 18:49 02/18/19 96.7 17:52 02/18/19 138/72 17:34 (94) 02/18/19 Bag Valve 10.0 17:20 Mask Exam Constitutional: frail Head: normocephalic Neck: supple Respiratory: clear to auscultation Cardiovascular: regular rate and rhythm Gastrointestinal: soft, non-tender Musculoskeletal: nl extremities to inspection Extremities: normal pulses Neurological: other (sedated) Skin: nl GIANNA Huber February 18, 2019 19:42
[2019-02-18] MEDS ORDERED: MIDAZOLAM (DRIP) 50 mg/50 mL 50 ML IV STA (20:20)
[2019-02-18] MEDS ORDERED: ONDANSETRON 4 MG INJ IV PRN (20:30)
[2019-02-18] MEDS ORDERED: NACL 0.9% 3 ML SYG IV SCH (20:30)
[2019-02-18] MEDS: ALBUTEROL/IPRATROPIUM (NEB) 3 ML AMP NEB SCH (21:00)
[2019-02-18] MEDS ORDERED: AMIODARONE 200 MG TAB PO SCH (21:00)
[2019-02-18] MEDS ORDERED: NORepinephrine 8MG/250 ML (PMX 250 ML IV STA (22:25)
[2019-02-18 23:33] VITALS: BP 149/65; PULSE 130
[2019-02-18 23:40] VITALS: RESP 16
[2019-02-18 23:45] VITALS: BP 139/47; PULSE 78; RESP 17
[2019-02-19] VITALS (86 sets, daily range): BP systolic 91–196; BP diastolic 38–95; PULSE 60–120; RESP 13–25; Ht 162.6 cm; Wt 48.7 kg
[2019-02-19] MEDS: FAMOTIDINE 20 MG INJ IV SCH ×3 (00:14→21:06)
[2019-02-19] MEDS: INSULIN ASPART [NOVOLOG] 3 ML PEN SC SCH ×6 (00:28→21:05)
[2019-02-19] MEDS: ALBUTEROL/IPRATROPIUM (NEB) 3 ML AMP NEB SCH (01:00)
[2019-02-19] MEDS ORDERED: NORepinephrine 8MG/250 ML (PMX 250 ML IV SCH (02:30)
[2019-02-19] MEDS ORDERED: FENTAnyl (DRIP) 1000 mcg/100mL 100 ML IV SCH ×2 (02:30→21:30)
[2019-02-19] MEDS ORDERED: MIDAZOLAM (DRIP) 50 mg/50 mL 50 ML IV SCH ×2 (02:30→21:30)
[2019-02-19] MEDS: D5W-0.45 NACL + KCL 20 MEQ 1,000 ML IV SCH ×2 (06:53→17:22)
[2019-02-19] MEDS ORDERED: PANTOPRAZOLE (EC) 40 MG TAB PO SCH (07:00)
[2019-02-19] MEDS: BISACODYL 10 MG SUPP PR SCH (08:48)
[2019-02-19] MEDS: ALBUTEROL HFA 8 GM INHALER INH SCH ×4 (08:54→20:04)
[2019-02-19] MEDS: IPRATROPIUM (HFA) 12.9 GM INHALER INH SCH ×4 (08:54→20:04)
[2019-02-19] MEDS: AMIODARONE 200 MG TAB GTB SCH ×2 (08:57→21:08)
[2019-02-19] MEDS: ASPIRIN 81 MG TAB GTB SCH (08:58)
[2019-02-19] MEDS: AMLODIPINE 10 MG TAB GTB SCH (08:58)
[2019-02-19] MEDS: LISINOPRIL 20 MG TAB GTB SCH (08:58)
[2019-02-19] MEDS: POLYETHYLENE GLYCOL 17 GM PACKET GTB SCH (08:59)
[2019-02-19] MEDS ORDERED: POLYETHYLENE GLYCOL 17 GM PACKET PO SCH (09:00)
[2019-02-19] MEDS ORDERED: LISINOPRIL 20 MG TAB PO SCH (09:00)
[2019-02-19] MEDS ORDERED: ASPIRIN 81 MG TAB PO SCH (09:00)
[2019-02-19] MEDS ORDERED: AMLODIPINE 10 MG TAB PO SCH (09:00)
[2019-02-19] MEDS: ENOXAPARIN 30 MG/0.3 ML SYG SC SCH (09:01)
[2019-02-19] MEDS ORDERED: VANCOMYCIN IV PER PHARMACY XX SCH (11:30)
[2019-02-19] MEDS: CEFEPIME 2GM/50 ML (PMX) 50 ML IVPB SCH (12:32)
--- NOTE | 2019-02-19 15:22 | CONS ---
DATE OF ADMISSION: 02/18/2019 DATE OF CONSULTATION: 02/19/2019 TYPE OF CONSULTATION: Pulmonary. Thank you, Dr. Moreno, for this consultation. HISTORY OF PRESENT ILLNESS: This is a 73-year-old gentleman transferred from [facility] for altered mental status, respiratory failure requiring emergent intubation and mechanical ventila tion. The patient is currently intubated. His history is from the chart. He is a 73-year-old gentl eman with past medical history of aortic aneurysm status post repair, hypertension, hyperlipidemia, C VA, syphilis and recent urinary tract infection, now with worsening altered mental status, found to h ave significant leukocytosis and brain CT showing significant encephalomalacia; chest x-ray demonstra ting small pleural effusion, unchanged retrocardiac opacity. PAST MEDICAL HISTORY: As above. MEDICATIONS: Per chart. ALLERGIES: NONE. SYSTEMS REVIEW: A 12-point review of systems was unable to perform. PHYSICAL EXAMINATION: GENERAL: Elderly-appearing gentleman, orally intubated on mechanical ventilation. VITAL SIGNS: Currently afebrile, pulse is 70, blood pressure 122/49, O2 saturation 96%, FiO2 of 30%. NECK: Supple. No JVD or lymphadenopathy. CARDIAC: S1, S2. No added sounds or murmurs. CHEST: Diminished air entry bilaterally. ABDOMEN: Soft, nontender. No guarding or rebound. EXTREMITIES: No cyanosis, clubbing, edema. NEUROLOGIC: Unable to assess. LABORATORY DATA: White count initially 32, now 38, hemoglobin 9.3, platelets 270. BUN 18, creatinin e 0.66. INR 1.01. Arterial blood gas: pH 7.35, pCO2 of 39, pO2 of 62 on FiO2 of 50%. IMPRESSION: 1. Acute hypoxemic respiratory failure. 2. Acute on chronic encephalopathy. 3. Severe leukocytosis, unclear source, possible aspiration pneumonia. 4. Incomplete data. PLAN: 1. Continue mechanical ventilation. 2. antibiotics pending. 3. Continue vent support. 4. DVT and GI prophylaxis. 5. Tube feeding as tolerated. Dictated By: SHAHZAD FIERRO MD SV/NTS Conf#: [id number] DID#: [id number] CC: CLARISA MORENO MD; HUGH MONTANA MD;*End*
--- NOTE | 2019-02-19 16:01 | CONS ---
DATE OF ADMISSION: 02/18/2019 DATE OF CONSULTATION: 02/19/2019 TYPE OF CONSULTATION: Infectious disease. REASON FOR CONSULTATION: Antibiotic management. HISTORY OF PRESENT ILLNESS: Conor Damon is a 73-year-old male was brought in respiratory dist ress from shelter facility and is being seen for antibiotic management. The patient presente d with altered and hypoxic, brought in by ambulance. His sugar was 226. He was discharged on 2018 from [facility] after having gram-negative UTI. PAST MEDICAL HISTORY: Includes: 1. Coronary artery bypass grafting. 2. Abdominal surgery. 3. CVA. 4. Respiratory distress. 5. Hypertension and atrial fibrillation. FAMILY HISTORY: Noncontributory. SOCIAL HISTORY: He does not smoke, drink or abuse drugs. ALLERGIES: NONE TO PENICILLIN, SULFA OR FOODS. MEDICATIONS: Per chart. REVIEW OF SYSTEMS: Noncontributory. PHYSICAL EXAMINATION: GENERAL: The patient is an elderly appearing male who is confused and altered, in no acute distress. VITAL SIGNS: Stable. He is afebrile. SKIN: Without generalized rash. HEENT: Within normal limits. NECK: Supple. LYMPH NODES: None palpable. CHEST: Decreased breath sounds at the bases. HEART: Without murmur or gallop. ABDOMEN: Soft, nontender without organosplenomegaly or masses. EXTREMITIES: Without cyanosis, clubbing or edema. RECTAL AND GENITAL: Deferred. NEUROLOGIC: No focal neurological abnormality. HOSPITAL COURSE: White count of 32.1, H and H of 9.7 and 29.6, platelet count 279,000. BUN and crea tinine is 17/0.62. The patient's urine is negative for nitrite and leukocyte esterase. The patient was started on vancomycin and cefepime. The patient was intubated. Chest x-ray shows the ET tube in good position. Blood cultures were ordered. Urine culture so far is negative at 24 hours. Chest x -ray today shows an NG tube in the proximal stomach, ET tube and a right central line which was meza ed. There are sternotomy wires and mediastinal clips, retrocardiac opacity, small pleural effusion. There is tubing artifact over the lung apices limiting evaluation. IMPRESSION AND PLAN: The patient has what appears to be healthcare-associated pneumonia with retroca rdiac infiltrate and hypoxemia. He required intubation and has an NG tube and a new right jugular ce ntral line. I will dictate my findings to Dr. Rodas and to nurse practitioner Pete. Dictated By: HUGH MONTANA MD, JD/MELYSSA Conf#: [id number] DID#: [id number] CC: CLARISA RODAS MD;*EndCC*
[2019-02-19] MEDS: VANCOMYCIN 750 MG (PMX) 250 ML IVPB SCH (17:22)
[2019-02-19] MEDS: TAMSULOSIN (SR) 0.4 MG CAP PO SCH (21:00)
[2019-02-20] VITALS (44 sets, daily range): BP systolic 101–159; BP diastolic 29–93; PULSE 54–87; RESP 12–21
[2019-02-20] MEDS: INSULIN ASPART [NOVOLOG] 3 ML PEN SC SCH ×5 (01:00→21:00)
[2019-02-20] MEDS: IPRATROPIUM (HFA) 12.9 GM INHALER INH SCH ×6 (01:30→21:23)
[2019-02-20] MEDS: ALBUTEROL HFA 8 GM INHALER INH SCH ×6 (01:31→21:23)
[2019-02-20] MEDS: D5W-0.45 NACL + KCL 20 MEQ 1,000 ML IV SCH ×3 (01:34→21:50)
[2019-02-20] MEDS: POLYETHYLENE GLYCOL 17 GM PACKET GTB SCH (10:00)
[2019-02-20] MEDS: BISACODYL 10 MG SUPP PR SCH (10:00)
[2019-02-20] MEDS: AMLODIPINE 10 MG TAB GTB SCH (10:08)
[2019-02-20] MEDS: ENOXAPARIN 30 MG/0.3 ML SYG SC SCH (10:08)
[2019-02-20] MEDS: AMIODARONE 200 MG TAB GTB SCH ×2 (10:09→21:00)
[2019-02-20] MEDS: ASPIRIN 81 MG TAB GTB SCH (10:09)
[2019-02-20] MEDS: LISINOPRIL 20 MG TAB GTB SCH (10:16)
[2019-02-20] MEDS: FAMOTIDINE 20 MG INJ IV SCH ×2 (10:18→21:47)
--- NOTE | 2019-02-20 10:53 | PN ---
Date/Time of Note Date/Time of Note DATE: 02/20/19 TIME: 10:53 Assessment/Plan VTE Prophylaxis Risk score (from [employer] [facility] [employer])>0 risk: 10 SCD applied (from Ns): Yes Pharmacological prophylaxis: LMWH Lines/Catheters IV C[facility]ter Type (from [facility] Central Line Central line still needed: Yes Urinary Cath still in place: Yes Reason Cath still needed: skin wounds contaminated by urine Assessment/Plan Hospital Course -Acute respiratory failure requiring intubation and placement on mechanical ventilation. Will obtain pulm consult from Dr Addison. -Severe sepsis with shock. UA and CXR unremarkable. Will obtain Urine and Blood cx. Started on broad-spectrum antibiotics and IV fluids. ID Consult Dr. Guevara. -ALOC, brains CT -History of aortic aneurysm, status post repair. -Paroxysmal atrial fibrillation -Hypertension -Cerebrovascular disease -Urinary retention with urethral stricture. -Diabetes, continue Lantus and NovoLog. Result Diagram: 02/20/19 0426 02/20/19 0426 Results 24hrs Laboratory Tests Test 02/19/19 12:04 02/19/19 12:16 02/19/19 17:26 02/19/19 21:02 Lactic Acid Level 1.2 Bedside Glucose 166 172 168 Test 02/20/19 01:30 02/20/19 04:26 02/20/19 05:03 02/20/19 10:11 Bedside Glucose 117 111 116 White Blood Count 11.5 #H Red Blood Count 2.90 L Hemoglobin 8.5 L Hematocrit 26.4 L Mean Corpuscular 91.0 Volume Mean Corpuscular 29.3 Hemoglobin Mean Corpuscular 32.2 Hemoglobin Concent Red Cell 15.4 H Distribution Width Platelet Count 214 # Mean Platelet Volume 9.0 Immature 0.300 Granulocytes % Neutrophils % 89.3 H Lymphocytes % 3.7 L Monocytes % 4.6 Eosinophils % 1.8 Basophils % 0.3 Nucleated Red Blood 0.0 Cells % Immature 0.040 H Granulocytes # Neutrophils # 10.3 H Lymphocytes # 0.4 L Monocytes # 0.5 Eosinophils # 0.2 Basophils # 0.0 Nucleated Red Blood 0.0 Cells # Sodium Level 136 Potassium Level 4.5 Chloride Level 107 Carbon Dioxide Level 26 Anion Gap 3 L Blood Urea Nitrogen 18 Creatinine 0.59 L Est Glomerular Filtrat Rate mL/min Glucose Level 129 Lactic Acid Level 1.0 Calcium Level 8.5 Phosphorus Level 2.0 #L Magnesium Level 1.9 Subjective 24 Hr Interval Summary Free Text/Dictation Patient is sedated and intubated Exam/Review of Systems Exam Vitals Vital Signs Date Temp Pulse Resp B/P (MAP) Pulse Ox O2 O2 Flow FiO2 Time Delivery Rate 02/20/19 98.7 16 100 Mechanical 08:13 Ventilator 02/20/19 54 08:00 02/20/19 40 05:48 02/18/19 10.0 17:20 Intake and Output 02/19/19 02/19/19 02/20/19 1515:00 23:00 07:00 IntakeIntake Total 1051.250 ml 1259.2 ml 1240.0 ml OutputOutput Total 300 ml 390 ml 320 ml BalanceBalance 751.250 ml 869.2 ml 920.0 ml Constitutional: well developed Head: normocephalic, atraumatic Neck: supple Respiratory: diminished breath sounds Cardiovascular: regular rate and rhythm Gastrointestinal: soft, non-tender Extremities: normal pulses Results Results 24hrs Laboratory Tests Test 02/19/19 12:04 02/19/19 12:16 02/19/19 17:26 02/19/19 21:02 Lactic Acid Level 1.2 Bedside Glucose 166 172 168 Test 02/20/19 01:30 02/20/19 04:26 02/20/19 05:03 02/20/19 10:11 Bedside Glucose 117 111 116 White Blood Count 11.5 #H Red Blood Count 2.90 L Hemoglobin 8.5 L Hematocrit 26.4 L Mean Corpuscular 91.0 Volume Mean Corpuscular 29.3 Hemoglobin Mean Corpuscular 32.2 Hemoglobin Concent Red Cell 15.4 H Distribution Width Platelet Count 214 # Mean Platelet Volume 9.0 Immature 0.300 Granulocytes % Neutrophils % 89.3 H Lymphocytes % 3.7 L Monocytes % 4.6 Eosinophils % 1.8 Basophils % 0.3 Nucleated Red Blood 0.0 Cells % Immature 0.040 H Granulocytes # Neutrophils # 10.3 H Lymphocytes # 0.4 L Monocytes # 0.5 Eosinophils # 0.2 Basophils # 0.0 Nucleated Red Blood 0.0 Cells # Sodium Level 136 Potassium Level 4.5 Chloride Level 107 Carbon Dioxide Level 26 Anion Gap 3 L Blood Urea Nitrogen 18 Creatinine 0.59 L Est Glomerular Filtrat Rate mL/min Glucose Level 129 Lactic Acid Level 1.0 Calcium Level 8.5 Phosphorus Level 2.0 #L Magnesium Level 1.9 Medications Medication Current Medications Bisacodyl (Dulcolax Supp) 10 mg DAILY IN Last administered on 02/19/19 08:48; Admin Dose 10 MG; Start 02/19/19 at 09:00 Tamsulosin HCl (Flomax) 0.4 mg HS PO ; Start 02/18/19 at 22:00 Potassium Chloride/Dextrose/ Sod Cl 1,000 ml @ 100 mls/hr Q10H IV Last administered on 02/20/19 01:34; Admin Dose 100 MLS/HR; Start 02/18/19 at 20:27 IV Flush (NS 3 ml) 3 ml PER PROTOCOL IV ; Start 02/18/19 at 20:30 Ondansetron HCl (Zofran Inj) 4 mg Q6H PRN IV NAUSEA AND/OR VOMITING; Start 02/18/19 at 20:30 Acetaminophen (Tylenol Liquid) 650 mg Q6H PRN PO PAIN LEVEL 1-3 OR FEVER; Start 02/18/19 at 20:30 Famotidine (Pepcid Iv) 20 mg Q12 IV Last administered on 02/20/19 10:18; Admin Dose 20 MG; Start 02/18/19 at 21:00 Enoxaparin Sodium (Lovenox) 30 mg DAILY SC Last administered on 02/20/19 10:08; Admin Dose 30 MG; Start 02/19/19 at 09:00 Insulin Aspart (Novolog Insulin Pen) NOVOLOG *MILD* ALGORITHM Q4 SC Last administered on 02/19/19at 21:05; Admin Dose 1 UNIT; Start 02/18/19 at 21:00 Norepinephrine 250 ml @ 1.875 mls/ hr TITRATE IV ; Start 02/19/19 at 02:30 Ipratropium [place] (Atrovent Hfa) 4 puff Q4H RESP THERAPY INH Last administered on 02/20/19 08:42; Admin Dose 4 PUFF; Start 02/19/19 at 09:00 Albuterol (Ventolin Hfa) 4 puff Q4H RESP THERAPY INH Last administered on 02/20/19 08:42; Admin Dose 4 PUFF; Start 02/19/19 at 09:00 Amlodipine Besylate (Norvasc) 10 mg DAILY GTB Last administered on 02/20/19 10:08; Admin Dose 10 MG; Start 02/19/19 at 09:00 Aspirin (Aspirin) 81 mg DAILY GTB Last administered on 02/20/19 10:09; Admin Dose 81 MG; Start 02/19/19 at 09:00 Lisinopril (Zestril) 40 mg DAILY GTB Last administered on 02/20/19 10:16; Admin Dose 40 MG; Start 02/19/19 at 09:00 Polyethylene Glycol (Miralax) 17 gm DAILY GTB Last administered on 02/19/19 08:59; Admin Dose 17 GM; Start 02/19/19 at 09:00 Amiodarone HCl (Cordarone) 200 mg BID GTB Last administered on 02/20/19 10:09; Admin Dose 200 MG; Start 02/19/19 at 09:00 Cefepime HCl 50 ml @ 100 mls/hr Q24H IVPB Last administered on 02/19/19at 12:32; Admin Dose 100 MLS/HR; Start 02/19/19 at 12:00 Vancomycin HCl (Vanco Iv Per Pharmacy) VANCOMYCIN PER PHARMACY PER PROTOCOL XX ; Start 02/19/19 at 11:30 Vancomycin/Sodium Chloride 250 ml @ 125 mls/hr Q24H IVPB Last administered on 02/19/19 17:22; Admin Dose 125 MLS/HR; Start 02/19/19 at 17:00 Hydralazine HCl (Apresoline) 10 mg Q4H PRN IV ELEVATED BLOOD PRESSURE; Start 02/19/19 at 20:30 Carvedilol (Coreg) 6.25 mg BID NGT Last administered on 02/19/19 21:08; Admin Dose 6.25 MG; Start 02/19/19 at 21:00 Fentanyl 100 ml @ 2.5 mls/hr TITRATE IV Last administered on 02/20/19 01:38; Admin Dose 2.5 MLS/HR; Start 02/19/19 at 21:30 Midazolam HCl 50 ml @ 1 mls/hr TITRATE IV ; Start 02/19/19 at 21:30 LINK ACOSTA Feb 20, 2019 10:53
[2019-02-20] MEDS: CEFEPIME 2GM/50 ML (PMX) 50 ML IVPB SCH (11:44)
--- NOTE | 2019-02-20 13:28 | CONS ---
Assessment/Plan Assessment/Plan Hospital Course (Demo Recall) No acute events overnight patient is noncommunicative intubated in no distress, no fevers overnight. WBC 11.5 platelets 214 neutrophils 89.3 BUN 18 creatinine 0.59 Microbiology: All cultures negative Chest x-ray this morning revealed small left pleural effusion Indwelling's: Endotracheal tube, orogastric tube, Cavanaugh, right subclavian triple-lumen catheter Antimicrobials: Vancomycin, cefepime Physical examination: This is a well-developed very seen elderly man who is intubated sedated in no distress. Head atraumatic normocephalic, sclera nonicteric vehicle mucosa dry neck is supple chest rise symmetrical breath sounds diminished bases. Heart: S1-S2. Abdomen soft bowel sounds present. Extremities without cyanosis Assessment: 1. Sepsis, status post shock likely secondary to aspiration 2. Acute hypoxemic respiratory failure 3. Possible pneumonia 4. History of CABG 5. History of CVA 6. Atrial fibrillation Plan: Patient is hemodynamically stable, leukocytosis improving, continue present care, antibiotics, vent management per pulmonary Consultation Date/Type/Reason Admit Date/Time February 18, 2019 at 17:32 Initial Consult Date Type of Consult id Date/Time of Note DATE: 02/20/19 TIME: 13:28 Exam/Review of Systems Exam Vitals Vital Signs Date Temp Pulse Resp B/P (MAP) Pulse Ox O2 O2 Flow FiO2 Time Delivery Rate 02/20/19 98.5 63 16 131/43 Mechanical 12:30 (72) Ventilator 02/20/19 100 08:13 02/20/19 40 08:00 02/18/19 10.0 17:20 Intake and Output 02/19/19 02/19/19 02/20/19 1515:00 23:00 07:00 IntakeIntake Total 1051.250 ml 1259.2 ml 1290.0 ml OutputOutput Total 300 ml 390 ml 320 ml BalanceBalance 751.250 ml 869.2 ml 970.0 ml Results Result Diagram: 02/20/19 0426 02/20/19 0426 Results 24hrs Laboratory Tests Test 02/19/19 17:26 02/19/19 21:02 02/20/19 01:30 02/20/19 04:26 Bedside Glucose 172 168 117 White Blood Count 11.5 #H Red Blood Count 2.90 L Hemoglobin 8.5 L Hematocrit 26.4 L Mean Corpuscular 91.0 Volume Mean Corpuscular 29.3 Hemoglobin Mean Corpuscular 32.2 Hemoglobin Concent Red Cell Distribution 15.4 H Width Platelet Count 214 # Mean Platelet Volume 9.0 Immature Granulocytes 0.300 % Neutrophils % 89.3 H Lymphocytes % 3.7 L Monocytes % 4.6 Eosinophils % 1.8 Basophils % 0.3 Nucleated Red Blood 0.0 Cells % Immature Granulocytes 0.040 H # Neutrophils # 10.3 H Lymphocytes # 0.4 L Monocytes # 0.5 Eosinophils # 0.2 Basophils # 0.0 Nucleated Red Blood 0.0 Cells # Sodium Level 136 Potassium Level 4.5 Chloride Level 107 Carbon Dioxide Level 26 Anion Gap 3 L Blood Urea Nitrogen 18 Creatinine 0.59 L Est Glomerular Filtrat Rate mL/min Glucose Level 129 Lactic Acid Level 1.0 Calcium Level 8.5 Phosphorus Level 2.0 #L Magnesium Level 1.9 Test 02/20/19 05:03 02/20/19 10:11 Bedside Glucose 111 116 Medications Medication Current Medications Bisacodyl (Dulcolax Supp) 10 mg DAILY ME Last administered on 02/19/19at 08:48; Admin Dose 10 MG; Start 02/19/19 at 09:00 Tamsulosin HCl (Flomax) 0.4 mg HS PO ; Start 02/18/19 at 22:00 Potassium Chloride/Dextrose/ Sod Cl 1,000 ml @ 100 mls/hr Q10H IV Last administered on 02/20/19at 11:44; Admin Dose 100 MLS/HR; Start 02/18/19 at 20:27 IV Flush (NS 3 ml) 3 ml PER PROTOCOL IV ; Start 02/18/19 at 20:30 Ondansetron HCl (Zofran Inj) 4 mg Q6H PRN IV NAUSEA AND/OR VOMITING; Start 02/18/19 at 20:30 Acetaminophen (Tylenol Liquid) 650 mg Q6H PRN PO PAIN LEVEL 1-3 OR FEVER; Start 02/18/19 at 20:30 Famotidine (Pepcid Iv) 20 mg Q12 IV Last administered on 02/20/19at 10:18; Admin Dose 20 MG; Start 02/18/19 at 21:00 Enoxaparin Sodium (Lovenox) 30 mg DAILY SC Last administered on 02/20/19 10:08; Admin Dose 30 MG; Start 02/19/19 at 09:00 Insulin Aspart (Novolog Insulin Pen) NOVOLOG *MILD* ALGORITHM Q4 SC Last adm inistered on 02/19/19 21:05; Admin Dose 1 UNIT; Start 02/18/19 at 21:00 Norepinephrine 250 ml @ 1.875 mls/ hr TITRATE IV ; Start 02/19/19 at 02:30 Ipratropium [place] (Atrovent Hfa) 4 puff Q4H RESP THERAPY INH Last administered on 02/20/19 08:42; Admin Dose 4 PUFF; Start 02/19/19 at 09:00 Albuterol (Ventolin Hfa) 4 puff Q4H RESP THERAPY INH Last administered on 02/20/19 08:42; Admin Dose 4 PUFF; Start 02/19/19 at 09:00 Amlodipine Besylate (Norvasc) 10 mg DAILY GTB Last administered on 02/20/19 10:08; Admin Dose 10 MG; Start 02/19/19 at 09:00 Aspirin (Aspirin) 81 mg DAILY GTB Last administered on 02/20/19 10:09; Admin Dose 81 MG; Start 02/19/19 at 09:00 Lisinopril (Zestril) 40 mg DAILY GTB Last administered on 02/20/19 10:16; Admin Dose 40 MG; Start 02/19/19 at 09:00 Polyethylene Glycol (Miralax) 17 gm DAILY GTB Last administered on 02/19/19 08:59; Admin Dose 17 GM; Start 02/19/19 at 09:00 Amiodarone HCl (Cordarone) 200 mg BID GTB Last administered on 02/20/19 10:09; Admin Dose 200 MG; Start 02/19/19 at 09:00 Cefepime HCl 50 ml @ 100 mls/hr Q24H IVPB Last administered on 02/20/19 11:44; Admin Dose 100 MLS/HR; Start 02/19/19 at 12:00 Vancomycin HCl (Vanco Iv Per Pharmacy) VANCOMYCIN PER PHARMACY PER PROTOCOL XX ; Start 02/19/19 at 11:30 Vancomycin/Sodium Chloride 250 ml @ 125 mls/hr Q24H IVPB Last administered on 02/19/19 17:22; Admin Dose 125 MLS/HR; Start 02/19/19 at 17:00 Hydralazine HCl (Apresoline) 10 mg Q4H PRN IV ELEVATED BLOOD PRESSURE; Start 02/19/19 at 20:30 Carvedilol (Coreg) 6.25 mg BID NGT Last administered on 02/19/19at 21:08; Admin Dose 6.25 MG; Start 02/19/19 at 21:00 Fentanyl 100 ml @ 2.5 mls/hr TITRATE IV Last administered on 02/20/19at 01:38; Admin Dose 2.5 MLS/HR; Start 02/19/19 at 21:30 Midazolam HCl 50 ml @ 1 mls/hr TITRATE IV ; Start 02/19/19 at 21:30 Miscellaneous Information (*Rx Drug Level Order Reminder*) VANCO TROUGH 02/21 @ 1,600 1600 ONCE XX ; Start 02/21/19 at 16:00; Stop 02/21/19 at 16:01 LUCINA DOMINGUEZ NP Feb 20, 2019 13:28
--- NOTE | 2019-02-20 13:54 | CONS ---
Consult Date/Type/Reason Admit Date/Time February 18, 2019 at 17:32 Initial Consult Date Type of Consultation: Pulm/CCM Date/Time of Note DATE: 02/20/19 TIME: 13:50 Subjective Sedated on the vent. Objective Vitals Vital Signs Date Temp Pulse Resp B/P (MAP) Pulse Ox O2 O2 Flow FiO2 Time Delivery Rate 02/20/19 98.5 63 16 131/43 Mechanical 12:30 (72) Ventilator 02/20/19 100 40 11:20 02/18/19 10.0 17:20 Intake and Output 02/19/19 02/19/19 02/20/19 1515:00 23:00 07:00 IntakeIntake Total 1051.250 ml 1259.2 ml 1290.0 ml OutputOutput Total 300 ml 390 ml 320 ml BalanceBalance 751.250 ml 869.2 ml 970.0 ml Exam HEENT: Neck supple; no JVD; no LAD; +ET tube CVS: RRR, S1 and S2 CHEST: Clear ABD: Soft, NT, + BS EXT: No c/c/e NEURO: Sedated; moves all extremities Results/Medications Result Diagram: 02/20/19 0426 02/20/19 0426 Results 24 hrs Laboratory Tests Test 02/19/19 17:26 02/19/19 21:02 02/20/19 01:30 02/20/19 04:26 Bedside Glucose 172 168 117 White Blood Count 11.5 #H Red Blood Count 2.90 L Hemoglobin 8.5 L Hematocrit 26.4 L Mean Corpuscular 91.0 Volume Mean Corpuscular 29.3 Hemoglobin Mean Corpuscular 32.2 Hemoglobin Concent Red Cell Distribution 15.4 H Width Platelet Count 214 # Mean Platelet Volume 9.0 Immature Granulocytes 0.300 % Neutrophils % 89.3 H Lymphocytes % 3.7 L Monocytes % 4.6 Eosinophils % 1.8 Basophils % 0.3 Nucleated Red Blood 0.0 Cells % Immature Granulocytes 0.040 H # Neutrophils # 10.3 H Lymphocytes # 0.4 L Monocytes # 0.5 Eosinophils # 0.2 Basophils # 0.0 Nucleated Red Blood 0.0 Cells # Sodium Level 136 Potassium Level 4.5 Chloride Level 107 Carbon Dioxide Level 26 Anion Gap 3 L Blood Urea Nitrogen 18 Creatinine 0.59 L Est Glomerular Filtrat Rate mL/min Glucose Level 129 Lactic Acid Level 1.0 Calcium Level 8.5 Phosphorus Level 2.0 #L Magnesium Level 1.9 Test 02/20/19 05:03 02/20/19 10:11 Bedside Glucose 111 116 Home Meds Active Scripts Cephalexin* (Keflex*) 500 Mg Capsule, 500 MG PO Q6, #40 CAP Prov:SANTOS HOLT MD 02/04/19 Reported Medications Pantoprazole* (Pantoprazole*) 40 Mg Tablet.dr, 40 MG PO AC BREAKFAST, TAB 02/18/19 Quetiapine Fumarate* (Quetiapine Fumarate*) 25 Mg Tablet, 25 MG PO BID, TAB 02/18/19 Lisinopril* (Lisinopril*) 40 Mg Tablet, 40 MG PO DAILY, #30 TAB 02/04/19 Magnesium Hydroxide* (Milk Of Magnesia*) 400 Mg/5 Ml Oral.susp, 30 ML PO BID, ML 02/04/19 Acetaminophen* (Tylenol*) 325 Mg Tablet, 650 MG PO Q4H PRN for MILD PAIN LEVEL 1-3, TAB AND FEVER >100f 02/04/19 Albuterol Sulfate* (Albuterol Sulfate* Neb) 0.083%-3 Ml Neb, 2.5 MG NEB Q4H PRN for WHEEZING AND SOB, #30 VIAL 02/04/19 Tamsulosin Hcl* (Flomax*) 0.4 Mg Cap.er.24h, 0.4 MG PO DAILY, CAP 02/04/19 Polyethylene Glycol* (Polyethylene Glycol*) 17 Gm Powd.pack, 17 GM PO DAILY, #30 PACKET 02/04/19 Melatonin (Melatonin) 5 Mg Tablet, 5 MG PO HS, TAB 02/04/19 Insulin Aspart* (Novolog Insulin Pen*) 100 Unit/Ml Soln, 0 SC .SLIDING SCALE AC, EA IF BS 150-199=2 UNITS. 200-249=4 UNITS, 250-299=6 UNITS,300-349-8 UNITS,350-399=10 UNITS,400-449=12 UNITS AND CALL . 02/04/19 Heparin Sodium,Porcine/Pf (HEPARIN SOD 5,000 UNIT/ 0.5 ML) 5,000 Unit/0.5 Ml Vial, 5000 UNIT IJ Q8H, VIAL 02/04/19 Bisacodyl (Dulcolax) 10 Mg Supp.rect, 10 MG RC DAILY, SUPP.RECT 02/04/19 Aspirin* (Aspirin* Chew) 81 Mg Tab.chew, 81 MG PO DAILY, TAB.CHEW 02/04/19 Amlodipine Besylate* (Amlodipine Besylate*) 10 Mg Tablet, 10 MG PO DAILY, #30 TAB 02/04/19 Amiodarone Hcl* (Amiodarone Hcl*) 200 Mg Tablet, 200 MG PO BID, #60 TAB 02/04/19 Medications Current Medications Bisacodyl (Dulcolax Supp) 10 mg DAILY PA Last administered on 02/19/19at 08:48; Admin Dose 10 MG; Start 02/19/19 at 09:00 Tamsulosin HCl (Flomax) 0.4 mg HS PO ; Start 02/18/19 at 22:00 Potassium Chloride/Dextrose/ Sod Cl 1,000 ml @ 100 mls/hr Q10H IV Last administered on 02/20/19at 11:44; Admin Dose 100 MLS/HR; Start 02/18/19 at 20:27 IV Flush (NS 3 ml) 3 ml PER PROTOCOL IV ; Start 02/18/19 at 20:30 Ondansetron HCl (Zofran Inj) 4 mg Q6H PRN IV NAUSEA AND/OR VOMITING; Start at 20:30 Acetaminophen (Tylenol Liquid) 650 mg Q6H PRN PO PAIN LEVEL 1-3 OR FEVER; Start 02/18/19 at 20:30 Famotidine (Pepcid Iv) 20 mg Q12 IV Last administered on 02/20/19at 10:18; Admin Dose 20 MG; Start 02/18/19 at 21:00 Enoxaparin Sodium (Lovenox) 30 mg DAILY SC Last administered on 02/20/19at 10:08; Admin Dose 30 MG; Start 02/19/19 at 09:00 Insulin Aspart (Novolog Insulin Pen) NOVOLOG *MILD* ALGORITHM Q4 SC Last administered on 02/19/19at 21:05; Admin Dose 1 UNIT; Start 02/18/19 at 21:00 Norepinephrine 250 ml @ 1.875 mls/ hr TITRATE IV ; Start 02/19/19 at 02:30 Ipratropium [place] (Atrovent Hfa) 4 puff Q4H RESP THERAPY INH Last administered on 6/1/19at 08:42; Admin Dose 4 PUFF; Start 02/19/19 at 09:00 Albuterol (Ventolin Hfa) 4 puff Q4H RESP THERAPY INH Last administered on 02/20/19 08:42; Admin Dose 4 PUFF; Start 02/19/19 at 09:00 Amlodipine Besylate (Norvasc) 10 mg DAILY GTB Last administered on 02/20/19 10:08; Admin Dose 10 MG; Start 02/19/19 at 09:00 Aspirin (Aspirin) 81 mg DAILY GTB Last administered on 02/20/19 10:09; Admin Dose 81 MG; Start 02/19/19 at 09:00 Lisinopril (Zestril) 40 mg DAILY GTB Last administered on 02/20/19 10:16; Admin Dose 40 MG; Start 02/19/19 at 09:00 Polyethylene Glycol (Miralax) 17 gm DAILY GTB Last administered on 02/19/19 08:59; Admin Dose 17 GM; Start 02/19/19 at 09:00 Amiodarone HCl (Cordarone) 200 mg BID GTB Last administered on 02/20/19 10:09; Admin Dose 200 MG; Start 02/19/19 at 09:00 Cefepime HCl 50 ml @ 100 mls/hr Q24H IVPB Last administered on 02/20/19 11:44; Admin Dose 100 MLS/HR; Start 02/19/19 at 12:00 Vancomycin HCl (Vanco Iv Per Pharmacy) VANCOMYCIN PER PHARMACY PER PROTOCOL XX ; Start 02/19/19 at 11:30 Vancomycin/Sodium Chloride 250 ml @ 125 mls/hr Q24H IVPB Last administered on 02/19/19 17:22; Admin Dose 125 MLS/HR; Start 02/19/19 at 17:00 Hydralazine HCl (Apresoline) 10 mg Q4H PRN IV ELEVATED BLOOD PRESSURE; Start 02/19/19 at 20:30 Carvedilol (Coreg) 6.25 mg BID NGT Last administered on 02/19/19 21:08; Admin Dose 6.25 MG; Start 02/19/19 at 21:00 Fentanyl 100 ml @ 2.5 mls/hr TITRATE IV Last administered on 02/20/19 01:38; Admin Dose 2.5 MLS/HR; Start 02/19/19 at 21:30 Midazolam HCl 50 ml @ 1 mls/hr TITRATE IV ; Start 02/19/19 at 21:30 Miscellaneous Information (*Rx Drug Level Order Reminder*) VANCO TROUGH 02/21 @ 1,600 1600 ONCE XX ; Start 02/21/19 at 16:00; Stop 02/21/19 at 16:01 Assessment/Plan Assessment/Plan (Daily) IMP: 1. Acute hypoxemic respiratory failure--likely 2/2 central airway obstruction due to aspiration 2. Acute on chronic encephalopathy 3. Severe leukocytosis, unclear source, possible aspiration pneumonia. 4. Anemia PLAN: 1. Continue mechanical ventilation. 2. Abx per ID 3. Follow Cx's 4. DVT and GI prophylaxis. 5. Tube feeding as tolerated. 40 min cc time MORGAN KEY MD Feb 20, 2019 13:54
[2019-02-20] MEDS: VANCOMYCIN 750 MG (PMX) 250 ML IVPB SCH (17:59)
[2019-02-20] MEDS: FENTAnyl (DRIP) 1000 mcg/100mL 100 ML IV SCH (21:37)
[2019-02-20] MEDS: TAMSULOSIN (SR) 0.4 MG CAP PO SCH (21:42)
[2019-02-21] VITALS (36 sets, daily range): BP systolic 89–200; BP diastolic 32–110; PULSE 46–84; RESP 10–33
[2019-02-21] MEDS: INSULIN ASPART [NOVOLOG] 3 ML PEN SC SCH ×6 (01:00→20:43)
[2019-02-21] MEDS: IPRATROPIUM (HFA) 12.9 GM INHALER INH SCH ×6 (01:27→21:00)
[2019-02-21] MEDS: ALBUTEROL HFA 8 GM INHALER INH SCH ×6 (01:28→21:00)
[2019-02-21] MEDS: AMIODARONE 200 MG TAB GTB SCH ×2 (08:33→20:47)
[2019-02-21] MEDS: LISINOPRIL 20 MG TAB GTB SCH (08:34)
[2019-02-21] MEDS: AMLODIPINE 10 MG TAB GTB SCH (08:34)
[2019-02-21] MEDS: D5W-0.45 NACL + KCL 20 MEQ 1,000 ML IV SCH ×2 (08:36→18:22)
[2019-02-21] MEDS: POLYETHYLENE GLYCOL 17 GM PACKET GTB SCH (08:37)
[2019-02-21] MEDS: ASPIRIN 81 MG TAB GTB SCH (08:37)
[2019-02-21] MEDS: FAMOTIDINE 20 MG INJ IV SCH ×2 (08:38→20:54)
[2019-02-21] MEDS: BISACODYL 10 MG SUPP PR SCH (08:38)
[2019-02-21] MEDS: ENOXAPARIN 30 MG/0.3 ML SYG SC SCH (08:47)
--- NOTE | 2019-02-21 10:13 | PN ---
Date/Time of Note Date/Time of Note DATE: 02/21/19 TIME: 10:13 Assessment/Plan VTE Prophylaxis Risk score (from Ns)>0 risk: 8 SCD applied (from Ns): Yes Pharmacological prophylaxis: LMWH Lines/Catheters IV Catheter Type (from [facility] Central Line Central line still needed: Yes Urinary Cath still in place: Yes Reason Cath still needed: skin wounds contaminated by urine Assessment/Plan Hospital Course -Acute respiratory failure requiring intubation and placement on mechanical ventilation. Will obtain pulm consult from Dr Addison. -Severe sepsis with shock. UA and CXR unremarkable. Will obtain Urine and Blood cx. Started on broad-spectrum antibiotics and IV fluids. ID Consult Dr. Guevara. -ALOC, brains CT -History of aortic aneurysm, status post repair. -Paroxysmal atrial fibrillation -Hypertension -Cerebrovascular disease -Urinary retention with urethral stricture. -Diabetes, continue Lantus and NovoLog. Result Diagram: 02/21/19 0415 02/21/19 0415 Results 24hrs Laboratory Tests Test 02/20/19 15:14 02/20/19 18:00 02/20/19 21:49 02/21/19 00:46 Bedside Glucose 119 134 120 107 Test 02/21/19 04:15 02/21/19 04:22 02/21/19 05:00 02/21/19 08:47 White Blood Count 18.3 #H Red Blood Count 3.00 L Hemoglobin 8.9 L Hematocrit 27.1 L Mean Corpuscular 90.3 Volume Mean Corpuscular 29.7 Hemoglobin Mean Corpuscular 32.8 Hemoglobin Concent Red Cell 15.4 H Distribution Width Platelet Count 263 # Mean Platelet 9.4 Volume Immature 0.600 H Granulocytes % Neutrophils % 89.9 H Lymphocytes % 5.0 L Monocytes % 3.6 Eosinophils % 0.7 Basophils % 0.2 Nucleated Red 0.0 Blood Cells % Immature 0.110 H Granulocytes # Neutrophils # 16.4 H Lymphocytes # 0.9 Monocytes # 0.7 Eosinophils # 0.1 Basophils # 0.0 Nucleated Red 0.0 Blood Cells # Sodium Level 133 L Potassium Level 4.7 Chloride Level 104 Carbon Dioxide 23 Level Anion Gap 6 Blood Urea 14 Nitrogen Creatinine 0.55 L Est Glomerular Filtrat Rate mL/min Glucose Level 131 Lactic Acid Level 1.0 Calcium Level 8.4 Bedside Glucose 112 129 Blood Gas Specimen Blood arterial Source Arterial Blood 02/21/2019 5:00:30 Date Drawn AM Arterial Blood pH 7.393 (Temp corrected) Arterial Blood 36.8 pCO2 (Temp correct) Arterial Blood pO2 96.9 H (Temp corrected) Arterial Blood 21.9 L HCO3 Arterial Blood -2.4 Base Excess Arterial Blood 97.8 Oxygen Saturation Sven Test ACCEPTAB Arterial Blood Gas Right Radial Puncture Site Arterial 0.5 Blood Carboxyhemog lobin Arterial Blood 0.4 Methemoglobin Blood Gas A-a O2 73.8 H Differential Oxyhemoglobin 96.9 Percent Blood Gas 37.0 Temperature Blood Gas 16.0 Respiration Rate Blood Gas Actual 17 Respiration Rate Blood Gas Modality VENT - AC FiO2 30.0 Blood Gas Tidal 450.0 Volume Blood Gas Low PEEP 5.0 Setting Blood Gas Notified ID Whom Blood Gas Notified 02/21/2019 5:42:20 Time AM Subjective 24 Hr Interval Summary Free Text/Dictation Patient sedated, remain intubated Exam/Review of Systems Exam Vitals Vital Signs Date Temp Pulse Resp B/P (MAP) Pulse Ox O2 O2 Flow FiO2 Time Delivery Rate 02/21/19 53 08:00 02/21/19 16 101/35 97 Mechanical 06:00 (57) Ventilator 02/21/19 30 05:03 02/21/19 98.2 04:00 02/18/19 10.0 17:20 Intake and Output 02/20/19 02/20/19 02/21/19 1515:00 23:00 07:00 IntakeIntake Total 977.5 ml 1115 ml 1066 ml OutputOutput Total 200 ml 580 ml 240 ml BalanceBalance 777.5 ml 535 ml 826 ml Constitutional: well developed Head: normocephalic, atraumatic Neck: supple Respiratory: diminished breath sounds Cardiovascular: regular rate and rhythm Gastrointestinal: soft, non-tender Extremities: normal pulses Results Results 24hrs Laboratory Tests Test 02/20/19 15:14 02/20/19 18:00 02/20/19 21:49 02/21/19 00:46 Bedside Glucose 119 134 120 107 Test 02/21/19 04:15 02/21/19 04:22 02/21/19 05:00 02/21/19 08:47 White Blood Count 18.3 #H Red Blood Count 3.00 L Hemoglobin 8.9 L Hematocrit 27.1 L Mean Corpuscular 90.3 Volume Mean Corpuscular 29.7 Hemoglobin Mean Corpuscular 32.8 Hemoglobin Concent Red Cell 15.4 H Distribution Width Platelet Count 263 # Mean Platelet 9.4 Volume Immature 0.600 H Granulocytes % Neutrophils % 89.9 H Lymphocytes % 5.0 L Monocytes % 3.6 Eosinophils % 0.7 Basophils % 0.2 Nucleated Red 0.0 Blood Cells % Immature 0.110 H Granulocytes # Neutrophils # 16.4 H Lymphocytes # 0.9 Monocytes # 0.7 Eosinophils # 0.1 Basophils # 0.0 Nucleated Red 0.0 Blood Cells # Sodium Level 133 L Potassium Level 4.7 Chloride Level 104 Carbon Dioxide 23 Level Anion Gap 6 Blood Urea 14 Nitrogen Creatinine 0.55 L Est Glomerular Filtrat Rate mL/min Glucose Level 131 Lactic Acid Level 1.0 Calcium Level 8.4 Bedside Glucose 112 129 Blood Gas Specimen Blood arterial Source Arterial Blood 02/21/2019 5:00:30 Date Drawn AM Arterial Blood pH 7.393 (Temp corrected) Arterial Blood 36.8 pCO2 (Temp correct) Arterial Blood pO2 96.9 H (Temp corrected) Arterial Blood 21.9 L HCO3 Arterial Blood -2.4 Base Excess Arterial Blood 97.8 Oxygen Saturation Sven Test ACCEPTAB Arterial Blood Gas Right Radial Puncture Site Arterial 0.5 Blood Carboxyhemog lobin Arterial Blood 0.4 Methemoglobin Blood Gas A-a O2 73.8 H Differential Oxyhemoglobin 96.9 Percent Blood Gas 37.0 Temperature Blood Gas 16.0 Respiration Rate Blood Gas Actual 17 Respiration Rate Blood Gas Modality VENT - AC FiO2 30.0 Blood Gas Tidal 450.0 Volume Blood Gas Low PEEP 5.0 Setting Blood Gas Notified [place] Whom Blood Gas Notified 02/21/2019 5:42:20 Time AM Medications Medication Current Medications Bisacodyl (Dulcolax Supp) 10 mg DAILY [place] Last administered on 02/21/19 08:38; Admin Dose 10 MG; Start 02/19/19 at 09:00 Tamsulosin HCl (Flomax) 0.4 mg HS PO Last administered on 02/20/19 21:42; Admin Dose 0.4 MG; Start 02/18/19 at 22:00 Potassium Chloride/Dextrose/ Sod Cl 1,000 ml @ 100 mls/hr Q10H IV Last administered on 6/2/19at 08:36; Admin Dose 100 MLS/HR; Start 02/18/19 at 20:27 IV Flush (NS 3 ml) 3 ml PER PROTOCOL IV ; Start 02/18/19 at 20:30 Ondansetron HCl (Zofran Inj) 4 mg Q6H PRN IV NAUSEA AND/OR VOMITING; Start 02/18/19 at 20:30 Acetaminophen (Tylenol Liquid) 650 mg Q6H PRN PO PAIN LEVEL 1-3 OR FEVER; St art 02/18/19 at 20:30 Famotidine (Pepcid Iv) 20 mg Q12 IV Last administered on 02/21/19 08:38; Admin Dose 20 MG; Start 02/18/19 at 21:00 Enoxaparin Sodium (Lovenox) 30 mg DAILY [place] Last administered on 02/21/19 08:47; Admin Dose 30 MG; Start 02/19/19 at 09:00 Insulin Aspart (Novolog Insulin Pen) NOVOLOG *MILD* ALGORITHM Q4 SC Last administered on 02/19/19 21:05; Admin Dose 1 UNIT; Start 02/18/19 at 21:00 Norepinephrine 250 ml @ 1.875 mls/ hr TITRATE IV ; Start 02/19/19 at 02:30 Ipratropium [place] (Atrovent Hfa) 4 puff Q4H RESP THERAPY INH Last administered on 02/21/19 09:24; Admin Dose 4 PUFF; Start 02/19/19 at 09:00 Albuterol (Ventolin Hfa) 4 puff Q4H RESP THERAPY INH Last administered on 02/21/19 09:24; Admin Dose 4 PUFF; Start 02/19/19 at 09:00 Amlodipine Besylate (Norvasc) 10 mg DAILY GTB Last administered on 02/20/19 10:08; Admin Dose 10 MG; Start 02/19/19 at 09:00 Aspirin (Aspirin) 81 mg DAILY GTB Last administered on 02/21/19 08:37; Admin Dose 81 MG; Start 02/19/19 at 09:00 Lisinopril (Zestril) 40 mg DAILY GTB Last administered on 02/20/19 10:16; Admin Dose 40 MG; Start 02/19/19 at 09:00 Polyethylene Glycol (Miralax) 17 gm DAILY GTB Last administered on 02/21/19 08:37; Admin Dose 17 GM; Start 02/19/19 at 09:00 Amiodarone HCl (Cordarone) 200 mg BID GTB Last administered on 02/20/19at 10:09; Admin Dose 200 MG; Start 02/19/19 at 09:00 Cefepime HCl 50 ml @ 100 mls/hr Q24H IVPB Last administered on 02/20/19at 11:44; Admin Dose 100 MLS/HR; Start 02/19/19 at 12:00 Vancomycin HCl (Vanco Iv Per Pharmacy) VANCOMYCIN PER PHARMACY PER PROTOCOL XX ; Start 02/19/19 at 11:30 Vancomycin/Sodium Chloride 250 ml @ 125 mls/hr Q24H IVPB Last administered on 02/20/19at 17:59; Admin Dose 125 MLS/HR; Start 02/19/19 at 17:00 Hydralazine HCl (Apresoline) 10 mg Q4H PRN IV ELEVATED BLOOD PRESSURE; Start 02/19/19 at 20:30 Midazolam HCl 50 ml @ 1 mls/hr TITRATE IV Last administered on 02/21/19at 04:48; Admin Dose 3 MLS/HR; Start 02/19/19 at 21:30 Miscellaneous Information (*Rx Drug Level Order Reminder*) VANCO TROUGH 02/21 @ 1,600 1600 ONCE XX ; Start 02/21/19 at 16:00; Stop 02/21/19 at 16:01 Fentanyl 100 ml @ 2.5 mls/hr TITRATE IV Last administered on 02/20/19at 21:37; Admin Dose 50 MLS/HR; Start 02/20/19 at 17:30 LINK ACOSTA Feb 21, 2019 10:13
[2019-02-21] MEDS: CEFEPIME 2GM/50 ML (PMX) 50 ML IVPB SCH (12:29)
[2019-02-21] MEDS: METOCLOPRAMIDE 10 MG INJ IV SCH ×2 (12:29→18:20)
--- NOTE | 2019-02-21 14:15 | CONS ---
Assessment/Plan Assessment/Plan Hospital Course (Demo Recall) No acute events patient remains intubated sedated in no distress no fevers overnight WBC 18.3 H&H 8.9 and 27.1 platelets 263 neutrophils 89.9 BUN 14 creatinine 0.55 Microbiology: All cultures negative Indwelling's: Endotracheal tube, orogastric tube, Cavanaugh, right subclavian triple-lumen catheter Antimicrobials: Vancomycin, cefepime Physical examination: This is a well-developed very seen elderly man who is intubated sedated in no distress. Head atraumatic normocephalic, sclera nonicte beatriz vehicle mucosa dry neck is supple chest rise symmetrical breath sounds diminished bases. Heart: S1-S2. Abdomen soft bowel sounds present. Extremities without cyanosis Assessment: 1. Sepsis, status post shock likely secondary to aspiration 2. Acute hypoxemic respiratory failure 3. Possible pneumonia 4. History of CABG 5. History of CVA 6. Atrial fibrillation Plan: Remains stable, continue present care, antibiotics, vent management per pulmonary Consultation Date/Type/Reason Admit Date/Time February 18, 2019 at 17:32 Initial Consult Date Type of Consult id Date/Time of Note DATE: 02/21/19 TIME: 14:14 Exam/Review of Systems Exam Vitals Vital Signs Date Temp Pulse Resp B/P (MAP) Pulse Ox O2 O2 Flow FiO2 Time Delivery Rate 02/21/19 52 12:00 02/21/19 16 97 30 11:40 02/21/19 114/40 Mechanical 10:00 (64) Ventilator 02/21/19 97.6 08:00 02/18/19 10.0 17:20 Intake and Output 02/20/19 02/20/19 02/21/19 1515:00 23:00 07:00 IntakeIntake Total 977.5 ml 1115 ml 1201 ml OutputOutput Total 200 ml 580 ml 270 ml BalanceBalance 777.5 ml 535 ml 931 ml Results Result Diagram: 02/21/19 0415 02/21/19 0415 Results 24hrs Laboratory Tests Test 02/20/19 15:14 02/20/19 18:00 02/20/19 21:49 02/21/19 00:46 Bedside Glucose 119 134 120 107 Test 02/21/19 04:15 02/21/19 04:22 02/21/19 05:00 02/21/19 08:47 White Blood Count 18.3 #H Red Blood Count 3.00 L Hemoglobin 8.9 L Hematocrit 27.1 L Mean Corpuscular 90.3 Volume Mean Corpuscular 29.7 Hemoglobin Mean Corpuscular 32.8 Hemoglobin Concent Red Cell 15.4 H Distribution Width Platelet Count 263 # Mean Platelet 9.4 Volume Immature 0.600 H Granulocytes % Neutrophils % 89.9 H Lymphocytes % 5.0 L Monocytes % 3.6 Eosinophils % 0.7 Basophils % 0.2 Nucleated Red 0.0 Blood Cells % Immature 0.110 H Granulocytes # Neutrophils # 16.4 H Lymphocytes # 0.9 Monocytes # 0.7 Eosinophils # 0.1 Basophils # 0.0 Nucleated Red 0.0 Blood Cells # Sodium Level 133 L Potassium Level 4.7 Chloride Level 104 Carbon Dioxide 23 Level Anion Gap 6 Blood Urea 14 Nitrogen Creatinine 0.55 L Est Glomerular Filtrat Rate mL/min Glucose Level 131 Lactic Acid Level 1.0 Calcium Level 8.4 Bedside Glucose 112 129 Blood Gas Specimen Blood arterial Source Arterial Blood 02/21/2019 5:00:30 Date Drawn AM Arterial Blood pH 7.393 (Temp corrected) Arterial Blood 36.8 pCO2 (Temp correct) Arterial Blood pO2 96.9 H (Temp corrected) Arterial Blood 21.9 L HCO3 Arterial Blood -2.4 Base Excess Arterial Blood 97.8 Oxygen Saturation Sven Test ACCEPTAB Arterial Blood Gas Right Radial Puncture Site Arterial 0.5 Blood Carboxyhemog lobin Arterial Blood 0.4 Methemoglobin Blood Gas A-a O2 73.8 H Differential Oxyhemoglobin 96.9 Percent Blood Gas 37.0 Temperature Blood Gas 16.0 Respiration Rate Blood Gas Actual 17 Respiration Rate Blood Gas Modality VENT - AC FiO2 30.0 Blood Gas Tidal 450.0 Volume Blood Gas Low PEEP 5.0 Setting Blood Gas Notified [place] Whom Blood Gas Notified 02/21/2019 5:42:20 Time AM Test 02/21/19 12:33 Bedside Glucose 145 Medications Medication Current Medications Bisacodyl (Dulcolax Supp) 10 mg DAILY [place] Last administered on 02/21/19at 08:38; Admin Dose 10 MG; Start 02/19/19 at 09:00 Tamsulosin HCl (Flomax) 0.4 mg HS PO Last administered on 02/20/19at 21:42; Admin Dose 0.4 MG; Start 02/18/19 at 22:00 Potassium Chloride/Dextrose/ Sod Cl 1,000 ml @ 100 mls/hr Q10H IV Last administered on 02/21/19 08:36; Admin Dose 100 MLS/HR; Start 02/18/19 at 20:27 IV Flush (NS 3 ml) 3 ml PER PROTOCOL IV ; Start 02/18/19 at 20:30 Ondansetron HCl (Zofran Inj) 4 mg Q6H PRN IV NAUSEA AND/OR VOMITING; Start 02/18/19 at 20:30 Acetaminophen (Tylenol Liquid) 650 mg Q6H PRN PO PAIN LEVEL 1-3 OR FEVER; Start 02/18/19 at 20:30 Famotidine (Pepcid Iv) 20 mg Q12 IV Last administered on 02/21/19 08:38; Admin Dose 20 MG; Start 02/18/19 at 21:00 Enoxaparin Sodium (Lovenox) 30 mg DAILY [place] Last administered on 02/21/19 08:47; Admin Dose 30 MG; Start 02/19/19 at 09:00 Insulin Aspart (Novolog Insulin Pen) NOVOLOG *MILD* ALGORITHM Q4 SC Last administered on 02/21/19 12:38; Admin Dose 1 UNIT; Start 02/18/19 at 21:00 Norepinephrine 250 ml @ 1.875 mls/ hr TITRATE IV ; Start 02/19/19 at 02:30 Ipratropium [place] (Atrovent Hfa) 4 puff Q4H RESP THERAPY INH Last administered on 02/21/19 09:24; Admin Dose 4 PUFF; Start 02/19/19 at 09:00 Albuterol (Ventolin Hfa) 4 puff Q4H RESP THERAPY INH Last administered on 02/21/19 09:24; Admin Dose 4 PUFF; Start 02/19/19 at 09:00 Amlodipine Besylate (Norvasc) 10 mg DAILY GTB Last administered on 02/20/19 10:08; Admin Dose 10 MG; Start 02/19/19 at 09:00 Aspirin (Aspirin) 81 mg DAILY GTB Last administered on 02/21/19 08:37; Admin Dose 81 MG; Start 02/19/19 at 09:00 Lisinopril (Zestril) 40 mg DAILY GTB Last administered on 02/20/19 10:16; Admin Dose 40 MG; Start 02/19/19 at 09:00 Polyethylene Glycol (Miralax) 17 gm DAILY GTB Last administered on 02/21/19 08:37; Admin Dose 17 GM; Start 02/19/19 at 09:00 Amiodarone HCl (Cordarone) 200 mg BID GTB Last administered on 02/20/19 10:09; Admin Dose 200 MG; Start 02/19/19 at 09:00 Cefepime HCl 50 ml @ 100 mls/hr Q24H IVPB Last administered on 02/21/19 12:29; Admin Dose 100 MLS/HR; Start 02/19/19 at 12:00 Vancomycin HCl (Vanco Iv Per Pharmacy) VANCOMYCIN PER PHARMACY PER PROTOCOL XX ; Start 02/19/19 at 11:30 Vancomycin/Sodium Chloride 250 ml @ 125 mls/hr Q24H IVPB Last administered on 02/20/19 17:59; Admin Dose 125 MLS/HR; Start 02/19/19 at 17:00 Hydralazine HCl (Apresoline) 10 mg Q4H PRN IV ELEVATED BLOOD PRESSURE; Start 02/19/19 at 20:30 Midazolam HCl 50 ml @ 1 mls/hr TITRATE IV Last administered on 02/21/19 04:48; Admin Dose 3 MLS/HR; Start 02/19/19 at 21:30 Miscellaneous Information (*Rx Drug Level Order Reminder*) VANCO TROUGH 02/21 @ 1,600 1600 ONCE XX ; Start 02/21/19 at 16:00; Stop 02/21/19 at 16:01 Fentanyl 100 ml @ 2.5 mls/hr TITRATE IV Last administered on 02/20/19 21:37; Admin Dose 50 MLS/HR; Start 02/20/19 at 17:30 Metoclopramide HCl (Reglan) 10 mg Q6 IV Last administered on 02/21/19 12:29; Admin Dose 10 MG; Start 02/21/19 at 12:00 LUCINA DOMINGUEZ NP Feb 21, 2019 14:15
--- NOTE | 2019-02-21 15:29 | CONS ---
Consult Date/Type/Reason Admit Date/Time February 18, 2019 at 17:32 Initial Consult Date Type of Consultation: Pulm/CCM Date/Time of Note DATE: 02/21/19 TIME: 15:27 Subjective No events. Sedated on the vent. Objective Vitals Vital Signs Date Temp Pulse Resp B/P (MAP) Pulse Ox O2 O2 Flow FiO2 Time Delivery Rate 02/21/19 52 12:00 02/21/19 16 97 30 11:40 02/21/19 114/40 Mechanical 10:00 (64) Ventilator 02/21/19 97.6 08:00 02/18/19 10.0 17:20 Intake and Output 02/20/19 02/20/19 02/21/19 1515:00 23:00 07:00 IntakeIntake Total 977.5 ml 1115 ml 1201 ml OutputOutput Total 200 ml 580 ml 270 ml BalanceBalance 777.5 ml 535 ml 931 ml Exam HEENT: Neck supple; no JVD; no LAD; +ET tube CVS: RRR, S1 and S2 CHEST: Clear ABD: Soft, NT, + BS EXT: No c/c/e NEURO: Sedated; moves all extremities Results/Medications Result Diagram: 02/21/19 0415 02/21/19 0415 Results 24 hrs Laboratory Tests Test 02/20/19 18:00 02/20/19 21:49 02/21/19 00:46 02/21/19 04:15 Bedside Glucose 134 120 107 White Blood Count 18.3 #H Red Blood Count 3.00 L Hemoglobin 8.9 L Hematocrit 27.1 L Mean Corpuscular 90.3 Volume Mean Corpuscular 29.7 Hemoglobin Mean Corpuscular 32.8 Hemoglobin Concent Red Cell 15.4 H Distribution Width Platelet Count 263 # Mean Platelet 9.4 Volume Immature 0.600 H Granulocytes % Neutrophils % 89.9 H Lymphocytes % 5.0 L Monocytes % 3.6 Eosinophils % 0.7 Basophils % 0.2 Nucleated Red 0.0 Blood Cells % Immature 0.110 H Granulocytes # Neutrophils # 16.4 H Lymphocytes # 0.9 Monocytes # 0.7 Eosinophils # 0.1 Basophils # 0.0 Nucleated Red 0.0 Blood Cells # Sodium Level 133 L Potassium Level 4.7 Chloride Level 104 Carbon Dioxide 23 Level Anion Gap 6 Blood Urea 14 Nitrogen Creatinine 0.55 L Est Glomerular Filtrat Rate mL/min Glucose Level 131 Lactic Acid Level 1.0 Calcium Level 8.4 Test 02/21/19 04:22 02/21/19 05:00 02/21/19 08:47 02/21/19 12:33 Bedside Glucose 112 129 145 Blood Gas Specimen Blood arterial Source Arterial Blood 02/21/2019 5:00:30 Date Drawn AM Arterial Blood pH 7.393 (Temp corrected) Arterial Blood 36.8 pCO2 (Temp correct) Arterial Blood pO2 96.9 H (Temp corrected) Arterial Blood 21.9 L HCO3 Arterial Blood -2.4 Base Excess Arterial Blood 97.8 Oxygen Saturation Sven Test ACCEPTAB Arterial Blood Gas Right Radial Puncture Site Arterial 0.5 Blood Carboxyhemog lobin Arterial Blood 0.4 Methemoglobin Blood Gas A-a O2 73.8 H Differential Oxyhemoglobin 96.9 Percent Blood Gas 37.0 Temperature Blood Gas 16.0 Respiration Rate Blood Gas Actual 17 Respiration Rate Blood Gas Modality VENT - AC FiO2 30.0 Blood Gas Tidal 450.0 Volume Blood Gas Low PEEP 5.0 Setting Blood Gas Notified [place] Whom Blood Gas Notified 02/21/2019 5:42:20 Time AM Home Meds Active Scripts Cephalexin* (Keflex*) 500 Mg Capsule, 500 MG PO Q6, #40 CAP Prov:SANTOS HOLT MD 02/04/19 Reported Medications Pantoprazole* (Pantoprazole*) 40 Mg Tablet.dr, 40 MG PO AC BREAKFAST, TAB 02/18/19 Quetiapine Fumarate* (Quetiapine Fumarate*) 25 Mg Tablet, 25 MG PO BID, TAB 02/18/19 Lisinopril* (Lisinopril*) 40 Mg Tablet, 40 MG PO DAILY, #30 TAB 02/04/19 Magnesium Hydroxide* (Milk Of Magnesia*) 400 Mg/5 Ml Oral.susp, 30 ML PO BID, ML 02/04/19 Acetaminophen* (Tylenol*) 325 Mg Tablet, 650 MG PO Q4H PRN for MILD PAIN LEVEL 1-3, TAB AND FEVER >100f 02/04/19 Albuterol Sulfate* (Albuterol Sulfate* Neb) 0.083%-3 Ml Neb, 2.5 MG NEB Q4H PRN for WHEEZING AND SOB, #30 VIAL 02/04/19 Tamsulosin Hcl* (Flomax*) 0.4 Mg Cap.er.24h, 0.4 MG PO DAILY, CAP 02/04/19 Polyethylene Glycol* (Polyethylene Glycol*) 17 Gm Powd.pack, 17 GM PO DAILY, #30 PACKET 02/04/19 Melatonin (Melatonin) 5 Mg Tablet, 5 MG PO HS, TAB 02/04/19 Insulin Aspart* (Novolog Insulin Pen*) 100 Unit/Ml Soln, 0 SC .SLIDING SCALE AC, EA IF BS 150-199=2 UNITS. 200-249=4 UNITS, 250-299=6 UNITS,300-349-8 UNITS,350-399=10 UNITS,400-449=12 UNITS AND CALL MD. 02/04/19 Heparin Sodium,Porcine/Pf (HEPARIN SOD 5,000 UNIT/ 0.5 ML) 5,000 Unit/0.5 Ml Vial, 5000 UNIT IJ Q8H, VIAL 02/04/19 Bisacodyl (Dulcolax) 10 Mg Supp.rect, 10 MG RC DAILY, SUPP.RECT 02/04/19 Aspirin* (Aspirin* Chew) 81 Mg Tab.chew, 81 MG PO DAILY, TAB.CHEW 02/04/19 Amlodipine Besylate* (Amlodipine Besylate*) 10 Mg Tablet, 10 MG PO DAILY, #30 TAB 02/04/19 Amiodarone Hcl* (Amiodarone Hcl*) 200 Mg Tablet, 200 MG PO BID, #60 TAB 02/04/19 Medications Current Medications Bisacodyl (Dulcolax Supp) 10 mg DAILY [place] Last administered on 02/21/19at 08:38; Admin Dose 10 MG; Start 02/19/19 at 09:00 Tamsulosin HCl (Flomax) 0.4 mg HS PO Last administered on 02/20/19at 21:42; Admin Dose 0.4 MG; Start 02/18/19 at 22:00 Potassium Chloride/Dextrose/ Sod Cl 1,000 ml @ 100 mls/hr Q10H IV Last administered on 02/21/19at 08:36; Admin Dose 100 MLS/HR; Start 02/18/19 at 20:27 IV Flush (NS 3 ml) 3 ml PER PROTOCOL IV ; Start 02/18/19 at 20:30 Ondansetron HCl (Zofran Inj) 4 mg Q6H PRN IV NAUSEA AND/OR VOMITING; Start 02/18/19 at 20:30 Acetaminophen (Tylenol Liquid) 650 mg Q6H PRN PO PAIN LEVEL 1-3 OR FEVER; Start 02/18/19 at 20:30 Famotidine (Pepcid Iv) 20 mg Q12 IV Last administered on 02/21/19 08:38; Admin Dose 20 MG; Start 02/18/19 at 21:00 Enoxaparin Sodium (Lovenox) 30 mg DAILY [place] Last administered on 02/21/19 08:47; Admin Dose 30 MG; Start 02/19/19 at 09:00 Insulin Aspart (Novolog Insulin Pen) NOVOLOG *MILD* ALGORITHM Q4 [place] Last administered on 02/21/19 12:38; Admin Dose 1 UNIT; Start 02/18/19 at 21:00 Norepinephrine 250 ml @ 1.875 mls/ hr TITRATE IV ; Start 02/19/19 at 02:30 Ipratropium [place] (Atrovent Hfa) 4 puff Q4H RESP THERAPY INH Last administered on 02/21/19 14:45; Admin Dose 4 PUFF; Start 02/19/19 at 09:00 Albuterol (Ventolin Hfa) 4 puff Q4H RESP THERAPY INH Last administered on 02/21/19 14:45; Admin Dose 4 PUFF; Start 02/19/19 at 09:00 Amlodipine Besylate (Norvasc) 10 mg DAILY GTB Last administered on 02/20/19 10:08; Admin Dose 10 MG; Start 02/19/19 at 09:00 Aspirin (Aspirin) 81 mg DAILY GTB Last administered on 02/21/19 08:37; Admin Dose 81 MG; Start 02/19/19 at 09:00 Lisinopril (Zestril) 40 mg DAILY GTB Last administered on 02/20/19 10:16; Admin Dose 40 MG; Start 02/19/19 at 09:00 Polyethylene Glycol (Miralax) 17 gm DAILY GTB Last administered on 02/21/19 08:37; Admin Dose 17 GM; Start 02/19/19 at 09:00 Amiodarone HCl (Cordarone) 200 mg BID GTB Last administered on 02/20/19 10:09; Admin Dose 200 MG; Start 02/19/19 at 09:00 Cefepime HCl 50 ml @ 100 mls/hr Q24H IVPB Last administered on 02/21/19at 12:29; Admin Dose 100 MLS/HR; Start 02/19/19 at 12:00 Vancomycin HCl (Vanco Iv Per Pharmacy) VANCOMYCIN PER PHARMACY PER PROTOCOL XX ; Start 02/19/19 at 11:30 Vancomycin/Sodium Chloride 250 ml @ 125 mls/hr Q24H IVPB Last administered on 02/20/19at 17:59; Admin Dose 125 MLS/HR; Start 02/19/19 at 17:00 Hydralazine HCl (Apresoline) 10 mg Q4H PRN IV ELEVATED BLOOD PRESSURE; Start 02/19/19 at 20:30 Midazolam HCl 50 ml @ 1 mls/hr TITRATE IV Last administered on 02/21/19at 04:48; Admin Dose 3 MLS/HR; Start 02/19/19 at 21:30 Miscellaneous Information (*Rx Drug Level Order Reminder*) VANCO TROUGH 02/21 @ 1,600 1600 ONCE XX ; Start 02/21/19 at 16:00; Stop 02/21/19 at 16:01 Fentanyl 100 ml @ 2.5 mls/hr TITRATE IV Last administered on 02/20/19at 21:37; Admin Dose 50 MLS/HR; Start 02/20/19 at 17:30 Metoclopramide HCl (Reglan) 10 mg Q6 IV Last administered on 02/21/19at 12:29; Admin Dose 10 MG; Start 02/21/19 at 12:00 Assessment/Plan Assessment/Plan (Daily) IMP: 1. Acute hypoxemic respiratory failure--likely 2/2 central airway obstruction due to aspiration 2. Acute on chronic encephalopathy 3. Severe leukocytosis, unclear source, possible aspiration pneumonia. 4. Anemia PLAN: 1. Continue mechanical ventilation--> plan to wean in am 2. Abx per ID 3. Follow Cx's 4. DVT and GI prophylaxis. 5. Tube feeding as tolerated 6. D/C versed; start precedex gtt 7. Hold TF after midnight 40 min cc time MORGAN KEY MD Feb 21, 2019 15:29
[2019-02-21] MEDS: DEXMEDETOMIDINE HCL 200 MCG in SOD CHLORIDE 0.9% 48 ML IV SCH (16:54)
[2019-02-21] MEDS: VANCOMYCIN 750 MG (PMX) 250 ML IVPB SCH (18:20)
[2019-02-21] MEDS: TAMSULOSIN (SR) 0.4 MG CAP PO SCH (20:46)
[2019-02-22] VITALS (40 sets, daily range): BP systolic 75–174; BP diastolic 33–132; PULSE 51–94; RESP 13–37
[2019-02-22] MEDS: INSULIN ASPART [NOVOLOG] 3 ML PEN SC SCH ×6 (00:37→21:00)
[2019-02-22] MEDS: METOCLOPRAMIDE 10 MG INJ IV SCH ×4 (00:38→17:57)
[2019-02-22] MEDS: ALBUTEROL HFA 8 GM INHALER INH SCH ×6 (01:01→21:52)
[2019-02-22] MEDS: IPRATROPIUM (HFA) 12.9 GM INHALER INH SCH ×6 (01:01→21:52)
[2019-02-22] MEDS: DEXMEDETOMIDINE HCL 200 MCG in SOD CHLORIDE 0.9% 48 ML IV SCH (04:48)
[2019-02-22] MEDS ORDERED: VANCOMYCIN 500 MG (PMX) 100 ML IVPB SCH (05:00)
[2019-02-22] MEDS: VANCOMYCIN 750 MG (PMX) 250 ML IVPB SCH ×2 (05:39→17:57)
[2019-02-22] MEDS: FENTAnyl (DRIP) 1000 mcg/100mL 100 ML IV SCH (06:47)
[2019-02-22] MEDS: D5W-0.45 NACL + KCL 20 MEQ 1,000 ML IV SCH ×3 (07:00→16:14)
[2019-02-22] MEDS: AMLODIPINE 10 MG TAB GTB SCH (09:43)
[2019-02-22] MEDS: ASPIRIN 81 MG TAB GTB SCH (09:43)
[2019-02-22] MEDS: POLYETHYLENE GLYCOL 17 GM PACKET GTB SCH (09:43)
[2019-02-22] MEDS: BISACODYL 10 MG SUPP PR SCH (09:43)
[2019-02-22] MEDS: AMIODARONE 200 MG TAB GTB SCH ×2 (09:43→21:00)
--- NOTE | 2019-02-22 09:43 | CONS ---
Consult Date/Type/Reason Admit Date/Time February 18, 2019 at 17:32 Initial Consult Date Type of Consult Pulmonary Date/Time of Note DATE: 02/22/19 TIME: 09:42 Subjective Patient continues mechanical ventilation. Awake alert this morning no respiratory distress. Agitated. Sedation is being decreased for weaning trial. Objective Vital Signs Date Temp Pulse Resp B/P (MAP) Pulse Ox O2 O2 Flow FiO2 Time Delivery Rate 02/22/19 60 13 100 30 09:18 02/22/19 97.6 150/52 Mechanical 08:00 (84) Ventilator 02/18/19 10.0 17:20 Intake and Output 02/21/19 02/21/19 02/22/19 1515:00 23:00 07:00 IntakeIntake Total 1286 ml 1118.25 ml 224.20 ml OutputOutput Total 310 ml 595 ml 860 ml BalanceBalance 976 ml 523.25 ml -635.80 ml Exam GENERAL: Elderly appearing gentleman orally intubated on mechanical ventilation VITAL SIGNS: per chart NECK: Supple. No JVD or lymphadenopathy. CARDIAC EXAM: S1, S2. No added sounds or murmurs. CHEST: clear bilaterally, No added sounds, rales or wheezes ABDOMEN: Soft, nontender. No guarding or rebound. EXTREMITIES: No cyanosis, clubbing or edema. NEUROLOGIC: Generalized weakness. Vent Setting Ventilator Support Mode: SPONT Fraction of Inspired Oxygen pe: 30 Positive End Expiratory Pressu: 5.0 Results/Medications Result Diagram: 02/22/19 0705 02/22/19 0510 Results 24 hrs Laboratory Tests Test 02/21/19 12:33 02/21/19 15:48 02/21/19 17:46 02/21/19 20:42 Bedside Glucose 145 135 184 Vancomycin Level Trough 5.8 L Test 02/22/19 00:35 02/22/19 05:10 02/22/19 05:37 02/22/19 07:05 Bedside Glucose 159 124 White Blood Count 7.8 # 8.6 Red Blood Count 2.39 #L 2.64 L Hemoglobin 7.1 #L 7.8 L Hematocrit 21.2 #L 23.4 L Mean Corpuscular Volume 88.7 88.6 Mean Corpuscular 29.7 29.5 Hemoglobin Mean Corpuscular 33.5 33.3 Hemoglobin Concent Red Cell Distribution 14.6 H 14.8 H Width Platelet Count 176 # 184 Mean Platelet Volume 9.1 9.3 Immature Granulocytes % 0.500 H 0.600 H Neutrophils % 88.3 H 84.3 H Lymphocytes % 5.4 L 9.1 L Monocytes % 4.9 4.8 Eosinophils % 0.8 1.0 Basophils % 0.1 0.2 Nucleated Red Blood 0.0 0.0 Cells % Immature Granulocytes # 0.040 H 0.050 H Neutrophils # 6.9 7.3 Lymphocytes # 0.4 L 0.8 Monocytes # 0.4 0.4 Eosinophils # 0.1 0.1 Basophils # 0.0 0.0 Nucleated Red Blood 0.0 0.0 Cells # Sodium Level 132 L Potassium Level 4.1 Chloride Level 102 Carbon Dioxide Level 26 Anion Gap 4 L Blood Urea Nitrogen 10 Creatinine 0.49 L Est Glomerular Filtrat Rate mL/min Glucose Level 112 Calcium Level 7.9 L Medications Current Medications Bisacodyl (Dulcolax Supp) 10 mg DAILY [place] Last administered on 02/21/19at 08:38; Admin Dose 10 MG; Start 02/19/19 at 09:00 Tamsulosin HCl (Flomax) 0.4 mg HS PO Last administered on 02/21/19at 20:46; Admin Dose 0.4 MG; Start 02/18/19 at 22:00 IV Flush (NS 3 ml) 3 ml PER PROTOCOL IV ; Start 02/18/19 at 20:30 Ondansetron HCl (Zofran Inj) 4 mg Q6H PRN IV NAUSEA AND/OR VOMITING; Start 02/18/19 at 20:30 Acetaminophen (Tylenol Liquid) 650 mg Q6H PRN PO PAIN LEVEL 1-3 OR FEVER; Start 02/18/19 at 20:30 Famotidine (Pepcid Iv) 20 mg Q12 IV Last administered on 02/21/19at 20:54; Admin Dose 20 MG; Start 02/18/19 at 21:00 Enoxaparin Sodium (Lovenox) 30 mg DAILY SC Last administered on 02/21/19at 08:47; Admin Dose 30 MG; Start 02/19/19 at 09:00 Insulin Aspart (Novolog Insulin Pen) NOVOLOG *MILD* ALGORITHM Q4 SC Last administered on 02/22/19at 00:37; Admin Dose 1 UNIT; Start 02/18/19 at 21:00 Norepinephrine 250 ml @ 1.875 mls/ hr TITRATE IV ; Start 02/19/19 at 02:30 Ipratropium [place] (Atrovent Hfa) 4 puff Q4H RESP THERAPY INH Last administered on 02/22/19 09:04; Admin Dose 4 PUFF; Start 02/19/19 at 09:00 Albuterol (Ventolin Hfa) 4 puff Q4H RESP THERAPY INH Last administered on 02/22/19 09:03; Admin Dose 4 PUFF; Start 02/19/19 at 09:00 Amlodipine Besylate (Norvasc) 10 mg DAILY GTB Last administered on 02/20/19 10:08; Admin Dose 10 MG; Start 02/19/19 at 09:00 Aspirin (Aspirin) 81 mg DAILY GTB Last administered on 02/21/19 08:37; Admin Dose 81 MG; Start 02/19/19 at 09:00 Lisinopril (Zestril) 40 mg DAILY GTB Last administered on 02/20/19 10:16; Admin Dose 40 MG; Start 02/19/19 at 09:00 Polyethylene Glycol (Miralax) 17 gm DAILY GTB Last administered on 02/21/19 08:37; Admin Dose 17 GM; Start 02/19/19 at 09:00 Amiodarone HCl (Cordarone) 200 mg BID GTB Last administered on 02/21/19 20:47; Admin Dose 200 MG; Start 02/19/19 at 09:00 Cefepime HCl 50 ml @ 100 mls/hr Q24H IVPB Last administered on 02/21/19 12:29; Admin Dose 100 MLS/HR; Start 02/19/19 at 12:00 Vancomycin HCl (Vanco Iv Per Pharmacy) VANCOMYCIN PER PHARMACY PER PROTOCOL XX ; Start 02/19/19 at 11:30 Hydralazine HCl (Apresoline) 10 mg Q4H PRN IV ELEVATED BLOOD PRESSURE; Start 02/19/19 at 20:30 Midazolam HCl 50 ml @ 1 mls/hr TITRATE IV Last administered on 02/21/19 04:48; Admin Dose 3 MLS/HR; Start 02/19/19 at 21:30 Fentanyl 100 ml @ 2.5 mls/hr TITRATE IV Last administered on 02/22/19 06:47; Admin Dose 2.5 MLS/HR; Start 02/20/19 at 17:30 Metoclopramide HCl (Reglan) 10 mg Q6 IV Last administered on 02/22/19at 05:39; Admin Dose 10 MG; Start 02/21/19 at 12:00 Dexmedetomidine HCl 200 mcg/ Sodium Chloride 50 ml @ 2.44 mls/hr TITRATE IV Last administered on 02/22/19at 04:48; Admin Dose 4.26 MLS/HR; Start 02/21/19 at 16:00 Vancomycin/Sodium Chloride 250 ml @ 125 mls/hr Q12H IVPB Last administered on 02/22/19 05:39; Admin Dose 125 MLS/HR; Start 02/22/19 at 05:00 Potassium Chloride/Dextrose/ Sod Cl 1,000 ml @ 100 mls/hr Q10H IV ; Start 02/22/19 at 07:00 Assessment/Plan Hospital Course (Demo Recall) IMP: 1. Acute hypoxemic respiratory failure--likely 2/2 central airway obstruction due to aspiration 2. Acute on chronic encephalopathy 3. Severe leukocytosis, unclear source, possible aspiration pneumonia. 4. Anemia PLAN: 1. Continue mechanical ventilation--> CPAP trial this morning 2. Abx per ID 3. Follow Cx's 4. DVT and GI prophylaxis. 5. Tube feeding as tolerated 6. D/C versed; start precedex gtt 7. Speech therapy evaluation post extubation. 40 min cc time SHAHZAD FIERRO MD, [facility] Feb 22, 2019 09:43
[2019-02-22] MEDS: LISINOPRIL 20 MG TAB GTB SCH (09:44)
[2019-02-22] MEDS: FAMOTIDINE 20 MG INJ IV SCH ×2 (09:46→21:32)
[2019-02-22] MEDS: ENOXAPARIN 30 MG/0.3 ML SYG SC SCH (09:49)
[2019-02-22] MEDS: CEFEPIME 2GM/50 ML (PMX) 50 ML IVPB SCH (12:41)
--- NOTE | 2019-02-22 13:23 | CONS ---
Assessment/Plan Assessment/Plan Hospital Course (Demo Recall) No events overnight patient remains intubated looks comfortable no fevers. WBC 8.6 H&H 7.8 and 23.4 platelets 184 neutrophils 84.3 BUN 10 creatinine 0.49 Chest x-ray this morning revealed bibasilar infiltrates/atelectasis and small left pleural effusion Microbiology: All cultures negative Indwelling's: Endotracheal tube, orogastric tube, Cavanaugh, right subclavian triple-lumen catheter Antimicrobials: Vancomycin, cefepime Physical examination: This is a well-developed very seen elderly man who is intubated sedated in no distress. Head atraumatic normocephalic, sclera nonicteric vehicle mucosa dry neck is supple chest rise symmetrical breath sounds diminished bases. Heart: S1-S2. Abdomen soft bowel sounds present. Extremities without cyanosis Assessment: 1. Sepsis, status post shock likely secondary to aspiration 2. Acute hypoxemic respiratory failure 3. Possible pneumonia 4. History of CABG 5. History of CVA 6. Atrial fibrillation Plan: Remains stable, continue present care, antibiotics, vent management per pulmonary Consultation Date/Type/Reason Admit Date/Time February 18, 2019 at 17:32 Initial Consult Date Type of Consult id Date/Time of Note DATE: 02/22/19 TIME: 13:22 Exam/Review of Systems Exam Vitals Vital Signs Date Temp Pulse Resp B/P (MAP) Pulse Ox O2 O2 Flow FiO2 Time Delivery Rate 02/22/19 97.8 81 20 159/93 100 Mechanical 12:00 (115) Ventilator 02/22/19 30 11:18 02/18/19 10.0 17:20 Intake and Output 02/21/19 02/21/19 02/22/19 1515:00 23:00 07:00 IntakeIntake Total 1286 ml 1118.25 ml 224.20 ml OutputOutput Total 310 ml 595 ml 960 ml BalanceBalance 976 ml 523.25 ml -735.80 ml Results Result Diagram: 02/22/19 0705 02/22/19 0510 Results 24hrs Laboratory Tests Test 02/21/19 15:48 02/21/19 17:46 02/21/19 20:42 02/22/19 00:35 Vancomycin Level 5.8 L Trough Bedside Glucose 135 184 159 Test 02/22/19 05:10 02/22/19 05:37 02/22/19 07:05 02/22/19 09:51 White Blood Count 7.8 # 8.6 Red Blood Count 2.39 #L 2.64 L Hemoglobin 7.1 #L 7.8 L Hematocrit 21.2 #L 23.4 L Mean Corpuscular 88.7 88.6 Volume Mean Corpuscular 29.7 29.5 Hemoglobin Mean Corpuscular 33.5 33.3 Hemoglobin Concent Red Cell 14.6 H 14.8 H Distribution Width Platelet Count 176 # 184 Mean Platelet 9.1 9.3 Volume Immature 0.500 H 0.600 H Granulocytes % Neutrophils % 88.3 H 84.3 H Lymphocytes % 5.4 L 9.1 L Monocytes % 4.9 4.8 Eosinophils % 0.8 1.0 Basophils % 0.1 0.2 Nucleated Red 0.0 0.0 Blood Cells % Immature 0.040 H 0.050 H Granulocytes # Neutrophils # 6.9 7.3 Lymphocytes # 0.4 L 0.8 Monocytes # 0.4 0.4 Eosinophils # 0.1 0.1 Basophils # 0.0 0.0 Nucleated Red 0.0 0.0 Blood Cells # Sodium Level 132 L Potassium Level 4.1 Chloride Level 102 Carbon Dioxide 26 Level Anion Gap 4 L Blood Urea 10 Nitrogen Creatinine 0.49 L Est Glomerular Filtrat Rate mL/min Glucose Level 112 Calcium Level 7.9 L Bedside Glucose 124 137 Test 02/22/19 11:30 02/22/19 12:44 Blood Gas Specimen Blood arterial Source Arterial Blood 02/22/2019 11:28:55 Date Drawn AM Arterial Blood pH 7.451 H (Temp corrected) Arterial Blood 37.6 pCO2 (Temp correct) Arterial Blood pO2 100.2 H (Temp corrected) Arterial Blood 25.6 HCO3 Arterial Blood 1.7 Base Excess Arterial Blood 97.8 Oxygen Saturation Sven Test ACCEPTAB Arterial Blood Gas Right Radial Puncture Site Arterial 0.3 Blood Carboxyhemog lobin Arterial Blood 0.3 Methemoglobin Blood Gas A-a O2 69.5 H Differential Oxyhemoglobin 97.2 Percent Blood Gas 37.0 Temperature Blood Gas Actual 17 Respiration Rate Blood Gas VENT - BIPHASIC Modality FiO2 30.0 Blood Gas Low PEEP 5.0 Setting Blood Gas Pressure 10 Support Blood Gas Notified TM Whom Blood Gas Notified 02/22/2019 11:38:50 Time AM Bedside Glucose 141 Medications Medication Current Medications Bisacodyl (Dulcolax Supp) [address] Last administered on 02/22/19 09:43; Admin Dose 10 MG; Start 02/19/19 at 09:00 Tamsulosin HCl (Flomax) 0.4 mg HS PO Last administered on 02/21/19 20:46; Admin Dose 0.4 MG; Start 02/18/19 at 22:00 IV Flush (NS 3 ml) 3 ml PER PROTOCOL IV ; Start 02/18/19 at 20:30 Ondansetron HCl (Zofran Inj) 4 mg Q6H PRN IV NAUSEA AND/OR VOMITING; Start 02/18/19 at 20:30 Acetaminophen (Tylenol Liquid) 650 mg Q6H PRN PO PAIN LEVEL 1-3 OR FEVER; Start 02/18/19 at 20:30 Famotidine (Pepcid Iv) 20 mg Q12 IV Last administered on 02/22/19 09:46; Admin Dose 20 MG; Start 02/18/19 at 21:00 Enoxaparin Sodium (Lovenox) 30 mg DAILY SC Last administered on 02/22/19 09:49; Admin Dose 30 MG; Start 02/19/19 at 09:00 Insulin Aspart (Novolog Insulin Pen) NOVOLOG *MILD* ALGORITHM Q4 SC Last administered on 02/22/19 12:47; Admin Dose 1 UNIT; Start 02/18/19 at 21:00 Norepinephrine 250 ml @ 1.875 mls/ hr TITRATE IV ; Start 02/19/19 at 02:30 Ipratropium [place] (Atrovent Hfa) 4 puff Q4H RESP THERAPY INH Last administ ered on 02/22/19 09:04; Admin Dose 4 PUFF; Start 02/19/19 at 09:00 Albuterol (Ventolin Hfa) 4 puff Q4H RESP THERAPY INH Last administered on 02/22/19 09:03; Admin Dose 4 PUFF; Start 02/19/19 at 09:00 Amlodipine Besylate (Norvasc) 10 mg DAILY GTB Last administered on 02/22/19 09:43; Admin Dose 10 MG; Start 02/19/19 at 09:00 Aspirin (Aspirin) 81 mg DAILY GTB Last administered on 02/22/19 09:43; Admin Dose 81 MG; Start 02/19/19 at 09:00 Lisinopril (Zestril) 40 mg DAILY GTB Last administered on 02/22/19 09:44; Admin Dose 40 MG; Start 02/19/19 at 09:00 Polyethylene Glycol (Miralax) 17 gm DAILY GTB Last administered on 02/22/19 09:43; Admin Dose 17 GM; Start 02/19/19 at 09:00 Amiodarone HCl (Cordarone) 200 mg BID GTB Last administered on 02/22/19 09:43; Admin Dose 200 MG; Start 02/19/19 at 09:00 Cefepime HCl 50 ml @ 100 mls/hr Q24H IVPB Last administered on 02/22/19 12:41; Admin Dose 100 MLS/HR; Start 02/19/19 at 12:00 Vancomycin HCl (Vanco Iv Per Pharmacy) VANCOMYCIN PER PHARMACY PER PROTOCOL XX ; Start 02/19/19 at 11:30 Hydralazine HCl (Apresoline) 10 mg Q4H PRN IV ELEVATED BLOOD PRESSURE; Start 02/19/19 at 20:30 Midazolam HCl 50 ml @ 1 mls/hr TITRATE IV Last administered on 02/21/19 04:48; Admin Dose 3 MLS/HR; Start 02/19/19 at 21:30 Fentanyl 100 ml @ 2.5 mls/hr TITRATE IV Last administered on 02/22/19 06:47; Admin Dose 2.5 MLS/HR; Start 02/20/19 at 17:30 Metoclopramide HCl (Reglan) 10 mg Q6 IV Last administered on 02/22/19 12:40; Admin Dose 10 MG; Start 02/21/19 at 12:00 Dexmedetomidine HCl 200 mcg/ Sodium Chloride 50 ml @ 2.44 mls/hr TITRATE IV Last administered on 02/22/19 04:48; Admin Dose 4.26 MLS/HR; Start 02/21/19 at 16:00 Vancomycin/Sodium Chloride 250 ml @ 125 mls/hr Q12H IVPB Last administered on 02/22/19 05:39; Admin Dose 125 MLS/HR; Start 02/22/19 at 05:00 Potassium Chloride/Dextrose/ Sod Cl 1,000 ml @ 100 mls/hr Q10H IV ; Start 02/22/19 at 07:00 Miscellaneous Information (*Rx Drug Level Order Reminder*) VANCO TROUGH 02/23 @ 1,600 1600 ONCE XX ; Start 02/23/19 at 16:00; Stop 02/23/19 at 16:01 LUCINA DOMINGUEZ NP Feb 22, 2019 13:23
[2019-02-22] MEDS ORDERED: LORAZEPAM 2 MG INJ ONE (15:59)
[2019-02-22] MEDS: LORAZEPAM 2 MG INJ IV PRN (16:05)
[2019-02-22] MEDS: hydrALAzine 20 MG INJ IV PRN (16:11)
--- NOTE | 2019-02-22 17:07 | PN ---
Date/Time of Note Date/Time of Note DATE: 02/22/19 TIME: 17:05 Assessment/Plan VTE Prophylaxis Risk score (from Ns)>0 risk: 6 SCD applied (from Ns): Yes Pharmacological prophylaxis: LMWH Lines/Catheters IV [facility]from [facility] Central Line Central line still needed: Yes Urinary Cath still in place: Yes Reason Cath still needed: urinary retention Assessment/Plan Hospital Course Patient is extubated early in the morning currently continues on supplemental oxygen via nasal cannula get agitated at times. Assessment/Plan -Acute respiratory failure requiring intubation and placement on mechanical ventilation, now extubated. Dr Addison for pulm consult. -Severe sepsis with shock secondary to pneumonia. Continue antibiotics per ID. ID Consult Dr. Guevara. -ALOC -History of aortic aneurysm, status post repair. -Atrial fibrillation -Hypertension -Cerebrovascular disease -Urinary retention with urethral stricture. -Diabetes, continue Lantus and NovoLog. Further recommendations based on clinical course. Plan of care discussed with Dr. Moreno. Result Diagram: 02/22/19 0705 02/22/19 0510 Results 24hrs Laboratory Tests Test 02/21/19 17:46 02/21/19 20:42 02/22/19 00:35 02/22/19 05:10 Bedside Glucose 135 184 159 White Blood Count 7.8 # Red Blood Count 2.39 #L Hemoglobin 7.1 #L Hematocrit 21.2 #L Mean Corpuscular 88.7 Volume Mean Corpuscular 29.7 Hemoglobin Mean Corpuscular 33.5 Hemoglobin Concent Red Cell 14.6 H Distribution Width Platelet Count 176 # Mean Platelet 9.1 Volume Immature 0.500 H Granulocytes % Neutrophils % 88.3 H Lymphocytes % 5.4 L Monocytes % 4.9 Eosinophils % 0.8 Basophils % 0.1 Nucleated Red 0.0 Blood Cells % Immature 0.040 H Granulocytes # Neutrophils # 6.9 Lymphocytes # 0.4 L Monocytes # 0.4 Eosinophils # 0.1 Basophils # 0.0 Nucleated Red 0.0 Blood Cells # Sodium Level 132 L Potassium Level 4.1 Chloride Level 102 Carbon Dioxide 26 Level Anion Gap 4 L Blood Urea 10 Nitrogen Creatinine 0.49 L Est Glomerular Filtrat Rate mL/min Glucose Level 112 Calcium Level 7.9 L Test 02/22/19 05:37 02/22/19 07:05 02/22/19 09:51 02/22/19 11:30 Bedside Glucose 124 137 White Blood Count 8.6 Red Blood Count 2.64 L Hemoglobin 7.8 L Hematocrit 23.4 L Mean Corpuscular 88.6 Volume Mean Corpuscular 29.5 Hemoglobin Mean Corpuscular 33.3 Hemoglobin Concent Red Cell 14.8 H Distribution Width Platelet Count 184 Mean Platelet 9.3 Volume Immature 0.600 H Granulocytes % Neutrophils % 84.3 H Lymphocytes % 9.1 L Monocytes % 4.8 Eosinophils % 1.0 Basophils % 0.2 Nucleated Red 0.0 Blood Cells % Immature 0.050 H Granulocytes # Neutrophils # 7.3 Lymphocytes # 0.8 Monocytes # 0.4 Eosinophils # 0.1 Basophils # 0.0 Nucleated Red 0.0 Blood Cells # Blood Gas Specimen Blood arterial Source Arterial Blood 02/22/2019 11:28:55 Date Drawn AM Arterial Blood pH 7.451 H (Temp corrected) Arterial Blood 37.6 pCO2 (Temp correct) Arterial Blood pO2 100.2 H (Temp corrected) Arterial Blood 25.6 HCO3 Arterial Blood 1.7 Base Excess Arterial Blood 97.8 Oxygen Saturation Sven Test ACCEPTAB Arterial Blood Gas Right Radial Puncture Site Arterial 0.3 Blood Carboxyhemog lobin Arterial Blood 0.3 Methemoglobin Blood Gas A-a O2 69.5 H Differential Oxyhemoglobin 97.2 Percent Blood Gas 37.0 Temperature Blood Gas Actual 17 Respiration Rate Blood Gas VENT - BIPHASIC Modality FiO2 30.0 Blood Gas Low PEEP 5.0 Setting Blood Gas Pressure 10 Support Blood Gas Notified TM Whom Blood Gas Notified 02/22/2019 11:38:50 Time AM Test 02/22/19 12:44 Bedside Glucose 141 Exam/Review of Systems Exam Vitals Vital Signs Date Temp Pulse Resp B/P (MAP) Pulse Ox O2 O2 Flow FiO2 Time Delivery Rate 02/22/19 83 18 137/61 99 16:30 (86) 02/22/19 97.9 Nasal 16:00 Cannula 02/22/19 2.0 12:30 02/22/19 30 11:18 Intake and Output 02/21/19 02/21/19 02/22/19 1515:00 23:00 07:00 IntakeIntake Total 1286 ml 1118.25 ml 224.20 ml OutputOutput Total 310 ml 595 ml 960 ml BalanceBalance 976 ml 523.25 ml -735.80 ml Exam Constitutional: frail Respiratory: clear to auscultation Cardiovascular: regular rate and rhythm Gastrointestinal: soft, non-tender Musculoskeletal: nl extremities to inspection Extremities: normal pulses Neurological: other (sedated) Skin: nl turgor Results Results 24hrs Laboratory Tests Test 02/21/19 17:46 02/21/19 20:42 02/22/19 00:35 02/22/19 05:10 Bedside Glucose 135 184 159 White Blood Count 7.8 # Red Blood Count 2.39 #L Hemoglobin 7.1 #L Hematocrit 21.2 #L Mean Corpuscular 88.7 Volume Mean Corpuscular 29.7 Hemoglobin Mean Corpuscular 33.5 Hemoglobin Concent Red Cell 14.6 H Distribution Width Platelet Count 176 # Mean Platelet 9.1 Volume Immature 0.500 H Granulocytes % Neutrophils % 88.3 H Lymphocytes % 5.4 L Monocytes % 4.9 Eosinophils % 0.8 Basophils % 0.1 Nucleated Red 0.0 Blood Cells % Immature 0.040 H Granulocytes # Neutrophils # 6.9 Lymphocytes # 0.4 L Monocytes # 0.4 Eosinophils # 0.1 Basophils # 0.0 Nucleated Red 0.0 Blood Cells # Sodium Level 132 L Potassium Level 4.1 Chloride Level 102 Carbon Dioxide 26 Level Anion Gap 4 L Blood Urea 10 Nitrogen Creatinine 0.49 L Est Glomerular Filtrat Rate mL/min Glucose Level 112 Calcium Level 7.9 L Test 02/22/19 05:37 02/22/19 07:05 02/22/19 09:51 02/22/19 11:30 Bedside Glucose 124 137 White Blood Count 8.6 Red Blood Count 2.64 L Hemoglobin 7.8 L Hematocrit 23.4 L Mean Corpuscular 88.6 Volume Mean Corpuscular 29.5 Hemoglobin Mean Corpuscular 33.3 Hemoglobin Concent Red Cell 14.8 H Distribution Width Platelet Count 184 Mean Platelet 9.3 Volume Immature 0.600 H Granulocytes % Neutrophils % 84.3 H Lymphocytes % 9.1 L Monocytes % 4.8 Eosinophils % 1.0 Basophils % 0.2 Nucleated Red 0.0 Blood Cells % Immature 0.050 H Granulocytes # Neutrophils # 7.3 Lymphocytes # 0.8 Monocytes # 0.4 Eosinophils # 0.1 Basophils # 0.0 Nucleated Red 0.0 Blood Cells # Blood Gas Specimen Blood arterial Source Arterial Blood 02/22/2019 11:28:55 Date Drawn AM Arterial Blood pH 7.451 H (Temp corrected) Arterial Blood 37.6 pCO2 (Temp correct) Arterial Blood pO2 100.2 H (Temp corrected) Arterial Blood 25.6 HCO3 Arterial Blood 1.7 Base Excess Arterial Blood 97.8 Oxygen Saturation Sven Test ACCEPTAB Arterial Blood Gas Right Radial Puncture Site Arterial 0.3 Blood Carboxyhemog lobin Arterial Blood 0.3 Methemoglobin Blood Gas A-a O2 69.5 H Differential Oxyhemoglobin 97.2 Percent Blood Gas 37.0 Temperature Blood Gas Actual 17 Respiration Rate Blood Gas VENT - BIPHASIC Modality FiO2 30.0 Blood Gas Low PEEP 5.0 Setting Blood Gas Pressure 10 Support Blood Gas Notified TM Whom Blood Gas Notified 02/22/2019 11:38:50 Time AM Test 02/22/19 12:44 Bedside Glucose 141 Medications Medication Current Medications Bisacodyl (Dulcolax Supp) 10 mg DAILY [place] Last administered on 02/22/19 09:43; Admin Dose 10 MG; Start 02/19/19 at 09:00 Tamsulosin HCl (Flomax) 0.4 mg HS PO Last administered on 02/21/19at 20:46; Admin Dose 0.4 MG; Start 02/18/19 at 22:00 IV Flush (NS 3 ml) 3 ml PER PROTOCOL IV ; Start 02/18/19 at 20:30 Ondansetron HCl (Zofran Inj) 4 mg Q6H PRN IV NAUSEA AND/OR VOMITING; Start 02/18/19 at 20:30 Acetaminophen (Tylenol Liquid) 650 mg Q6H PRN PO PAIN LEVEL 1-3 OR FEVER; Start 02/18/19 at 20:30 Famotidine (Pepcid Iv) 20 mg Q12 IV Last administered on 02/22/19 09:46; Admin Dose 20 MG; Start 02/18/19 at 21:00 Enoxaparin Sodium (Lovenox) 30 mg DAILY SC Last administered on 02/22/19 09:49; Admin Dose 30 MG; Start 02/19/19 at 09:00 Insulin Aspart (Novolog Insulin Pen) NOVOLOG *MILD* ALGORITHM Q4 SC Last ad ministered on 02/22/19at 12:47; Admin Dose 1 UNIT; Start 02/18/19 at 21:00 Norepinephrine 250 ml @ 1.875 mls/ hr TITRATE IV ; Start 02/19/19 at 02:30 Ipratropium [place] (Atrovent Hfa) 4 puff Q4H RESP THERAPY INH Last administered on 02/22/19 09:04; Admin Dose 4 PUFF; Start 02/19/19 at 09:00 Albuterol (Ventolin Hfa) 4 puff Q4H RESP THERAPY INH Last administered on 02/22/19 09:03; Admin Dose 4 PUFF; Start 02/19/19 at 09:00 Amlodipine Besylate (Norvasc) 10 mg DAILY GTB Last administered on 02/22/19 09:43; Admin Dose 10 MG; Start 02/19/19 at 09:00 Aspirin (Aspirin) 81 mg DAILY GTB Last administered on 02/22/19 09:43; Admin Dose 81 MG; Start 02/19/19 at 09:00 Lisinopril (Zestril) 40 mg DAILY GTB Last administered on 02/22/19 09:44; Admin Dose 40 MG; Start 02/19/19 at 09:00 Polyethylene Glycol (Miralax) 17 gm DAILY GTB Last administered on 02/22/19 09:43; Admin Dose 17 GM; Start 02/19/19 at 09:00 Amiodarone HCl (Cordarone) 200 mg BID GTB Last administered on 02/22/19 09:43; Admin Dose 200 MG; Start 02/19/19 at 09:00 Cefepime HCl 50 ml @ 100 mls/hr Q24H IVPB Last administered on 02/22/19 12:41; Admin Dose 100 MLS/HR; Start 02/19/19 at 12:00 Vancomycin HCl (Vanco Iv Per Pharmacy) VANCOMYCIN PER PHARMACY PER PROTOCOL XX ; Start 02/19/19 at 11:30 Hydralazine HCl (Apresoline) 10 mg Q4H PRN IV ELEVATED BLOOD PRESSURE Last administered on 02/22/19 16:11; Admin Dose 10 MG; Start 02/19/19 at 20:30 Midazolam HCl 50 ml @ 1 mls/hr TITRATE IV Last administered on 02/21/19 04:48; Admin Dose 3 MLS/HR; Start 02/19/19 at 21:30 Fentanyl 100 ml @ 2.5 mls/hr TITRATE IV Last administered on 02/22/19 06:47; Admin Dose 2.5 MLS/HR; Start 02/20/19 at 17:30 Metoclopramide HCl (Reglan) 10 mg Q6 IV Last administered on 02/22/19 12:40; Admin Dose 10 MG; Start 02/21/19 at 12:00 Dexmedetomidine HCl 200 mcg/ Sodium Chloride 50 ml @ 2.44 mls/hr TITRATE IV Last administered on 02/22/19 04:48; Admin Dose 4.26 MLS/HR; Start 02/21/19 at 16:00 Vancomycin/Sodium Chloride 250 ml @ 125 mls/hr Q12H IVPB Last administered on 02/22/19 05:39; Admin Dose 125 MLS/HR; Start 02/22/19 at 05:00 Potassium Chloride/Dextrose/ Sod Cl 1,000 ml @ 100 mls/hr Q10H IV Last administered on 02/22/19 16:14; Admin Dose 100 MLS/HR; Start 02/22/19 at 07:00 Miscellaneous Information (*Rx Drug Level Order Reminder*) VANCO TROUGH 02/23 @ 1,600 1600 ONCE XX ; Start 02/23/19 at 16:00; Stop 02/23/19 at 16:01 Lorazepam (Ativan) 0.5 mg Q6H PRN IV AGITATION/ANXIETY Last administered on 02/22/19 16:05; Admin Dose 0.5 MG; Start 02/22/19 at 16:00 GIANNA DE JESUS Feb 22, 2019 17:07
[2019-02-22] MEDS: TAMSULOSIN (SR) 0.4 MG CAP PO SCH (21:00)
[2019-02-23] VITALS (31 sets, daily range): BP systolic 116–166; BP diastolic 40–88; PULSE 62–88; RESP 14–63
[2019-02-23] MEDS: METOCLOPRAMIDE 10 MG INJ IV SCH ×4 (00:45→17:44)
[2019-02-23] MEDS: INSULIN ASPART [NOVOLOG] 3 ML PEN SC SCH ×6 (00:47→20:45)
[2019-02-23] MEDS: ALBUTEROL HFA 8 GM INHALER INH SCH ×2 (01:15→05:00)
[2019-02-23] MEDS: IPRATROPIUM (HFA) 12.9 GM INHALER INH SCH ×2 (01:16→05:00)
[2019-02-23] MEDS: hydrALAzine 20 MG INJ IV PRN (03:08)
[2019-02-23] MEDS: D5W-0.45 NACL + KCL 20 MEQ 1,000 ML IV SCH ×2 (04:51→15:11)
[2019-02-23] MEDS: VANCOMYCIN 750 MG (PMX) 250 ML IVPB SCH (04:58)
[2019-02-23] MEDS: ENOXAPARIN 30 MG/0.3 ML SYG SC SCH (09:00)
[2019-02-23] MEDS: AMIODARONE 200 MG TAB GTB SCH ×2 (09:00→20:43)
[2019-02-23] MEDS: ASPIRIN 81 MG TAB GTB SCH (09:00)
[2019-02-23] MEDS: LISINOPRIL 20 MG TAB GTB SCH (09:00)
[2019-02-23] MEDS: AMLODIPINE 10 MG TAB GTB SCH (09:00)
[2019-02-23] MEDS: POLYETHYLENE GLYCOL 17 GM PACKET GTB SCH (09:00)
[2019-02-23] MEDS: BISACODYL 10 MG SUPP PR SCH (09:01)
[2019-02-23] MEDS: FAMOTIDINE 20 MG INJ IV SCH ×2 (09:21→20:47)
--- NOTE | 2019-02-23 09:44 | CONS ---
Assessment/Plan Assessment/Plan Assessment/Plan (Daily) Acute Respiratory Failure Altered Mental Status S/P repair of AAA Patient does qualify for SNF Hospice Care...consider [facility] also.. I will contact family Consultation Date/Type/Reason Admit Date/Time February 18, 2019 at 17:32 Date/Time of Note DATE: 02/23/19 TIME: 09:38 Hx of Present Illness Briefly reviewed patient's medical records. Patient was readmitted to [facility] in respiratory failure required intubation on February 18, 2019. Patient was admitted to the intensive care unit and has done reasonably well with white blood cell counts decreasing and patient was extubated on 02/22/2019 patient is a full code. According to medical records and speaking to patient's critical care nurse patient has a history of baseline severe dementia requires total body care at the outpatient facility. There are family members who have visited patient at the correction unit but according to nursing no and has been here to visit patient. Other comorbid medical problems including sepsis syndrome,S/P repair AAA,HTN,AFib. Past Medical History Home Meds Active Scripts Cephalexin* (Keflex*) 500 Mg Capsule, 500 MG PO Q6, #40 CAP Prov:SANTOS HOLT MD 02/04/19 Reported Medications Pantoprazole* (Pantoprazole*) 40 Mg Tablet.dr, 40 MG PO AC BREAKFAST, TAB 02/18/19 Quetiapine Fumarate* (Quetiapine Fumarate*) 25 Mg Tablet, 25 MG PO BID, TAB 02/18/19 Lisinopril* (Lisinopril*) 40 Mg Tablet, 40 MG PO DAILY, #30 TAB 02/04/19 Magnesium Hydroxide* (Milk Of Magnesia*) 400 Mg/5 Ml Oral.susp, 30 ML PO BID, ML 02/04/19 Acetaminophen* (Tylenol*) 325 Mg Tablet, 650 MG PO Q4H PRN for MILD PAIN LEVEL 1-3, TAB AND FEVER >100f 02/04/19 Albuterol Sulfate* (Albuterol Sulfate* Neb) 0.083%-3 Ml Neb, 2.5 MG NEB Q4H PRN for WHEEZING AND SOB, #30 VIAL 02/04/19 Tamsulosin Hcl* (Flomax*) 0.4 Mg Cap.er.24h, 0.4 MG PO DAILY, CAP 02/04/19 Polyethylene Glycol* (Polyethylene Glycol*) 17 Gm Powd.pack, 17 GM PO DAILY, #30 PACKET 02/04/19 Melatonin (Melatonin) 5 Mg Tablet, 5 MG PO HS, TAB 02/04/19 Insulin Aspart* (Novolog Insulin Pen*) 100 Unit/Ml Soln, 0 SC .SLIDING SCALE AC, EA IF BS 150-199=2 UNITS. 200-249=4 UNITS, 250-299=6 UNITS,300-349-8 UNITS,350-399=10 UNITS,400-449=12 UNITS AND CALL MDPalma 02/04/19 Heparin Sodium,Porcine/Pf (HEPARIN SOD 5,000 UNIT/ 0.5 ML) 5,000 Unit/0.5 Ml Vial, 5000 UNIT IJ Q8H, VIAL 02/04/19 Bisacodyl (Dulcolax) 10 Mg Supp.rect, 10 MG RC DAILY, SUPP.RECT 02/04/19 Aspirin* (Aspirin* Chew) 81 Mg Tab.chew, 81 MG PO DAILY, TAB.CHEW 02/04/19 Amlodipine Besylate* (Amlodipine Besylate*) 10 Mg Tablet, 10 MG PO DAILY, #30 TAB 02/04/19 Amiodarone Hcl* (Amiodarone Hcl*) 200 Mg Tablet, 200 MG PO BID, #60 TAB 02/04/19 Medications Current Medications Bisacodyl (Dulcolax Supp) 10 mg DAILY [place] Last administered on 02/23/19at 09:01; Admin Dose 10 MG; Start 02/19/19 at 09:00 Tamsulosin HCl (Flomax) 0.4 mg HS PO Last administered on 02/21/19at 20:46; Admin Dose 0.4 MG; Start 02/18/19 at 22:00 IV Flush (NS 3 ml) 3 ml PER PROTOCOL IV ; Start 02/18/19 at 20:30 Ondansetron HCl (Zofran Inj) 4 mg Q6H PRN IV NAUSEA AND/OR VOMITING; Start 02/18/19 at 20:30 Acetaminophen (Tylenol Liquid) 650 mg Q6H PRN PO PAIN LEVEL 1-3 OR FEVER; Start 02/18/19 at 20:30 Famotidine (Pepcid Iv) 20 mg Q12 IV Last administered on 02/23/19at 09:21; Admin Dose 20 MG; Start 02/18/19 at 21:00 Enoxaparin Sodium (Lovenox) 30 mg DAILY SC Last administered on 02/23/19 09:00; Admin Dose 30 MG; Start 02/19/19 at 09:00 Insulin Aspart (Novolog Insulin Pen) NOVOLOG *MILD* ALGORITHM Q4 SC Last administered on 02/23/19 09:00; Admin Dose 1 UNIT; Start 02/18/19 at 21:00 Norepinephrine 250 ml @ 1.875 mls/ hr TITRATE IV ; Start 02/19/19 at 02:30 Amlodipine Besylate (Norvasc) 10 mg DAILY GTB Last administered on 02/22/19 09:43; Admin Dose 10 MG; Start 02/19/19 at 09:00 Aspirin (Aspirin) 81 mg DAILY GTB Last administered on 02/22/19 09:43; Admin Dose 81 MG; Start 02/19/19 at 09:00 Lisinopril (Zestril) 40 mg DAILY GTB Last administered on 02/22/19 09:44; Admin Dose 40 MG; Start 02/19/19 at 09:00 Polyethylene Glycol (Miralax) 17 gm DAILY GTB Last administered on 02/22/19 09:43; Admin Dose 17 GM; Start 02/19/19 at 09:00 Amiodarone HCl (Cordarone) 200 mg BID GTB Last administered on 02/22/19 09:43; Admin Dose 200 MG; Start 02/19/19 at 09:00 Cefepime HCl 50 ml @ 100 mls/hr Q24H IVPB Last administered on 02/22/19 12:41; Admin Dose 100 MLS/HR; Start 02/19/19 at 12:00 Vancomycin HCl (Vanco Iv Per Pharmacy) VANCOMYCIN PER PHARMACY PER PROTOCOL XX ; Start 02/19/19 at 11:30 Hydralazine HCl (Apresoline) 10 mg Q4H PRN IV ELEVATED BLOOD PRESSURE Last administered on 02/23/19 03:08; Admin Dose 10 MG; Start 02/19/19 at 20:30 Midazolam HCl 50 ml @ 1 mls/hr TITRATE IV Last administered on 02/21/19 04:48; Admin Dose 3 MLS/HR; Start 02/19/19 at 21:30 Fentanyl 100 ml @ 2.5 mls/hr TITRATE IV Last administered on 02/22/19at 06:47; Admin Dose 2.5 MLS/HR; Start 02/20/19 at 17:30 Metoclopramide HCl (Reglan) 10 mg Q6 IV Last administered on 02/23/19at 05:02; Admin Dose 10 MG; Start 02/21/19 at 12:00 Dexmedetomidine HCl 200 mcg/ Sodium Chloride 50 ml @ 2.44 mls/hr TITRATE IV Last administered on 02/22/19at 04:48; Admin Dose 4.26 MLS/HR; Start 02/21/19 at 16:00 Vancomycin/Sodium Chloride 250 ml @ 125 mls/hr Q12H IVPB Last administered on 02/23/19at 04:58; Admin Dose 125 MLS/HR; Start 02/22/19 at 05:00 Potassium Chloride/Dextrose/ Sod Cl 1,000 ml @ 100 mls/hr Q10H IV Last administered on 02/23/19at 04:51; Admin Dose 100 MLS/HR; Start 02/22/19 at 07:00 Miscellaneous Information (*Rx Drug Level Order Reminder*) VANCO TROUGH 02/23 @ 1,600 1600 ONCE XX ; Start 02/23/19 at 16:00; Stop 02/23/19 at 16:01 Lorazepam (Ativan) 0.5 mg Q6H PRN IV AGITATION/ANXIETY Last administered on 02/22/19at 16:05; Admin Dose 0.5 MG; Start 02/22/19 at 16:00 Albuterol/ Ipratropium (Duoneb) 3 ml Q6H RESP THERAPY HHN ; Start 02/23/19 at 09:30; Status UNV Allergies: Coded Allergies: No Known Allergy (Unverified , 02/18/19) Past Surgical History Past Surgical Hx: other (Status post aortic aneurysm repair, details are not available) Social History Alcohol Use: none Smoking Status: Unknown if ever smoked Drug Use: none Exam/Review of Systems Exam Vitals Vital Signs Date Temp Pulse Resp B/P (MAP) Pulse Ox O2 O2 Flow FiO2 Time Delivery Rate 02/23/19 Nasal 2.0 08:00 Cannula 02/23/19 98.0 66 38 124/61 98 08:00 (82) 02/22/19 30 11:18 Intake and Output 602/22/19 02/23/19 1515:00 23:00 07:00 IntakeIntake Total 619.35 ml 1050 ml 1050 ml OutputOutput Total 1150 ml 1300 ml 1650 ml BalanceBalance -530.65 ml -250 ml -600 ml Results Result Diagram: 02/23/19 0400 02/23/19 0445 Results 24hrs Laboratory Tests Test 02/22/19 09:51 02/22/19 11:30 02/22/19 12:44 02/22/19 17:56 Bedside Glucose 137 141 130 Blood Gas Specimen Blood arterial Source Arterial Blood 02/22/2019 11:28:55 Date Drawn AM Arterial Blood pH 7.451 H (Temp corrected) Arterial Blood 37.6 pCO2 (Temp correct) Arterial Blood pO2 100.2 H (Temp corrected) Arterial Blood 25.6 HCO3 Arterial Blood 1.7 Base Excess Arterial Blood 97.8 Oxygen Saturation Sven Test ACCEPTAB Arterial Blood Gas Right Radial Puncture Site Arterial 0.3 Blood Carboxyhemog lobin Arterial Blood 0.3 Methemoglobin Blood Gas A-a O2 69.5 H Differential Oxyhemoglobin 97.2 Percent Blood Gas 37.0 Temperature Blood Gas Actual 17 Respiration Rate Blood Gas VENT - BIPHASIC Modality FiO2 30.0 Blood Gas Low PEEP 5.0 Setting Blood Gas Pressure 10 Support Blood Gas Notified TM Whom Blood Gas Notified 02/22/2019 11:38:50 Time AM Test 02/22/19 21:31 02/23/19 00:47 02/23/19 04:00 02/23/19 04:45 Bedside Glucose 139 168 White Blood Count 9.4 Red Blood Count 2.81 L Hemoglobin 8.2 L Hematocrit 24.5 L Mean Corpuscular 87.2 Volume Mean Corpuscular 29.2 Hemoglobin Mean Corpuscular 33.5 Hemoglobin Concent Red Cell 14.5 Distribution Width Platelet Count 253 # Mean Platelet 9.3 Volume Immature 0.600 H Granulocytes % Neutrophils % 89.1 H Lymphocytes % 4.1 L Monocytes % 5.8 Eosinophils % 0.2 Basophils % 0.2 Nucleated Red 0.0 Blood Cells % Immature 0.060 H Granulocytes # Neutrophils # 8.4 H Lymphocytes # 0.4 L Monocytes # 0.6 Eosinophils # 0.0 Basophils # 0.0 Nucleated Red 0.0 Blood Cells # Sodium Level 133 L Potassium Level 3.4 L Chloride Level 99 Carbon Dioxide 30 Level Anion Gap 4 L Blood Urea 4 L Nitrogen Creatinine 0.46 L Est Glomerular Filtrat Rate mL/min Glucose Level 160 Calcium Level 8.1 L Test 02/23/19 04:57 02/23/19 08:58 Bedside Glucose 186 159 Medications Medication Current Medications Bisacodyl (Dulcolax Supp) 10 mg DAILY TX Last administered on 02/23/19 09:01; Admin Dose 10 MG; Start 02/19/19 at 09:00 Tamsulosin HCl (Flomax) 0.4 mg HS PO Last administered on 02/21/19 20:46; Admin Dose 0.4 MG; Start 02/18/19 at 22:00 IV Flush (NS 3 ml) 3 ml PER PROTOCOL IV ; Start 02/18/19 at 20:30 Ondansetron HCl (Zofran Inj) 4 mg Q6H PRN IV NAUSEA AND/OR VOMITING; Start 02/18/19 at 20:30 Acetaminophen (Tylenol Liquid) 650 mg Q6H PRN PO PAIN LEVEL 1-3 OR FEVER; Start 02/18/19 at 20:30 Famotidine (Pepcid Iv) 20 mg Q12 IV Last administered on 02/23/19 09:21; Admin Dose 20 MG; Start 02/18/19 at 21:00 Enoxaparin Sodium (Lovenox) 30 mg DAILY SC Last administered on 02/23/19 09:00; Admin Dose 30 MG; Start 02/19/19 at 09:00 Insulin Aspart (Novolog Insulin Pen) NOVOLOG *MILD* ALGORITHM Q4 SC Last administered on 02/23/19 09:00; Admin Dose 1 UNIT; Start 02/18/19 at 21:00 Norepinephrine 250 ml @ 1.875 mls/ hr TITRATE IV ; Start 02/19/19 at 02:30 Amlodipine Besylate (Norvasc) 10 mg DAILY GTB Last administered on 02/22/19 09:43; Admin Dose 10 MG; Start 02/19/19 at 09:00 Aspirin (Aspirin) 81 mg DAILY GTB Last administered on 02/22/19 09:43; Admin Dose 81 MG; Start 02/19/19 at 09:00 Lisinopril (Zestril) 40 mg DAILY GTB Last administered on 02/22/19 09:44; Admin Dose 40 MG; Start 02/19/19 at 09:00 Polyethylene Glycol (Miralax) 17 gm DAILY GTB Last administered on 02/22/19 09:43; Admin Dose 17 GM; Start 02/19/19 at 09:00 Amiodarone HCl (Cordarone) 200 mg BID GTB Last administered on 02/22/19 09:43; Admin Dose 200 MG; Start 02/19/19 at 09:00 Cefepime HCl 50 ml @ 100 mls/hr Q24H IVPB Last administered on 02/22/19 12:41; Admin Dose 100 MLS/HR; Start 02/19/19 at 12:00 Vancomycin HCl (Vanco Iv Per Pharmacy) VANCOMYCIN PER PHARMACY PER PROTOCOL XX ; Start 02/19/19 at 11:30 Hydralazine HCl (Apresoline) 10 mg Q4H PRN IV ELEVATED BLOOD PRESSURE Last administered on 02/23/19 03:08; Admin Dose 10 MG; Start 02/19/19 at 20:30 Midazolam HCl 50 ml @ 1 mls/hr TITRATE IV Last administered on 02/21/19 04:48; Admin Dose 3 MLS/HR; Start 02/19/19 at 21:30 Fentanyl 100 ml @ 2.5 mls/hr TITRATE IV Last administered on 02/22/19 06:47; Admin Dose 2.5 MLS/HR; Start 02/20/19 at 17:30 Metoclopramide HCl (Reglan) 10 mg Q6 IV Last administered on 02/23/19 05:02; Admin Dose 10 MG; Start 02/21/19 at 12:00 Dexmedetomidine HCl 200 mcg/ Sodium Chloride 50 ml @ 2.44 mls/hr TITRATE IV Last administered on 02/22/19 04:48; Admin Dose 4.26 MLS/HR; Start 02/21/19 at 16:00 Vancomycin/Sodium Chloride 250 ml @ 125 mls/hr Q12H IVPB Last administered on 02/23/19 04:58; Admin Dose 125 MLS/HR; Start 02/22/19 at 05:00 Potassium Chloride/Dextrose/ Sod Cl 1,000 ml @ 100 mls/hr Q10H IV Last administered on 02/23/19 04:51; Admin Dose 100 MLS/HR; Start 02/22/19 at 07:00 Miscellaneous Information (*Rx Drug Level Order Reminder*) VANCO TROUGH 02/23 @ 1,600 1600 ONCE XX ; Start 02/23/19 at 16:00; Stop 02/23/19 at 16:01 Lorazepam (Ativan) 0.5 mg Q6H PRN IV AGITATION/ANXIETY Last administered on 02/22/19at 16:05; Admin Dose 0.5 MG; Start 02/22/19 at 16:00 Albuterol/ Ipratropium (Duoneb) 3 ml Q6H RESP THERAPY HHN ; Start 02/23/19 at 09:30; Status UNV KATERIN CALVERT Feb 23, 2019 09:44
[2019-02-23] MEDS: ALBUTEROL/IPRATROPIUM (NEB) 3 ML AMP HHN SCH ×3 (09:59→20:18)
--- NOTE | 2019-02-23 10:51 | CONS ---
Consult Date/Type/Reason Admit Date/Time February 18, 2019 at 17:32 Initial Consult Date Type of Consult Pulmonary Date/Time of Note DATE: 02/23/19 TIME: 10:50 Subjective Patient extubated yesterday. Still somewhat somnolent. Moderate secretions. Objective Vital Signs Date Temp Pulse Resp B/P (MAP) Pulse Ox O2 O2 Flow FiO2 Time Delivery Rate 02/23/19 76 22 99 Nasal 2.0 10:06 Cannula 02/23/19 98.0 124/61 08:00 (82) 02/22/19 30 11:18 Intake and Output 02/22/19 02/22/19 02/23/19 1515:00 23:00 07:00 IntakeIntake Total 619.35 ml 1050 ml 1050 ml OutputOutput Total 1150 ml 1300 ml 1650 ml BalanceBalance -530.65 ml -250 ml -600 ml Exam GENERAL: Elderly appearing gentleman on nasal cannula O2. VITAL SIGNS: per chart NECK: Supple. No JVD or lymphadenopathy. CARDIAC EXAM: S1, S2. No added sounds or murmurs. CHEST: Diminished air entry bilaterally with rales ABDOMEN: Soft, nontender. No guarding or rebound. EXTREMITIES: No cyanosis, clubbing or edema. NEUROLOGIC: Generalized weakness. Vent Setting Ventilator Support Mode: SPONT Fraction of Inspired Oxygen pe: 30 Positive End Expiratory Pressu: 5.0 Results/Medications Result Diagram: 02/23/19 0400 02/23/19 0445 Results 24 hrs Laboratory Tests Test 02/22/19 11:30 02/22/19 12:44 02/22/19 17:56 02/22/19 21:31 Blood Gas Specimen Blood arterial Source Arterial Blood 02/22/2019 11:28:55 Date Drawn AM Arterial Blood pH 7.451 H (Temp corrected) Arterial Blood 37.6 pCO2 (Temp correct) Arterial Blood pO2 100.2 H (Temp corrected) Arterial Blood 25.6 HCO3 Arterial Blood 1.7 Base Excess Arterial Blood 97.8 Oxygen Saturation Sven Test ACCEPTAB Arterial Blood Gas Right Radial Puncture Site Arterial 0.3 Blood Carboxyhemog lobin Arterial Blood 0.3 Methemoglobin Blood Gas A-a O2 69.5 H Differential Oxyhemoglobin 97.2 Percent Blood Gas 37.0 Temperature Blood Gas Actual 17 Respiration Rate Blood Gas VENT - BIPHASIC Modality FiO2 30.0 Blood Gas Low PEEP 5.0 Setting Blood Gas Pressure 10 Support Blood Gas Notified TM Whom Blood Gas Notified 02/22/2019 11:38:50 Time AM Bedside Glucose 141 130 139 Test 02/23/19 00:47 02/23/19 04:00 02/23/19 04:45 02/23/19 04:57 Bedside Glucose 168 186 White Blood Count 9.4 Red Blood Count 2.81 L Hemoglobin 8.2 L Hematocrit 24.5 L Mean Corpuscular 87.2 Volume Mean Corpuscular 29.2 Hemoglobin Mean Corpuscular 33.5 Hemoglobin Concent Red Cell 14.5 Distribution Width Platelet Count 253 # Mean Platelet 9.3 Volume Immature 0.600 H Granulocytes % Neutrophils % 89.1 H Lymphocytes % 4.1 L Monocytes % 5.8 Eosinophils % 0.2 Basophils % 0.2 Nucleated Red 0.0 Blood Cells % Immature 0.060 H Granulocytes # Neutrophils # 8.4 H Lymphocytes # 0.4 L Monocytes # 0.6 Eosinophils # 0.0 Basophils # 0.0 Nucleated Red 0.0 Blood Cells # Sodium Level 133 L Potassium Level 3.4 L Chloride Level 99 Carbon Dioxide 30 Level Anion Gap 4 L Blood Urea 4 L Nitrogen Creatinine 0.46 L Est Glomerular Filtrat Rate mL/min Glucose Level 160 Calcium Level 8.1 L Test 02/23/19 08:58 Bedside Glucose 159 Medications Current Medications Bisacodyl (Dulcolax Supp) 10 mg DAILY [place] Last administered on 02/23/19at 09:01; Admin Dose 10 MG; Start 02/19/19 at 09:00 Tamsulosin HCl (Flomax) 0.4 mg HS PO Last administered on 02/21/19at 20:46; Admin Dose 0.4 MG; Start 02/18/19 at 22:00 IV Flush (NS 3 ml) 3 ml PER PROTOCOL IV ; Start 02/18/19 at 20:30 Ondansetron HCl (Zofran Inj) 4 mg Q6H PRN IV NAUSEA AND/OR VOMITING; Start 02/18/19 at 20:30 Acetaminophen (Tylenol Liquid) 650 mg Q6H PRN PO PAIN LEVEL 1-3 OR FEVER; Start 02/18/19 at 20:30 Famotidine (Pepcid Iv) 20 mg Q12 IV Last administered on 02/23/19at 09:21; Admin Dose 20 MG; Start 02/18/19 at 21:00 Enoxaparin Sodium (Lovenox) 30 mg DAILY SC Last administered on 02/23/19 09:00; Admin Dose 30 MG; Start 02/19/19 at 09:00 Insulin Aspart (Novolog Insulin Pen) NOVOLOG *MILD* ALGORITHM Q4 SC Last administered on 02/23/19 09:00; Admin Dose 1 UNIT; Start 02/18/19 at 21:00 Norepinephrine 250 ml @ 1.875 mls/ hr TITRATE IV ; Start 02/19/19 at 02:30 Amlodipine Besylate (Norvasc) 10 mg DAILY GTB Last administered on 02/22/19 09:43; Admin Dose 10 MG; Start 02/19/19 at 09:00 Aspirin (Aspirin) 81 mg DAILY GTB Last administered on 02/22/19 09:43; Admin Dose 81 MG; Start 02/19/19 at 09:00 Lisinopril (Zestril) 40 mg DAILY GTB Last administered on 02/22/19 09:44; Admin Dose 40 MG; Start 02/19/19 at 09:00 Polyethylene Glycol (Miralax) 17 gm DAILY GTB Last administered on 02/22/19 09:43; Admin Dose 17 GM; Start 02/19/19 at 09:00 Amiodarone HCl (Cordarone) 200 mg BID GTB Last administered on 02/22/19 09:43; Admin Dose 200 MG; Start 02/19/19 at 09:00 Cefepime HCl 50 ml @ 100 mls/hr Q24H IVPB Last administered on 02/22/19 12:41; Admin Dose 100 MLS/HR; Start 02/19/19 at 12:00 Vancomycin HCl (Vanco Iv Per Pharmacy) VANCOMYCIN PER PHARMACY PER PROTOCOL XX ; Start 02/19/19 at 11:30 Hydralazine HCl (Apresoline) 10 mg Q4H PRN IV ELEVATED BLOOD PRESSURE Last administered on 02/23/19 03:08; Admin Dose 10 MG; Start 02/19/19 at 20:30 Midazolam HCl 50 ml @ 1 mls/hr TITRATE IV Last administered on 02/21/19 04:48; Admin Dose 3 MLS/HR; Start 02/19/19 at 21:30 Fentanyl 100 ml @ 2.5 mls/hr TITRATE IV Last administered on 02/22/19 06:47; Admin Dose 2.5 MLS/HR; Start 02/20/19 at 17:30 Metoclopramide HCl (Reglan) 10 mg Q6 IV Last administered on 02/23/19at 05:02; Admin Dose 10 MG; Start 02/21/19 at 12:00 Dexmedetomidine HCl 200 mcg/ Sodium Chloride 50 ml @ 2.44 mls/hr TITRATE IV Last administered on 02/22/19at 04:48; Admin Dose 4.26 MLS/HR; Start 02/21/19 at 16:00 Vancomycin/Sodium Chloride 250 ml @ 125 mls/hr Q12H IVPB Last administered on 02/23/19 04:58; Admin Dose 125 MLS/HR; Start 02/22/19 at 05:00 Potassium Chloride/Dextrose/ Sod Cl 1,000 ml @ 100 mls/hr Q10H IV Last administered on 02/23/19at 04:51; Admin Dose 100 MLS/HR; Start 02/22/19 at 07:00 Miscellaneous Information (*Rx Drug Level Order Reminder*) VANCO TROUGH 02/23 @ 1,600 1600 ONCE XX ; Start 02/23/19 at 16:00; Stop 02/23/19 at 16:01 Lorazepam (Ativan) 0.5 mg Q6H PRN IV AGITATION/ANXIETY Last administered on 02/22/19 16:05; Admin Dose 0.5 MG; Start 02/22/19 at 16:00 Albuterol/ Ipratropium (Duoneb) 3 ml Q6H RESP THERAPY HHN Last administered on 02/23/19at 09:59; Admin Dose 3 ML; Start 02/23/19 at 09:30 Assessment/Plan Hospital Course (Demo Recall) IMP: 1. Acute hypoxemic respiratory failure--likely 2/2 central airway obstruction due to aspiration 2. Acute on chronic encephalopathy 3. Severe leukocytosis, unclear source, possible aspiration pneumonia. 4. Anemia PLAN: 1. Aspiration precautions and speech therapy evaluation 2. Abx per ID 3. Follow Cx's 4. DVT and GI prophylaxis. 5. Will likely require nasogastric tube feeding. 40 min cc time Positive care evaluation to establish goals of care and reintubation status. SHAHZAD FIERRO MD, [facility] Feb 23, 2019 10:51
[2019-02-23] MEDS: CEFEPIME 2GM/50 ML (PMX) 50 ML IVPB SCH (11:50)
--- NOTE | 2019-02-23 13:56 | CONS ---
Assessment/Plan Assessment/Plan Hospital Course (Demo Recall) Patient was extubated he is awake and looks comfortable no fevers. WBC 9.4 platelets 253 neutrophils 89.1 BUN 4 creatinine 0.46 Microbiology: All cultures negative Indwelling's: Endotracheal tube, orogastric tube, Cavanaugh, right subclavian triple-lumen catheter Antimicrobials: Vancomycin, cefepime Physical examination: This is a well-developed very seen elderly man who is intubated sedated in no distress. Head atraumatic normocephalic, sclera nonicteric vehicle mucosa dry neck is supple chest rise symmetrical breath sounds diminished bases. Heart: S1-S2. Abdomen soft bowel sounds present. Extremities without cyanosis Assessment: 1. Sepsis, status post shock likely secondary to aspiration 2. Acute hypoxemic respiratory failure 3. Possible pneumonia 4. History of CABG 5. History of CVA 6. Atrial fibrillation Plan: Stable post extubation, DC vancomycin, continue cefepime, aspiration precautions, follow chest x-ray Consultation Date/Type/Reason Admit Date/Time February 18, 2019 at 17:32 Initial Consult Date Type of Consult id Date/Time of Note DATE: 02/23/19 TIME: 13:52 Exam/Review of Systems Exam Vitals Vital Signs Date Temp Pulse Resp B/P (MAP) Pulse Ox O2 O2 Flow FiO2 Time Delivery Rate 02/23/19 70 26 139/49 98 10:30 (79) 02/23/19 Nasal 2.0 10:06 Cannula 02/23/19 98.0 08:00 02/22/19 30 11:18 Intake and Output 02/22/19 02/22/19 02/23/19 1515:00 23:00 07:00 IntakeIntake Total 619.35 ml 1050 ml 1050 ml OutputOutput Total 1150 ml 1300 ml 1650 ml BalanceBalance -530.65 ml -250 ml -600 ml Results Result Diagram: 02/23/19 0400 02/23/19 0445 Results 24hrs Laboratory Tests Test 02/22/19 17:56 02/22/19 21:31 02/23/19 00:47 02/23/19 04:00 Bedside Glucose 130 139 168 White Blood Count 9.4 Red Blood Count 2.81 L Hemoglobin 8.2 L Hematocrit 24.5 L Mean Corpuscular Volume 87.2 Mean Corpuscular 29.2 Hemoglobin Mean Corpuscular 33.5 Hemoglobin Concent Red Cell Distribution 14.5 Width Platelet Count 253 # Mean Platelet Volume 9.3 Immature Granulocytes % 0.600 H Neutrophils % 89.1 H Lymphocytes % 4.1 L Monocytes % 5.8 Eosinophils % 0.2 Basophils % 0.2 Nucleated Red Blood 0.0 Cells % Immature Granulocytes # 0.060 H Neutrophils # 8.4 H Lymphocytes # 0.4 L Monocytes # 0.6 Eosinophils # 0.0 Basophils # 0.0 Nucleated Red Blood 0.0 Cells # Test 02/23/19 04:45 02/23/19 04:57 02/23/19 08:58 02/23/19 13:26 Sodium Level 133 L Potassium Level 3.4 L Chloride Level 99 Carbon Dioxide Level 30 Anion Gap 4 L Blood Urea Nitrogen 4 L Creatinine 0.46 L Est Glomerular Filtrat Rate mL/min Glucose Level 160 Calcium Level 8.1 L Bedside Glucose 186 159 172 Medications Medication Current Medications Bisacodyl (Dulcolax Supp) [address] Last administered on 02/23/19at 09:01; Admin Dose 10 MG; Start 02/19/19 at 09:00 Tamsulosin HCl (Flomax) 0.4 mg HS PO Last administered on 02/21/19at 20:46; Admin Dose 0.4 MG; Start 02/18/19 at 22:00 IV Flush (NS 3 ml) 3 ml PER PROTOCOL IV ; Start 02/18/19 at 20:30 Ondansetron HCl (Zofran Inj) 4 mg Q6H PRN IV NAUSEA AND/OR VOMITING; Start 02/18/19 at 20:30 Acetaminophen (Tylenol Liquid) 650 mg Q6H PRN PO PAIN LEVEL 1-3 OR FEVER; Start 02/18/19 at 20:30 Famotidine (Pepcid Iv) 20 mg Q12 IV Last administered on 02/23/19 09:21; Admin Dose 20 MG; Start 02/18/19 at 21:00 Enoxaparin Sodium (Lovenox) 30 mg DAILY SC Last administered on 02/23/19 09:00; Admin Dose 30 MG; Start 02/19/19 at 09:00 Insulin Aspart (Novolog Insulin Pen) NOVOLOG *MILD* ALGORITHM Q4 SC Last admi nistered on 02/23/19at 13:28; Admin Dose 1 UNIT; Start 02/18/19 at 21:00 Norepinephrine 250 ml @ 1.875 mls/ hr TITRATE IV ; Start 02/19/19 at 02:30 Amlodipine Besylate (Norvasc) 10 mg DAILY GTB Last administered on 02/22/19 09:43; Admin Dose 10 MG; Start 02/19/19 at 09:00 Aspirin (Aspirin) 81 mg DAILY GTB Last administered on 02/22/19 09:43; Admin Dose 81 MG; Start 02/19/19 at 09:00 Lisinopril (Zestril) 40 mg DAILY GTB Last administered on 02/22/19 09:44; Admin Dose 40 MG; Start 02/19/19 at 09:00 Polyethylene Glycol (Miralax) 17 gm DAILY GTB Last administered on 02/22/19 09:43; Admin Dose 17 GM; Start 02/19/19 at 09:00 Amiodarone HCl (Cordarone) 200 mg BID GTB Last administered on 02/22/19 09:43; Admin Dose 200 MG; Start 02/19/19 at 09:00 Cefepime HCl 50 ml @ 100 mls/hr Q24H IVPB Last administered on 02/23/19 11:50; Admin Dose 100 MLS/HR; Start 02/19/19 at 12:00 Vancomycin HCl (Vanco Iv Per Pharmacy) VANCOMYCIN PER PHARMACY PER PROTOCOL XX ; Start 02/19/19 at 11:30 Hydralazine HCl (Apresoline) 10 mg Q4H PRN IV ELEVATED BLOOD PRESSURE Last administered on 02/23/19 03:08; Admin Dose 10 MG; Start 02/19/19 at 20:30 Midazolam HCl 50 ml @ 1 mls/hr TITRATE IV Last administered on 02/21/19 04:48; Admin Dose 3 MLS/HR; Start 02/19/19 at 21:30 Fentanyl 100 ml @ 2.5 mls/hr TITRATE IV Last administered on 02/22/19 06:47; Admin Dose 2.5 MLS/HR; Start 02/20/19 at 17:30 Metoclopramide HCl (Reglan) 10 mg Q6 IV Last administered on 02/23/19 11:50; Admin Dose 10 MG; Start 02/21/19 at 12:00 Dexmedetomidine HCl 200 mcg/ Sodium Chloride 50 ml @ 2.44 mls/hr TITRATE IV Last administered on 02/22/19 04:48; Admin Dose 4.26 MLS/HR; Start 02/21/19 at 16:00 Vancomycin/Sodium Chloride 250 ml @ 125 mls/hr Q12H IVPB Last administered on 02/23/19at 04:58; Admin Dose 125 MLS/HR; Start 02/22/19 at 05:00 Potassium Chloride/Dextrose/ Sod Cl 1,000 ml @ 100 mls/hr Q10H IV Last administered on 02/23/19 04:51; Admin Dose 100 MLS/HR; Start 02/22/19 at 07:00 Miscellaneous Information (*Rx Drug Level Order Reminder*) VANCO TROUGH 02/23 @ 1,600 1600 ONCE XX ; Start 02/23/19 at 16:00; Stop 02/23/19 at 16:01 Lorazepam (Ativan) 0.5 mg Q6H PRN IV AGITATION/ANXIETY Last administered on 02/22/19at 16:05; Admin Dose 0.5 MG; Start 02/22/19 at 16:00 Albuterol/ Ipratropium (Duoneb) 3 ml Q6H RESP THERAPY HHN Last administered on 02/23/19 09:59; Admin Dose 3 ML; Start 02/23/19 at 09:30 LUCINA DOMINGUEZ NP Feb 23, 2019 13:56
--- NOTE | 2019-02-23 18:15 | PN ---
Date/Time of Note Date/Time of Note DATE: 02/23/19 TIME: 18:12 Assessment/Plan VTE Prophylaxis Risk score (from Ns)>0 risk: 10 SCD applied (from Nsg): Yes Pharmacological prophylaxis: LMWH Lines/Catheters IV Catheter Type (from Nrsg): Central Line Central line still needed: Yes Urinary Cath still in place: Yes Reason Cath still needed: urinary retention Assessment/Plan Hospital Course Patient is awake, however confused, continues on supplemental oxygen via nasal cannula. Patient failed swallow evaluation, continue IV fluids. Monitor e lectrolytes. Reassess swallow ability tomorrow, patient is stable for to be downgraded to telemetry floor. Assessment/Plan -Acute respiratory failure requiring intubation and placement on mechanical ventilation, now extubated. Dr Addison for pulm consult. -Severe sepsis with shock secondary to pneumonia. Continue antibiotics per ID. ID Consult Dr. Guevara. -ALOC -History of aortic aneurysm, status post repair. -Atrial fibrillation -Hypertension -Cerebrovascular disease -Urinary retention with urethral stricture. -Diabetes, continue Lantus and NovoLog. Further recommendations based on clinical course. Plan of care discussed with Dr. Moreno. Result Diagram: 02/23/19 0400 02/23/19 0445 Results 24hrs Laboratory Tests Test 02/22/19 21:31 02/23/19 00:47 02/23/19 04:00 02/23/19 04:45 Bedside Glucose 139 168 White Blood Count 9.4 Red Blood Count 2.81 L Hemoglobin 8.2 L Hematocrit 24.5 L Mean Corpuscular Volume 87.2 Mean Corpuscular 29.2 Hemoglobin Mean Corpuscular 33.5 Hemoglobin Concent Red Cell Distribution 14.5 Width Platelet Count 253 # Mean Platelet Volume 9.3 Immature Granulocytes % 0.600 H Neutrophils % 89.1 H Lymphocytes % 4.1 L Monocytes % 5.8 Eosinophils % 0.2 Basophils % 0.2 Nucleated Red Blood 0.0 Cells % Immature Granulocytes # 0.060 H Neutrophils # 8.4 H Lymphocytes # 0.4 L Monocytes # 0.6 Eosinophils # 0.0 Basophils # 0.0 Nucleated Red Blood 0.0 Cells # Sodium Level 133 L Potassium Level 3.4 L Chloride Level 99 Carbon Dioxide Level 30 Anion Gap 4 L Blood Urea Nitrogen 4 L Creatinine 0.46 L Est Glomerular Filtrat Rate mL/min Glucose Level 160 Calcium Level 8.1 L Test 02/23/19 04:57 02/23/19 08:58 02/23/19 13:26 02/23/19 16:08 Bedside Glucose 186 159 172 Vancomycin Level Trough 9.2 L Test 02/23/19 17:40 Bedside Glucose 152 Exam/Review of Systems Exam Vitals Vital Signs Date Temp Pulse Resp B/P (MAP) Pulse Ox O2 O2 Flow FiO2 Time Delivery Rate 02/23/19 64 16:00 02/23/19 97.9 29 116/81 98 Nasal 2.0 16:00 (93) Cannula 02/22/19 30 11:18 Intake and Output 02/22/19 02/22/19 02/23/19 1515:00 23:00 07:00 IntakeIntake Total 619.35 ml 1050 ml 1050 ml OutputOutput Total 1150 ml 1300 ml 1650 ml BalanceBalance -530.65 ml -250 ml -600 ml Exam Constitutional: frail Respiratory: clear to auscultation Cardiovascular: regular rate and rhythm Gastrointestinal: soft, non-tender Musculoskeletal: nl extremities to inspection Extremities: normal pulses Neurological: other (sedated) Skin: nl turgor Results Results 24hrs Laboratory Tests Test 02/22/19 21:31 02/23/19 00:47 02/23/19 04:00 02/23/19 04:45 Bedside Glucose 139 168 White Blood Count 9.4 Red Blood Count 2.81 L Hemoglobin 8.2 L Hematocrit 24.5 L Mean Corpuscular Volume 87.2 Mean Corpuscular 29.2 Hemoglobin Mean Corpuscular 33.5 Hemoglobin Concent Red Cell Distribution 14.5 Width Platelet Count 253 # Mean Platelet Volume 9.3 Immature Granulocytes % 0.600 H Neutrophils % 89.1 H Lymphocytes % 4.1 L Monocytes % 5.8 Eosinophils % 0.2 Basophils % 0.2 Nucleated Red Blood 0.0 Cells % Immature Granulocytes # 0.060 H Neutrophils # 8.4 H Lymphocytes # 0.4 L Monocytes # 0.6 Eosinophils # 0.0 Basophils # 0.0 Nucleated Red Blood 0.0 Cells # Sodium Level 133 L Potassium Level 3.4 L Chloride Level 99 Carbon Dioxide Level 30 Anion Gap 4 L Blood Urea Nitrogen 4 L Creatinine 0.46 L Est Glomerular Filtrat Rate mL/min Glucose Level 160 Calcium Level 8.1 L Test 02/23/19 04:57 02/23/19 08:58 02/23/19 13:26 02/23/19 16:08 Bedside Glucose 186 159 172 Vancomycin Level Trough 9.2 L Test 02/23/19 17:40 Bedside Glucose 152 Medications Medication Current Medications Bisacodyl (Dulcolax Supp) 10 mg DAILY [place] Last administered on 02/23/19 09:01; Admin Dose 10 MG; Start 02/19/19 at 09:00 Tamsulosin HCl (Flomax) 0.4 mg HS PO Last administered on 02/21/19 20:46; Admin Dose 0.4 MG; Start 02/18/19 at 22:00 IV Flush (NS 3 ml) 3 ml PER PROTOCOL IV ; Start 02/18/19 at 20:30 Ondansetron HCl (Zofran Inj) 4 mg Q6H PRN IV NAUSEA AND/OR VOMITING; Start 02/18/19 at 20:30 Acetaminophen (Tylenol Liquid) 650 mg Q6H PRN PO PAIN LEVEL 1-3 OR FEVER; S tart 02/18/19 at 20:30 Famotidine (Pepcid Iv) 20 mg Q12 IV Last administered on 02/23/19 09:21; Admin Dose 20 MG; Start 02/18/19 at 21:00 Enoxaparin Sodium (Lovenox) 30 mg DAILY SC Last administered on 02/23/19 09:00; Admin Dose 30 MG; Start 02/19/19 at 09:00 Insulin Aspart (Novolog Insulin Pen) NOVOLOG *MILD* ALGORITHM Q4 SC Last administered on 02/23/19 17:45; Admin Dose 1 UNIT; Start 02/18/19 at 21:00 Amlodipine Besylate (Norvasc) 10 mg DAILY GTB Last administered on 02/22/19 09:43; Admin Dose 10 MG; Start 02/19/19 at 09:00 Aspirin (Aspirin) 81 mg DAILY GTB Last administered on 02/22/19 09:43; Admin Dose 81 MG; Start 02/19/19 at 09:00 Lisinopril (Zestril) 40 mg DAILY GTB Last administered on 02/22/19 09:44; Admin Dose 40 MG; Start 02/19/19 at 09:00 Polyethylene Glycol (Miralax) 17 gm DAILY GTB Last administered on 02/22/19 09:43; Admin Dose 17 GM; Start 02/19/19 at 09:00 Amiodarone HCl (Cordarone) 200 mg BID GTB Last administered on 02/22/19 09:43; Admin Dose 200 MG; Start 02/19/19 at 09:00 Cefepime HCl 50 ml @ 100 mls/hr Q24H IVPB Last administered on 02/23/19 11:50; Admin Dose 100 MLS/HR; Start 02/19/19 at 12:00 Hydralazine HCl (Apresoline) 10 mg Q4H PRN IV ELEVATED BLOOD PRESSURE Last administered on 02/23/19 03:08; Admin Dose 10 MG; Start 02/19/19 at 20:30 Metoclopramide HCl (Reglan) 10 mg Q6 IV Last administered on 02/23/19 17:44; Admin Dose 10 MG; Start 02/21/19 at 12:00 Potassium Chloride/Dextrose/ Sod Cl 1,000 ml @ 70 mls/hr [id number] IV Last administered on 02/23/19 15:11; Admin Dose 100 MLS/HR; Start 02/22/19 at 07:00 Lorazepam (Ativan) 0.5 mg Q6H PRN IV AGITATION/ANXIETY Last administered on 02/22/19 16:05; Admin Dose 0.5 MG; Start 02/22/19 at 16:00 Albuterol/ Ipratropium (Duoneb) 3 ml Q6H RESP THERAPY HHN Last administered on 02/23/19 14:52; Admin Dose 3 ML; Start 02/23/19 at 09:30 GIANNA DE JESUS Feb 23, 2019 18:15
[2019-02-23] MEDS ORDERED: POTASSIUM CHLORIDE 100 ML IVPB ONE (18:30)
[2019-02-23] MEDS: TAMSULOSIN (SR) 0.4 MG CAP PO SCH (20:43)
[2019-02-24] VITALS (11 sets, daily range): BP systolic 140–162; BP diastolic 65–80; PULSE 61–73; RESP 20
[2019-02-24] MEDS: METOCLOPRAMIDE 10 MG INJ IV SCH ×4 (00:45→17:52)
[2019-02-24] MEDS: INSULIN ASPART [NOVOLOG] 3 ML PEN SC SCH ×7 (00:45→20:57)
[2019-02-24] MEDS: ALBUTEROL/IPRATROPIUM (NEB) 3 ML AMP HHN SCH ×4 (01:39→19:28)
[2019-02-24] MEDS: AMIODARONE 200 MG TAB GTB SCH ×2 (08:09→20:31)
[2019-02-24] MEDS: LISINOPRIL 20 MG TAB GTB SCH (08:09)
[2019-02-24] MEDS: POLYETHYLENE GLYCOL 17 GM PACKET GTB SCH (08:09)
[2019-02-24] MEDS: ASPIRIN 81 MG TAB GTB SCH (08:09)
[2019-02-24] MEDS: AMLODIPINE 10 MG TAB GTB SCH (08:09)
[2019-02-24] MEDS: FAMOTIDINE 20 MG INJ IV SCH ×2 (08:19→20:46)
[2019-02-24] MEDS: BISACODYL 10 MG SUPP PR SCH (08:19)
[2019-02-24] MEDS: ENOXAPARIN 30 MG/0.3 ML SYG SC SCH (08:22)
--- NOTE | 2019-02-24 10:57 | CONS ---
Consult Date/Type/Reason Admit Date/Time February 18, 2019 at 17:32 Initial Consult Date Type of Consult Pulmonary Date/Time of Note DATE: 02/24/19 TIME: 10:56 Subjective Intermittent agitation and confusion but no respiratory distress Objective Vital Signs Date Temp Pulse Resp B/P (MAP) Pulse Ox O2 O2 Flow FiO2 Time Delivery Rate 02/24/19 66 18 97 21 08:27 02/24/19 Nasal 2.0 08:00 Cannula 02/24/19 97.7 158/66 07:35 (96) Intake and Output 02/23/19 02/23/19 02/24/19 1515:00 23:00 07:00 IntakeIntake Total 850 ml 370 ml 1300 ml OutputOutput Total 1220 ml 1200 ml 500 ml BalanceBalance -370 ml -830 ml 800 ml Exam GENERAL: Elderly appearing gentleman on nasal cannula O2. VITAL SIGNS: per chart NECK: Supple. No JVD or lymphadenopathy. CARDIAC EXAM: S1, S2. No added sounds or murmurs. CHEST: Diminished air entry bilaterally with rales ABDOMEN: Soft, nontender. No guarding or rebound. EXTREMITIES: No cyanosis, clubbing or edema. NEUROLOGIC: Generalized weakness. Vent Setting Ventilator Support Mode: SPONT Fraction of Inspired Oxygen pe: 21 Positive End Expiratory Pressu: 5.0 Results/Medications Result Diagram: 02/24/19 0702/24/19 0701 Results 24 hrs Laboratory Tests Test 02/23/19 13:26 02/23/19 16:08 02/23/19 17:40 02/23/19 20:42 Bedside Glucose 172 152 125 Vancomycin Level 9.2 L Trough Test 02/24/19 00:42 02/24/19 04:38 02/24/19 07:00 02/24/19 07:01 Bedside Glucose 93 93 Blood Gas Specimen Blood arterial Source Arterial Blood 02/24/2019 8:00:11 Date Drawn AM Arterial Blood pH 7.463 H (Temp corrected) Arterial Blood 41.9 pCO2 (Temp correct) Arterial Blood pO2 76.0 L (Temp corrected) Arterial Blood 29.3 H HCO3 Arterial Blood 5.1 H Base Excess Arterial Blood 94.8 L Oxygen Saturation Sven Test ACCEPTAB Arterial Blood Gas Left Radial Puncture Site Arterial 0.1 Blood Carboxyhemog lobin Arterial Blood 0.2 Methemoglobin Blood Gas A-a O2 23.6 Differential Oxyhemoglobin 94.5 Percent Blood Gas 37.0 Temperature Blood Gas Modality ROOM AIR FiO2 21.0 Blood Gas Notified TM Whom Blood Gas Notified 02/24/2019 8:13:40 Time AM White Blood Count 6.0 # Red Blood Count 2.96 L Hemoglobin 8.6 L Hematocrit 25.7 L Mean Corpuscular 86.8 Volume Mean Corpuscular 29.1 Hemoglobin Mean Corpuscular 33.5 Hemoglobin Concent Red Cell 14.7 H Distribution Width Platelet Count 294 Mean Platelet 9.2 Volume Immature 0.300 Granulocytes % Neutrophils % 82.3 H Lymphocytes % 8.8 L Monocytes % 7.1 Eosinophils % 1.0 Basophils % 0.5 Nucleated Red 0.0 Blood Cells % Immature 0.020 Granulocytes # Neutrophils # 5.0 Lymphocytes # 0.5 L Monocytes # 0.4 Eosinophils # 0.1 Basophils # 0.0 Nucleated Red 0.0 Blood Cells # Sodium Level 132 L Potassium Level 3.7 Chloride Level 98 Carbon Dioxide 29 Level Anion Gap 5 Blood Urea 3 L Nitrogen Creatinine 0.51 L Est Glomerular Filtrat Rate mL/min Glucose Level 97 # Calcium Level 8.6 Phosphorus Level 3.2 Magnesium Level 1.6 L Test 02/24/19 08:25 Bedside Glucose 118 Medications Current Medications Bisacodyl (Dulcolax Supp) 10 mg DAILY [place] Last administered on 02/24/19at 08:19; Admin Dose 10 MG; Start 02/19/19 at 09:00 Tamsulosin HCl (Flomax) 0.4 mg HS PO Last administered on 02/21/19at 20:46; Admin Dose 0.4 MG; Start 02/18/19 at 22:00 IV Flush (NS 3 ml) 3 ml PER PROTOCOL IV ; Start 02/18/19 at 20:30 Ondansetron HCl (Zofran Inj) 4 mg Q6H PRN IV NAUSEA AND/OR VOMITING; Start 02/18/19 at 20:30 Acetaminophen (Tylenol Liquid) 650 mg Q6H PRN PO PAIN LEVEL 1-3 OR FEVER; Start 02/18/19 at 20:30 Famotidine (Pepcid Iv) 20 mg Q12 IV Last administered on 02/24/19at 08:19; Admin Dose 20 MG; Start 02/18/19 at 21:00 Enoxaparin Sodium (Lovenox) 30 mg DAILY SC Last administered on 02/24/19 08:22; Admin Dose 30 MG; Start 02/19/19 at 09:00 Insulin Aspart (Novolog Insulin Pen) NOVOLOG *MILD* ALGORITHM Q4 SC Last administered on 02/23/19 17:45; Admin Dose 1 UNIT; Start 02/18/19 at 21:00 Amlodipine Besylate (Norvasc) 10 mg DAILY GTB Last administered on 02/22/19 09:43; Admin Dose 10 MG; Start 02/19/19 at 09:00 Aspirin (Aspirin) 81 mg DAILY GTB Last administered on 02/22/19 09:43; Admin Dose 81 MG; Start 02/19/19 at 09:00 Lisinopril (Zestril) 40 mg DAILY GTB Last administered on 02/22/19 09:44; Admin Dose 40 MG; Start 02/19/19 at 09:00 Polyethylene Glycol (Miralax) 17 gm DAILY GTB Last administered on 02/22/19 09:43; Admin Dose 17 GM; Start 02/19/19 at 09:00 Amiodarone HCl (Cordarone) 200 mg BID GTB Last administered on 02/22/19 09:43; Admin Dose 200 MG; Start 02/19/19 at 09:00 Cefepime HCl 50 ml @ 100 mls/hr Q24H IVPB Last administered on 02/23/19 11:50; Admin Dose 100 MLS/HR; Start 02/19/19 at 12:00 Hydralazine HCl (Apresoline) 10 mg Q4H PRN IV ELEVATED BLOOD PRESSURE Last administered on 02/23/19 03:08; Admin Dose 10 MG; Start 02/19/19 at 20:30 Metoclopramide HCl (Reglan) 10 mg Q6 IV Last administered on 02/24/19 04:53; Admin Dose 10 MG; Start 02/21/19 at 12:00 Potassium Chloride/Dextrose/ Sod Cl 1,000 ml @ 70 mls/hr [id number] IV Last administered on 02/23/19 15:11; Admin Dose 100 MLS/HR; Start 02/22/19 at 07:00 Lorazepam (Ativan) 0.5 mg Q6H PRN IV AGITATION/ANXIETY Last administered on 6/3/19at 16:05; Admin Dose 0.5 MG; Start 02/22/19 at 16:00 Albuterol/ Ipratropium (Duoneb) 3 ml Q6H RESP THERAPY HHN Last administered on 02/24/19at 08:27; Admin Dose 3 ML; Start 02/23/19 at 09:30 Assessment/Plan Hospital Course (Demo Recall) IMP: 1. Acute hypoxemic respiratory failure--likely 2/2 central airway obstruction due to aspiration clinically improved post extubation 2. Acute on chronic encephalopathy 3. Severe leukocytosis, unclear source, possible aspiration pneumonia. 4. Anemia PLAN: 1. Aspiration precautions and speech therapy evaluation 2. Abx per ID 3. Follow Cx's 4. DVT and GI prophylaxis. 5. Consider PEG placement if remains aspiration risk. Transfer to [facility] from pulmonary standpoint. SHAHZAD FIERRO MD, [facility] Feb 24, 2019 10:57
[2019-02-24] MEDS: CEFEPIME 2GM/50 ML (PMX) 50 ML IVPB SCH (12:38)
[2019-02-24] MEDS: D5W-0.45 NACL + KCL 20 MEQ 1,000 ML IV SCH (13:17)
--- NOTE | 2019-02-24 15:57 | CONS ---
Assessment/Plan Assessment/Plan Hospital Course (Demo Recall) No acute events overnight. Patient was transferred to telemetry, currently sleeping in no distress, has a sitter at bedside Microbiology: All cultures negative Indwelling's: Cavanaugh, right subclavian triple-lumen catheter Antimicrobials: Cefepime Physical examination: This is a well-developed very seen elderly man who is in no distress. Head atraumatic normocephalic, sclera nonicteric vehicle mucosa dry neck is supple chest rise symmetrical breath sounds diminished bases. Heart: S1-S2. Abdomen soft bowel sounds present. Extremities without cyanosis Assessment: 1. Sepsis, status post shock likely secondary to aspiration 2. Acute hypoxemic respiratory failure, status post extubated 3. Possible aspiration pneumonia 4. History of CABG 5. History of CVA 6. Atrial fibrillation Plan: Remains stable, continue present care, aspiration precautions Consultation Date/Type/Reason Admit Date/Time February 18, 2019 at 17:32 Initial Consult Date Type of Consult id Date/Time of Note DATE: 02/24/19 TIME: 15:56 Exam/Review of Systems Exam Vitals Vital Signs Date Temp Pulse Resp B/P (MAP) Pulse Ox O2 O2 Flow FiO2 Time Delivery Rate 02/24/19 99 2.0 14:20 02/24/19 64 18 Nasal 14:20 Cannula 02/24/19 97.3 148/67 12:00 (94) 02/24/19 21 08:27 Intake and Output 02/23/19 02/23/19 02/24/19 1515:00 23:00 07:00 IntakeIntake Total 850 ml 370 ml 1300 ml OutputOutput Total 1220 ml 1200 ml 500 ml BalanceBalance -370 ml -830 ml 800 ml Results Result Diagram: 02/24/19 0701 02/24/19 0701 Results 24hrs Laboratory Tests Test 02/23/19 16:08 02/23/19 17:40 02/23/19 20:42 02/24/19 00:42 Vancomycin Level 9.2 L Trough Bedside Glucose 152 125 93 Test 02/24/19 04:38 02/24/19 07:00 02/24/19 07:01 02/24/19 08:25 Bedside Glucose 93 118 Blood Gas Specimen Blood arterial Source Arterial Blood 02/24/2019 8:00:11 Date Drawn AM Arterial Blood pH 7.463 H (Temp corrected) Arterial Blood 41.9 pCO2 (Temp correct) Arterial Blood pO2 76.0 L (Temp corrected) Arterial Blood 29.3 H HCO3 Arterial Blood 5.1 H Base Excess Arterial Blood 94.8 L Oxygen Saturation Sven Test ACCEPTAB Arterial Blood Gas Left Radial Puncture Site Arterial 0.1 Blood Carboxyhemog lobin Arterial Blood 0.2 Methemoglobin Blood Gas A-a O2 23.6 Differential Oxyhemoglobin 94.5 Percent Blood Gas 37.0 Temperature Blood Gas Modality ROOM AIR FiO2 21.0 Blood Gas Notified TM Whom Blood Gas Notified 02/24/2019 8:13:40 Time AM White Blood Count 6.0 # Red Blood Count 2.96 L Hemoglobin 8.6 L Hematocrit 25.7 L Mean Corpuscular 86.8 Volume Mean Corpuscular 29.1 Hemoglobin Mean Corpuscular 33.5 Hemoglobin Concent Red Cell 14.7 H Distribution Width Platelet Count 294 Mean Platelet 9.2 Volume Immature 0.300 Granulocytes % Neutrophils % 82.3 H Lymphocytes % 8.8 L Monocytes % 7.1 Eosinophils % 1.0 Basophils % 0.5 Nucleated Red 0.0 Blood Cells % Immature 0.020 Granulocytes # Neutrophils # 5.0 Lymphocytes # 0.5 L Monocytes # 0.4 Eosinophils # 0.1 Basophils # 0.0 Nucleated Red 0.0 Blood Cells # Sodium Level 132 L Potassium Level 3.7 Chloride Level 98 Carbon Dioxide 29 Level Anion Gap 5 Blood Urea 3 L Nitrogen Creatinine 0.51 L Est Glomerular Filtrat Rate mL/min Glucose Level 97 # Calcium Level 8.6 Phosphorus Level 3.2 Magnesium Level 1.6 L Test 02/24/19 12:37 Bedside Glucose 122 Medications Medication Current Medications Bisacodyl (Dulcolax Supp) 10 mg DAILY [place] Last administered on 02/24/19at 08:19; Admin Dose 10 MG; Start 02/19/19 at 09:00 Tamsulosin HCl (Flomax) 0.4 mg HS PO Last administered on 02/21/19at 20:46; Admin Dose 0.4 MG; Start 02/18/19 at 22:00 IV Flush (NS 3 ml) 3 ml PER PROTOCOL IV ; Start 02/18/19 at 20:30 Ondansetron HCl (Zofran Inj) 4 mg Q6H PRN IV NAUSEA AND/OR VOMITING; Start 02/18/19 at 20:30 Acetaminophen (Tylenol Liquid) 650 mg Q6H PRN PO PAIN LEVEL 1-3 OR FEVER; Start 02/18/19 at 20:30 Famotidine (Pepcid Iv) 20 mg Q12 IV Last administered on 02/24/19 08:19; Admin Dose 20 MG; Start 02/18/19 at 21:00 Enoxaparin Sodium (Lovenox) 30 mg DAILY [place] Last administered on 02/24/19 08:22; Admin Dose 30 MG; Start 02/19/19 at 09:00 Insulin Aspart (Novolog Insulin Pen) NOVOLOG *MILD* ALGORITHM Q4 SC Last administered on 02/23/19 17:45; Admin Dose 1 UNIT; Start 02/18/19 at 21:00 Amlodipine Besylate (Norvasc) 10 mg DAILY GTB Last administered on 02/22/19 09:43; Admin Dose 10 MG; Start 02/19/19 at 09:00 Aspirin (Aspirin) 81 mg DAILY GTB Last administered on 02/22/19 09:43; Admin Dose 81 MG; Start 02/19/19 at 09:00 Lisinopril (Zestril) 40 mg DAILY GTB Last administered on 02/22/19 09:44; Admin Dose 40 MG; Start 02/19/19 at 09:00 Polyethylene Glycol (Miralax) 17 gm DAILY GTB Last administered on 02/22/19 09:43; Admin Dose 17 GM; Start 02/19/19 at 09:00 Amiodarone HCl (Cordarone) 200 mg BID GTB Last administered on 02/22/19 09:43; Admin Dose 200 MG; Start 02/19/19 at 09:00 Cefepime HCl 50 ml @ 100 mls/hr Q24H IVPB Last administered on 02/24/19 12:38; Admin Dose 100 MLS/HR; Start 02/19/19 at 12:00 Hydralazine HCl (Apresoline) 10 mg Q4H PRN IV ELEVATED BLOOD PRESSURE Last administered on 02/23/19 03:08; Admin Dose 10 MG; Start 02/19/19 at 20:30 Metoclopramide HCl (Reglan) 10 mg Q6 IV Last administered on 02/24/19 12:38; Admin Dose 10 MG; Start 02/21/19 at 12:00 Potassium Chloride/Dextrose/ Sod Cl 1,000 ml @ 70 mls/hr [id number] IV Last administered on 02/23/19at 15:11; Admin Dose 100 MLS/HR; Start 02/22/19 at 07:00 Lorazepam (Ativan) 0.5 mg Q6H PRN IV AGITATION/ANXIETY Last administered on 02/22/19at 16:05; Admin Dose 0.5 MG; Start 02/22/19 at 16:00 Albuterol/ Ipratropium (Duoneb) 3 ml Q6H RESP THERAPY HHN Last administered on 02/24/19at 14:20; Admin Dose 3 ML; Start 02/23/19 at 09:30 LUCINA DOMINGUEZ NP Feb 24, 2019 15:57
--- NOTE | 2019-02-24 19:11 | PN ---
Date/Time of Note Date/Time of Note DATE: 02/24/19 TIME: 19:09 Assessment/Plan VTE Prophylaxis Risk score (from Ns)>0 risk: 6 SCD applied (from Ns): Yes Pharmacological prophylaxis: LMWH Lines/Catheters IV Catheter Type (from Nrs): Central Line Central line still needed: Yes Urinary Cath still in place: Yes Reason Cath still needed: urinary retention Assessment/Plan Hospital Course Patient is confused with intermittent agitation, dynamically stable, continues on supplemental oxygen couple of liters via nasal cannula no respiratory dis tress. Patient failed swallow evaluation will consider PEG placement. Stable for monitoring on medical surgical floor. Assessment/Plan -Acute respiratory failure requiring intubation and placement on mechanical ventilation, now extubated. Dr Addison for pulm consult. -Severe sepsis with shock secondary to pneumonia. Continue antibiotics per ID. ID Consult Dr. Guevara. -ALOC -History of aortic aneurysm, status post repair. -Atrial fibrillation -Hypertension -Cerebrovascular disease -Urinary retention with urethral stricture. -Diabetes, continue Lantus and NovoLog. Further recommendations based on clinical course. Plan of care discussed with Dr. Moreno. Result Diagram: 02/24/1970002/24/19700 Results 24hrs Laboratory Tests Test 02/23/19 20:42 02/24/19 00:42 02/24/19 04:38 02/24/19 07:00 Bedside Glucose 125 93 93 Blood Gas Specimen Blood arterial Source Arterial Blood 02/24/2019 8:00:11 Date Drawn AM Arterial Blood pH 7.463 H (Temp corrected) Arterial Blood 41.9 pCO2 (Temp correct) Arterial Blood pO2 76.0 L (Temp corrected) Arterial Blood 29.3 H HCO3 Arterial Blood 5.1 H Base Excess Arterial Blood 94.8 L Oxygen Saturation Sven Test ACCEPTAB Arterial Blood Gas Left Radial Puncture Site Arterial 0.1 Blood Carboxyhemog lobin Arterial Blood 0.2 Methemoglobin Blood Gas A-a O2 23.6 Differential Oxyhemoglobin 94.5 Percent Blood Gas 37.0 Temperature Blood Gas Modality ROOM AIR FiO2 21.0 Blood Gas Notified TM Whom Blood Gas Notified 02/24/2019 8:13:40 Time AM Test 02/24/19 07:01 02/24/19 08:25 02/24/19 12:37 02/24/19 17:52 White Blood Count 6.0 # Red Blood Count 2.96 L Hemoglobin 8.6 L Hematocrit 25.7 L Mean Corpuscular 86.8 Volume Mean Corpuscular 29.1 Hemoglobin Mean Corpuscular 33.5 Hemoglobin Concent Red Cell 14.7 H Distribution Width Platelet Count 294 Mean Platelet 9.2 Volume Immature 0.300 Granulocytes % Neutrophils % 82.3 H Lymphocytes % 8.8 L Monocytes % 7.1 Eosinophils % 1.0 Basophils % 0.5 Nucleated Red 0.0 Blood Cells % Immature 0.020 Granulocytes # Neutrophils # 5.0 Lymphocytes # 0.5 L Monocytes # 0.4 Eosinophils # 0.1 Basophils # 0.0 Nucleated Red 0.0 Blood Cells # Sodium Level 132 L Potassium Level 3.7 Chloride Level 98 Carbon Dioxide 29 Level Anion Gap 5 Blood Urea 3 L Nitrogen Creatinine 0.51 L Est Glomerular Filtrat Rate mL/min Glucose Level 97 # Calcium Level 8.6 Phosphorus Level 3.2 Magnesium Level 1.6 L Bedside Glucose 118 122 123 Exam/Review of Systems Exam Vitals Vital Signs Date Temp Pulse Resp B/P (MAP) Pulse Ox O2 O2 Flow FiO2 Time Delivery Rate 02/24/19 2.0 16:57 02/24/19 73 16:35 02/24/19 99 14:20 02/24/19 18 Nasal 14:20 Cannula 02/24/19 98.0 157/70 14:00 (99) 02/24/19 21 08:27 Intake and Output 02/23/19 02/23/19 02/24/19 1515:00 23:00 07:00 IntakeIntake Total 850 ml 370 ml 1300 ml OutputOutput Total 1220 ml 1200 ml 500 ml BalanceBalance -370 ml -830 ml 800 ml Exam Constitutional: frail Respiratory: clear to auscultation Cardiovascular: regular rate and rhythm Gastrointestinal: soft, non-tender Musculoskeletal: nl extremities to inspection Extremities: normal pulses Neurological: other (sedated) Skin: nl turgor Results Results 24hrs Laboratory Tests Test 02/23/19 20:42 02/24/19 00:42 02/24/19 04:38 02/24/19 07:00 Bedside Glucose 125 93 93 Blood Gas Specimen Blood arterial Source Arterial Blood 02/24/2019 8:00:11 Date Drawn AM Arterial Blood pH 7.463 H (Temp corrected) Arterial Blood 41.9 pCO2 (Temp correct) Arterial Blood pO2 76.0 L (Temp corrected) Arterial Blood 29.3 H HCO3 Arterial Blood 5.1 H Base Excess Arterial Blood 94.8 L Oxygen Saturation Sven Test ACCEPTAB Arterial Blood Gas Left Radial Puncture Site Arterial 0.1 Blood Carboxyhemog lobin Arterial Blood 0.2 Methemoglobin Blood Gas A-a O2 23.6 Differential Oxyhemoglobin 94.5 Percent Blood Gas 37.0 Temperature Blood Gas Modality ROOM AIR FiO2 21.0 Blood Gas Notified TM Whom Blood Gas Notified 02/24/2019 8:13:40 Time AM Test 02/24/19 07:01 02/24/19 08:25 02/24/19 12:37 02/24/19 17:52 White Blood Count 6.0 # Red Blood Count 2.96 L Hemoglobin 8.6 L Hematocrit 25.7 L Mean Corpuscular 86.8 Volume Mean Corpuscular 29.1 Hemoglobin Mean Corpuscular 33.5 Hemoglobin Concent Red Cell 14.7 H Distribution Width Platelet Count 294 Mean Platelet 9.2 Volume Immature 0.300 Granulocytes % Neutrophils % 82.3 H Lymphocytes % 8.8 L Monocytes % 7.1 Eosinophils % 1.0 Basophils % 0.5 Nucleated Red 0.0 Blood Cells % Immature 0.020 Granulocytes # Neutrophils # 5.0 Lymphocytes # 0.5 L Monocytes # 0.4 Eosinophils # 0.1 Basophils # 0.0 Nucleated Red 0.0 Blood Cells # Sodium Level 132 L Potassium Level 3.7 Chloride Level 98 Carbon Dioxide 29 Level Anion Gap 5 Blood Urea 3 L Nitrogen Creatinine 0.51 L Est Glomerular Filtrat Rate mL/min Glucose Level 97 # Calcium Level 8.6 Phosphorus Level 3.2 Magnesium Level 1.6 L Bedside Glucose 118 122 123 Medications Medication Current Medications Bisacodyl (Dulcolax Supp) 10 mg DAILY MD Last administered on 02/24/19at 08:19; Admin Dose 10 MG; Start 02/19/19 at 09:00 Tamsulosin HCl (Flomax) 0.4 mg HS PO Last administered on 02/21/19at 20:46; Admin Dose 0.4 MG; Start 02/18/19 at 22:00 IV Flush (NS 3 ml) 3 ml PER PROTOCOL IV ; Start 02/18/19 at 20:30 Ondansetron HCl (Zofran Inj) 4 mg Q6H PRN IV NAUSEA AND/OR VOMITING; Start 02/18/19 at 20:30 Acetaminophen (Tylenol Liquid) 650 mg Q6H PRN PO PAIN LEVEL 1-3 OR FEVER; Start 02/18/19 at 20:30 Famotidine (Pepcid Iv) 20 mg Q12 IV Last administered on 02/24/19 08:19; Admin Dose 20 MG; Start 02/18/19 at 21:00 Enoxaparin Sodium (Lovenox) 30 mg DAILY SC Last administered on 02/24/19 08:22; Admin Dose 30 MG; Start 02/19/19 at 09:00 Insulin Aspart (Novolog Insulin Pen) NOVOLOG *MILD* ALGORITHM Q4 SC Last administered on 02/23/19 17:45; Admin Dose 1 UNIT; Start 02/18/19 at 21:00 Amlodipine Besylate (Norvasc) 10 mg DAILY GTB Last administered on 02/22/19 09 :43; Admin Dose 10 MG; Start 02/19/19 at 09:00 Aspirin (Aspirin) 81 mg DAILY GTB Last administered on 02/22/19 09:43; Admin Dose 81 MG; Start 02/19/19 at 09:00 Lisinopril (Zestril) 40 mg DAILY GTB Last administered on 02/22/19 09:44; Admin Dose 40 MG; Start 02/19/19 at 09:00 Polyethylene Glycol (Miralax) 17 gm DAILY GTB Last administered on 02/22/19 09:43; Admin Dose 17 GM; Start 02/19/19 at 09:00 Amiodarone HCl (Cordarone) 200 mg BID GTB Last administered on 02/22/19 09:43; Admin Dose 200 MG; Start 02/19/19 at 09:00 Cefepime HCl 50 ml @ 100 mls/hr Q24H IVPB Last administered on 02/24/19 12:38; Admin Dose 100 MLS/HR; Start 02/19/19 at 12:00 Hydralazine HCl (Apresoline) 10 mg Q4H PRN IV ELEVATED BLOOD PRESSURE Last administered on 02/23/19 03:08; Admin Dose 10 MG; Start 02/19/19 at 20:30 Metoclopramide HCl (Reglan) 10 mg Q6 IV Last administered on 02/24/19 17:52; Admin Dose 10 MG; Start 02/21/19 at 12:00 Potassium Chloride/Dextrose/ Sod Cl 1,000 ml @ 70 mls/hr [id number] IV Last a dministered on 02/23/19at 15:11; Admin Dose 100 MLS/HR; Start 02/22/19 at 07:00 Lorazepam (Ativan) 0.5 mg Q6H PRN IV AGITATION/ANXIETY Last administered on 02/22/19 16:05; Admin Dose 0.5 MG; Start 02/22/19 at 16:00 Albuterol/ Ipratropium (Duoneb) 3 ml Q6H RESP THERAPY HHN Last administered on 02/24/19 14:20; Admin Dose 3 ML; Start 02/23/19 at 09:30 GIANNA DE JESUS Feb 24, 2019 19:11
[2019-02-24] MEDS ORDERED: MAGNESIUM SULFATE 2 GM/50 ML 50 ML IVPB ONE (19:30)
[2019-02-24] MEDS: TAMSULOSIN (SR) 0.4 MG CAP PO SCH (20:31)
[2019-02-25] VITALS (9 sets, daily range): BP systolic 140–177; BP diastolic 62–71; PULSE 19–69; RESP 20
[2019-02-25] MEDS: METOCLOPRAMIDE 10 MG INJ IV SCH ×4 (00:35→18:24)
[2019-02-25] MEDS: D5W-0.45 NACL + KCL 20 MEQ 1,000 ML IV SCH ×2 (00:37→15:58)
[2019-02-25] MEDS: ALBUTEROL/IPRATROPIUM (NEB) 3 ML AMP HHN SCH ×4 (01:19→20:26)
[2019-02-25] MEDS: LORAZEPAM 2 MG INJ IV PRN (05:41)
[2019-02-25] MEDS: INSULIN ASPART [NOVOLOG] 3 ML PEN SC SCH ×4 (07:21→21:00)
[2019-02-25] MEDS: ASPIRIN 81 MG TAB GTB SCH (08:58)
[2019-02-25] MEDS: AMIODARONE 200 MG TAB GTB SCH ×2 (08:58→21:00)
[2019-02-25] MEDS: POLYETHYLENE GLYCOL 17 GM PACKET GTB SCH (08:58)
[2019-02-25] MEDS: LISINOPRIL 20 MG TAB GTB SCH (08:59)
[2019-02-25] MEDS: AMLODIPINE 10 MG TAB GTB SCH (08:59)
[2019-02-25] MEDS: BISACODYL 10 MG SUPP PR SCH (09:06)
[2019-02-25] MEDS: FAMOTIDINE 20 MG INJ IV SCH ×2 (09:06→21:05)
[2019-02-25] MEDS: ENOXAPARIN 30 MG/0.3 ML SYG SC SCH (09:12)
--- NOTE | 2019-02-25 09:13 | CONS ---
Assessment/Plan Assessment/Plan Assessment/Plan (Daily) Acute Respiratory Failure Altered Mental Status S/P repair of AAA Patient is now on MedSurg hemodynamically stable, consideration for placement of a peg tube however I have not been able to get in contact with family members yet. Will work on scheduling a family conference as soon as possible goals of care should be addressed in patients code status. Consultation Date/Type/Reason Admit Date/Time February 18, 2019 at 17:32 Initial Consult Date Date/Time of Note DATE: 02/25/19 TIME: 09:11 Exam/Review of Systems Exam Vitals Vital Signs Date Temp Pulse Resp B/P (MAP) Pulse Ox O2 O2 Flow FiO2 Time Delivery Rate 02/25/19 57 08:00 02/25/19 18 99 Nasal 4.0 07:49 Cannula 02/25/19 97.8 147/63 04:00 (91) 02/25/19 28 01:21 Intake and Output 02/24/19 02/24/19 02/25/19 1515:00 23:00 07:00 IntakeIntake Total 790 ml OutputOutput Total 700 ml 1960 ml 1400 ml BalanceBalance -700 ml -1960 ml -610 ml Results Result Diagram: 02/24/19 0701 02/25/19 0644 Results 24hrs Laboratory Tests Test 02/24/19 12:37 02/24/19 17:52 02/24/19 20:47 02/25/19 06:44 Bedside Glucose 122 123 126 Sodium Level 133 L Potassium Level 3.9 Chloride Level 99 Carbon Dioxide Level 30 Anion Gap 4 L Blood Urea Nitrogen 5 L Creatinine 0.53 L Est Glomerular Filtrat Rate mL/min Glucose Level 109 Calcium Level 8.1 L Test 02/25/19 07:19 Bedside Glucose 121 Medications Medication Current Medications Bisacodyl (Dulcolax Supp) 10 mg DAILY [place] Last administered on 02/24/19at 08:19; Admin Dose 10 MG; Start 02/19/19 at 09:00 Tamsulosin HCl (Flomax) 0.4 mg HS PO Last administered on 02/21/19at 20:46; Admin Dose 0.4 MG; Start 02/18/19 at 22:00 IV Flush (NS 3 ml) 3 ml PER PROTOCOL IV ; Start 02/18/19 at 20:30 Ondansetron HCl (Zofran Inj) 4 mg Q6H PRN IV NAUSEA AND/OR VOMITING; Start 02/18/19 at 20:30 Acetaminophen (Tylenol Liquid) 650 mg Q6H PRN PO PAIN LEVEL 1-3 OR FEVER; Start 02/18/19 at 20:30 Famotidine (Pepcid Iv) 20 mg Q12 IV Last administered on 02/24/19 20:46; Admin Dose 20 MG; Start 02/18/19 at 21:00 Enoxaparin Sodium (Lovenox) 30 mg DAILY SC Last administered on 02/24/19 08:22; Admin Dose 30 MG; Start 02/19/19 at 09:00 Amlodipine Besylate (Norvasc) 10 mg DAILY GTB Last administered on 02/22/19 09:43; Admin Dose 10 MG; Start 02/19/19 at 09:00 Aspirin (Aspirin) 81 mg DAILY GTB Last administered on 02/22/19 09:43; Admin Dose 81 MG; Start 02/19/19 at 09:00 Lisinopril (Zestril) 40 mg DAILY GTB Last administered on 02/22/19 09:44; Admin Dose 40 MG; Start 02/19/19 at 09:00 Polyethylene Glycol (Miralax) 17 gm DAILY GTB Last administered on 02/22/19 09:43; Admin Dose 17 GM; Start 02/19/19 at 09:00 Amiodarone HCl (Cordarone) 200 mg BID GTB Last administered on 02/22/19 09:43; Admin Dose 200 MG; Start 02/19/19 at 09:00 Cefepime HCl 50 ml @ 100 mls/hr Q24H IVPB Last administered on 02/24/19 12:38; Admin Dose 100 MLS/HR; Start 02/19/19 at 12:00 Hydralazine HCl (Apresoline) 10 mg Q4H PRN IV ELEVATED BLOOD PRESSURE Last administered on 02/23/19 03:08; Admin Dose 10 MG; Start 02/19/19 at 20:30 Metoclopramide HCl (Reglan) 10 mg Q6 IV Last administered on 02/25/19 05:41; Admin Dose 10 MG; Start 02/21/19 at 12:00 Lorazepam (Ativan) 0.5 mg Q6H PRN IV AGITATION/ANXIETY Last administered on 02/25/19at 05:41; Admin Dose 0.5 MG; Start 02/22/19 at 16:00 Albuterol/ Ipratropium (Duoneb) 3 ml Q6H RESP THERAPY HHN Last administered on 02/25/19at 07:49; Admin Dose 3 ML; Start 02/23/19 at 09:30 Insulin Aspart (Novolog Insulin Pen) NOVOLOG *MILD* ALGORITHM AC MEALS AND BEDTIME SC ; Start 02/24/19 at 21:00 KATERIN CALVERT Feb 25, 2019 09:13
--- NOTE | 2019-02-25 11:09 | CONS ---
Assessment/Plan Assessment/Plan Assessment/Plan (Daily) Assessment and recommendations; 1. Patient admitted with respiratory failure likely due to aspiration with significant interval clinical improvement. Status post extubation. 2. Failure to thrive, patient's family contemplating PEG tube placement. 3. Prior CABG. 4. History of hypertension. 5. Scant left pleural effusion. 6. Anemia. Continue current supportive care. I did have a detailed discussion with the patient's family at bedside and answered all their questions. Consultation Date/Type/Reason Admit Date/Time February 18, 2019 at 17:32 Initial Consult Date Type of Consult Pulmonary Patient condition is fairly stable. Patient remains awake but appears quite lethargic. Has been transferred out of ICU to medical floor. General exam; elderly male, awake, responsive, currently in no distress. Reason for Consultation H EENT exam; supple neck, no JVD. No lymphadenopathy. Midline trachea. No thyromegaly. On 2 L nasal cannula. Patient has multiple carious teeth. Chest exam; diminished but clear breath sounds. S1-S2 audible, no murmurs. There is a well-healed sternal scar. Abdomen exam; soft, scaphoid. No organomegaly. Bowel sounds audible. Extremity exam; no peripheral edema. [employer] exam; patient awake and appropriately responsive. Exhibiting generalized weakness. Date/Time of Note DATE: 02/25/19 TIME: 11:07 Exam/Review of Systems Exam Vitals Vital Signs Date Temp Pulse Resp B/P (MAP) Pulse Ox O2 O2 Flow FiO2 Time Delivery Rate 02/25/19 57 08:00 02/25/19 97.8 20 140/62 95 Nasal 08:00 (88) Cannula 02/25/19 4.0 07:49 02/25/19 28 01:21 Intake and Output 02/24/19 02/24/19 02/25/19 1515:00 23:00 07:00 IntakeIntake Total 790 ml OutputOutput Total 700 ml 1960 ml 1400 ml BalanceBalance -700 ml -1960 ml -610 ml Results Result Diagram: 02/24/19 0701 02/25/19 0644 Results 24hrs Laboratory Tests Test 02/24/19 12:37 02/24/19 17:52 02/24/19 20:47 02/25/19 06:44 Bedside Glucose 122 123 126 Sodium Level 133 L Potassium Level 3.9 Chloride Level 99 Carbon Dioxide Level 30 Anion Gap 4 L Blood Urea Nitrogen 5 L Creatinine 0.53 L Est Glomerular Filtrat Rate mL/min Glucose Level 109 Calcium Level 8.1 L Test 02/25/19 07:19 Bedside Glucose 121 Medications Medication Current Medications Bisacodyl (Dulcolax Supp) 10 mg DAILY [place] Last administered on 02/25/19 09:06; Admin Dose 10 MG; Start 02/19/19 at 09:00 Tamsulosin HCl (Flomax) 0.4 mg HS PO Last administered on 02/21/19 20:46; Admin Dose 0.4 MG; Start 02/18/19 at 22:00 IV Flush (NS 3 ml) 3 ml PER PROTOCOL IV ; Start 02/18/19 at 20:30 Ondansetron HCl (Zofran Inj) 4 mg Q6H PRN IV NAUSEA AND/OR VOMITING; Start 02/18/19 at 20:30 Acetaminophen (Tylenol Liquid) 650 mg Q6H PRN PO PAIN LEVEL 1-3 OR FEVER; Start 02/18/19 at 20:30 Famotidine (Pepcid Iv) 20 mg Q12 IV Last administered on 02/25/19 09:06; Admin Dose 20 MG; Start 02/18/19 at 21:00 Enoxaparin Sodium (Lovenox) 30 mg DAILY SC Last administered on 02/25/19 09:12; Admin Dose 30 MG; Start 02/19/19 at 09:00 Amlodipine Besylate (Norvasc) 10 mg DAILY GTB Last administered on 02/22/19 09:43; Admin Dose 10 MG; Start 02/19/19 at 09:00 Aspirin (Aspirin) 81 mg DAILY GTB Last administered on 02/22/19 09:43; Admin Dose 81 MG; Start 02/19/19 at 09:00 Lisinopril (Zestril) 40 mg DAILY GTB Last administered on 02/22/19 09:44; Admin Dose 40 MG; Start 02/19/19 at 09:00 Polyethylene Glycol (Miralax) 17 gm DAILY GTB Last administered on 02/22/19 09:43; Admin Dose 17 GM; Start 02/19/19 at 09:00 Amiodarone HCl (Cordarone) 200 mg BID GTB Last administered on 02/22/19 09:43; Admin Dose 200 MG; Start 02/19/19 at 09:00 Cefepime HCl 50 ml @ 100 mls/hr Q24H IVPB Last administered on 02/24/19 12:38; Admin Dose 100 MLS/HR; Start 02/19/19 at 12:00 Hydralazine HCl (Apresoline) 10 mg Q4H PRN IV ELEVATED BLOOD PRESSURE Last administered on 02/23/19 03:08; Admin Dose 10 MG; Start 02/19/19 at 20:30 Metoclopramide HCl (Reglan) 10 mg Q6 IV Last administered on 02/25/19 05:41; Admin Dose 10 MG; Start 02/21/19 at 12:00 Lorazepam (Ativan) 0.5 mg Q6H PRN IV AGITATION/ANXIETY Last administered on 02/25/19 05:41; Admin Dose 0.5 MG; Start 02/22/19 at 16:00 Albuterol/ Ipratropium (Duoneb) 3 ml Q6H RESP THERAPY HHN Last administered on 02/25/19 07:49; Admin Dose 3 ML; Start 02/23/19 at 09:30 Insulin Aspart (Novolog Insulin Pen) NOVOLOG *MILD* ALGORITHM AC MEALS AND BEDTIME SC ; Start 02/24/19 at 21:00 JAENINE VAZQUEZ Feb 25, 2019 11:09
[2019-02-25] MEDS: CEFEPIME 2GM/50 ML (PMX) 50 ML IVPB SCH (12:40)
--- NOTE | 2019-02-25 14:06 | PN ---
Date/Time of Note Date/Time of Note DATE: 02/25/19 TIME: 13:59 Assessment/Plan VTE Prophylaxis Risk score (from Ns)>0 risk: 7 SCD applied (from Nsg): Yes Pharmacological prophylaxis: LMWH Lines/Catheters IV Catheter Type (from Nrsg): Central Line Central line still needed: Yes Urinary Cath still in place: Yes Reason Cath still needed: urinary retention Assessment/Plan Hospital Course Patient is confused, get agitated overnight, currently with one-to-one sitter, pending psychiatric consult. Continues on supplemental oxygen via nasal ca nnula with no respiratory distress. Assessment/Plan -Moderate malnutrition, failed swallow evaluation, cream, Dr. Eid is asked to see patient in gastroenterology consultation for possible G-tube placement. -Acute respiratory failure requiring intubation and placement on mechanical ventilation, now extubated. Dr Addison for pulm consult. -Severe sepsis with shock secondary to pneumonia. Continue antibiotics per ID. ID Consult Dr. Guevara. -ALOC -History of aortic aneurysm, status post repair. -Atrial fibrillation -Hypertension -Cerebrovascular disease -Urinary retention with urethral stricture. -Diabetes, continue Lantus and NovoLog. Further recommendations based on clinical course. Plan of care discussed with Dr. Moreno. Result Diagram: 02/24/19 0701 02/25/19 0644 Results 24hrs Laboratory Tests Test 02/24/19 17:52 02/24/19 20:47 02/25/19 06:44 02/25/19 07:19 Bedside Glucose 123 126 121 Sodium Level 133 L Potassium Level 3.9 Chloride Level 99 Carbon Dioxide Level 30 Anion Gap 4 L Blood Urea Nitrogen 5 L Creatinine 0.53 L Est Glomerular Filtrat Rate mL/min Glucose Level 109 Calcium Level 8.1 L Test 02/25/19 11:12 Bedside Glucose 103 Exam/Review of Systems Exam Vitals Vital Signs Date Temp Pulse Resp B/P (MAP) Pulse Ox O2 O2 Flow FiO2 Time Delivery Rate 02/25/19 97.8 59 20 156/65 100 Nasal 13:30 (95) Cannula 02/25/19 4.0 07:49 02/25/19 28 01:21 Intake and Output 02/24/19 02/24/19 02/25/19 1515:00 23:00 07:00 IntakeIntake Total 790 ml OutputOutput Total 700 ml 1960 ml 1400 ml BalanceBalance -700 ml -1960 ml -610 ml Exam Constitutional: frail Respiratory: clear to auscultation Cardiovascular: regular rate and rhythm Gastrointestinal: soft, non-tender Musculoskeletal: nl extremities to inspection Extremities: normal pulses Neurological: other (sedated) Skin: nl turgor Results Results 24hrs Laboratory Tests Test 02/24/19 17:52 02/24/19 20:47 02/25/19 06:44 02/25/19 07:19 Bedside Glucose 123 126 121 Sodium Level 133 L Potassium Level 3.9 Chloride Level 99 Carbon Dioxide Level 30 Anion Gap 4 L Blood Urea Nitrogen 5 L Creatinine 0.53 L Est Glomerular Filtrat Rate mL/min Glucose Level 109 Calcium Level 8.1 L Test 02/25/19 11:12 Bedside Glucose 103 Medications Medication Current Medications Bisacodyl (Dulcolax Supp) 10 mg DAILY [place] Last administered on 02/25/19 09:06; Admin Dose 10 MG; Start 02/19/19 at 09:00 Tamsulosin HCl (Flomax) 0.4 mg HS PO Last administered on 02/21/19 20:46; Admin Dose 0.4 MG; Start 02/18/19 at 22:00 IV Flush (NS 3 ml) 3 ml PER PROTOCOL IV ; Start 02/18/19 at 20:30 Ondansetron HCl (Zofran Inj) 4 mg Q6H PRN IV NAUSEA AND/OR VOMITING; Start 02/18/19 at 20:30 Acetaminophen (Tylenol Liquid) 650 mg Q6H PRN PO PAIN LEVEL 1-3 OR FEVER; Start 02/18/19 at 20:30 Famotidine (Pepcid Iv) 20 mg Q12 IV Last administered on 02/25/19 09:06; Admin Dose 20 MG; Start 02/18/19 at 21:00 Enoxaparin Sodium (Lovenox) 30 mg DAILY SC Last administered on 02/25/19 09:12; Admin Dose 30 MG; Start 02/19/19 at 09:00 Amlodipine Besylate (Norvasc) 10 mg DAILY GTB Last administered on 02/22/19 09:43; Admin Dose 10 MG; Start 02/19/19 at 09:00 Aspirin (Aspirin) 81 mg DAILY GTB Last administered on 02/22/19 09:43; Admin Dose 81 MG; Start 02/19/19 at 09:00 Lisinopril (Zestril) 40 mg DAILY GTB Last administered on 02/22/19 09:44; Admin Dose 40 MG; Start 02/19/19 at 09:00 Polyethylene Glycol (Miralax) 17 gm DAILY GTB Last administered on 02/22/19 09:43; Admin Dose 17 GM; Start 02/19/19 at 09:00 Amiodarone HCl (Cordarone) 200 mg BID GTB Last administered on 02/22/19 09:43; Admin Dose 200 MG; Start 02/19/19 at 09:00 Cefepime HCl 50 ml @ 100 mls/hr Q24H IVPB Last administered on 02/25/19 12:40; Admin Dose 100 MLS/HR; Start 02/19/19 at 12:00 Hydralazine HCl (Apresoline) 10 mg Q4H PRN IV ELEVATED BLOOD PRESSURE Last administered on 02/23/19 03:08; Admin Dose 10 MG; Start 02/19/19 at 20:30 Metoclopramide HCl (Reglan) 10 mg Q6 IV Last administered on 02/25/19 12:40; Admin Dose 10 MG; Start 02/21/19 at 12:00 Lorazepam (Ativan) 0.5 mg Q6H PRN IV AGITATION/ANXIETY Last administered on 02/25/19 05:41; Admin Dose 0.5 MG; Start 02/22/19 at 16:00 Albuterol/ Ipratropium (Duoneb) 3 ml Q6H RESP THERAPY HHN Last administered on 02/25/19 07:49; Admin Dose 3 ML; Start 02/23/19 at 09:30 Insulin Aspart (Novolog Insulin Pen) NOVOLOG *MILD* ALGORITHM AC MEALS AND BEDTIME SC ; Start 02/24/19 at 21:00 GIANNA DE JESUS Feb 25, 2019 14:06
--- NOTE | 2019-02-25 15:10 | CONS ---
Assessment/Plan Assessment/Plan Hospital Course (Demo Recall) No acute events overnight. Looks comfortable, no fevers Microbiology: All cultures negative Indwelling's: Cavanaugh, right subclavian triple-lumen catheter Antimicrobials: Cefepime Physical examination: This is a well-developed very seen elderly man who is in no distress. Head atraumatic normocephalic, sclera nonicteric vehicle mucosa dry neck is supple chest rise symmetrical breath sounds diminished bases. Heart: S1-S2. Abdomen soft bowel sounds present. Extremities without cyanosis Assessment: 1. S/p sepsis, status post shock likely secondary to aspiration 2. Acute hypoxemic respiratory failure, status post extubated 3. Possible aspiration pneumonia 4. History of CABG 5. History of CVA 6. Atrial fibrillation Plan: Remains stable, continue present care, aspiration precautions, dc abx Consultation Date/Type/Reason Admit Date/Time February 18, 2019 at 17:32 Initial Consult Date Type of Consult id Date/Time of Note DATE: 02/25/19 TIME: 15:09 Exam/Review of Systems Exam Vitals Vital Signs Date Temp Pulse Resp B/P (MAP) Pulse Ox O2 O2 Flow FiO2 Time Delivery Rate 02/25/19 83 19 96 Nasal 2.0 13:59 Cannula 02/25/19 97.8 156/65 13:30 (95) 02/25/19 28 01:21 Intake and Output 02/24/19 02/24/19 02/25/19 1515:00 23:00 07:00 IntakeIntake Total 790 ml OutputOutput Total 700 ml 1960 ml 1400 ml BalanceBalance -700 ml -1960 ml -610 ml Results Result Diagram: 02/24/19 0701 02/25/19 0644 Results 24hrs Laboratory Tests Test 02/24/19 17:52 02/24/19 20:47 02/25/19 06:44 02/25/19 07:19 Bedside Glucose 123 126 121 Sodium Level 133 L Potassium Level 3.9 Chloride Level 99 Carbon Dioxide Level 30 Anion Gap 4 L Blood Urea Nitrogen 5 L Creatinine 0.53 L Est Glomerular Filtrat Rate mL/min Glucose Level 109 Calcium Level 8.1 L Test 02/25/19 11:12 Bedside Glucose 103 Medications Medication Current Medications Bisacodyl (Dulcolax Supp) [address] Last administered on 02/25/19at 09:06; Admin Dose 10 MG; Start 02/19/19 at 09:00 Tamsulosin HCl (Flomax) 0.4 mg HS PO Last administered on 02/21/19 20:46; Admin Dose 0.4 MG; Start 02/18/19 at 22:00 IV Flush (NS 3 ml) 3 ml PER PROTOCOL IV ; Start 02/18/19 at 20:30 Ondansetron HCl (Zofran Inj) 4 mg Q6H PRN IV NAUSEA AND/OR VOMITING; Start 02/18/19 at 20:30 Acetaminophen (Tylenol Liquid) 650 mg Q6H PRN PO PAIN LEVEL 1-3 OR FEVER; Start 02/18/19 at 20:30 Famotidine (Pepcid Iv) 20 mg Q12 IV Last administered on 02/25/19 09:06; Admin Dose 20 MG; Start 02/18/19 at 21:00 Enoxaparin Sodium (Lovenox) 30 mg DAILY SC Last administered on 02/25/19 09:12; Admin Dose 30 MG; Start 02/19/19 at 09:00 Amlodipine Besylate (Norvasc) 10 mg DAILY GTB Last administered on 02/22/19 09:43; Admin Dose 10 MG; Start 02/19/19 at 09:00 Aspirin (Aspirin) 81 mg DAILY GTB Last administered on 02/22/19 09:43; Admin Dose 81 MG; Start 02/19/19 at 09:00 Lisinopril (Zestril) 40 mg DAILY GTB Last administered on 02/22/19 09:44; Admin Dose 40 MG; Start 02/19/19 at 09:00 Polyethylene Glycol (Miralax) 17 gm DAILY GTB Last administered on 02/22/19 09:43; Admin Dose 17 GM; Start 02/19/19 at 09:00 Amiodarone HCl (Cordarone) 200 mg BID GTB Last administered on 02/22/19 09:43; Admin Dose 200 MG; Start 02/19/19 at 09:00 Cefepime HCl 50 ml @ 100 mls/hr Q24H IVPB Last administered on 02/25/19 12:40; Admin Dose 100 MLS/HR; Start 02/19/19 at 12:00 Hydralazine HCl (Apresoline) 10 mg Q4H PRN IV ELEVATED BLOOD PRESSURE Last administered on 02/23/19 03:08; Admin Dose 10 MG; Start 02/19/19 at 20:30 Metoclopramide HCl (Reglan) 10 mg Q6 IV Last administered on 02/25/19at 12:40; Admin Dose 10 MG; Start 02/21/19 at 12:00 Lorazepam (Ativan) 0.5 mg Q6H PRN IV AGITATION/ANXIETY Last administered on 02/25/19at 05:41; Admin Dose 0.5 MG; Start 02/22/19 at 16:00 Albuterol/ Ipratropium (Duoneb) 3 ml Q6H RESP THERAPY HHN Last administered on 02/25/19at 13:59; Admin Dose 3 ML; Start 02/23/19 at 09:30 Insulin Aspart (Novolog Insulin Pen) NOVOLOG *MILD* ALGORITHM AC MEALS AND BEDTIME SC ; Start 02/24/19 at 21:00 LUCINA DOMINGUEZ NP Feb 25, 2019 15:10
[2019-02-25] MEDS ORDERED: GLUCAGON 1 MG INJ IM PRN (20:30)
[2019-02-25] MEDS ORDERED: GLUCOSE GEL 15 GRAM TUBE BUCCAL PRN (20:30)
[2019-02-25] MEDS ORDERED: GLUCOSE GEL 15 GRAM TUBE PO PRN ×2 (20:30)
[2019-02-25] MEDS ORDERED: DEXTROSE 50% 50 ML SYRINGE IV PRN ×2 (20:30)
[2019-02-25] MEDS: TAMSULOSIN (SR) 0.4 MG CAP PO SCH (21:00)
[2019-02-26] VITALS (22 sets, daily range): BP systolic 122–188; BP diastolic 45–78; PULSE 56–73; RESP 17–22
--- NOTE | 2019-02-26 00:20 | CONS ---
DATE OF ADMISSION: 02/18/2019 DATE OF CONSULTATION: HISTORY OF PRESENT ILLNESS: A 73-year-old male with a history of aortic aneurysm status post repair, hypertension, CVA, syphilis, diabetes mellitus, UTI, urethral stricture, was admitted in the past fo r UTI and then subsequently transferred to [facility]; however, the patient was brought back to the hospital for respiratory failure and altered mental status. He was intubated and placed on mechanical cad drafter al ventilator. The patient was placed on broad-spectrum antibiotics, got stabilized, extubated and t ransferred to the floor. However, he failed swallow study and so GI consult was called in for replac ement of G-tube. REVIEW OF SYSTEMS: Unable to do it. ALLERGIES: NONE. SOCIAL HISTORY: Does not smoke or drink. Resident of [facility]. PHYSICAL EXAMINATION: GENERAL: Thin built. CARDIOVASCULAR: No murmur, gallop or click. LUNGS: Air entry diminished both bases. ABDOMEN: Benign. EXTREMITIES: No edema. CENTRAL NERVOUS SYSTEM: The patient does not communicate. LABORATORY DATA: WBC is 6, hematocrit is 25.7, platelet count is normal. BUN, creatinine is within normal limits. INR is within normal limits. Chest x-ray: Mild opacification of the right lung. Left lung consolidation and pleural effusion. IMPRESSION: 1. Dysphagia with malnutrition. 2. Respiratory failure. The patient on supplemental oxygen now. 3. Altered level of consciousness. 4. History of aortic aneurysm, status post repair. 5. Atrial fibrillation. 6. Hypertension. 7. Cerebrovascular accident. 8. Urinary retention secondary to urethral stricture. 9. Diabetes mellitus. PLAN: Proceed with G-tube placement once the consent is signed. I have discussed with the staff marky se. In the interim, continue present care. Dictated By: JOSE ANTONIO SEO/NTS Conf#: [id number] DID#: [id number] CC: GIANNA DE JESUS NP; CLARISA RODAS MD;*End*
[2019-02-26] MEDS: METOCLOPRAMIDE 10 MG INJ IV SCH ×4 (00:45→18:22)
[2019-02-26] MEDS: LORAZEPAM 2 MG INJ IV PRN ×2 (01:41→08:50)
[2019-02-26] MEDS: ALBUTEROL/IPRATROPIUM (NEB) 3 ML AMP HHN SCH ×4 (01:57→19:32)
[2019-02-26] MEDS: hydrALAzine 20 MG INJ IV PRN (02:53)
[2019-02-26] MEDS ORDERED: HALOPERIDOL 5 MG INJ IM ONE (04:00)
--- NOTE | 2019-02-26 05:35 | PN ---
Date/Time of Note Date/Time of Note DATE: 02/26/19 TIME: 05:34 Assessment/Plan VTE Prophylaxis Risk score (from Ns)>0 risk: 7 SCD applied (from [facility] – [place], [place]): Yes SCD contraindicated: other Pharmacological prophylaxis: other Pharm contraindication: other [facility] Central line still needed: Yes Urinary Cath still in place: Yes Reason Cath still needed: urinary retention Assessment/Plan Assessment/Plan -Moderate malnutrition, failed swallow evaluation - Dr. Eid is asked to see patient in gastroenterology consultation for possible G-tube placement. - dietary consult -Acute respiratory failure requiring intubation and placement on mechanical ventilation, now extubated. - Dr Addison for pulm consult. -Severe sepsis with shock secondary to pneumonia. - Continue antibiotics per ID. ID Consult Dr. Guevara. -ALOC -History of aortic aneurysm, status post repair. -Atrial fibrillation -Hypertension -Cerebrovascular disease -Urinary retention with urethral stricture. -Diabetes, continue Lantus and NovoLog. Further recommendations based on clinical course. Plan of care discussed with Dr. Moreno. Result Diagram: 02/24/19 0701 02/25/19 0644 Results 24hrs Laboratory Tests Test 02/25/19 06:44 02/25/19 07:19 02/25/19 11:12 02/25/19 17:04 Sodium Level 133 L Potassium Level 3.9 Chloride Level 99 Carbon Dioxide Level 30 Anion Gap 4 L Blood Urea Nitrogen 5 L Creatinine 0.53 L Est Glomerular Filtrat Rate mL/min Glucose Level 109 Calcium Level 8.1 L Bedside Glucose 121 103 116 Test 02/25/19 20:57 Bedside Glucose 115 Exam/Review of Systems Exam Vitals Vital Signs Date Temp Pulse Resp B/P (MAP) Pulse Ox O2 O2 Flow FiO2 Time Delivery Rate 02/26/19 97.9 73 20 175/70 99 04:00 (105) 02/26/19 Nasal 2.0 01:57 Cannula 02/25/19 28 01:21 Intake and Output 02/25/19 02/25/19 02/26/19 1515:00 23:00 07:00 OutputOutput Total 775 ml BalanceBalance -775 ml Constitutional: alert, well developed Psych: nl mood/affect Eyes: nl lids, nl sclera ENMT: nl external ears & nose Neck: non-tender Respiratory: clear to auscultation Cardiovascular: nl pulses, other (s1s2) Gastrointestinal: soft, non-tender Musculoskeletal: muscle weakness Extremities: normal pulses Neurological: other (alert/reponsive) Results Results 24hrs Laboratory Tests Test 02/25/19 06:44 02/25/19 07:19 02/25/19 11:12 02/25/19 17:04 Sodium Level 133 L Potassium Level 3.9 Chloride Level 99 Carbon Dioxide Level 30 Anion Gap 4 L Blood Urea Nitrogen 5 L Creatinine 0.53 L Est Glomerular Filtrat Rate mL/min Glucose Level 109 Calcium Level 8.1 L Bedside Glucose 121 103 116 Test 02/25/19 20:57 Bedside Glucose 115 Medications Medication Current Medications Bisacodyl (Dulcolax Supp) 10 mg DAILY DC Last administered on 02/25/19 09:06; Admin Dose 10 MG; Start 02/19/19 at 09:00 Tamsulosin HCl (Flomax) 0.4 mg HS PO Last administered on 02/21/19at 20:46; Admin Dose 0.4 MG; Start 02/18/19 at 22:00 IV Flush (NS 3 ml) 3 ml PER PROTOCOL IV ; Start 02/18/19 at 20:30 Ondansetron HCl (Zofran Inj) 4 mg Q6H PRN IV NAUSEA AND/OR VOMITING; Start 02/18/19 at 20:30 Acetaminophen (Tylenol Liquid) 650 mg Q6H PRN PO PAIN LEVEL 1-3 OR FEVER; Start 02/18/19 at 20:30 Famotidine (Pepcid Iv) 20 mg Q12 IV Last administered on 02/25/19at 21:05; Admin Dose 20 MG; Start 02/18/19 at 21:00 Amlodipine Besylate (Norvasc) 10 mg DAILY GTB Last administered on 02/22/19 09:43; Admin Dose 10 MG; Start 02/19/19 at 09:00 Aspirin (Aspirin) 81 mg DAILY GTB Last administered on 02/22/19 09:43; Admin Dose 81 MG; Start 02/19/19 at 09:00 Lisinopril (Zestril) 40 mg DAILY GTB Last administered on 02/22/19 09:44; Admin Dose 40 MG; Start 02/19/19 at 09:00 Polyethylene Glycol (Miralax) 17 gm DAILY GTB Last administered on 02/22/19 09:43; Admin Dose 17 GM; Start 02/19/19 at 09:00 Amiodarone HCl (Cordarone) 200 mg BID GTB Last administered on 02/22/19at 09:43; Admin Dose 200 MG; Start 02/19/19 at 09:00 Hydralazine HCl (Apresoline) 10 mg Q4H PRN IV ELEVATED BLOOD PRESSURE Last administered on 02/26/19at 02:53; Admin Dose 10 MG; Start 02/19/19 at 20:30 Metoclopramide HCl (Reglan) 10 mg Q6 IV Last administered on 02/26/19at 00:45; Admin Dose 10 MG; Start 02/21/19 at 12:00 Lorazepam (Ativan) 0.5 mg Q6H PRN IV AGITATION/ANXIETY Last administered on 02/26/19at 01:41; Admin Dose 0.5 MG; Start 02/22/19 at 16:00 Albuterol/ Ipratropium (Duoneb) 3 ml Q6H RESP THERAPY HHN Last administered on 02/26/19at 01:57; Admin Dose 3 ML; Start 02/23/19 at 09:30 Insulin Aspart (Novolog Insulin Pen) NOVOLOG *MILD* ALGORITHM AC MEALS AND BED TIME SC ; Start 02/24/19 at 21:00 Potassium Chloride/Dextrose/ Sod Cl 1,000 ml @ 60 mls/hr [id number] IV Last administered on 02/25/19at 15:58; Admin Dose 60 MLS/HR; Start 02/25/19 at 15:30 Miscellaneous Information 1 ea NOTE XX ; Start 02/25/19 at 20:30 Glucose (Glutose) 15 gm Q15M PRN PO DECREASED GLUCOSE; Start 02/25/19 at 20:30 Glucose (Glutose) 22.5 gm Q15M PRN PO DECREASED GLUCOSE; Start 02/25/19 at 20:30 Dextrose (D50w Syringe) 25 ml Q15M PRN IV DECREASED GLUCOSE; Start 02/25/19 at 20:30 Dextrose (D50w Syringe) 50 ml Q15M PRN IV DECREASED GLUCOSE; Start 02/25/19 at 20:30 Glucagon (Glucagen) 1 mg Q15M PRN IM DECREASED GLUCOSE; Start 02/25/19 at 20:30 Glucose (Glutose) 15 gm Q15M PRN BUCCAL DECREASED GLUCOSE; Start 02/25/19 at 20:30 CAMILLE NIEVES Feb 26, 2019 05:35
[2019-02-26] MEDS: INSULIN ASPART [NOVOLOG] 3 ML PEN SC SCH ×4 (08:30→21:00)
[2019-02-26] MEDS: ASPIRIN 81 MG TAB GTB SCH (08:43)
[2019-02-26] MEDS: D5W-0.45 NACL + KCL 20 MEQ 1,000 ML IV SCH (08:43)
[2019-02-26] MEDS: POLYETHYLENE GLYCOL 17 GM PACKET GTB SCH (08:44)
[2019-02-26] MEDS: AMLODIPINE 10 MG TAB GTB SCH (08:44)
[2019-02-26] MEDS: AMIODARONE 200 MG TAB GTB SCH ×2 (08:44→20:23)
[2019-02-26] MEDS: LISINOPRIL 20 MG TAB GTB SCH (08:45)
[2019-02-26] MEDS: BISACODYL 10 MG SUPP PR SCH (08:49)
[2019-02-26] MEDS: FAMOTIDINE 20 MG INJ IV SCH ×2 (08:49→20:24)
--- NOTE | 2019-02-26 13:29 | CONS ---
Consult Date/Type/Reason Admit Date/Time February 18, 2019 at 17:32 Initial Consult Date Type of Consult Pulmonary Date/Time of Note DATE: 02/26/19 TIME: 13:28 Subjective Patient comfortable this morning significant agitation overnight currently no respiratory distress. Objective Vital Signs Date Temp Pulse Resp B/P (MAP) Pulse Ox O2 O2 Flow FiO2 Time Delivery Rate 02/26/19 58 16 100 Nasal 1.0 13:08 Cannula 02/26/19 97.4 141/64 08:00 (89) 02/25/19 28 01:21 Intake and Output 02/25/19 02/25/19 02/26/19 1515:00 23:00 07:00 IntakeIntake Total 170 ml OutputOutput Total 1175 ml BalanceBalance -1005 ml Exam GENERAL: Elderly appearing gentleman on nasal cannula O2. VITAL SIGNS: per chart NECK: Supple. No JVD or lymphadenopathy. CARDIAC EXAM: S1, S2. No added sounds or murmurs. CHEST: Diminished air entry bilaterally with rales ABDOMEN: Soft, nontender. No guarding or rebound. EXTREMITIES: No cyanosis, clubbing or edema. NEUROLOGIC: Generalized weakness. Vent Setting Ventilator Support Mode: SPONT Fraction of Inspired Oxygen pe: 28 Positive End Expiratory Pressu: 5.0 Results/Medications Result Diagram: 02/24/19 0701 02/26/19 0805 Results 24 hrs Laboratory Tests Test 02/25/19 17:04 02/25/19 20:57 02/26/19 08:05 02/26/19 08:32 Bedside Glucose 116 115 128 Sodium Level 134 L Potassium Level 4.0 Chloride Level 100 Carbon Dioxide Level 29 Anion Gap 5 Blood Urea Nitrogen 5 L Creatinine 0.54 L Est Glomerular Filtrat Rate mL/min Glucose Level 117 Calcium Level 8.5 Test 02/26/19 12:47 Bedside Glucose 120 Medications Current Medications Bisacodyl (Dulcolax Supp) 10 mg DAILY MS Last administered on 02/26/19at 08:49; Admin Dose 10 MG; Start 02/19/19 at 09:00 Tamsulosin HCl (Flomax) 0.4 mg HS PO Last administered on 02/21/19at 20:46; Admin Dose 0.4 MG; Start 02/18/19 at 22:00 IV Flush (NS 3 ml) 3 ml PER PROTOCOL IV ; Start 02/18/19 at 20:30 Ondansetron HCl (Zofran Inj) 4 mg Q6H PRN IV NAUSEA AND/OR VOMITING; Start 02/18/19 at 20:30 Acetaminophen (Tylenol Liquid) 650 mg Q6H PRN PO PAIN LEVEL 1-3 OR FEVER; Start 02/18/19 at 20:30 Famotidine (Pepcid Iv) 20 mg Q12 IV Last administered on 02/26/19 08:49; Admin Dose 20 MG; Start 02/18/19 at 21:00 Amlodipine Besylate (Norvasc) 10 mg DAILY GTB Last administered on 02/22/19 09:43; Admin Dose 10 MG; Start 02/19/19 at 09:00 Aspirin (Aspirin) 81 mg DAILY GTB Last administered on 02/22/19 09:43; Admin Dose 81 MG; Start 02/19/19 at 09:00 Lisinopril (Zestril) 40 mg DAILY GTB Last administered on 02/22/19 09:44; Admin Dose 40 MG; Start 02/19/19 at 09:00 Polyethylene Glycol (Miralax) 17 gm DAILY GTB Last administered on 02/22/19 09:43; Admin Dose 17 GM; Start 02/19/19 at 09:00 Amiodarone HCl (Cordarone) 200 mg BID GTB Last administered on 02/22/19 09:43; Admin Dose 200 MG; Start 02/19/19 at 09:00 Hydralazine HCl (Apresoline) 10 mg Q4H PRN IV ELEVATED BLOOD PRESSURE Last administered on 02/26/19 02:53; Admin Dose 10 MG; Start 02/19/19 at 20:30 Metoclopramide HCl (Reglan) 10 mg Q6 IV Last administered on 02/26/19 12:48; Admin Dose 10 MG; Start 02/21/19 at 12:00 Lorazepam (Ativan) 0.5 mg Q6H PRN IV AGITATION/ANXIETY Last administered on 02/26/19 08:50; Admin Dose 0.5 MG; Start 02/22/19 at 16:00 Albuterol/ Ipratropium (Duoneb) 3 ml Q6H RESP THERAPY HHN Last administered on 02/26/19 13:08; Admin Dose 3 ML; Start 02/23/19 at 09:30 Insulin Aspart (Novolog Insulin Pen) NOVOLOG *MILD* ALGORITHM AC MEALS AND BEDTIME SC ; Start 02/24/19 at 21:00 Potassium Chloride/Dextrose/ Sod Cl 1,000 ml @ 60 mls/hr [id number] IV Last admi nistered on 02/26/19at 08:43; Admin Dose 60 MLS/HR; Start 02/25/19 at 15:30 Miscellaneous Information 1 ea NOTE XX ; Start 02/25/19 at 20:30 Glucose (Glutose) 15 gm Q15M PRN PO DECREASED GLUCOSE; Start 02/25/19 at 20:30 Glucose (Glutose) 22.5 gm Q15M PRN PO DECREASED GLUCOSE; Start 02/25/19 at 20:30 Dextrose (D50w Syringe) 25 ml Q15M PRN IV DECREASED GLUCOSE; Start 02/25/19 at 20:30 Dextrose (D50w Syringe) 50 ml Q15M PRN IV DECREASED GLUCOSE; Start 02/25/19 at 20:30 Glucagon (Glucagen) 1 mg Q15M PRN IM DECREASED GLUCOSE; Start 02/25/19 at 20:30 Glucose (Glutose) 15 gm Q15M PRN BUCCAL DECREASED GLUCOSE; Start 02/25/19 at 20:30 Assessment/Plan Hospital Course (Demo Recall) IMP: 1. Acute hypoxemic respiratory failure--likely 2/2 central airway obstruction due to aspiration clinically improved post extubation 2. Acute on chronic encephalopathy History of significant dementia. 3. Severe leukocytosis, unclear source, possible aspiration pneumonia. 4. Anemia PLAN: 1. Aspiration precautions and speech therapy evaluation 2. Abx per ID 3. Follow Cx's 4. DVT and GI prophylaxis. 5. Consider PEG placement if remains aspiration risk. consider palliative care evaluation to discuss goals of care SHAHZAD FIERRO MD, [facility] Feb 26, 2019 13:29
--- NOTE | 2019-02-26 14:42 | PREAC ---
Date/Time of Note Date/Time of Note DATE: 02/26/19 TIME: 14:40 Anesthesia Eval and Record Evaluation Time Pre-Procedure Interview DATE: 02/26/19 TIME: 14:40 Age 73 Sex male NPO: 8 hrs Preoperative diagnosis Feeding tube placement Planned procedure EGD / PEG Past Medical History Past Medical History: Includes Cardio: HTN, Arrythmia (A-fib), Other (aortic aneurysm, status post repair.) Endo: Diabetes Neuro: CVA, Other (dementia) Heme: Anemia Surgery & Anesthesia Issues No known issue Meds Anticoagulation: No Beta Audrey within 24 hr: No Reason Beta Audrey not given: Pt. not on B-Audrey Active Scripts Cephalexin* (Keflex*) 500 Mg Capsule, 500 MG PO Q6, #40 CAP Prov:SANTOS HOLT MD 02/04/19 Reported Medications Pantoprazole* (Pantoprazole*) 40 Mg Tablet.dr, 40 MG PO AC BREAKFAST, TAB 02/18/19 Quetiapine Fumarate* (Quetiapine Fumarate*) 25 Mg Tablet, 25 MG PO BID, TAB 02/18/19 Lisinopril* (Lisinopril*) 40 Mg Tablet, 40 MG PO DAILY, #30 TAB 02/04/19 Magnesium Hydroxide* (Milk Of Magnesia*) 400 Mg/5 Ml Oral.susp, 30 ML PO BID, ML 02/04/19 Acetaminophen* (Tylenol*) 325 Mg Tablet, 650 MG PO Q4H PRN for MILD PAIN LEVEL 1-3, TAB AND FEVER >100f 02/04/19 Albuterol Sulfate* (Albuterol Sulfate* Neb) 0.083%-3 Ml Neb, 2.5 MG NEB Q4H PRN for WHEEZING AND SOB, #30 VIAL 02/04/19 Tamsulosin Hcl* (Flomax*) 0.4 Mg Cap.er.24h, 0.4 MG PO DAILY, CAP 02/04/19 Polyethylene Glycol* (Polyethylene Glycol*) 17 Gm Powd.pack, 17 GM PO DAILY, #30 PACKET 02/04/19 Melatonin (Melatonin) 5 Mg Tablet, 5 MG PO HS, TAB 02/04/19 Insulin Aspart* (Novolog Insulin Pen*) 100 Unit/Ml Soln, 0 SC .SLIDING SCALE AC, EA IF BS 150-199=2 UNITS. 200-249=4 UNITS, 250-299=6 UNITS,300-349-8 UNITS,350-399=10 UNITS,400-449=12 UNITS AND CALL MDPalma 02/04/19 Heparin Sodium,Porcine/Pf (HEPARIN SOD 5,000 UNIT/ 0.5 ML) 5,000 Unit/0.5 Ml Vial, 5000 UNIT IJ Q8H, VIAL 02/04/19 Bisacodyl (Dulcolax) 10 Mg Supp.rect, 10 MG RC DAILY, SUPP.RECT 02/04/19 Aspirin* (Aspirin* Chew) 81 Mg Tab.chew, 81 MG PO DAILY, TAB.CHEW 02/04/19 Amlodipine Besylate* (Amlodipine Besylate*) 10 Mg Tablet, 10 MG PO DAILY, #30 TAB 02/04/19 Amiodarone Hcl* (Amiodarone Hcl*) 200 Mg Tablet, 200 MG PO BID, #60 TAB 02/04/19 Current Medications Bisacodyl (Dulcolax Supp) 10 mg DAILY [place] Last administered on 02/26/19 08:49; Admin Dose 10 MG; Start 02/19/19 at 09:00 Tamsulosin HCl (Flomax) 0.4 mg HS PO Last administered on 02/21/19at 20:46; Admin Dose 0.4 MG; Start 02/18/19 at 22:00 IV Flush (NS 3 ml) 3 ml PER PROTOCOL IV ; Start 02/18/19 at 20:30 Ondansetron HCl (Zofran Inj) 4 mg Q6H PRN IV NAUSEA AND/OR VOMITING; Start 02/18/19 at 20:30 Acetaminophen (Tylenol Liquid) 650 mg Q6H PRN PO PAIN LEVEL 1-3 OR FEVER; Start 02/18/19 at 20:30 Famotidine (Pepcid Iv) 20 mg Q12 IV Last administered on 02/26/19 08:49; Admin Dose 20 MG; Start 02/18/19 at 21:00 Amlodipine Besylate (Norvasc) 10 mg DAILY GTB Last administered on 02/22/19 09:43; Admin Dose 10 MG; Start 02/19/19 at 09:00 Aspirin (Aspirin) 81 mg DAILY GTB Last administered on 02/22/19 09:43; Admin Dose 81 MG; Start 02/19/19 at 09:00 Lisinopril (Zestril) 40 mg DAILY GTB Last administered on 02/22/19 09:44; Admin Dose 40 MG; Start 02/19/19 at 09:00 Polyethylene Glycol (Miralax) 17 gm DAILY GTB Last administered on 02/22/19 09:43; Admin Dose 17 GM; Start 02/19/19 at 09:00 Amiodarone HCl (Cordarone) 200 mg BID GTB Last administered on 02/22/19 09:43; Admin Dose 200 MG; Start 02/19/19 at 09:00 Hydralazine HCl (Apresoline) 10 mg Q4H PRN IV ELEVATED BLOOD PRESSURE Last administered on 02/26/19 02:53; Admin Dose 10 MG; Start 02/19/19 at 20:30 Metoclopramide HCl (Reglan) 10 mg Q6 IV Last administered on 02/26/19 12:48; Admin Dose 10 MG; Start 02/21/19 at 12:00 Lorazepam (Ativan) 0.5 mg Q6H PRN IV AGITATION/ANXIETY Last administered on 02/26/19 08:50; Admin Dose 0.5 MG; Start 02/22/19 at 16:00 Albuterol/ Ipratropium (Duoneb) 3 ml Q6H RESP THERAPY HHN Last administered on 02/26/19at 13:08; Admin Dose 3 ML; Start 02/23/19 at 09:30 Insulin Aspart (Novolog Insulin Pen) NOVOLOG *MILD* ALGORITHM AC MEALS AND BEDTIME SC ; Start 02/24/19 at 21:00 Potassium Chloride/Dextrose/ Sod Cl 1,000 ml @ 60 mls/hr [id number] IV Last administered on 02/26/19 08:43; Admin Dose 60 MLS/HR; Start 02/25/19 at 15:30 Miscellaneous Information 1 ea NOTE XX ; Start 02/25/19 at 20:30 Glucose (Glutose) 15 gm Q15M PRN PO DECREASED GLUCOSE; Start 02/25/19 at 20:30 Glucose (Glutose) 22.5 gm Q15M PRN PO DECREASED GLUCOSE; Start 02/25/19 at 20:30 Dextrose (D50w Syringe) 25 ml Q15M PRN IV DECREASED GLUCOSE; Start 02/25/19 at 20:30 Dextrose (D50w Syringe) 50 ml Q15M PRN IV DECREASED GLUCOSE; Start 02/25/19 at 20:30 Glucagon (Glucagen) 1 mg Q15M PRN IM DECREASED GLUCOSE; Start 02/25/19 at 20:30 Glucose (Glutose) 15 gm Q15M PRN BUCCAL DECREASED GLUCOSE; Start 02/25/19 at 20:30 Meds reviewed: Yes Allergies Coded Allergies: No Known Allergy (Unverified , 02/18/19) Allergies Reviewed: Yes Labs/Studies Labs Reviewed: Reviewed by anesthesiologist Result Diagram: 02/24/19 0701 02/26/19 0805 Laboratory Tests 02/26/19 08:05 test: N/A Studies: ECG, CXR (Mild interval worsening in left lower lobe consolidation and small left pleural effusion. Stable mild opacities in the right lung base no pneumothorax. Stable cardiomegaly with postsurgical changes. Stable right IJ ca theter) Pre-procedure Exam Last vitals Vital Signs Date Temp Pulse Resp B/P (MAP) Pulse Ox O2 O2 Flow FiO2 Time Delivery Rate 02/26/19 97.8 64 20 152/69 99 Nasal 2.0 14:00 (96) Cannula 02/25/19 28 01:21 Airway: Adequate mouth opening Mallampati: Mallampati II Teeth: Normal Lung: Normal Heart: Normal ASA Physical Status ASA physical status: 3 Emergency: None Planned Anesthetic General/MAC: MAC Pre-operative Attestations Prior to commencing anesthesia and surgery, the patient was re-evaluated, there was verification of: *The patient's identity *The results of appropriate recent lab work and preoperative vital signs *The above evaluation not changing prior to induction *Anesthetic plan, risk benefits, alternative and complications discussed with patient/family; questions answered; patient/family understands, accepts and wishes to proceed. BENIGNO ORELLANA Feb 26, 2019 14:42
[2019-02-26] MEDS ORDERED: METOCLOPRAMIDE 10 MG INJ IV PRN (16:00)
[2019-02-26] MEDS ORDERED: EPHEDrine 25 MG/5 ML SYG IV PRN (16:00)
[2019-02-26] MEDS ORDERED: HYDROmorphONE 1 MG/5 ML IV SYRINGE IV PRN ×2 (16:00)
[2019-02-26] MEDS ORDERED: hydrALAzine 20 MG INJ IV PRN (16:00)
[2019-02-26] MEDS ORDERED: ONDANSETRON 4 MG INJ IV PRN (16:00)
[2019-02-26] MEDS ORDERED: LABETALOL HCL 20MG INJ IV PRN (16:00)
[2019-02-26] MEDS ORDERED: FENTAnyl 50 MCG/ML VIAL IV PRN ×2 (16:00)
[2019-02-26] MEDS ORDERED: CEFAZOLIN 2 GM/50 ML (PMX) 50 ML IVPB ONE (16:47)
[2019-02-26] MEDS ORDERED: PROPOFOL 20 ML ONE (16:47)
--- NOTE | 2019-02-26 16:48 | PAC ---
Date/Time of Note Date/Time of Note DATE: 02/26/19 TIME: 16:48 Post-Anesthesia Notes Post-Anesthesia Note Last documented vital signs Vital Signs Date Temp Pulse Resp B/P (MAP) Pulse Ox O2 O2 Flow FiO2 Time Delivery Rate 02/26/19 97.5 61 18 149/63 100 Nasal 3.0 16:44 (91) Cannula 02/25/19 28 01:21 Activity: WNL Respiratory function: WNL Cardiovascular function: WNL Mental status: Baseline Pain reasonably controlled: Yes Hydration appropriate: Yes Nausea/Vomiting absent: Yes ALKA HORNE MD Feb 26, 2019 16:48
--- NOTE | 2019-02-26 18:54 | CONS ---
Assessment/Plan Assessment/Plan Hospital Course (Demo Recall) 1100 No acute events overnight. Looks comfortable, no fevers Microbiology: All cultures negative Indwelling's: Cavanaugh, right subclavian triple-lumen catheter Antimicrobials: none Physical examination: This is a well-developed very seen elderly man who is in no distress. Head atraumatic normocephalic, sclera nonicteric vehicle mucosa dry neck is supple chest rise symmetrical breath sounds diminished bases. Heart: S1-S2. Abdomen soft bowel sounds present. Extremities without cyanosis Assessment: 1. S/p sepsis, status post shock likely secondary to aspiration 2. Acute hypoxemic respiratory failure, status post extubated 3. Possible aspiration pneumonia 4. History of CABG 5. History of CVA 6. Atrial fibrillation Plan: Remains stable, continue present care, aspiration precautions, pending PEG Consultation Date/Type/Reason Admit Date/Time February 18, 2019 at 17:32 Initial Consult Date Type of Consult id Date/Time of Note DATE: 02/26/19 TIME: 18:53 Exam/Review of Systems Exam Vitals Vital Signs Date Temp Pulse Resp B/P (MAP) Pulse Ox O2 O2 Flow FiO2 Time Delivery Rate 02/26/19 62 147/58 97 2.0 17:30 (87) 02/26/19 18 Mask 16:55 02/26/19 98.2 16:55 02/25/19 28 01:21 Intake and Output 02/25/19 02/25/19 02/26/19 1515:00 23:00 07:00 IntakeIntake Total 170 ml OutputOutput Total 1175 ml BalanceBalance -1005 ml Results Result Diagram: 02/24/19 0701 02/26/19 0805 Results 24hrs Laboratory Tests Test 02/25/19 20:57 02/26/19 08:05 02/26/19 08:32 02/26/19 12:47 Bedside Glucose 115 128 120 Sodium Level 134 L Potassium Level 4.0 Chloride Level 100 Carbon Dioxide Level 29 Anion Gap 5 Blood Urea Nitrogen 5 L Creatinine 0.54 L Est Glomerular Filtrat Rate mL/min Glucose Level 117 Calcium Level 8.5 Test 02/26/19 18:14 Bedside Glucose 105 Medications Medication Current Medications Bisacodyl (Dulcolax Supp) 10 mg DAILY ID Last administered on 02/26/19at 08:49; Admin Dose 10 MG; Start 02/19/19 at 09:00 Tamsulosin HCl (Flomax) 0.4 mg HS PO Last administered on 02/21/19 20:46; Admin Dose 0.4 MG; Start 02/18/19 at 22:00 IV Flush (NS 3 ml) 3 ml PER PROTOCOL IV ; Start 02/18/19 at 20:30 Ondansetron HCl (Zofran Inj) 4 mg Q6H PRN IV NAUSEA AND/OR VOMITING; Start 02/18/19 at 20:30 Acetaminophen (Tylenol Liquid) 650 mg Q6H PRN PO PAIN LEVEL 1-3 OR FEVER; Start 02/18/19 at 20:30 Famotidine (Pepcid Iv) 20 mg Q12 IV Last administered on 02/26/19 08:49; Admin Dose 20 MG; Start 02/18/19 at 21:00 Amlodipine Besylate (Norvasc) 10 mg DAILY GTB Last administered on 02/22/19 09:43; Admin Dose 10 MG; Start 02/19/19 at 09:00 Aspirin (Aspirin) 81 mg DAILY GTB Last administered on 02/22/19 09:43; Admin Dose 81 MG; Start 02/19/19 at 09:00 Lisinopril (Zestril) 40 mg DAILY GTB Last administered on 02/22/19 09:44; Admin Dose 40 MG; Start 02/19/19 at 09:00 Polyethylene Glycol (Miralax) 17 gm DAILY GTB Last administered on 02/22/19 09:43; Admin Dose 17 GM; Start 02/19/19 at 09:00 Amiodarone HCl (Cordarone) 200 mg BID GTB Last administered on 02/22/19 09:43; Admin Dose 200 MG; Start 02/19/19 at 09:00 Hydralazine HCl (Apresoline) 10 mg Q4H PRN IV ELEVATED BLOOD PRESSURE Last administered on 02/26/19 02:53; Admin Dose 10 MG; Start 02/19/19 at 20:30 Metoclopramide HCl (Reglan) 10 mg Q6 IV Last administered on 02/26/19 18:22; Admin Dose 10 MG; Start 02/21/19 at 12:00 Lorazepam (Ativan) 0.5 mg Q6H PRN IV AGITATION/ANXIETY Last administered on 02/26/19at 08:50; Admin Dose 0.5 MG; Start 02/22/19 at 16:00 Albuterol/ Ipratropium (Duoneb) 3 ml Q6H RESP THERAPY HHN Last administered on 02/26/19at 13:08; Admin Dose 3 ML; Start 02/23/19 at 09:30 Insulin Aspart (Novolog Insulin Pen) NOVOLOG *MILD* ALGORITHM AC MEALS AND BEDTIME SC ; Start 02/24/19 at 21:00 Potassium Chloride/Dextrose/ Sod Cl 1,000 ml @ 60 mls/hr [id number] IV Last administered on 02/26/19at 08:43; Admin Dose 60 MLS/HR; Start 02/25/19 at 15:30 Miscellaneous Information 1 ea NOTE XX ; Start 02/25/19 at 20:30 Glucose (Glutose) 15 gm Q15M PRN PO DECREASED GLUCOSE; Start 02/25/19 at 20:30 Glucose (Glutose) 22.5 gm Q15M PRN PO DECREASED GLUCOSE; Start 02/25/19 at 20:30 Dextrose (D50w Syringe) 25 ml Q15M PRN IV DECREASED GLUCOSE; Start 02/25/19 at 20:30 Dextrose (D50w Syringe) 50 ml Q15M PRN IV DECREASED GLUCOSE; Start 02/25/19 at 20:30 Glucagon (Glucagen) 1 mg Q15M PRN IM DECREASED GLUCOSE; Start 02/25/19 at 20:30 Glucose (Glutose) 15 gm Q15M PRN BUCCAL DECREASED GLUCOSE; Start 02/25/19 at 20:30 Hydromorphone HCl (Dilaudid) 0.2 mg PACU PRN IV MILD PAIN 1-3; Start 02/26/19 at 16:00; Stop 02/26/19 at 21:00 Hydromorphone HCl (Dilaudid) 0.4 mg PACU PRN IV MOD PAIN 4-6; Start 02/26/19 at 16:00; Stop 02/26/19 at 20:00 Fentanyl (Sublimaze) 25 mcg PACU ORDER PRN IV MILD PAIN 1-3; Start 02/26/19 at 16:00; Stop 02/26/19 at 20:00 Fentanyl (Sublimaze) 50 mcg PACU ORDER PRN IV MOD PAIN 4-6; Start 02/26/19 at 16:00; Stop 02/26/19 at 20:00 Ondansetron HCl (Zofran Inj) 4 mg PACU ORDER PRN IV NAUSEA/VOMITING; Start 02/26/19 at 16:00; Stop 02/26/19 at 20:00 Metoclopramide HCl (Reglan) 10 mg PACU ORDER PRN IV NAUSEA/VOMITING; Start 02/26/19 at 16:00; Stop 02/26/19 at 20:00 Labetalol HCl (Labetalol) 5 mg PACU ORDER PRN IV HIGH BLOOD PRESSURE; Start 02/26/19 at 16:00; Stop 02/26/19 at 20:00 Hydralazine HCl (Apresoline) 5 mg PACU ORDER PRN IV HIGH BLOOD PRESSURE; Start 02/26/19 at 16:00; Stop 02/26/19 at 20:00 Ephedrine Sulfate 5 mg PACU ORDER PRN IV BLOOD PRESSURE SUPPORT; Start 02/26/19 at 16:00; Stop 02/26/19 at 20:00 LUCINA DOMINGUEZ NP Feb 26, 2019 18:53
[2019-02-26] MEDS: TAMSULOSIN (SR) 0.4 MG CAP PO SCH (20:23)
[2019-02-26] MEDS: ACETAMINOPHEN 650MG/20.3ML CUP PO PRN (20:57)
[2019-02-27] MEDS: METOCLOPRAMIDE 10 MG INJ IV SCH ×3 (00:22→12:00)
[2019-02-27] MEDS: ALBUTEROL/IPRATROPIUM (NEB) 3 ML AMP HHN SCH ×4 (01:38→19:52)
[2019-02-27 02:00] VITALS: BP 158/68; PULSE 63; RESP 18
[2019-02-27 04:00] VITALS: BP 140/63; PULSE 63; RESP 17
[2019-02-27] MEDS: ACETAMINOPHEN 650MG/20.3ML CUP PO PRN ×3 (04:01→21:43)
[2019-02-27] MEDS: D5W-0.45 NACL + KCL 20 MEQ 1,000 ML IV SCH ×2 (04:02→21:57)
[2019-02-27 07:36] VITALS: BP 158/66; PULSE 68; RESP 18
[2019-02-27] MEDS: BISACODYL 10 MG SUPP PR SCH (09:00)
[2019-02-27] MEDS: INSULIN ASPART [NOVOLOG] 3 ML PEN SC SCH (09:10)
[2019-02-27] MEDS: LISINOPRIL 20 MG TAB GTB SCH (09:23)
[2019-02-27] MEDS: FAMOTIDINE 20 MG INJ IV SCH ×2 (09:23→21:45)
[2019-02-27] MEDS: AMLODIPINE 10 MG TAB GTB SCH (09:24)
[2019-02-27] MEDS: AMIODARONE 200 MG TAB GTB SCH ×2 (09:24→21:44)
[2019-02-27] MEDS: ASPIRIN 81 MG TAB GTB SCH (09:28)
--- NOTE | 2019-02-27 10:29 | PN ---
Date/Time of Note Date/Time of Note DATE: 02/27/19 TIME: 10:29 Assessment/Plan VTE Prophylaxis Risk score (from [facility] [place])>0 risk: 11 SCD applied (from [facility] [place]): Yes SCD contraindicated: other Pharmacological prophylaxis: other Pharm contraindication: other Lines/Catheters IV Catheter Type (from [facility]): Central Line Central line still needed: Yes Urinary Cath still in place: Yes Reason Cath still needed: urinary retention Assessment/Plan Assessment/Plan - Head lice - ID consult appreciated - contact precautions -Moderate malnutrition, failed swallow evaluation - Dr. Eid is asked to see patient in gastroenterology consultation for possible G-tube placement. - dietary consult -Acute respiratory failure requiring intubation and placement on mechanical ventilation, now extubated. - Dr Addison for pulm consult. -Severe sepsis with shock secondary to pneumonia. - Continue antibiotics per ID. ID Consult Dr. Guevara. -ALOC -History of aortic aneurysm, status post repair. -Atrial fibrillation -Hypertension -Cerebrovascular disease -Urinary retention with urethral stricture. -Diabetes, continue Lantus and NovoLog. Further recommendations based on clinical course. Plan of care discussed with Dr. Moreno. Result Diagram: 02/27/19 0438 02/27/19 0438 Results 24hrs Laboratory Tests Test 02/26/19 12:47 02/26/19 18:14 02/26/19 20:21 02/27/19 04:38 Bedside Glucose 120 105 122 White Blood Count 9.1 # Red Blood Count 2.87 L Hemoglobin 8.4 L Hematocrit 25.3 L Mean Corpuscular Volume 88.2 Mean Corpuscular 29.3 Hemoglobin Mean Corpuscular 33.2 Hemoglobin Concent Red Cell Distribution 14.6 H Width Platelet Count 327 Mean Platelet Volume 8.7 Immature Granulocytes % 0.500 H Neutrophils % 86.0 H Lymphocytes % 6.1 L Monocytes % 5.7 Eosinophils % 1.3 Basophils % 0.4 Nucleated Red Blood 0.0 Cells % Immature Granulocytes # 0.050 H Neutrophils # 7.8 H Lymphocytes # 0.6 L Monocytes # 0.5 Eosinophils # 0.1 Basophils # 0.0 Nucleated Red Blood 0.0 Cells # Sodium Level 134 L Potassium Level 4.4 Chloride Level 101 Carbon Dioxide Level 27 Anion Gap 6 Blood Urea Nitrogen 6 L Creatinine 0.50 L Est Glomerular Filtrat Rate mL/min Glucose Level 149 Calcium Level 8.3 L Test 02/27/19 09:20 Bedside Glucose 128 Subjective 24 Hr Interval Summary Free Text/Dictation nad vss no events reported last night dw saff Eyes: no complaints ENT: no complaints Respiratory: no complaints Cardiovascular: no complaints Gastrointestinal: no complaints Psychological: no complaints Exam/Review of Systems Exam Vitals Vital Signs Date Temp Pulse Resp B/P (MAP) Pulse Ox O2 O2 Flow FiO2 Time Delivery Rate 02/27/19 2.0 08:34 02/27/19 65 20 100 Nasal 08:34 Cannula 02/27/19 98.2 158/66 07:36 (96) 02/25/19 28 01:21 Intake and Output 02/26/19 02/26/19 02/27/19 1515:00 23:00 07:00 IntakeIntake Total 880 ml 500 ml 560 ml OutputOutput Total 1000 ml 500 ml BalanceBalance 880 ml -500 ml 60 ml Constitutional: alert, frail Psych: nl mood/affect Eyes: nl lids Neck: non-tender Respiratory: clear to auscultation Cardiovascular: nl pulses, other (S1S2) Gastrointestinal: soft, non-tender Musculoskeletal: muscle weakness Extremities: normal pulses Neurological: other (alert/responsive) Lymph: nontender Results Results 24hrs Laboratory Tests Test 02/26/19 12:47 02/26/19 18:14 02/26/19 20:21 02/27/19 04:38 Bedside Glucose 120 105 122 White Blood Count 9.1 # Red Blood Count 2.87 L Hemoglobin 8.4 L Hematocrit 25.3 L Mean Corpuscular Volume 88.2 Mean Corpuscular 29.3 Hemoglobin Mean Corpuscular 33.2 Hemoglobin Concent Red Cell Distribution 14.6 H Width Platelet Count 327 Mean Platelet Volume 8.7 Immature Granulocytes % 0.500 H Neutrophils % 86.0 H Lymphocytes % 6.1 L Monocytes % 5.7 Eosinophils % 1.3 Basophils % 0.4 Nucleated Red Blood 0.0 Cells % Immature Granulocytes # 0.050 H Neutrophils # 7.8 H Lymphocytes # 0.6 L Monocytes # 0.5 Eosinophils # 0.1 Basophils # 0.0 Nucleated Red Blood 0.0 Cells # Sodium Level 134 L Potassium Level 4.4 Chloride Level 101 Carbon Dioxide Level 27 Anion Gap 6 Blood Urea Nitrogen 6 L Creatinine 0.50 L Est Glomerular Filtrat Rate mL/min Glucose Level 149 Calcium Level 8.3 L Test 02/27/19 09:20 Bedside Glucose 128 Medications Medication Current Medications Bisacodyl (Dulcolax Supp) 10 mg DAILY WA Last administered on 02/26/19 08:49; Admin Dose 10 MG; Start 02/19/19 at 09:00 Tamsulosin HCl (Flomax) 0.4 mg HS PO Last administered on 02/26/19 20:23; Admin Dose 0.4 MG; Start 02/18/19 at 22:00 IV Flush (NS 3 ml) 3 ml PER PROTOCOL IV ; Start 02/18/19 at 20:30 Ondansetron HCl (Zofran Inj) 4 mg Q6H PRN IV NAUSEA AND/OR VOMITING; Start 02/18/19 at 20:30 Acetaminophen (Tylenol Liquid) 650 mg Q6H PRN PO PAIN LEVEL 1-3 OR FEVER Last administered on 02/27/19 09:38; Admin Dose 650 MG; Start 02/18/19 at 20:30 Famotidine (Pepcid Iv) 20 mg Q12 IV Last administered on 02/27/19 09:23; Admin Dose 20 MG; Start 02/18/19 at 21:00 Amlodipine Besylate (Norvasc) 10 mg DAILY GTB Last administered on 02/27/19 09:24; Admin Dose 10 MG; Start 02/19/19 at 09:00 Aspirin (Aspirin) 81 mg DAILY GTB Last administered on 02/27/19 09:28; Admin Dose 81 MG; Start 02/19/19 at 09:00 Lisinopril (Zestril) 40 mg DAILY GTB Last administered on 02/27/19 09:23; Admin Dose 40 MG; Start 02/19/19 at 09:00 Polyethylene Glycol (Miralax) 17 gm DAILY GTB Last administered on 02/22/19 09:43; Admin Dose 17 GM; Start 02/19/19 at 09:00 Amiodarone HCl (Cordarone) 200 mg BID GTB Last administered on 02/27/19 09:24; Admin Dose 200 MG; Start 02/19/19 at 09:00 Hydralazine HCl (Apresoline) 10 mg Q4H PRN IV ELEVATED BLOOD PRESSURE Last administered on 6/7/19at 02:53; Admin Dose 10 MG; Start 02/19/19 at 20:30 Metoclopramide HCl (Reglan) 10 mg Q6 IV Last administered on 02/27/19 06:18; Admin Dose 10 MG; Start 02/21/19 at 12:00 Lorazepam (Ativan) 0.5 mg Q6H PRN IV AGITATION/ANXIETY Last administered on 02/26/19 08:50; Admin Dose 0.5 MG; Start 02/22/19 at 16:00 Albuterol/ Ipratropium (Duoneb) 3 ml Q6H RESP THERAPY HHN Last administered on 02/27/19 08:32; Admin Dose 3 ML; Start 02/23/19 at 09:30 Insulin Aspart (Novolog Insulin Pen) NOVOLOG *MILD* ALGORITHM AC MEALS AND BEDTIME SC ; Start 02/24/19 at 21:00 Potassium Chloride/Dextrose/ Sod Cl 1,000 ml @ 60 mls/hr [id number] IV Last admi nistered on 02/27/19at 04:02; Admin Dose 60 MLS/HR; Start 02/25/19 at 15:30 Miscellaneous Information 1 ea NOTE XX ; Start 02/25/19 at 20:30 Glucose (Glutose) 15 gm Q15M PRN PO DECREASED GLUCOSE; Start 02/25/19 at 20:30 Glucose (Glutose) 22.5 gm Q15M PRN PO DECREASED GLUCOSE; Start 02/25/19 at 20:30 Dextrose (D50w Syringe) 25 ml Q15M PRN IV DECREASED GLUCOSE; Start 02/25/19 at 20:30 Dextrose (D50w Syringe) 50 ml Q15M PRN IV DECREASED GLUCOSE; Start 02/25/19 at 20:30 Glucagon (Glucagen) 1 mg Q15M PRN IM DECREASED GLUCOSE; Start 02/25/19 at 20:30 Glucose (Glutose) 15 gm Q15M PRN BUCCAL DECREASED GLUCOSE; Start 02/25/19 at 20:30 CAMILLE NIEVES Feb 27, 2019 10:29
[2019-02-27] MEDS ORDERED: BISACODYL 10 MG SUPP PR PRN (11:00)
--- NOTE | 2019-02-27 12:03 | CONS ---
Assessment/Plan Assessment/Plan Hospital Course (Demo Recall) ID PROGRESS NOTE CURRENT ABX: DAY # =>OFF ABX s/p ANCEF 02/27/19 0438 02/27/19 0438 24H INTERVAL SUMMARY * Awake, confused?, resting without acute distress/no dyspnea on 2L O2 via NC, no fevers, no c/o, chart reviewed * POD1-> s/p PEG 02/26/19 * NEW ISSUE ==> (+)Head LICE IMAGING * 02/24/19 CXR: Slight interval worsening in left lower lobe consolidation and left pleural effusion.Stable mild opacities in the right lung base. Interval removal of endotracheal and nasogastric tubes. * 12/30/18 CT BRAIN: Diffuse ventriculomegaly, cannot rule out normal pressure hydrocephalus. Periventricular low density area suggestive of deep white matter ischemic changes. Proportionate overlying brain atrophy seen. Brain stem, posterior fossa appears unremarkable. MICRO/OTHER * 02/18/19 (-)MRSA * 02/18/19 Urine Cx: (-) * 02/18/19 BCx (-) * 02/10/19 BCX (-) * 02/10/19 URINE CX: (-) * 02/04/19 URINE CX: URINE CULTURE Final Organism 1 CITROBACTER KOSERI COLONY COUNT 80,000 - 90,000 CFU/ml C KOSERI M.I.C. RX --------- --- CEFOTAXIME S CIPROFLOXACIN 1 S GENTAMICIN <=1 S LEVOFLOXACIN 1 S NITROFURANTOIN 32 S TOBRAMYCIN <=1 S TRIMETHOPRIM/SULFAMETHOXAZOLE <=20 S PHYSICAL EXAMINATION: GENERAL: VSS, NAD, HEENT: AT, NC, NECK: WNL CHEST: Equal chest rise bilaterally without dyspnea on observation ABD: Soft, ND EXTREMITIES: Warm, dry SKIN: No rash, no diaphoresis ID ASSESSMENT 73 yo M admit with: 1. s/p sepsis, status post shock likely secondary to aspiration 2. Acute hypoxemic respiratory failure, status post extubated 3. Aspiration pneumonia w/dysphagia * POD1-> s/p PEG 02/26/19 4. Paroxysmal Atrial fibrillation=> ON Amiodarone 02/10/2019 which also revealed normal sinus rhythm. 5. Aortic aneurysm repair. The patient underwent repair of pseudoaneurysm innominate artery at a tertiary care hospital recently. 6. 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 Hypertension 8. Hx of BPH and Urethral stricture -- urinary retention 9. s/p Gross Hematuria-- due to FC and severe urethral stricture/local trauma 10 s/p 02/04/19 Recent GNR urinary tract infection, status post antibiotic treatment. 11. Diabetes=> IDDM on Lantus and NovoLog. 12. NEW ISSUE ==> (+)Head LICE 02/18/19 (-)MRSA ABX ALLERGIES: NKDA INVASIVES: PIV CURRENT ABX: DAY # =>OFF ABX s/p ANCEF ID RECOMMENDATIONS/PLAN: 1. Continue to monitor OFF ABX 2. He is on Amiodarone = avoid Macrolides/Quinolones future if ABX indicated 3. NEW ISSUE ==> (+)Head LICE * TREATMENT RECOMMENDATION IS TO SHAVE HIS HEAD if he can give consent, or get consent from family * Alternative is to cover his scalp/hair with A&D ointment or Vaseline to contain the lice and nits and cover with cap * He will need all belonging put in plastic bag and sealed for 30 days until all eggs ohara and / . . Consultation Date/Type/Reason Admit Date/Time February 18, 2019 at 17:32 Initial Consult Date Date/Time of Note DATE: 02/27/19 TIME: 11:51 Exam/Review of Systems Exam Vitals Vital Signs Date Temp Pulse Resp B/P (MAP) Pulse Ox O2 O2 Flow FiO2 Time Delivery Rate 02/27/19 2.0 08:34 02/27/19 65 20 100 Nasal 08:34 Cannula 02/27/19 98.2 158/66 07:36 (96) 02/25/19 28 01:21 Intake and Output 02/26/19 02/26/19 02/27/19 1515:00 23:00 07:00 IntakeIntake Total 880 ml 500 ml 560 ml OutputOutput Total 1000 ml 500 ml BalanceBalance 880 ml -500 ml 60 ml Results Result Diagram: 02/27/19 0438 02/27/19 0438 Results 24hrs Laboratory Tests Test 02/26/19 12:47 02/26/19 18:14 02/26/19 20:21 02/27/19 04:38 Bedside Glucose 120 105 122 White Blood Count 9.1 # Red Blood Count 2.87 L Hemoglobin 8.4 L Hematocrit 25.3 L Mean Corpuscular Volume 88.2 Mean Corpuscular 29.3 Hemoglobin Mean Corpuscular 33.2 Hemoglobin Concent Red Cell Distribution 14.6 H Width Platelet Count 327 Mean Platelet Volume 8.7 Immature Granulocytes % 0.500 H Neutrophils % 86.0 H Lymphocytes % 6.1 L Monocytes % 5.7 Eosinophils % 1.3 Basophils % 0.4 Nucleated Red Blood 0.0 Cells % Immature Granulocytes # 0.050 H Neutrophils # 7.8 H Lymphocytes # 0.6 L Monocytes # 0.5 Eosinophils # 0.1 Basophils # 0.0 Nucleated Red Blood 0.0 Cells # Sodium Level 134 L Potassium Level 4.4 Chloride Level 101 Carbon Dioxide Level 27 Anion Gap 6 Blood Urea Nitrogen 6 L Creatinine 0.50 L Est Glomerular Filtrat Rate mL/min Glucose Level 149 Calcium Level 8.3 L Test 02/27/19 09:20 Bedside Glucose 128 Medications Medication Current Medications Tamsulosin HCl (Flomax) 0.4 mg HS PO Last administered on 02/26/19 20:23; Admin Dose 0.4 MG; Start 02/18/19 at 22:00 IV Flush (NS 3 ml) 3 ml PER PROTOCOL IV ; Start 02/18/19 at 20:30 Ondansetron HCl (Zofran Inj) 4 mg Q6H PRN IV NAUSEA AND/OR VOMITING; Start 02/18/19 at 20:30 Acetaminophen (Tylenol Liquid) 650 mg Q6H PRN PO PAIN LEVEL 1-3 OR FEVER Last administered on 02/27/19 09:38; Admin Dose 650 MG; Start 02/18/19 at 20:30 Famotidine (Pepcid Iv) 20 mg Q12 IV Last administered on 02/27/19 09:23; Admin Dose 20 MG; Start 02/18/19 at 21:00 Amlodipine Besylate (Norvasc) 10 mg DAILY GTB Last administered on 02/27/19 09:24; Admin Dose 10 MG; Start 02/19/19 at 09:00 Aspirin (Aspirin) 81 mg DAILY GTB Last administered on 02/27/19 09:28; Admin Dose 81 MG; Start 02/19/19 at 09:00 Lisinopril (Zestril) 40 mg DAILY GTB Last administered on 02/27/19 09:23; Admin Dose 40 MG; Start 02/19/19 at 09:00 Polyethylene Glycol (Miralax) 17 gm DAILY GTB Last administered on 02/22/19 09:43; Admin Dose 17 GM; Start 02/19/19 at 09:00 Amiodarone HCl (Cordarone) 200 mg BID GTB Last administered on 02/27/19 09:24; Admin Dose 200 MG; Start 02/19/19 at 09:00 Hydralazine HCl (Apresoline) 10 mg Q4H PRN IV ELEVATED BLOOD PRESSURE Last administered on 02/26/19 02:53; Admin Dose 10 MG; Start 02/19/19 at 20:30 Metoclopramide HCl (Reglan) 10 mg Q6 IV Last administered on 02/27/19 06:18; Admin Dose 10 MG; Start 02/21/19 at 12:00 Lorazepam (Ativan) 0.5 mg Q6H PRN IV AGITATION/ANXIETY Last administered on 02/26/19 08:50; Admin Dose 0.5 MG; Start 02/22/19 at 16:00 Albuterol/ Ipratropium (Duoneb) 3 ml Q6H RESP THERAPY HHN Last administered on 02/27/19 08:32; Admin Dose 3 ML; Start 02/23/19 at 09:30 Insulin Aspart (Novolog Insulin Pen) NOVOLOG *MILD* ALGORITHM AC MEALS AND BEDTIME SC ; Start 02/24/19 at 21:00 Potassium Chloride/Dextrose/ Sod Cl 1,000 ml @ 60 mls/hr [id number] IV Last administered on 02/27/19 04:02; Admin Dose 60 MLS/HR; Start 02/25/19 at 15:30 Miscellaneous Information 1 ea NOTE XX ; Start 02/25/19 at 20:30 Glucose (Glutose) 15 gm Q15M PRN PO DECREASED GLUCOSE; Start 02/25/19 at 20:30 Glucose (Glutose) 22.5 gm Q15M PRN PO DECREASED GLUCOSE; Start 02/25/19 at 20:30 Dextrose (D50w Syringe) 25 ml Q15M PRN IV DECREASED GLUCOSE; Start 02/25/19 at 20:30 Dextrose (D50w Syringe) 50 ml Q15M PRN IV DECREASED GLUCOSE; Start 02/25/19 at 20:30 Glucagon (Glucagen) 1 mg Q15M PRN IM DECREASED GLUCOSE; Start 02/25/19 at 20:30 Glucose (Glutose) 15 gm Q15M PRN BUCCAL DECREASED GLUCOSE; Start 02/25/19 at 20:30 Bisacodyl (Dulcolax Supp) 10 mg ONCE PRN ID CONSTIPATION; Start 02/27/19 at 11:00 DAYAN DAILEY NP Feb 27, 2019 12:02
--- NOTE | 2019-02-27 13:59 | CONS ---
Assessment/Plan Assessment/Plan Assessment/Plan (Daily) IMPRESSION: 1. Dysphagia with malnutrition. Status post a PEG 2. Respiratory failure. The patient on supplemental oxygen now. 3. Altered level of consciousness. 4. History of aortic aneurysm, status post repair. 5. Atrial fibrillation. 6. Hypertension. 7. Cerebrovascular accident. 8. Urinary retention secondary to urethral stricture. 9. Diabetes mellitus. Plan Increase feeding gradually As per the daughter patient is more comfortable and energetic after feeding Consultation Date/Type/Reason Admit Date/Time February 18, 2019 at 17:32 Initial Consult Date Date/Time of Note DATE: 02/27/19 TIME: 13:58 24 HR Interval Summary Constitutional: improved Exam/Review of Systems Exam Vitals Vital Signs Date Temp Pulse Resp B/P (MAP) Pulse Ox O2 O2 Flow FiO2 Time Delivery Rate 02/27/19 69 20 100 Nasal 2.0 13:46 Cannula 02/27/19 98.2 158/66 07:36 (96) 02/25/19 28 01:21 Intake and Output 02/26/19 02/26/19 02/27/19 1515:00 23:00 07:00 IntakeIntake Total 880 ml 500 ml 560 ml OutputOutput Total 1000 ml 500 ml BalanceBalance 880 ml -500 ml 60 ml Constitutional: alert, oriented, well developed Psych: no complaints, nl mood/affect Head: normocephalic, atraumatic Eyes: nl conjunctiva, EOMI, nl lids, nl sclera, PERRL ENMT: nl external ears & nose, nl lips & teeth, nl nasal mucosa & septum Neck: supple, non-tender Respiratory: clear to auscultation, normal air movement Cardiovascular: regular rate and rhythm, nl pulses Gastrointestinal: soft, nl liver, spleen, non-tender Musculoskeletal: nl extremities to inspection, nl gait and stance Extremities: normal pulses Neurological: [employer]MENT[employer] ATTENDANT II-XII intact, nl mental status, nl speech, nl strength Skin: nl turgor; No rash or lesions Lymph: nl lymph nodes Results Result Diagram: 02/27/19 0438 02/27/19 0438 Results 24hrs Laboratory Tests Test 02/26/19 18:14 02/26/19 20:21 02/27/19 04:38 02/27/19 09:20 Bedside Glucose 105 122 128 White Blood Count 9.1 # Red Blood Count 2.87 L Hemoglobin 8.4 L Hematocrit 25.3 L Mean Corpuscular Volume 88.2 Mean Corpuscular 29.3 Hemoglobin Mean Corpuscular 33.2 Hemoglobin Concent Red Cell Distribution 14.6 H Width Platelet Count 327 Mean Platelet Volume 8.7 Immature Granulocytes % 0.500 H Neutrophils % 86.0 H Lymphocytes % 6.1 L Monocytes % 5.7 Eosinophils % 1.3 Basophils % 0.4 Nucleated Red Blood 0.0 Cells % Immature Granulocytes # 0.050 H Neutrophils # 7.8 H Lymphocytes # 0.6 L Monocytes # 0.5 Eosinophils # 0.1 Basophils # 0.0 Nucleated Red Blood 0.0 Cells # Sodium Level 134 L Potassium Level 4.4 Chloride Level 101 Carbon Dioxide Level 27 Anion Gap 6 Blood Urea Nitrogen 6 L Creatinine 0.50 L Est Glomerular Filtrat Rate mL/min Glucose Level 149 Calcium Level 8.3 L Medications Medication Current Medications Tamsulosin HCl (Flomax) 0.4 mg HS PO Last administered on 02/26/19 20:23; Admin Dose 0.4 MG; Start 02/18/19 at 22:00 IV Flush (NS 3 ml) 3 ml PER PROTOCOL IV ; Start 02/18/19 at 20:30 Ondansetron HCl (Zofran Inj) 4 mg Q6H PRN IV NAUSEA AND/OR VOMITING; Start 02/18/19 at 20:30 Acetaminophen (Tylenol Liquid) 650 mg Q6H PRN PO PAIN LEVEL 1-3 OR FEVER Last administered on 02/27/19 09:38; Admin Dose 650 MG; Start 02/18/19 at 20:30 Famotidine (Pepcid Iv) 20 mg Q12 IV Last administered on 02/27/19 09:23; Admin Dose 20 MG; Start 02/18/19 at 21:00 Amlodipine Besylate (Norvasc) 10 mg DAILY GTB Last administered on 02/27/19 09:24; Admin Dose 10 MG; Start 02/19/19 at 09:00 Aspirin (Aspirin) 81 mg DAILY GTB Last administered on 02/27/19 09:28; Admin Dose 81 MG; Start 02/19/19 at 09:00 Lisinopril (Zestril) 40 mg DAILY GTB Last administered on 02/27/19 09:23; Admin Dose 40 MG; Start 02/19/19 at 09:00 Polyethylene Glycol (Miralax) 17 gm DAILY GTB Last administered on 02/22/19at 09:43; Admin Dose 17 GM; Start 02/19/19 at 09:00 Amiodarone HCl (Cordarone) 200 mg BID GTB Last administered on 02/27/19 09:24; Admin Dose 200 MG; Start 02/19/19 at 09:00 Hydralazine HCl (Apresoline) 10 mg Q4H PRN IV ELEVATED BLOOD PRESSURE Last administered on 02/26/19at 02:53; Admin Dose 10 MG; Start 02/19/19 at 20:30 Metoclopramide HCl (Reglan) 10 mg Q6 IV Last administered on 02/27/19at 06:18; Admin Dose 10 MG; Start 02/21/19 at 12:00 Lorazepam (Ativan) 0.5 mg Q6H PRN IV AGITATION/ANXIETY Last administered on 02/26/19at 08:50; Admin Dose 0.5 MG; Start 02/22/19 at 16:00 Albuterol/ Ipratropium (Duoneb) 3 ml Q6H RESP THERAPY HHN Last administered on 02/27/19at 13:46; Admin Dose 3 ML; Start 02/23/19 at 09:30 Insulin Aspart (Novolog Insulin Pen) NOVOLOG *MILD* ALGORITHM AC MEALS AND BEDTIME SC ; Start 02/24/19 at 21:00 Potassium Chloride/Dextrose/ Sod Cl 1,000 ml @ 60 mls/hr [id number] IV Last administered on 02/27/19at 04:02; Admin Dose 60 MLS/HR; Start 02/25/19 at 15:30 Miscellaneous Information 1 ea NOTE XX ; Start 02/25/19 at 20:30 Glucose (Glutose) 15 gm Q15M PRN PO DECREASED GLUCOSE; Start 02/25/19 at 20:30 Glucose (Glutose) 22.5 gm Q15M PRN PO DECREASED GLUCOSE; Start 02/25/19 at 20:30 Dextrose (D50w Syringe) 25 ml Q15M PRN IV DECREASED GLUCOSE; Start 02/25/19 at 20:30 Dextrose (D50w Syringe) 50 ml Q15M PRN IV DECREASED GLUCOSE; Start 02/25/19 at 20:30 Glucagon (Glucagen) 1 mg Q15M PRN IM DECREASED GLUCOSE; Start 02/25/19 at 20:30 Glucose (Glutose) 15 gm Q15M PRN BUCCAL DECREASED GLUCOSE; Start 02/25/19 at 20:30 Bisacodyl (Dulcolax Supp) 10 mg ONCE PRN [place] CONSTIPATION; Start 02/27/19 at 11:00 JOSE ANTONIO SALINAS MD Feb 27, 2019 13:59
[2019-02-27 14:18] VITALS: BP 157/69; PULSE 72; RESP 17
[2019-02-27] MEDS: Insulin NOVOLOG SS MILD Algorithm (NPO/TPN/ENTERAL FEEDS) SC SCH ×2 (15:20→23:56)
[2019-02-27] MEDS: POLYETHYLENE GLYCOL 17 GM PACKET GTB SCH (15:20)
[2019-02-27] MEDS ORDERED: METOCLOPRAMIDE 10 MG INJ IV PRN (17:00)
[2019-02-27] MEDS ORDERED: INSULIN ASPART [NOVOLOG] 3 ML PEN SC SCH (18:00)
[2019-02-27 20:09] VITALS: BP 173/71; PULSE 69; RESP 18
[2019-02-27] MEDS: TAMSULOSIN (SR) 0.4 MG CAP PO SCH (21:44)
[2019-02-28 00:02] VITALS: BP 172/69; PULSE 69; RESP 17
[2019-02-28] MEDS: ALBUTEROL/IPRATROPIUM (NEB) 3 ML AMP HHN SCH ×4 (01:14→20:48)
[2019-02-28] MEDS: ACETAMINOPHEN 650MG/20.3ML CUP PO PRN (04:25)
[2019-02-28 04:41] VITALS: BP 155/70; PULSE 67; RESP 18
[2019-02-28] MEDS: Insulin NOVOLOG SS MILD Algorithm (NPO/TPN/ENTERAL FEEDS) SC SCH ×4 (05:59→23:49)
--- NOTE | 2019-02-28 08:05 | PN ---
Date/Time of Note Date/Time of Note DATE: 02/28/19 TIME: 08:04 Assessment/Plan VTE Prophylaxis Risk score (from [facility])>0 risk: 6 SCD applied (from [facility]): Yes SCD contraindicated: other Pharmacological prophylaxis: other Pharm contraindication: other Lines/Catheters IV Catheter Type (from [facility]): Central Line Central line still needed: Yes Urinary Cath still in place: Yes Reason Cath still needed: urinary retention Assessment/Plan Assessment/Plan - Head lice - ID follows - contact precautions - Acute hypernatremia- monitor labs, fluids -Moderate malnutrition, failed swallow evaluation - Dr. Eid is asked to see patient in gastroenterology consultation for possible G-tube placement. - dietary consult -Acute respiratory failure requiring intubation and placement on mechanical ventilation, now extubated. - Dr Addison for pulm consult. -Severe sepsis with shock secondary to pneumonia. - Continue antibiotics per ID. ID Consult Dr. Guevara. -ALOC -History of aortic aneurysm, status post repair. -Atrial fibrillation -Hypertension -Cerebrovascular disease -Urinary retention with urethral stricture. -Diabetes, continue Lantus and NovoLog. Further recommendations based on clinical course. Plan of care discussed with Dr. Moreno. Result Diagram: 02/28/19 0435 02/28/19 0435 Results 24hrs Laboratory Tests Test 02/27/19 09:20 02/27/19 15:00 02/27/19 23:51 02/28/19 04:35 Bedside Glucose 128 194 145 White Blood Count 17.8 #H Red Blood Count 2.90 L Hemoglobin 8.4 L Hematocrit 25.4 L Mean Corpuscular Volume 87.6 Mean Corpuscular 29.0 Hemoglobin Mean Corpuscular 33.1 Hemoglobin Concent Red Cell Distribution 14.6 H Width Platelet Count 317 Mean Platelet Volume 8.8 Immature Granulocytes % 1.100 H Neutrophils % 90.6 H Lymphocytes % 3.5 L Monocytes % 4.4 Eosinophils % 0.2 Basophils % 0.2 Nucleated Red Blood 0.0 Cells % Immature Granulocytes # 0.190 H Neutrophils # 16.1 H Lymphocytes # 0.6 L Monocytes # 0.8 Eosinophils # 0.0 Basophils # 0.0 Nucleated Red Blood 0.0 Cells # Sodium Level 129 L Potassium Level 4.4 Chloride Level 97 Carbon Dioxide Level 28 Anion Gap 4 L Blood Urea Nitrogen 10 Creatinine 0.53 L Est Glomerular Filtrat Rate mL/min Glucose Level 165 Calcium Level 8.3 L Test 02/28/19 05:57 Bedside Glucose 126 Exam/Review of Systems Exam Vitals Vital Signs Date Temp Pulse Resp B/P (MAP) Pulse Ox O2 O2 Flow FiO2 Time Delivery Rate 02/28/19 97.5 67 18 155/70 95 Room Air 04:41 (98) 02/28/19 2.0 01:19 02/28/19 21 01:15 Intake and Output 02/27/19 02/27/19 02/28/19 1515:00 23:00 07:00 IntakeIntake Total 1306 ml 1000 ml OutputOutput Total 800 ml 680 ml BalanceBalance 506 ml 320 ml Constitutional: alert, frail Psych: nl mood/affect Head: other (head lice ) Eyes: nl lids, nl sclera ENMT: nl external ears & nose Neck: non-tender Respiratory: clear to auscultation Cardiovascular: nl pulses, other (s1s2) Gastrointestinal: non-tender Musculoskeletal: muscle weakness Extremities: normal pulses Neurological: other (alert/repsonsive) Lymph: nontender Results Results 24hrs Laboratory Tests Test 02/27/19 09:20 02/27/19 15:00 02/27/19 23:51 02/28/19 04:35 Bedside Glucose 128 194 145 White Blood Count 17.8 #H Red Blood Count 2.90 L Hemoglobin 8.4 L Hematocrit 25.4 L Mean Corpuscular Volume 87.6 Mean Corpuscular 29.0 Hemoglobin Mean Corpuscular 33.1 Hemoglobin Concent Red Cell Distribution 14.6 H Width Platelet Count 317 Mean Platelet Volume 8.8 Immature Granulocytes % 1.100 H Neutrophils % 90.6 H Lymphocytes % 3.5 L Monocytes % 4.4 Eosinophils % 0.2 Basophils % 0.2 Nucleated Red Blood 0.0 Cells % Immature Granulocytes # 0.190 H Neutrophils # 16.1 H Lymphocytes # 0.6 L Monocytes # 0.8 Eosinophils # 0.0 Basophils # 0.0 Nucleated Red Blood 0.0 Cells # Sodium Level 129 L Potassium Level 4.4 Chloride Level 97 Carbon Dioxide Level 28 Anion Gap 4 L Blood Urea Nitrogen 10 Creatinine 0.53 L Est Glomerular Filtrat Rate mL/min Glucose Level 165 Calcium Level 8.3 L Test 02/28/19 05:57 Bedside Glucose 126 Medications Medication Current Medications Tamsulosin HCl (Flomax) 0.4 mg HS PO Last administered on 02/27/19 21:44; Admin Dose 0.4 MG; Start 02/18/19 at 22:00 IV Flush (NS 3 ml) 3 ml PER PROTOCOL IV ; Start 02/18/19 at 20:30 Ondansetron HCl (Zofran Inj) 4 mg Q6H PRN IV NAUSEA AND/OR VOMITING; Start 02/18/19 at 20:30 Acetaminophen (Tylenol Liquid) 650 mg Q6H PRN PO PAIN LEVEL 1-3 OR FEVER Last administered on 02/28/19 04:25; Admin Dose 650 MG; Start 02/18/19 at 20:30 Famotidine (Pepcid Iv) 20 mg Q12 IV Last administered on 02/27/19 21:45; Admin Dose 20 MG; Start 02/18/19 at 21:00 Amlodipine Besylate (Norvasc) 10 mg DAILY GTB Last administered on 02/27/19 09:24; Admin Dose 10 MG; Start 02/19/19 at 09:00 Aspirin (Aspirin) 81 mg DAILY GTB Last administered on 02/27/19 09:28; Admin Dose 81 MG; Start 02/19/19 at 09:00 Lisinopril (Zestril) 40 mg DAILY GTB Last administered on 02/27/19 09:23; Admin Dose 40 MG; Start 02/19/19 at 09:00 Polyethylene Glycol (Miralax) 17 gm DAILY GTB Last administered on 02/27/19 15:20; Admin Dose 17 GM; Start 02/19/19 at 09:00 Amiodarone HCl (Cordarone) 200 mg BID GTB Last administered on 02/27/19 21:44; Admin Dose 200 MG; Start 02/19/19 at 09:00 Hydralazine HCl (Apresoline) 10 mg Q4H PRN IV ELEVATED BLOOD PRESSURE Last administered on 02/26/19 02:53; Admin Dose 10 MG; Start 02/19/19 at 20:30 Lorazepam (Ativan) 0.5 mg Q6H PRN IV AGITATION/ANXIETY Last administered on 02/26/19 08:50; Admin Dose 0.5 MG; Start 02/22/19 at 16:00 Albuterol/ Ipratropium (Duoneb) 3 ml Q6H RESP THERAPY HHN Last administered on 02/28/19at 01:14; Admin Dose 3 ML; Start 02/23/19 at 09:30 Potassium Chloride/Dextrose/ Sod Cl 1,000 ml @ 60 mls/hr [id number] IV Last administered on 02/27/19at 21:57; Admin Dose 60 MLS/HR; Start 02/25/19 at 15:30 Miscellaneous Information 1 ea NOTE XX ; Start 02/25/19 at 20:30 Glucose (Glutose) 15 gm Q15M PRN PO DECREASED GLUCOSE; Start 02/25/19 at 20:30 Glucose (Glutose) 22.5 gm Q15M PRN PO DECREASED GLUCOSE; Start 02/25/19 at 20:30 Dextrose (D50w Syringe) 25 ml Q15M PRN IV DECREASED GLUCOSE; Start 02/25/19 at 20:30 Dextrose (D50w Syringe) 50 ml Q15M PRN IV DECREASED GLUCOSE; Start 02/25/19 at 20:30 Glucagon (Glucagen) 1 mg Q15M PRN IM DECREASED GLUCOSE; Start 02/25/19 at 20:30 Glucose (Glutose) 15 gm Q15M PRN BUCCAL DECREASED GLUCOSE; Start 02/25/19 at 20:30 Bisacodyl (Dulcolax Supp) 10 mg ONCE PRN [place] CONSTIPATION; Start 02/27/19 at 11:00 Insulin Aspart (Novolog Insulin Pen) (Adult SC Insulin - Mild Algorithm)... Q6 SC Last administered on 02/27/19at 23:56; Admin Dose 1 UNIT; Start 02/27/19 at 18:00 Metoclopramide HCl (Reglan) 10 mg Q6H PRN IV nausea; Start 02/27/19 at 17:00 CAMILLE NIEVES Feb 28, 2019 08:05
[2019-02-28 08:56] VITALS: BP 164/68; PULSE 68; RESP 17
[2019-02-28] MEDS: ASPIRIN 81 MG TAB GTB SCH (09:41)
[2019-02-28] MEDS: AMLODIPINE 10 MG TAB GTB SCH (09:41)
[2019-02-28] MEDS: LISINOPRIL 20 MG TAB GTB SCH (09:42)
[2019-02-28] MEDS: AMIODARONE 200 MG TAB GTB SCH ×2 (09:42→21:22)
[2019-02-28] MEDS: FAMOTIDINE 20 MG INJ IV SCH ×2 (09:43→21:23)
[2019-02-28] MEDS: POLYETHYLENE GLYCOL 17 GM PACKET GTB SCH (09:47)
[2019-02-28] MEDS: D5W-0.45 NACL + KCL 20 MEQ 1,000 ML IV SCH ×2 (10:10→15:11)
--- NOTE | 2019-02-28 14:48 | CONS ---
Assessment/Plan Assessment/Plan Hospital Course (Demo Recall) ID PROGRESS NOTE CURRENT ABX: DAY # =>OFF ABX s/p ANCEF 24H INTERVAL SUMMARY * Lethargic without dyspnea on 2L O2 via NC, no fevers, no c/o, chart reviewed * POD2-> s/p PEG 02/26/19 ==? ABX XR 02/28/19 ()Ileus * NEW ISSUE ==> (+)Head LICE == Head now shaved IMAGING * 02/28/19 ABD XR: Gastrostomy tube in place. No findings of bowel obstruction or free air. Intestinal ileus. * 02/24/19 CXR: Slight interval worsening in left lower lobe consolidation and left pleural effusion.Stable mild opacities in the right lung base. Interval removal of endotracheal and nasogastric tubes. * 12/30/18 CT BRAIN: Diffuse ventriculomegaly, cannot rule out normal pressure hydrocephalus. Periventricular low density area suggestive of deep white matter ischemic changes. Proportionate overlying brain atrophy seen. Brain stem, posterior fossa appears unremarkable. MICRO/OTHER * 02/18/19 (-)MRSA * 02/18/19 Urine Cx: (-) * 02/18/19 BCx (-) * 02/10/19 BCX (-) * 02/10/19 URINE CX: (-) * 02/04/19 URINE CX: URINE CULTURE Final Organism 1 CITROBACTER KOSERI COLONY COUNT 80,000 - 90,000 CFU/ml C KOSERI M.I.C. RX --------- --- CEFOTAXIME S CIPROFLOXACIN 1 S GENTAMICIN <=1 S LEVOFLOXACIN 1 S NITROFURANTOIN 32 S TOBRAMYCIN <=1 S TRIMETHOPRIM/SULFAMETHOXAZOLE <=20 S PHYSICAL EXAMINATION: GENERAL: VSS, NAD, HEENT: AT, NC, NECK: WNL CHEST: Equal chest rise bilaterally without dyspnea on observation ABD: Soft, ND EXTREMITIES: Warm, dry SKIN: No rash, no diaphoresis ID ASSESSMENT 73 yo M admit with: 1. s/p sepsis, status post shock likely secondary to aspiration 2. Acute hypoxemic respiratory failure, status post extubated 3. Aspiration pneumonia w/dysphagia * POD1-> s/p PEG 02/26/19 4. Paroxysmal Atrial fibrillation=> ON Amiodarone 02/10/2019 which also revealed normal sinus rhythm. 5. Aortic aneurysm repair. 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 6. 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 Hypertension 8. Hx of BPH and Urethral stricture -- urinary retention 9. s/p Gross Hematuria-- due to FC and severe urethral stricture/local trauma 10 s/p 02/04/19 Recent GNR urinary tract infection, status post antibiotic treatment. 11. Diabetes=> IDDM on Lantus and NovoLog. 12. NEW ISSUE ==> (+)Head LICE Head now shaved 13. Ileus per ABD XR today 02/18/19 (-)MRSA ABX ALLERGIES: NKDA INVASIVES: PIV CURRENT ABX: DAY # =>OFF ABX s/p ANCEF ID RECOMMENDATIONS/PLAN: 1. Continue to monitor OFF ABX 2. He is on Amiodarone = avoid Macrolides/Quinolones future if ABX indicated 3. NEW ISSUE ==> (+)Head LICE * Head is now shaved * Personal clothing bagged for 30 days as cannot launder in hot water * Hospital linens can be laundered = Nits will in hot water when washed / . . Consultation Date/Type/Reason Admit Date/Time February 18, 2019 at 17:32 Initial Consult Date Date/Time of Note DATE: 02/28/19 TIME: 14:44 Exam/Review of Systems Exam Vitals Vital Signs Date Temp Pulse Resp B/P (MAP) Pulse Ox O2 O2 Flow FiO2 Time Delivery Rate 02/28/19 60 18 100 21 14:32 02/28/19 98.8 164/68 Room Air 08:56 (100) 02/28/19 2.0 01:19 Intake and Output 02/27/19 02/27/19 02/28/19 1515:00 23:00 07:00 IntakeIntake Total 1306 ml 1000 ml OutputOutput Total 800 ml 680 ml BalanceBalance 506 ml 320 ml Results Result Diagram: 02/28/19 0435 02/28/19 0435 Results 24hrs Laboratory Tests Test 02/27/19 15:00 02/27/19 23:51 02/28/19 04:35 02/28/19 05:57 Bedside Glucose 194 145 126 White Blood Count 17.8 #H Red Blood Count 2.90 L Hemoglobin 8.4 L Hematocrit 25.4 L Mean Corpuscular Volume 87.6 Mean Corpuscular 29.0 Hemoglobin Mean Corpuscular 33.1 Hemoglobin Concent Red Cell Distribution 14.6 H Width Platelet Count 317 Mean Platelet Volume 8.8 Immature Granulocytes % 1.100 H Neutrophils % 90.6 H Lymphocytes % 3.5 L Monocytes % 4.4 Eosinophils % 0.2 Basophils % 0.2 Nucleated Red Blood 0.0 Cells % Immature Granulocytes # 0.190 H Neutrophils # 16.1 H Lymphocytes # 0.6 L Monocytes # 0.8 Eosinophils # 0.0 Basophils # 0.0 Nucleated Red Blood 0.0 Cells # Sodium Level 129 L Potassium Level 4.4 Chloride Level 97 Carbon Dioxide Level 28 Anion Gap 4 L Blood Urea Nitrogen 10 Creatinine 0.53 L Est Glomerular Filtrat Rate mL/min Glucose Level 165 Calcium Level 8.3 L Test 02/28/19 12:49 Bedside Glucose 165 Medications Medication Current Medications Tamsulosin HCl (Flomax) 0.4 mg HS PO Last administered on 02/27/19 21:44; Admin Dose 0.4 MG; Start 02/18/19 at 22:00 IV Flush (NS 3 ml) 3 ml PER PROTOCOL IV ; Start 02/18/19 at 20:30 Ondansetron HCl (Zofran Inj) 4 mg Q6H PRN IV NAUSEA AND/OR VOMITING; Start 02/18/19 at 20:30 Acetaminophen (Tylenol Liquid) 650 mg Q6H PRN PO PAIN LEVEL 1-3 OR FEVER Last administered on 02/28/19 04:25; Admin Dose 650 MG; Start 02/18/19 at 20:30 Famotidine (Pepcid Iv) 20 mg Q12 IV Last administered on 02/28/19 09:43; Admin Dose 20 MG; Start 02/18/19 at 21:00 Amlodipine Besylate (Norvasc) 10 mg DAILY GTB Last administered on 02/28/19 09: 41; Admin Dose 10 MG; Start 02/19/19 at 09:00 Aspirin (Aspirin) 81 mg DAILY GTB Last administered on 02/28/19 09:41; Admin Dose 81 MG; Start 02/19/19 at 09:00 Lisinopril (Zestril) 40 mg DAILY GTB Last administered on 02/28/19 09:42; Admin Dose 40 MG; Start 02/19/19 at 09:00 Polyethylene Glycol (Miralax) 17 gm DAILY GTB Last administered on 02/28/19 09:47; Admin Dose 17 GM; Start 02/19/19 at 09:00 Amiodarone HCl (Cordarone) 200 mg BID GTB Last administered on 02/28/19 09:42; Admin Dose 200 MG; Start 02/19/19 at 09:00 Hydralazine HCl (Apresoline) 10 mg Q4H PRN IV ELEVATED BLOOD PRESSURE Last administered on 02/26/19 02:53; Admin Dose 10 MG; Start 02/19/19 at 20:30 Lorazepam (Ativan) 0.5 mg Q6H PRN IV AGITATION/ANXIETY Last administered on 02/26/19 08:50; Admin Dose 0.5 MG; Start 02/22/19 at 16:00 Albuterol/ Ipratropium (Duoneb) 3 ml Q6H RESP THERAPY HHN Last administered on 02/28/19at 14:29; Admin Dose 3 ML; Start 02/23/19 at 09:30 Potassium Chloride/Dextrose/ Sod Cl 1,000 ml @ 60 mls/hr [id number] IV Last administered on 02/27/19at 21:57; Admin Dose 60 MLS/HR; Start 02/25/19 at 15:30 Miscellaneous Information 1 ea NOTE XX ; Start 02/25/19 at 20:30 Glucose (Glutose) 15 gm Q15M PRN PO DECREASED GLUCOSE; Start 02/25/19 at 20:30 Glucose (Glutose) 22.5 gm Q15M PRN PO DECREASED GLUCOSE; Start 02/25/19 at 20:30 Dextrose (D50w Syringe) 25 ml Q15M PRN IV DECREASED GLUCOSE; Start 02/25/19 at 20:30 Dextrose (D50w Syringe) 50 ml Q15M PRN IV DECREASED GLUCOSE; Start 02/25/19 at 20:30 Glucagon (Glucagen) 1 mg Q15M PRN IM DECREASED GLUCOSE; Start 02/25/19 at 20:30 Glucose (Glutose) 15 gm Q15M PRN BUCCAL DECREASED GLUCOSE; Start 02/25/19 at 20:30 Bisacodyl (Dulcolax Supp) 10 mg ONCE PRN [place] CONSTIPATION; Start 02/27/19 at 11:00 Insulin Aspart (Novolog Insulin Pen) (Adult SC Insulin - Mild Algorithm)... Q6 SC Last administered on 02/27/19at 23:56; Admin Dose 1 UNIT; Start 02/27/19 at 18:00 Metoclopramide HCl (Reglan) 10 mg Q6H PRN IV nausea; Start 02/27/19 at 17:00 DAYAN DAILEY NP Feb 28, 2019 14:48
[2019-02-28 19:14] VITALS: BP 151/72; PULSE 61; RESP 18
--- NOTE | 2019-02-28 19:26 | CONS ---
Assessment/Plan Assessment/Plan Assessment/Plan (Daily) Assessment/Plan (Daily) IMPRESSION: 1. Dysphagia with malnutrition. Status post a PEG 2. Respiratory failure. The patient on supplemental oxygen now. 3. Altered level of consciousness. 4. History of aortic aneurysm, status post repair. 5. Atrial fibrillation. 6. Hypertension. 7. Cerebrovascular accident. 8. Urinary retention secondary to urethral stricture. 9. Diabetes mellitus. 10. Pain around the G-tube site, I examined it. It is totally normal no evidence of cellulitis and the G-tube is well position. KUB also was normal Plan Increase feeding gradually As per the daughter patient is more comfortable and energetic after feeding Told the staff to resume feeding through the G-tube and give Tylenol for the pain Consultation Date/Type/Reason Admit Date/Time February 18, 2019 at 17:32 Initial Consult Date Date/Time of Note DATE: 02/28/19 TIME: 19:25 24 HR Interval Summary Free Text/Dictation Per the staff patient complains of pain around the G-tube site Exam/Review of Systems Exam Vitals Vital Signs Date Temp Pulse Resp B/P (MAP) Pulse Ox O2 O2 Flow FiO2 Time Delivery Rate 02/28/19 98.5 61 18 151/72 96 Room Air 19:14 (98) 02/28/19 21 14:32 02/28/19 2.0 01:19 Intake and Output 02/27/19 02/27/19 02/28/19 1515:00 23:00 07:00 IntakeIntake Total 1306 ml 1000 ml OutputOutput Total 800 ml 680 ml BalanceBalance 506 ml 320 ml Constitutional: alert, oriented, well developed Psych: no complaints, nl mood/affect Head: normocephalic, atraumatic Eyes: nl conjunctiva, EOMI, nl lids, nl sclera, PERRL ENMT: nl external ears & nose, nl lips & teeth, nl nasal mucosa & septum Neck: supple, non-tender Respiratory: clear to auscultation, normal air movement Cardiovascular: regular rate and rhythm, nl pulses Gastrointestinal: soft, nl liver, spleen, non-tender Musculoskeletal: nl extremities to inspection, nl gait and stance Extremities: normal pulses Neurological: MANAGER INTEGRITY II-XII intact, nl mental status, nl speech, nl strength Skin: nl turgor; No rash or lesions Lymph: nl lymph nodes Results Result Diagram: 02/28/19 0435 02/28/19 0435 Results 24hrs Laboratory Tests Test 02/27/19 23:51 02/28/19 04:35 02/28/19 05:57 02/28/19 12:49 Bedside Glucose 145 126 165 White Blood Count 17.8 #H Red Blood Count 2.90 L Hemoglobin 8.4 L Hematocrit 25.4 L Mean Corpuscular Volume 87.6 Mean Corpuscular 29.0 Hemoglobin Mean Corpuscular 33.1 Hemoglobin Concent Red Cell Distribution 14.6 H Width Platelet Count 317 Mean Platelet Volume 8.8 Immature Granulocytes % 1.100 H Neutrophils % 90.6 H Lymphocytes % 3.5 L Monocytes % 4.4 Eosinophils % 0.2 Basophils % 0.2 Nucleated Red Blood 0.0 Cells % Immature Granulocytes # 0.190 H Neutrophils # 16.1 H Lymphocytes # 0.6 L Monocytes # 0.8 Eosinophils # 0.0 Basophils # 0.0 Nucleated Red Blood 0.0 Cells # Sodium Level 129 L Potassium Level 4.4 Chloride Level 97 Carbon Dioxide Level 28 Anion Gap 4 L Blood Urea Nitrogen 10 Creatinine 0.53 L Est Glomerular Filtrat Rate mL/min Glucose Level 165 Calcium Level 8.3 L Test 02/28/19 18:41 Bedside Glucose 109 Medications Medication Current Medications Tamsulosin HCl (Flomax) 0.4 mg HS PO Last administered on 02/27/19at 21:44; Admin Dose 0.4 MG; Start 02/18/19 at 22:00 IV Flush (NS 3 ml) 3 ml PER PROTOCOL IV ; Start 02/18/19 at 20:30 Ondansetron HCl (Zofran Inj) 4 mg Q6H PRN IV NAUSEA AND/OR VOMITING; Start 02/18/19 at 20:30 Acetaminophen (Tylenol Liquid) 650 mg Q6H PRN PO PAIN LEVEL 1-3 OR FEVER Last administered on 02/28/19 04:25; Admin Dose 650 MG; Start 02/18/19 at 20:30 Famotidine (Pepcid Iv) 20 mg Q12 IV Last administered on 02/28/19at 09:43; Admin Dose 20 MG; Start 02/18/19 at 21:00 Amlodipine Besylate (Norvasc) 10 mg DAILY GTB Last administered on 02/28/19at 09:41; Admin Dose 10 MG; Start 02/19/19 at 09:00 Aspirin (Aspirin) 81 mg DAILY GTB Last administered on 02/28/19 09:41; Admin Dose 81 MG; Start 02/19/19 at 09:00 Lisinopril (Zestril) 40 mg DAILY GTB Last administered on 02/28/19 09:42; Admin Dose 40 MG; Start 02/19/19 at 09:00 Polyethylene Glycol (Miralax) 17 gm DAILY GTB Last administered on 02/28/19 09:47; Admin Dose 17 GM; Start 02/19/19 at 09:00 Amiodarone HCl (Cordarone) 200 mg BID GTB Last administered on 02/28/19 09:42; Admin Dose 200 MG; Start 02/19/19 at 09:00 Hydralazine HCl (Apresoline) 10 mg Q4H PRN IV ELEVATED BLOOD PRESSURE Last administered on 02/26/19 02:53; Admin Dose 10 MG; Start 02/19/19 at 20:30 Lorazepam (Ativan) 0.5 mg Q6H PRN IV AGITATION/ANXIETY Last administered on 02/26/19 08:50; Admin Dose 0.5 MG; Start 02/22/19 at 16:00 Albuterol/ Ipratropium (Duoneb) 3 ml Q6H RESP THERAPY HHN Last administered on 02/28/19at 14:29; Admin Dose 3 ML; Start 02/23/19 at 09:30 Miscellaneous Information 1 ea NOTE XX ; Start 02/25/19 at 20:30 Glucose (Glutose) 15 gm Q15M PRN PO DECREASED GLUCOSE; Start 02/25/19 at 20:30 Glucose (Glutose) 22.5 gm Q15M PRN PO DECREASED GLUCOSE; Start 02/25/19 at 20:30 Dextrose (D50w Syringe) 25 ml Q15M PRN IV DECREASED GLUCOSE; Start 02/25/19 at 20:30 Dextrose (D50w Syringe) 50 ml Q15M PRN IV DECREASED GLUCOSE; Start 02/25/19 at 20:30 Glucagon (Glucagen) 1 mg Q15M PRN IM DECREASED GLUCOSE; Start 02/25/19 at 20:30 Glucose (Glutose) 15 gm Q15M PRN BUCCAL DECREASED GLUCOSE; Start 02/25/19 at 20:30 Bisacodyl (Dulcolax Supp) 10 mg ONCE PRN [place] CONSTIPATION; Start 02/27/19 at 11:00 Insulin Aspart (Novolog Insulin Pen) (Adult SC Insulin - Mild Algorithm)... Q6 SC Last administered on 02/27/19at 23:56; Admin Dose 1 UNIT; Start 02/27/19 at 18:00 Metoclopramide HCl (Reglan) 10 mg Q6H PRN IV nausea; Start 02/27/19 at 17:00 JOSE ANTONIO SALINAS MD Feb 28, 2019 19:26
[2019-02-28] MEDS: TAMSULOSIN (SR) 0.4 MG CAP PO SCH (21:23)
[2019-03-01] MEDS: ALBUTEROL/IPRATROPIUM (NEB) 3 ML AMP HHN SCH ×4 (00:57→19:43)
[2019-03-01 01:48] VITALS: BP 151/71; PULSE 70; RESP 18
[2019-03-01] MEDS: LORAZEPAM 2 MG INJ IV PRN ×2 (02:20→08:37)
[2019-03-01] MEDS: Insulin NOVOLOG SS MILD Algorithm (NPO/TPN/ENTERAL FEEDS) SC SCH ×4 (06:00→23:18)
[2019-03-01 07:19] VITALS: BP 172/76; PULSE 72; RESP 20
[2019-03-01] MEDS: FAMOTIDINE 20 MG INJ IV SCH ×2 (08:22→20:49)
[2019-03-01] MEDS: AMLODIPINE 10 MG TAB GTB SCH (08:22)
[2019-03-01] MEDS: ASPIRIN 81 MG TAB GTB SCH (08:22)
[2019-03-01] MEDS: POLYETHYLENE GLYCOL 17 GM PACKET GTB SCH (08:22)
[2019-03-01] MEDS: LISINOPRIL 20 MG TAB GTB SCH (08:23)
[2019-03-01] MEDS: AMIODARONE 200 MG TAB GTB SCH ×2 (08:23→20:49)
[2019-03-01 11:00] VITALS: BP 148/68; PULSE 66; RESP 18
--- NOTE | 2019-03-01 13:40 | CONS ---
Assessment/Plan Assessment/Plan Hospital Course (Demo Recall) No acute events overnight. Awake. Looks comfortable, no fevers Microbiology: All cultures negative Indwelling's: Cavanaugh PEG Antimicrobials: none Physical examination: This is a well-developed very seen elderly man who is in no distress. Head atraumatic normocephalic, sclera nonicteric vehicle mucosa dry neck is supple chest rise symmetrical breath sounds diminished bases. Heart: S1-S2. Abdomen soft bowel sounds present. Extremities without cyanosis Assessment: 1. S/p sepsis, status post shock likely secondary to aspiration 2. Acute hypoxemic respiratory failure, status post extubated 3. Possible aspiration pneumonia 4. History of CABG 5. History of CVA 6. Atrial fibrillation 7. Head loce, s/p shaved Plan: Remains stable, continue present care, aspiration precautions Consultation Date/Type/Reason Admit Date/Time February 18, 2019 at 17:32 Initial Consult Date Type of Consult id Date/Time of Note DATE: 03/01/19 TIME: 13:39 Exam/Review of Systems Exam Vitals Vital Signs Date Temp Pulse Resp B/P (MAP) Pulse Ox O2 O2 Flow FiO2 Time Delivery Rate 03/01/19 66 18 148/68 97 11:00 (94) 03/01/19 97.0 Room Air 07:19 03/01/19 21 00:58 02/28/19 2.0 01:19 Intake and Output 02/28/19 02/28/19 03/01/19 1515:00 23:00 07:00 IntakeIntake Total 960 ml 340 ml OutputOutput Total 750 ml 900 ml BalanceBalance 210 ml -560 ml Results Result Diagram: 02/28/19 0435 02/28/19 0435 Results 24hrs Laboratory Tests Test 02/28/19 18:41 02/28/19 23:47 03/01/19 06:21 03/01/19 13:35 Bedside Glucose 109 116 116 104 Medications Medication Current Medications Tamsulosin HCl (Flomax) 0.4 mg HS PO Last administered on 02/28/19at 21:23; Admin Dose 0.4 MG; Start 02/18/19 at 22:00 IV Flush (NS 3 ml) 3 ml PER PROTOCOL IV ; Start 02/18/19 at 20:30 Ondansetron HCl (Zofran Inj) 4 mg Q6H PRN IV NAUSEA AND/OR VOMITING; Start 02/18/19 at 20:30 Acetaminophen (Tylenol Liquid) 650 mg Q6H PRN PO PAIN LEVEL 1-3 OR FEVER Last administered on 02/28/19 04:25; Admin Dose 650 MG; Start 02/18/19 at 20:30 Famotidine (Pepcid Iv) 20 mg Q12 IV Last administered on 03/01/19 08:22; Admin Dose 20 MG; Start 02/18/19 at 21:00 Amlodipine Besylate (Norvasc) 10 mg DAILY GTB Last administered on 03/01/19 08:22; Admin Dose 10 MG; Start 02/19/19 at 09:00 Aspirin (Aspirin) 81 mg DAILY GTB Last administered on 03/01/19 08:22; Admin Dose 81 MG; Start 02/19/19 at 09:00 Lisinopril (Zestril) 40 mg DAILY GTB Last administered on 03/01/19 08:23; Admin Dose 40 MG; Start 02/19/19 at 09:00 Polyethylene Glycol (Miralax) 17 gm DAILY GTB Last administered on 03/01/19 08:22; Admin Dose 17 GM; Start 02/19/19 at 09:00 Amiodarone HCl (Cordarone) 200 mg BID GTB Last administered on 03/01/19 08:23; Admin Dose 200 MG; Start 02/19/19 at 09:00 Hydralazine HCl (Apresoline) 10 mg Q4H PRN IV ELEVATED BLOOD PRESSURE Last administered on 02/26/19 02:53; Admin Dose 10 MG; Start 02/19/19 at 20:30 Lorazepam (Ativan) 0.5 mg Q6H PRN IV AGITATION/ANXIETY Last administered on 03/01/19 08:37; Admin Dose 0.5 MG; Start 02/22/19 at 16:00 Albuterol/ Ipratropium (Duoneb) 3 ml Q6H RESP THERAPY HHN Last administered on 03/01/19 00:57; Admin Dose 3 ML; Start 02/23/19 at 09:30 Miscellaneous Information 1 ea NOTE XX ; Start 02/25/19 at 20:30 Glucose (Glutose) 15 gm Q15M PRN PO DECREASED GLUCOSE; Start 02/25/19 at 20:30 Glucose (Glutose) 22.5 gm Q15M PRN PO DECREASED GLUCOSE; Start 02/25/19 at 20:30 Dextrose (D50w Syringe) 25 ml Q15M PRN IV DECREASED GLUCOSE; Start 02/25/19 at 20:30 Dextrose (D50w Syringe) 50 ml Q15M PRN IV DECREASED GLUCOSE; Start 02/25/19 at 20:30 Glucagon (Glucagen) 1 mg Q15M PRN IM DECREASED GLUCOSE; Start 02/25/19 at 20:30 Glucose (Glutose) 15 gm Q15M PRN BUCCAL DECREASED GLUCOSE; Start 02/25/19 at 20:30 Bisacodyl (Dulcolax Supp) 10 mg ONCE PRN [place] CONSTIPATION; Start 02/27/19 at 11:00 Insulin Aspart (Novolog Insulin Pen) (Adult SC Insulin - Mild Algorithm)... Q6 SC Last administered on 02/27/19at 23:56; Admin Dose 1 UNIT; Start 02/27/19 at 18:00 Metoclopramide HCl (Reglan) 10 mg Q6H PRN IV nausea; Start 02/27/19 at 17:00 LUCINA DOMINGUEZ NP Mar 01, 2019 13:40
[2019-03-01 14:10] VITALS: BP 144/63; PULSE 60; RESP 18
--- NOTE | 2019-03-01 17:34 | CONS ---
Assessment/Plan Assessment/Plan Assessment/Plan (Daily) IMPRESSION: 1. Dysphagia with malnutrition. Status post a PEG. Patient is tolerating feeding. No issues now 2. Respiratory failure. The patient on supplemental oxygen now. 3. Altered level of consciousness. 4. History of aortic aneurysm, status post repair. 5. Atrial fibrillation. 6. Hypertension. 7. Cerebrovascular accident. 8. Urinary retention secondary to urethral stricture. 9. Diabetes mellitus. 10. Pain around the G-tube site, I examined it. It is totally normal no evidence of cellulitis and the G-tube is well position. KUB also was normal Plan Increase feeding gradually As per the daughter patient is more comfortable and energetic after feeding Told the staff to resume feeding through the G-tube and give Tylenol for the pain Consultation Date/Type/Reason Admit Date/Time February 18, 2019 at 17:32 Initial Consult Date Date/Time of Note DATE: 03/01/19 TIME: 17:34 24 HR Interval Summary Constitutional: improved Exam/Review of Systems Exam Vitals Vital Signs Date Temp Pulse Resp B/P (MAP) Pulse Ox O2 O2 Flow FiO2 Time Delivery Rate 03/01/19 97.8 60 18 144/63 97 Room Air 14:10 (90) 03/01/19 21 00:58 02/28/19 2.0 01:19 Intake and Output 02/28/19 02/28/19 03/01/19 1515:00 23:00 07:00 IntakeIntake Total 960 ml 340 ml OutputOutput Total 750 ml 900 ml BalanceBalance 210 ml -560 ml Neck: supple Results Result Diagram: 02/28/19 0435 02/28/19 0435 Results 24hrs Laboratory Tests Test 02/28/19 18:41 02/28/19 23:47 03/01/19 06:21 03/01/19 13:35 Bedside Glucose 109 116 116 104 Medications Medication Current Medications Tamsulosin HCl (Flomax) 0.4 mg HS PO Last administered on 02/28/19at 21:23; Admin Dose 0.4 MG; Start 02/18/19 at 22:00 IV Flush (NS 3 ml) 3 ml PER PROTOCOL IV ; Start 02/18/19 at 20:30 Ondansetron HCl (Zofran Inj) 4 mg Q6H PRN IV NAUSEA AND/OR VOMITING; Start 02/18/19 at 20:30 Acetaminophen (Tylenol Liquid) 650 mg Q6H PRN PO PAIN LEVEL 1-3 OR FEVER Last administered on 02/28/19 04:25; Admin Dose 650 MG; Start 02/18/19 at 20:30 Famotidine (Pepcid Iv) 20 mg Q12 IV Last administered on 03/01/19 08:22; Admin Dose 20 MG; Start 02/18/19 at 21:00 Amlodipine Besylate (Norvasc) 10 mg DAILY GTB Last administered on 03/01/19 08:22; Admin Dose 10 MG; Start 02/19/19 at 09:00 Aspirin (Aspirin) 81 mg DAILY GTB Last administered on 03/01/19 08:22; Admin Dose 81 MG; Start 02/19/19 at 09:00 Lisinopril (Zestril) 40 mg DAILY GTB Last administered on 03/01/19 08:23; Admin Dose 40 MG; Start 02/19/19 at 09:00 Polyethylene Glycol (Miralax) 17 gm DAILY GTB Last administered on 03/01/19 08:22; Admin Dose 17 GM; Start 02/19/19 at 09:00 Amiodarone HCl (Cordarone) 200 mg BID GTB Last administered on 03/01/19 08:23; Admin Dose 200 MG; Start 02/19/19 at 09:00 Hydralazine HCl (Apresoline) 10 mg Q4H PRN IV ELEVATED BLOOD PRESSURE Last administered on 02/26/19 02:53; Admin Dose 10 MG; Start 02/19/19 at 20:30 Lorazepam (Ativan) 0.5 mg Q6H PRN IV AGITATION/ANXIETY Last administered on 03/01/19 08:37; Admin Dose 0.5 MG; Start 02/22/19 at 16:00 Albuterol/ Ipratropium (Duoneb) 3 ml Q6H RESP THERAPY HHN Last administered on 03/01/19 00:57; Admin Dose 3 ML; Start 02/23/19 at 09:30 Miscellaneous Information 1 ea NOTE XX ; Start 02/25/19 at 20:30 Glucose (Glutose) 15 gm Q15M PRN PO DECREASED GLUCOSE; Start 02/25/19 at 20:30 Glucose (Glutose) 22.5 gm Q15M PRN PO DECREASED GLUCOSE; Start 02/25/19 at 20:30 Dextrose (D50w Syringe) 25 ml Q15M PRN IV DECREASED GLUCOSE; Start 02/25/19 at 20:30 Dextrose (D50w Syringe) 50 ml Q15M PRN IV DECREASED GLUCOSE; Start 02/25/19 at 20:30 Glucagon (Glucagen) 1 mg Q15M PRN IM DECREASED GLUCOSE; Start 02/25/19 at 20:30 Glucose (Glutose) 15 gm Q15M PRN BUCCAL DECREASED GLUCOSE; Start 02/25/19 at 20:30 Bisacodyl (Dulcolax Supp) 10 mg ONCE PRN [place] CONSTIPATION; Start 02/27/19 at 11:00 Insulin Aspart (Novolog Insulin Pen) (Adult SC Insulin - Mild Algorithm)... Q6 SC Last administered on 02/27/19at 23:56; Admin Dose 1 UNIT; Start 02/27/19 at 18:00 Metoclopramide HCl (Reglan) 10 mg Q6H PRN IV nausea; Start 02/27/19 at 17:00 JOSE ANTONIO SALINAS MD Mar 01, 2019 17:34
--- NOTE | 2019-03-01 18:20 | PN ---
Date/Time of Note Date/Time of Note DATE: 03/01/19 TIME: 18:18 Assessment/Plan VTE Prophylaxis Risk score (from Ns)>0 risk: 7 SCD applied (from Ns): Yes Pharmacological prophylaxis: LMWH Lines/Catheters IV Catheter Type (from [facility]): Mid Line Urinary Cath still in place: Yes Reason Cath still needed: urinary retention Assessment/Plan Hospital Course Patient status post G-tube placement, tolerates G-tube feeding well, continue to monitor residual.. Patient still confused requiring close observation due to confusion. Assessment/Plan -Moderate malnutrition, failed swallow evaluation, s/p GT placement by Dr. Eid, gastroenterology consultation. -Acute respiratory failure requiring intubation and placement on mechanical ventilation, now extubated. Dr Addison for pulm consult. -Severe sepsis with shock secondary to pneumonia. Completed treatment with antibiotics. ID Consult Dr. Guevara. -ALOC -History of aortic aneurysm, status post repair. -Atrial fibrillation -Hypertension -Cerebrovascular disease -Urinary retention with urethral stricture. -Diabetes, continue Lantus and NovoLog. Further recommendations based on clinical course. Plan of care discussed with Dr. Moreno. Result Diagram: 02/28/19 0435 02/28/19 0435 Results 24hrs Laboratory Tests Test 02/28/19 18:41 02/28/19 23:47 03/01/19 06:21 03/01/19 13:35 Bedside Glucose 109 116 116 104 Test 03/01/19 17:37 Bedside Glucose 145 Exam/Review of Systems Exam Vitals Vital Signs Date Temp Pulse Resp B/P (MAP) Pulse Ox O2 O2 Flow FiO2 Time Delivery Rate 03/01/19 97.8 60 18 144/63 97 Room Air 14:10 (90) 03/01/19 21 00:58 02/28/19 2.0 01:19 Intake and Output 02/28/19 02/28/19 03/01/19 1515:00 23:00 07:00 IntakeIntake Total 960 ml 340 ml OutputOutput Total 750 ml 900 ml BalanceBalance 210 ml -560 ml Constitutional: alert, frail Neck: supple Respiratory: clear to auscultation Cardiovascular: nl pulses Gastrointestinal: soft, non-tender, other (G tube) Extremities: normal pulses Neurological: confused Skin: nl turgor Results Results 24hrs Laboratory Tests Test 02/28/19 18:41 6/9/19 23:47 03/01/19 06:21 03/01/19 13:35 Bedside Glucose 109 116 116 104 Test 03/01/19 17:37 Bedside Glucose 145 Medications Medication Current Medications Tamsulosin HCl (Flomax) 0.4 mg HS PO Last administered on 02/28/19 21:23; Admin Dose 0.4 MG; Start 02/18/19 at 22:00 IV Flush (NS 3 ml) 3 ml PER PROTOCOL IV ; Start 02/18/19 at 20:30 Ondansetron HCl (Zofran Inj) 4 mg Q6H PRN IV NAUSEA AND/OR VOMITING; Start 02/18/19 at 20:30 Acetaminophen (Tylenol Liquid) 650 mg Q6H PRN PO PAIN LEVEL 1-3 OR FEVER Last administered on 02/28/19 04:25; Admin Dose 650 MG; Start 02/18/19 at 20:30 Famotidine (Pepcid Iv) 20 mg Q12 IV Last administered on 03/01/19 08:22; Admin Dose 20 MG; Start 02/18/19 at 21:00 Amlodipine Besylate (Norvasc) 10 mg DAILY GTB Last administered on 03/01/19 08:22; Admin Dose 10 MG; Start 02/19/19 at 09:00 Aspirin (Aspirin) 81 mg DAILY GTB Last administered on 03/01/19 08:22; Admin Dose 81 MG; Start 02/19/19 at 09:00 Lisinopril (Zestril) 40 mg DAILY GTB Last administered on 03/01/19 08:23; Admin Dose 40 MG; Start 02/19/19 at 09:00 Polyethylene Glycol (Miralax) 17 gm DAILY GTB Last administered on 03/01/19 08:22; Admin Dose 17 GM; Start 02/19/19 at 09:00 Amiodarone HCl (Cordarone) 200 mg BID GTB Last administered on 03/01/19 08:23; Admin Dose 200 MG; Start 02/19/19 at 09:00 Hydralazine HCl (Apresoline) 10 mg Q4H PRN IV ELEVATED BLOOD PRESSURE Last adm inistered on 02/26/19 02:53; Admin Dose 10 MG; Start 02/19/19 at 20:30 Lorazepam (Ativan) 0.5 mg Q6H PRN IV AGITATION/ANXIETY Last administered on 03/01/19at 08:37; Admin Dose 0.5 MG; Start 02/22/19 at 16:00 Albuterol/ Ipratropium (Duoneb) 3 ml Q6H RESP THERAPY HHN Last administered on 03/01/19at 00:57; Admin Dose 3 ML; Start 02/23/19 at 09:30 Miscellaneous Information 1 ea NOTE XX ; Start 02/25/19 at 20:30 Glucose (Glutose) 15 gm Q15M PRN PO DECREASED GLUCOSE; Start 02/25/19 at 20:30 Glucose (Glutose) 22.5 gm Q15M PRN PO DECREASED GLUCOSE; Start 02/25/19 at 20:30 Dextrose (D50w Syringe) 25 ml Q15M PRN IV DECREASED GLUCOSE; Start 02/25/19 at 20:30 Dextrose (D50w Syringe) 50 ml Q15M PRN IV DECREASED GLUCOSE; Start 02/25/19 at 20:30 Glucagon (Glucagen) 1 mg Q15M PRN IM DECREASED GLUCOSE; Start 02/25/19 at 20:30 Glucose (Glutose) 15 gm Q15M PRN BUCCAL DECREASED GLUCOSE; Start 02/25/19 at 20:30 Bisacodyl (Dulcolax Supp) 10 mg ONCE PRN [place] CONSTIPATION; Start 02/27/19 at 11:00 Insulin Aspart (Novolog Insulin Pen) (Adult SC Insulin - Mild Algorithm)... Q6 SC Last administered on 03/01/19at 18:00; Admin Dose 1 UNIT; Start 02/27/19 at 18:00 Metoclopramide HCl (Reglan) 10 mg Q6H PRN IV nausea; Start 02/27/19 at 17:00 GIANNA DE JESUS Mar 01, 2019 18:20
[2019-03-01 19:36] VITALS: BP 142/63; PULSE 62; RESP 18
[2019-03-01] MEDS: TAMSULOSIN (SR) 0.4 MG CAP PO SCH (20:49)
[2019-03-02] MEDS: ALBUTEROL/IPRATROPIUM (NEB) 3 ML AMP HHN SCH ×4 (01:02→20:00)
[2019-03-02 01:04] VITALS: BP 139/63; PULSE 65; RESP 16
[2019-03-02] MEDS: ACETAMINOPHEN 650MG/20.3ML CUP PO PRN (05:30)
[2019-03-02] MEDS: Insulin NOVOLOG SS MILD Algorithm (NPO/TPN/ENTERAL FEEDS) SC SCH ×3 (05:41→17:42)
[2019-03-02 07:36] VITALS: BP 117/58; PULSE 63; RESP 18
[2019-03-02] MEDS: AMLODIPINE 10 MG TAB GTB SCH (09:04)
[2019-03-02] MEDS: AMIODARONE 200 MG TAB GTB SCH ×2 (09:04→20:55)
[2019-03-02] MEDS: ASPIRIN 81 MG TAB GTB SCH (09:04)
[2019-03-02] MEDS: FAMOTIDINE 20 MG INJ IV SCH ×2 (09:04→20:55)
[2019-03-02] MEDS: LISINOPRIL 20 MG TAB GTB SCH (09:04)
[2019-03-02] MEDS: POLYETHYLENE GLYCOL 17 GM PACKET GTB SCH (09:04)
[2019-03-02] MEDS: LORAZEPAM 2 MG INJ IV PRN (09:10)
--- NOTE | 2019-03-02 12:14 | CONS ---
Assessment/Plan Assessment/Plan Assessment/Plan (Daily) Assessment/Plan (Daily) IMPRESSION: 1. Dysphagia with malnutrition. Status post a PEG. Patient is tolerating feeding. No issues now patient is tolerating feeding at 50 cc/h 2. Respiratory failure. The patient on supplemental oxygen now. 3. Altered level of consciousness. 4. History of aortic aneurysm, status post repair. 5. Atrial fibrillation. 6. Hypertension. 7. Cerebrovascular accident. 8. Urinary retention secondary to urethral stricture. 9. Diabetes mellitus. 10. Pain around the G-tube site, I examined it. It is totally normal no evidence of cellulitis and the G-tube is well position. KUB also was normal Plan Increase feeding gradually As per the daughter patient is more comfortable and energetic after feeding Told the staff to resume feeding through the G-tube and give Tylenol for the pain Consultation Date/Type/Reason Admit Date/Time February 18, 2019 at 17:32 Initial Consult Date Date/Time of Note DATE: 03/02/19 TIME: 12:13 24 HR Interval Summary Constitutional: no complaints, improved Exam/Review of Systems Exam Vitals Vital Signs Date Temp Pulse Resp B/P (MAP) Pulse Ox O2 O2 Flow FiO2 Time Delivery Rate 03/02/19 70 16 95 21 08:59 03/02/19 98.5 117/58 Room Air 07:36 (77) 02/28/19 2.0 01:19 Intake and Output 03/01/19 03/01/19 03/02/19 1515:00 23:00 07:00 IntakeIntake Total 750 ml OutputOutput Total 700 ml 250 ml BalanceBalance 50 ml -250 ml Neck: No supple, No non-tender, No jvd, No bruits, No masses, No thyromegaly, No nuchal rigidity, No other Results Result Diagram: 03/02/19 0447 02/28/19 0435 Results 24hrs Laboratory Tests Test 03/01/19 13:35 03/01/19 17:37 03/01/19 23:16 03/02/19 04:47 Bedside Glucose 104 145 97 White Blood Count 15.0 H Red Blood Count 3.03 L Hemoglobin 8.9 L Hematocrit 26.6 L Mean Corpuscular 87.8 Volume Mean Corpuscular 29.4 Hemoglobin Mean Corpuscular 33.5 Hemoglobin Concent Red Cell 14.7 H Distribution Width Platelet Count 308 Mean Platelet Volume 9.0 Immature 0.600 H Granulocytes % Neutrophils % 88.2 H Lymphocytes % 6.2 L Monocytes % 4.4 Eosinophils % 0.3 Basophils % 0.3 Nucleated Red Blood 0.0 Cells % Immature 0.090 H Granulocytes # Neutrophils # 13.3 H Lymphocytes # 0.9 Monocytes # 0.7 Eosinophils # 0.0 Basophils # 0.0 Nucleated Red Blood 0.0 Cells # Test 03/02/19 05:33 Bedside Glucose 147 Medications Medication Current Medications Tamsulosin HCl (Flomax) 0.4 mg HS PO Last administered on 03/01/19 20:49; Admin Dose 0.4 MG; Start 02/18/19 at 22:00 IV Flush (NS 3 ml) 3 ml PER PROTOCOL IV ; Start 02/18/19 at 20:30 Ondansetron HCl (Zofran Inj) 4 mg Q6H PRN IV NAUSEA AND/OR VOMITING; Start 02/18/19 at 20:30 Acetaminophen (Tylenol Liquid) 650 mg Q6H PRN PO PAIN LEVEL 1-3 OR FEVER Last administered on 03/02/19 05:30; Admin Dose 650 MG; Start 02/18/19 at 20:30 Famotidine (Pepcid Iv) 20 mg Q12 IV Last administered on 03/02/19 09:04; Admin Dose 20 MG; Start 02/18/19 at 21:00 Amlodipine Besylate (Norvasc) 10 mg DAILY GTB Last administered on 03/02/19 09:04; Admin Dose 10 MG; Start 02/19/19 at 09:00 Aspirin (Aspirin) 81 mg DAILY GTB Last administered on 03/02/19 09:04; Admin Dose 81 MG; Start 02/19/19 at 09:00 Lisinopril (Zestril) 40 mg DAILY GTB Last administered on 03/02/19 09:04; Admin Dose 40 MG; Start 02/19/19 at 09:00 Polyethylene Glycol (Miralax) 17 gm DAILY GTB Last administered on 03/02/19 09:04; Admin Dose 17 GM; Start 02/19/19 at 09:00 Amiodarone HCl (Cordarone) 200 mg BID GTB Last administered on 03/02/19 09:04; Admin Dose 200 MG; Start 02/19/19 at 09:00 Hydralazine HCl (Apresoline) 10 mg Q4H PRN IV ELEVATED BLOOD PRESSURE Last administered on 02/26/19at 02:53; Admin Dose 10 MG; Start 02/19/19 at 20:30 Lorazepam (Ativan) 0.5 mg Q6H PRN IV AGITATION/ANXIETY Last administered on 03/02/19at 09:10; Admin Dose 0.5 MG; Start 02/22/19 at 16:00 Albuterol/ Ipratropium (Duoneb) 3 ml Q6H RESP THERAPY HHN Last administered on 03/02/19at 08:59; Admin Dose 3 ML; Start 02/23/19 at 09:30 Miscellaneous Information 1 ea NOTE XX ; Start 02/25/19 at 20:30 Glucose (Glutose) 15 gm Q15M PRN PO DECREASED GLUCOSE; Start 02/25/19 at 20:30 Glucose (Glutose) 22.5 gm Q15M PRN PO DECREASED GLUCOSE; Start 02/25/19 at 20:30 Dextrose (D50w Syringe) 25 ml Q15M PRN IV DECREASED GLUCOSE; Start 02/25/19 at 20:30 Dextrose (D50w Syringe) 50 ml Q15M PRN IV DECREASED GLUCOSE; Start 02/25/19 at 20:30 Glucagon (Glucagen) 1 mg Q15M PRN IM DECREASED GLUCOSE; Start 02/25/19 at 20:30 Glucose (Glutose) 15 gm Q15M PRN BUCCAL DECREASED GLUCOSE; Start 02/25/19 at 20:30 Bisacodyl (Dulcolax Supp) 10 mg ONCE PRN [place] CONSTIPATION; Start 02/27/19 at 11:00 Insulin Aspart (Novolog Insulin Pen) (Adult SC Insulin - Mild Algorithm)... Q6 SC Last administered on 03/02/19at 05:41; Admin Dose 1 UNIT; Start 02/27/19 at 18:00 Metoclopramide HCl (Reglan) 10 mg Q6H PRN IV nausea; Start 02/27/19 at 17:00 JOSE ANTONIO SALINAS MD Mar 02, 2019 12:14
[2019-03-02 14:15] VITALS: BP 154/68; PULSE 66; RESP 18
--- NOTE | 2019-03-02 17:25 | PN ---
Date/Time of Note Date/Time of Note DATE: 03/02/19 TIME: 17:24 Assessment/Plan VTE Prophylaxis Risk score (from Ns)>0 risk: 7 SCD applied (from Ns): Yes Pharmacological prophylaxis: LMWH Lines/Catheters IV Catheter Type (from Nrs): Mid Line Central line still needed: Yes Urinary Cath still in place: Yes Reason Cath still needed: urinary retention Assessment/Plan Hospital Course Patient status post G-tube placement, tolerates G-tube feeding well, Patient still confused requiring close observation due to confusion. Assessment/Plan -Moderate malnutrition, failed swallow evaluation, s/p GT placement by Dr. Eid, gastroenterology consultation. -Acute respiratory failure requiring intubation and placement on mechanical ventilation, now extubated. Dr Addison for pulm consult. -Severe sepsis with shock secondary to pneumonia. Completed treatment with antibiotics. ID Consult Dr. Guevara. -ALOC -History of aortic aneurysm, status post repair. -Atrial fibrillation -Hypertension -Cerebrovascular disease -Urinary retention with urethral stricture. -Diabetes, continue Lantus and NovoLog. Further recommendations based on clinical course. Plan of care discussed with Dr. Moreno. Result Diagram: 03/02/19 0447 02/28/19 0435 Results 24hrs Laboratory Tests Test 03/01/19 17:37 03/01/19 23:16 03/02/19 04:47 03/02/19 05:33 Bedside Glucose 145 97 147 White Blood Count 15.0 H Red Blood Count 3.03 L Hemoglobin 8.9 L Hematocrit 26.6 L Mean Corpuscular 87.8 Volume Mean Corpuscular 29.4 Hemoglobin Mean Corpuscular 33.5 Hemoglobin Concent Red Cell 14.7 H Distribution Width Platelet Count 308 Mean Platelet Volume 9.0 Immature 0.600 H Granulocytes % Neutrophils % 88.2 H Lymphocytes % 6.2 L Monocytes % 4.4 Eosinophils % 0.3 Basophils % 0.3 Nucleated Red Blood 0.0 Cells % Immature 0.090 H Granulocytes # Neutrophils # 13.3 H Lymphocytes # 0.9 Monocytes # 0.7 Eosinophils # 0.0 Basophils # 0.0 Nucleated Red Blood 0.0 Cells # Test 03/02/19 12:42 Bedside Glucose 165 Exam/Review of Systems Exam Vitals Vital Signs Date Temp Pulse Resp B/P (MAP) Pulse Ox O2 O2 Flow FiO2 Time Delivery Rate 03/02/19 69 17 96 21 14:45 03/02/19 98.1 154/68 Room Air 14:15 (96) 02/28/19 2.0 01:19 Intake and Output 03/01/19 03/01/19 03/02/19 1515:00 23:00 07:00 IntakeIntake Total 750 ml OutputOutput Total 700 ml 250 ml BalanceBalance 50 ml -250 ml Exam Constitutional: alert, frail Neck: supple Respiratory: clear to auscultation Cardiovascular: nl pulses Gastrointestinal: soft, non-tender, other (G tube) Extremities: normal pulses Neurological: confused Skin: nl turgor Results Results 24hrs Laboratory Tests Test 03/01/19 17:37 03/01/19 23:16 03/02/19 04:47 03/02/19 05:33 Bedside Glucose 145 97 147 White Blood Count 15.0 H Red Blood Count 3.03 L Hemoglobin 8.9 L Hematocrit 26.6 L Mean Corpuscular 87.8 Volume Mean Corpuscular 29.4 Hemoglobin Mean Corpuscular 33.5 Hemoglobin Concent Red Cell 14.7 H Distribution Width Platelet Count 308 Mean Platelet Volume 9.0 Immature 0.600 H Granulocytes % Neutrophils % 88.2 H Lymphocytes % 6.2 L Monocytes % 4.4 Eosinophils % 0.3 Basophils % 0.3 Nucleated Red Blood 0.0 Cells % Immature 0.090 H Granulocytes # Neutrophils # 13.3 H Lymphocytes # 0.9 Monocytes # 0.7 Eosinophils # 0.0 Basophils # 0.0 Nucleated Red Blood 0.0 Cells # Test 03/02/19 12:42 Bedside Glucose 165 Medications Medication Current Medications Tamsulosin HCl (Flomax) 0.4 mg HS PO Last administered on 03/01/19at 20:49; Admin Dose 0.4 MG; Start 02/18/19 at 22:00 IV Flush (NS 3 ml) 3 ml PER PROTOCOL IV ; Start 02/18/19 at 20:30 Ondansetron HCl (Zofran Inj) 4 mg Q6H PRN IV NAUSEA AND/OR VOMITING; Start 02/18/19 at 20:30 Acetaminophen (Tylenol Liquid) 650 mg Q6H PRN PO PAIN LEVEL 1-3 OR FEVER Last administered on 03/02/19at 05:30; Admin Dose 650 MG; Start 02/18/19 at 20:30 Famotidine (Pepcid Iv) 20 mg Q12 IV Last administered on 03/02/19 09:04; Admin Dose 20 MG; Start 02/18/19 at 21:00 Amlodipine Besylate (Norvasc) 10 mg DAILY GTB Last administered on 03/02/19 09:04; Admin Dose 10 MG; Start 02/19/19 at 09:00 Aspirin (Aspirin) 81 mg DAILY GTB Last administered on 03/02/19 09:04; Admin Dose 81 MG; Start 02/19/19 at 09:00 Lisinopril (Zestril) 40 mg DAILY GTB Last administered on 03/02/19 09:04; Admin Dose 40 MG; Start 02/19/19 at 09:00 Polyethylene Glycol (Miralax) 17 gm DAILY GTB Last administered on 03/02/19 09:04; Admin Dose 17 GM; Start 02/19/19 at 09:00 Amiodarone HCl (Cordarone) 200 mg BID GTB Last administered on 03/02/19 09:04; Admin Dose 200 MG; Start 02/19/19 at 09:00 Hydralazine HCl (Apresoline) 10 mg Q4H PRN IV ELEVATED BLOOD PRESSURE Last administered on 02/26/19 02:53; Admin Dose 10 MG; Start 02/19/19 at 20:30 Lorazepam (Ativan) 0.5 mg Q6H PRN IV AGITATION/ANXIETY Last administered on 03/02/19 09:10; Admin Dose 0.5 MG; Start 02/22/19 at 16:00 Albuterol/ Ipratropium (Duoneb) 3 ml Q6H RESP THERAPY HHN Last administered on 03/02/19 14:41; Admin Dose 3 ML; Start 02/23/19 at 09:30 Miscellaneous Information 1 ea NOTE XX ; Start 02/25/19 at 20:30 Glucose (Glutose) 15 gm Q15M PRN PO DECREASED GLUCOSE; Start 02/25/19 at 20:30 Glucose (Glutose) 22.5 gm Q15M PRN PO DECREASED GLUCOSE; Start 02/25/19 at 20:30 Dextrose (D50w Syringe) 25 ml Q15M PRN IV DECREASED GLUCOSE; Start 02/25/19 at 20:30 Dextrose (D50w Syringe) 50 ml Q15M PRN IV DECREASED GLUCOSE; Start 02/25/19 at 20:30 Glucagon (Glucagen) 1 mg Q15M PRN IM DECREASED GLUCOSE; Start 02/25/19 at 20:30 Glucose (Glutose) 15 gm Q15M PRN BUCCAL DECREASED GLUCOSE; Start 02/25/19 at 20:30 Bisacodyl (Dulcolax Supp) 10 mg ONCE PRN [place] CONSTIPATION; Start 02/27/19 at 11:00 Insulin Aspart (Novolog Insulin Pen) (Adult SC Insulin - Mild Algorithm)... Q6 SC Last administered on 03/02/19at 13:04; Admin Dose 1 UNIT; Start 02/27/19 at 18:00 Metoclopramide HCl (Reglan) 10 mg Q6H PRN IV nausea; Start 02/27/19 at 17:00 GIANNA DE JESUS Mar 02, 2019 17:25
[2019-03-02 20:14] VITALS: BP 125/61; PULSE 62; RESP 18
[2019-03-02] MEDS: TAMSULOSIN (SR) 0.4 MG CAP PO SCH (20:54)
[2019-03-03] MEDS: Insulin NOVOLOG SS MILD Algorithm (NPO/TPN/ENTERAL FEEDS) SC SCH ×5 (00:26→23:55)
[2019-03-03] MEDS: ACETAMINOPHEN 650MG/20.3ML CUP PO PRN ×2 (00:46→09:58)
[2019-03-03] MEDS: ALBUTEROL/IPRATROPIUM (NEB) 3 ML AMP HHN SCH ×4 (01:34→19:56)
[2019-03-03 02:00] VITALS: BP 142/60; PULSE 70; RESP 17
[2019-03-03 07:40] VITALS: BP 119/59; PULSE 60; RESP 16
--- NOTE | 2019-03-03 07:46 | CONS ---
Assessment/Plan Assessment/Plan Hospital Course (Demo Recall) 73 yo male s/p PEG 1. Dysphagia with malnutrition. Status post a PEG. Patient is tolerating feeding. No issues now patient is tolerating feeding at 50 cc/h 2. Respiratory failure. The patient on supplemental oxygen now. 3. Altered level of consciousness. 4. History of aortic aneurysm, status post repair. 5. Atrial fibrillation. 6. Hypertension. 7. Cerebrovascular accident. 8. Urinary retention secondary to urethral stricture. 9. Diabetes mellitus. 10. Pain around the G-tube site, -KUB wnl -no redness or swelling at site. Plan Keep g tube site dry and clean. Keep abdominal binder at all times Continue present care Monitor residuals Pt examined and plan of care discussed with Dr. Eid Consultation Date/Type/Reason Admit Date/Time February 18, 2019 at 17:32 Initial Consult Date Date/Time of Note DATE: 03/03/19 TIME: 07:45 24 HR Interval Summary Free Text/Dictation Tolerating tube feeds. BM wnl. Exam/Review of Systems Exam Vitals Vital Signs Date Temp Pulse Resp B/P (MAP) Pulse Ox O2 O2 Flow FiO2 Time Delivery Rate 03/03/19 97.6 60 16 119/59 97 07:40 (79) 03/03/19 21 01:34 03/02/19 Room Air 14:15 02/28/19 2.0 01:19 Intake and Output 03/02/19 03/02/19 03/03/19 1515:00 23:00 07:00 IntakeIntake Total 800 ml 800 ml OutputOutput Total 350 ml 450 ml BalanceBalance 450 ml 350 ml Constitutional: alert Head: normocephalic Eyes: PERRL Respiratory: normal air movement Cardiovascular: regular rate and rhythm Gastrointestinal: soft, tender (tender at g tube site. NO erythema) Musculoskeletal: other (cachexia) Results Result Diagram: 03/03/19 0516 03/03/19 0516 Results 24hrs Laboratory Tests Test 03/02/19 12:42 03/02/19 17:20 03/03/19 00:12 03/03/19 05:16 Bedside Glucose 165 167 146 White Blood Count 11.1 #H Red Blood Count 2.76 L Hemoglobin 8.2 L Hematocrit 24.0 L Mean Corpuscular 87.0 Volume Mean Corpuscular 29.7 Hemoglobin Mean Corpuscular 34.2 Hemoglobin Concent Red Cell 14.6 H Distribution Width Platelet Count 319 Mean Platelet Volume 8.8 Immature 0.500 H Granulocytes % Neutrophils % 89.2 H Lymphocytes % 5.8 L Monocytes % 4.0 Eosinophils % 0.2 Basophils % 0.3 Nucleated Red Blood 0.0 Cells % Immature 0.060 H Granulocytes # Neutrophils # 9.9 H Lymphocytes # 0.6 L Monocytes # 0.5 Eosinophils # 0.0 Basophils # 0.0 Nucleated Red Blood 0.0 Cells # Sodium Level 128 L Potassium Level 4.5 Chloride Level 94 L Carbon Dioxide Level 28 Anion Gap 6 Blood Urea Nitrogen 17 Creatinine 0.66 Est Glomerular Filtrat Rate mL/min Glucose Level 144 Calcium Level 8.4 Test 03/03/19 05:44 Bedside Glucose 160 Medications Medication Current Medications Tamsulosin HCl (Flomax) 0.4 mg HS PO Last administered on 03/02/19 20:54; Admin Dose 0.4 MG; Start 02/18/19 at 22:00 IV Flush (NS 3 ml) 3 ml PER PROTOCOL IV ; Start 02/18/19 at 20:30 Ondansetron HCl (Zofran Inj) 4 mg Q6H PRN IV NAUSEA AND/OR VOMITING; Start 02/18/19 at 20:30 Acetaminophen (Tylenol Liquid) 650 mg Q6H PRN PO PAIN LEVEL 1-3 OR FEVER Last administered on 03/03/19at 00:46; Admin Dose 650 MG; Start 02/18/19 at 20:30 Famotidine (Pepcid Iv) 20 mg Q12 IV Last administered on 03/02/19at 20:55; Admin Dose 20 MG; Start 02/18/19 at 21:00 Amlodipine Besylate (Norvasc) 10 mg DAILY GTB Last administered on 03/02/19 09:04; Admin Dose 10 MG; Start 02/19/19 at 09:00 Aspirin (Aspirin) 81 mg DAILY GTB Last administered on 03/02/19 09:04; Admin Dose 81 MG; Start 02/19/19 at 09:00 Lisinopril (Zestril) 40 mg DAILY GTB Last administered on 03/02/19 09:04; Admin Dose 40 MG; Start 02/19/19 at 09:00 Polyethylene Glycol (Miralax) 17 gm DAILY GTB Last administered on 03/02/19at 09:04; Admin Dose 17 GM; Start 02/19/19 at 09:00 Amiodarone HCl (Cordarone) 200 mg BID GTB Last administered on 03/02/19at 20:55; Admin Dose 200 MG; Start 02/19/19 at 09:00 Hydralazine HCl (Apresoline) 10 mg Q4H PRN IV ELEVATED BLOOD PRESSURE Last administered on 02/26/19at 02:53; Admin Dose 10 MG; Start 02/19/19 at 20:30 Lorazepam (Ativan) 0.5 mg Q6H PRN IV AGITATION/ANXIETY Last administered on 03/02/19at 09:10; Admin Dose 0.5 MG; Start 02/22/19 at 16:00 Albuterol/ Ipratropium (Duoneb) 3 ml Q6H RESP THERAPY HHN Last administered on 03/03/19at 01:34; Admin Dose 3 ML; Start 02/23/19 at 09:30 Miscellaneous Information 1 ea NOTE XX ; Start 02/25/19 at 20:30 Glucose (Glutose) 15 gm Q15M PRN PO DECREASED GLUCOSE; Start 02/25/19 at 20:30 Glucose (Glutose) 22.5 gm Q15M PRN PO DECREASED GLUCOSE; Start 02/25/19 at 20:30 Dextrose (D50w Syringe) 25 ml Q15M PRN IV DECREASED GLUCOSE; Start 02/25/19 at 20:30 Dextrose (D50w Syringe) 50 ml Q15M PRN IV DECREASED GLUCOSE; Start 02/25/19 at 20:30 Glucagon (Glucagen) 1 mg Q15M PRN IM DECREASED GLUCOSE; Start 02/25/19 at 20:30 Glucose (Glutose) 15 gm Q15M PRN BUCCAL DECREASED GLUCOSE; Start 02/25/19 at 20:30 Bisacodyl (Dulcolax Supp) 10 mg ONCE PRN [place] CONSTIPATION; Start 02/27/19 at 11:00 Insulin Aspart (Novolog Insulin Pen) (Adult SC Insulin - Mild Algorithm)... Q6 SC Last administered on 03/03/19at 05:48; Admin Dose 1 UNIT; Start 02/27/19 at 18:00 Metoclopramide HCl (Reglan) 10 mg Q6H PRN IV nausea; Start 02/27/19 at 17:00 BHARGAVI MONTELONGO Mar 03, 2019 07:46
[2019-03-03] MEDS: POLYETHYLENE GLYCOL 17 GM PACKET GTB SCH (09:58)
[2019-03-03] MEDS: AMLODIPINE 10 MG TAB GTB SCH (09:58)
[2019-03-03] MEDS: ASPIRIN 81 MG TAB GTB SCH (09:59)
[2019-03-03] MEDS: AMIODARONE 200 MG TAB GTB SCH ×2 (09:59→20:37)
[2019-03-03] MEDS: FAMOTIDINE 20 MG INJ IV SCH ×2 (09:59→20:37)
[2019-03-03] MEDS: LISINOPRIL 20 MG TAB GTB SCH (10:00)
--- NOTE | 2019-03-03 11:01 | PN ---
Date/Time of Note Date/Time of Note DATE: 03/03/19 TIME: 10:54 Assessment/Plan VTE Prophylaxis Risk score (from Ns)>0 risk: 7 SCD applied (from Nsg): Yes Pharmacological prophylaxis: other Lines/Catheters IV Catheter Type (from Nrsg): Mid Line Urinary Cath still in place: Yes Reason Cath still needed: urinary retention Assessment/Plan Hospital Course Patient patient is awake however confused and impulsive continues with one-to-one sitter. Leukocytosis, no fever, most likely reactive, we will continue to monitor white blood cells. Sodium was 128, will decrease water flushes through G-tube, IV fluids with normal saline, BMP tomorrow. Tolerates G-tube feeding at the goal rate. Patient's condition and plan of care discussed with RN. Assessment/Plan -Hyponatremia, will decrease water flushes through G-tube, normal saline IV fluids, BMP tomorrow. -Moderate malnutrition, failed swallow evaluation, s/p GT placement by Dr. Eid, gastroenterology consultation. -Acute respiratory failure requiring intubation and placement on mechanical ventilation, now extubated. Dr Addison for pulm consult. -Severe sepsis with shock secondary to pneumonia. Completed treatment with antibiotics. ID Consult Dr. Guevara. -ALOC -History of aortic aneurysm, status post repair. -Atrial fibrillation -Hypertension -Cerebrovascular disease -Urinary retention with urethral stricture. -Diabetes, continue Lantus and NovoLog. Further recommendations based on clinical course. Plan of care discussed with Dr. Moreno. Result Diagram: 03/03/19 0516 03/03/19 0516 Results 24hrs Laboratory Tests Test 03/02/19 12:42 03/02/19 17:20 03/03/19 00:12 03/03/19 05:16 Bedside Glucose 165 167 146 White Blood Count 11.1 #H Red Blood Count 2.76 L Hemoglobin 8.2 L Hematocrit 24.0 L Mean Corpuscular 87.0 Volume Mean Corpuscular 29.7 Hemoglobin Mean Corpuscular 34.2 Hemoglobin Concent Red Cell 14.6 H Distribution Width Platelet Count 319 Mean Platelet Volume 8.8 Immature 0.500 H Granulocytes % Neutrophils % 89.2 H Lymphocytes % 5.8 L Monocytes % 4.0 Eosinophils % 0.2 Basophils % 0.3 Nucleated Red Blood 0.0 Cells % Immature 0.060 H Granulocytes # Neutrophils # 9.9 H Lymphocytes # 0.6 L Monocytes # 0.5 Eosinophils # 0.0 Basophils # 0.0 Nucleated Red Blood 0.0 Cells # Sodium Level 128 L Potassium Level 4.5 Chloride Level 94 L Carbon Dioxide Level 28 Anion Gap 6 Blood Urea Nitrogen 17 Creatinine 0.66 Est Glomerular Filtrat Rate mL/min Glucose Level 144 Calcium Level 8.4 Test 03/03/19 05:44 Bedside Glucose 160 Exam/Review of Systems Exam Vitals Vital Signs Date Temp Pulse Resp B/P (MAP) Pulse Ox O2 O2 Flow FiO2 Time Delivery Rate 03/03/19 73 16 95 21 08:07 03/03/19 97.6 119/59 07:40 (79) 03/02/19 Room Air 14:15 02/28/19 2.0 01:19 Intake and Output 03/02/19 03/02/19 03/03/19 1515:00 23:00 07:00 IntakeIntake Total 800 ml 800 ml OutputOutput Total 350 ml 450 ml BalanceBalance 450 ml 350 ml Exam Constitutional: alert, frail Respiratory: clear to auscultation Cardiovascular: nl pulses Gastrointestinal: soft, non-tender, other (G tube) Extremities: normal pulses Neurological: confused Skin: nl turgor Results Results 24hrs Laboratory Tests Test 03/02/19 12:42 03/02/19 17:20 03/03/19 00:12 03/03/19 05:16 Bedside Glucose 165 167 146 White Blood Count 11.1 #H Red Blood Count 2.76 L Hemoglobin 8.2 L Hematocrit 24.0 L Mean Corpuscular 87.0 Volume Mean Corpuscular 29.7 Hemoglobin Mean Corpuscular 34.2 Hemoglobin Concent Red Cell 14.6 H Distribution Width Platelet Count 319 Mean Platelet Volume 8.8 Immature 0.500 H Granulocytes % Neutrophils % 89.2 H Lymphocytes % 5.8 L Monocytes % 4.0 Eosinophils % 0.2 Basophils % 0.3 Nucleated Red Blood 0.0 Cells % Immature 0.060 H Granulocytes # Neutrophils # 9.9 H Lymphocytes # 0.6 L Monocytes # 0.5 Eosinophils # 0.0 Basophils # 0.0 Nucleated Red Blood 0.0 Cells # Sodium Level 128 L Potassium Level 4.5 Chloride Level 94 L Carbon Dioxide Level 28 Anion Gap 6 Blood Urea Nitrogen 17 Creatinine 0.66 Est Glomerular Filtrat Rate mL/min Glucose Level 144 Calcium Level 8.4 Test 03/03/19 05:44 Bedside Glucose 160 Medications Medication Current Medications Tamsulosin HCl (Flomax) 0.4 mg HS PO Last administered on 03/02/19 20:54; Admi n Dose 0.4 MG; Start 02/18/19 at 22:00 IV Flush (NS 3 ml) 3 ml PER PROTOCOL IV Last administered on 03/03/19 10:02; Admin Dose 3 ML; Start 02/18/19 at 20:30 Ondansetron HCl (Zofran Inj) 4 mg Q6H PRN IV NAUSEA AND/OR VOMITING; Start 02/18/19 at 20:30 Acetaminophen (Tylenol Liquid) 650 mg Q6H PRN PO PAIN LEVEL 1-3 OR FEVER Last administered on 03/03/19 09:58; Admin Dose 650 MG; Start 02/18/19 at 20:30 Famotidine (Pepcid Iv) 20 mg Q12 IV Last administered on 03/03/19 09:59; Admin Dose 20 MG; Start 02/18/19 at 21:00 Amlodipine Besylate (Norvasc) 10 mg DAILY GTB Last administered on 03/03/19 09:58; Admin Dose 10 MG; Start 02/19/19 at 09:00 Aspirin (Aspirin) 81 mg DAILY GTB Last administered on 03/03/19 09:59; Admin Dose 81 MG; Start 02/19/19 at 09:00 Lisinopril (Zestril) 40 mg DAILY GTB Last administered on 03/03/19 10:00; Admin Dose 40 MG; Start 02/19/19 at 09:00 Polyethylene Glycol (Miralax) 17 gm DAILY GTB Last administered on 03/03/19 09:58; Admin Dose 17 GM; Start 02/19/19 at 09:00 Amiodarone HCl (Cordarone) 200 mg BID GTB Last administered on 03/03/19 09:59; Admin Dose 200 MG; Start 02/19/19 at 09:00 Hydralazine HCl (Apresoline) 10 mg Q4H PRN IV ELEVATED BLOOD PRESSURE Last administered on 02/26/19 02:53; Admin Dose 10 MG; Start 02/19/19 at 20:30 Lorazepam (Ativan) 0.5 mg Q6H PRN IV AGITATION/ANXIETY Last administered on 03/02/19at 09:10; Admin Dose 0.5 MG; Start 02/22/19 at 16:00 Albuterol/ Ipratropium (Duoneb) 3 ml Q6H RESP THERAPY HHN Last administered on 03/03/19at 07:57; Admin Dose 3 ML; Start 02/23/19 at 09:30 Miscellaneous Information 1 ea NOTE XX ; Start 02/25/19 at 20:30 Glucose (Glutose) 15 gm Q15M PRN PO DECREASED GLUCOSE; Start 02/25/19 at 20:30 Glucose (Glutose) 22.5 gm Q15M PRN PO DECREASED GLUCOSE; Start 02/25/19 at 20:30 Dextrose (D50w Syringe) 25 ml Q15M PRN IV DECREASED GLUCOSE; Start 02/25/19 at 20:30 Dextrose (D50w Syringe) 50 ml Q15M PRN IV DECREASED GLUCOSE; Start 02/25/19 at 20:30 Glucagon (Glucagen) 1 mg Q15M PRN IM DECREASED GLUCOSE; Start 02/25/19 at 20:30 Glucose (Glutose) 15 gm Q15M PRN BUCCAL DECREASED GLUCOSE; Start 02/25/19 at 20:30 Bisacodyl (Dulcolax Supp) 10 mg ONCE PRN [place] CONSTIPATION; Start 02/27/19 at 11:00 Insulin Aspart (Novolog Insulin Pen) (Adult SC Insulin - Mild Algorithm)... Q6 SC Last administered on 03/03/19at 05:48; Admin Dose 1 UNIT; Start 02/27/19 at 18:00 Metoclopramide HCl (Reglan) 10 mg Q6H PRN IV nausea; Start 02/27/19 at 17:00 GIANNA DE JESUS Mar 03, 2019 11:01
[2019-03-03] MEDS: LORAZEPAM 2 MG INJ IV PRN (12:47)
[2019-03-03] MEDS: SOD CHLORIDE 0.9% 1,000 ML IV SCH (12:47)
--- NOTE | 2019-03-03 13:13 | CONS ---
Assessment/Plan Assessment/Plan Hospital Course (Demo Recall) No acute events overnight. Awake. Looks comfortable, no fevers Microbiology: All cultures negative Indwelling's: Cavanaugh PEG Antimicrobials: none Physical examination: This is a well-developed very seen elderly man who is in no distress. Head atraumatic normocephalic, sclera nonicteric vehicle mucosa dry neck is supple chest rise symmetrical breath sounds diminished bases. Heart: S1-S2. Abdomen soft bowel sounds present. Extremities without cyanosis Assessment: 1. S/p sepsis, status post shock likely secondary to aspiration 2. Acute hypoxemic respiratory failure, status post extubated 3. Possible aspiration pneumonia 4. History of CABG 5. History of CVA 6. Atrial fibrillation 7. Head lice, s/p shaved Plan: Remains stable, leukocytosis resolving, continue present care, aspiration precautions Consultation Date/Type/Reason Admit Date/Time February 18, 2019 at 17:32 Initial Consult Date Type of Consult id Date/Time of Note DATE: 03/03/19 TIME: 13:12 Exam/Review of Systems Exam Vitals Vital Signs Date Temp Pulse Resp B/P (MAP) Pulse Ox O2 O2 Flow FiO2 Time Delivery Rate 03/03/19 73 16 95 21 08:07 03/03/19 97.6 119/59 07:40 (79) 03/02/19 Room Air 14:15 02/28/19 2.0 01:19 Intake and Output 03/02/19 03/02/19 03/03/19 1515:00 23:00 07:00 IntakeIntake Total 800 ml 800 ml OutputOutput Total 350 ml 450 ml BalanceBalance 450 ml 350 ml Results Result Diagram: 03/03/19 0516 03/03/19 0516 Results 24hrs Laboratory Tests Test 03/02/19 17:20 03/03/19 00:12 03/03/19 05:16 03/03/19 05:44 Bedside Glucose 167 146 160 White Blood Count 11.1 #H Red Blood Count 2.76 L Hemoglobin 8.2 L Hematocrit 24.0 L Mean Corpuscular 87.0 Volume Mean Corpuscular 29.7 Hemoglobin Mean Corpuscular 34.2 Hemoglobin Concent Red Cell 14.6 H Distribution Width Platelet Count 319 Mean Platelet Volume 8.8 Immature 0.500 H Granulocytes % Neutrophils % 89.2 H Lymphocytes % 5.8 L Monocytes % 4.0 Eosinophils % 0.2 Basophils % 0.3 Nucleated Red Blood 0.0 Cells % Immature 0.060 H Granulocytes # Neutrophils # 9.9 H Lymphocytes # 0.6 L Monocytes # 0.5 Eosinophils # 0.0 Basophils # 0.0 Nucleated Red Blood 0.0 Cells # Sodium Level 128 L Potassium Level 4.5 Chloride Level 94 L Carbon Dioxide Level 28 Anion Gap 6 Blood Urea Nitrogen 17 Creatinine 0.66 Est Glomerular Filtrat Rate mL/min Glucose Level 144 Calcium Level 8.4 Test 03/03/19 12:56 Bedside Glucose 167 Medications Medication Current Medications Tamsulosin HCl (Flomax) 0.4 mg HS PO Last administered on 03/02/19 20:54; Admin Dose 0.4 MG; Start 02/18/19 at 22:00 IV Flush (NS 3 ml) 3 ml PER PROTOCOL IV Last administered on 03/03/19 10:02; Admin Dose 3 ML; Start 02/18/19 at 20:30 Ondansetron HCl (Zofran Inj) 4 mg Q6H PRN IV NAUSEA AND/OR VOMITING; Start 02/18/19 at 20:30 Acetaminophen (Tylenol Liquid) 650 mg Q6H PRN PO PAIN LEVEL 1-3 OR FEVER Last administered on 03/03/19 09:58; Admin Dose 650 MG; Start 02/18/19 at 20:30 Famotidine (Pepcid Iv) 20 mg Q12 IV Last administered on 03/03/19 09:59; Admin Dose 20 MG; Start 02/18/19 at 21:00 Amlodipine Besylate (Norvasc) 10 mg DAILY GTB Last administered on 03/03/19 09:58; Admin Dose 10 MG; Start 02/19/19 at 09:00 Aspirin (Aspirin) 81 mg DAILY GTB Last administered on 03/03/19 09:59; Admin Dose 81 MG; Start 02/19/19 at 09:00 Lisinopril (Zestril) 40 mg DAILY GTB Last administered on 03/03/19 10:00; Admin Dose 40 MG; Start 02/19/19 at 09:00 Polyethylene Glycol (Miralax) 17 gm DAILY GTB Last administered on 03/03/19 09:58; Admin Dose 17 GM; Start 02/19/19 at 09:00 Amiodarone HCl (Cordarone) 200 mg BID GTB Last administered on 03/03/19at 09:59; Admin Dose 200 MG; Start 02/19/19 at 09:00 Hydralazine HCl (Apresoline) 10 mg Q4H PRN IV ELEVATED BLOOD PRESSURE Last administered on 02/26/19at 02:53; Admin Dose 10 MG; Start 02/19/19 at 20:30 Lorazepam (Ativan) 0.5 mg Q6H PRN IV AGITATION/ANXIETY Last administered on 03/03/19at 12:47; Admin Dose 0.5 MG; Start 02/22/19 at 16:00 Albuterol/ Ipratropium (Duoneb) 3 ml Q6H RESP THERAPY HHN Last administered on 03/03/19at 07:57; Admin Dose 3 ML; Start 02/23/19 at 09:30 Miscellaneous Information 1 ea NOTE XX ; Start 02/25/19 at 20:30 Glucose (Glutose) 15 gm Q15M PRN PO DECREASED GLUCOSE; Start 02/25/19 at 20:30 Glucose (Glutose) 22.5 gm Q15M PRN PO DECREASED GLUCOSE; Start 02/25/19 at 20:30 Dextrose (D50w Syringe) 25 ml Q15M PRN IV DECREASED GLUCOSE; Start 02/25/19 at 20:30 Dextrose (D50w Syringe) 50 ml Q15M PRN IV DECREASED GLUCOSE; Start 02/25/19 at 20:30 Glucagon (Glucagen) 1 mg Q15M PRN IM DECREASED GLUCOSE; Start 02/25/19 at 20:30 Glucose (Glutose) 15 gm Q15M PRN BUCCAL DECREASED GLUCOSE; Start 02/25/19 at 20:30 Bisacodyl (Dulcolax Supp) 10 mg ONCE PRN [place] CONSTIPATION; Start 02/27/19 at 11:00 Insulin Aspart (Novolog Insulin Pen) (Adult SC Insulin - Mild Algorithm)... Q6 SC Last administered on 03/03/19at 13:04; Admin Dose 1 UNIT; Start 02/27/19 at 18:00 Metoclopramide HCl (Reglan) 10 mg Q6H PRN IV nausea; Start 02/27/19 at 17:00 Sodium Chloride 1,000 ml @ 60 mls/hr [id number] IV Last administered on 03/03/19at 12:47; Admin Dose 60 MLS/HR; Start 03/03/19 at 11:00 LUCINA DOMINGUEZ NP Mar 03, 2019 13:13
[2019-03-03 16:01] VITALS: BP 142/66; PULSE 81; RESP 18
[2019-03-03] MEDS ORDERED: LORAZEPAM 2 MG INJ IV ONE (17:00)
[2019-03-03 19:37] VITALS: BP 145/64; PULSE 66; RESP 18
[2019-03-03] MEDS: QUETIAPINE 25 MG TAB GTB SCH (20:37)
[2019-03-03] MEDS: TAMSULOSIN (SR) 0.4 MG CAP PO SCH (20:37)
[2019-03-04] MEDS: ALBUTEROL/IPRATROPIUM (NEB) 3 ML AMP HHN SCH ×4 (01:58→19:46)
[2019-03-04 02:00] VITALS: BP 139/63; PULSE 66; RESP 18
[2019-03-04] MEDS: SOD CHLORIDE 0.9% 1,000 ML IV SCH ×3 (03:40→20:12)
[2019-03-04] MEDS: Insulin NOVOLOG SS MILD Algorithm (NPO/TPN/ENTERAL FEEDS) SC SCH ×3 (05:37→17:43)
[2019-03-04 07:45] VITALS: BP 132/60; PULSE 58; RESP 16
[2019-03-04] MEDS: POLYETHYLENE GLYCOL 17 GM PACKET GTB SCH (09:38)
[2019-03-04] MEDS: ASPIRIN 81 MG TAB GTB SCH (09:39)
[2019-03-04] MEDS: AMIODARONE 200 MG TAB GTB SCH ×2 (09:39→20:10)
[2019-03-04] MEDS: LISINOPRIL 20 MG TAB GTB SCH (09:39)
[2019-03-04] MEDS: AMLODIPINE 10 MG TAB GTB SCH (09:39)
[2019-03-04] MEDS: FAMOTIDINE 20 MG INJ IV SCH (09:40)
[2019-03-04] MEDS: QUETIAPINE 25 MG TAB GTB SCH ×2 (09:40→20:09)
--- NOTE | 2019-03-04 12:48 | PSY ---
Date/Time of Note Date/Time of Note DATE: 03/04/19 TIME: 12:42 Psychiatric Subjective Eval Consent Pt consented to telemedicine: No Subjective Evaluation Patient location: inpatient Chief Complaint: BIBA, resp distress per EMS from SNF; bagged by EMT upon arrival sat @95% History of present illness The patient is 73-year-old male with underlying medical history of aortic aneurysm , hypertension, CVA, late syphilis, diabetes, BPH, pneumonia and urinary tract infection. [id number] evaluation, patient is disorganized and confused, and unable to verbalize needs. No psychiatric history indicated however patient may be delirious because of the UTI medical problems. Past psychiatric history None indicated Hospitalization: other Medical history Problems Medical Problems: (1) Altered mental status Status: Acute (2) Aneurysm, common carotid artery Status: Acute (3) Cystitis Status: Acute (4) Dehydration Status: Acute (5) Dental caries Status: Acute (6) Encounter for urinary catheter Status: Acute (7) Hematuria Status: Acute (8) Hypertension Status: Acute (9) Partial obstruction of airway Status: Acute (10) Respiratory failure Status: Acute (11) Septic shock Status: Acute (12) Severe sepsis Status: Acute (13) Severe sepsis Status: Acute (14) Shortness of breath Status: Acute (15) Urinary tract infection Status: Acute Allergies: Coded Allergies: No Known Allergy (Unverified , 02/18/19) Substance Abuse Substance abuse history: No Prior substance abuse treatmen: No Social History Marital status: other DPA/Conservatorship: No Psychiatric Objective Eval Review of Systems: Review of Systems: Not Applicable Physical Examination: Physical Examination: Not Applicable Energy: Other (Unable to assess) Interest: Other (Unable to assess) Mental Status Examination: Appearance: Groomed Eye Contact: Poor Psychomotor Activity: Slow Behavior: Other Speech: Disorganized AFFECT: Libile Mood: Anxious Orientation: x1 Cognition: Alert Insight: Severe Judgement: Severe Laboratory Results Laboratory Tests Test 03/02/19 17:20 03/03/19 00:12 03/03/19 05:16 03/03/19 05:44 Bedside Glucose 167 mg/dL 146 mg/dL 160 mg/dL White Blood Count 11.1 10^3/ul Red Blood Count 2.76 10^6/ul Hemoglobin 8.2 g/dl Hematocrit 24.0 % Mean Corpuscular 87.0 fl Volume Mean Corpuscular 29.7 pg Hemoglobin Mean Corpuscular 34.2 g/dl Hemoglobin Concent Red Cell 14.6 % Distribution Width Platelet Count 319 10^3/UL Mean Platelet 8.8 fl Volume Immature 0.500 % Granulocytes % Neutrophils % 89.2 % Lymphocytes % 5.8 % Monocytes % 4.0 % Eosinophils % 0.2 % Basophils % 0.3 % Nucleated Red Blood 0.0 /100WBC Cells % Immature 0.060 10^3/ul Granulocytes # Neutrophils # 9.9 10^3/ul Lymphocytes # 0.6 10^3/ul Monocytes # 0.5 10^3/ul Eosinophils # 0.0 10^3/ul Basophils # 0.0 10^3/ul Nucleated Red Blood 0.0 10^3/ul Cells # Sodium Level 128 mmol/L Potassium Level 4.5 mmol/L Chloride Level 94 mmol/L Carbon Dioxide 28 mmol/L Level Anion Gap 6 Blood Urea Nitrogen 17 mg/dl Creatinine 0.66 mg/dl Est Glomerular mL/min Filtrat Rate mL/min Glucose Level 144 mg/dl Calcium Level 8.4 mg/dl Test 03/03/19 12:56 03/03/19 17:32 03/03/19 23:53 03/04/19 05:01 Bedside Glucose 167 mg/dL 124 mg/dL 133 mg/dL Sodium Level 131 mmol/L Potassium Level 4.6 mmol/L Chloride Level 98 mmol/L Carbon Dioxide 28 mmol/L Level Anion Gap 5 Blood Urea Nitrogen 14 mg/dl Creatinine 0.54 mg/dl Est Glomerular mL/min Filtrat Rate mL/min Glucose Level 128 mg/dl Calcium Level 8.4 mg/dl Test 03/04/19 05:34 03/04/19 08:06 03/04/19 08:42 Bedside Glucose 147 mg/dL 104 mg/dL White Blood Count 10.4 10^3/ul Red Blood Count 2.97 10^6/ul Hemoglobin 8.7 g/dl Hematocrit 26.3 % Mean Corpuscular 88.6 fl Volume Mean Corpuscular 29.3 pg Hemoglobin Mean Corpuscular 33.1 g/dl Hemoglobin Concent Red Cell 14.7 % Distribution Width Platelet Count 411 10^3/UL Mean Platelet 8.7 fl Volume Immature 0.600 % Granulocytes % Neutrophils % 86.1 % Lymphocytes % 7.2 % Monocytes % 4.9 % Eosinophils % 0.7 % Basophils % 0.5 % Nucleated Red Blood 0.0 /100WBC Cells % Immature 0.060 10^3/ul Granulocytes # Neutrophils # 9.0 10^3/ul Lymphocytes # 0.8 10^3/ul Monocytes # 0.5 10^3/ul Eosinophils # 0.1 10^3/ul Basophils # 0.1 10^3/ul Nucleated Red Blood 0.0 10^3/ul Cells # Assessment and Plan Assessment/Diagnosis Diagnosis Rule out delirium Recommendation/Plan Medication Management Continue current medications Seroquel 25 mg twice daily Discharge Disposition: Other Legal Status: Voluntary JESSICA GOMEZ NP Mar 04, 2019 12:48
[2019-03-04 14:05] VITALS: BP 152/67; PULSE 66; RESP 18
[2019-03-04] MEDS: LORAZEPAM 2 MG INJ IV PRN (14:19)
[2019-03-04] MEDS ORDERED: PENICILLIN G BENZ 2.4 MIL UNIT SYG IM SCH (16:30)
--- NOTE | 2019-03-04 16:39 | CONS ---
Assessment/Plan Assessment/Plan Hospital Course (Demo Recall) 73 yo male s/p PEG 1. Dysphagia with malnutrition. Status post a PEG. Patient is tolerating feeding. No issues now patient is tolerating feeding at 50 cc/h 2. Respiratory failure. The patient on supplemental oxygen now. 3. Altered level of consciousness. 4. History of aortic aneurysm, status post repair. 5. Atrial fibrillation. 6. Hypertension. 7. Cerebrovascular accident. 8. Urinary retention secondary to urethral stricture. 9. Diabetes mellitus. 10. Pain around the G-tube site, -KUB wnl -no redness or swelling at site. 11. Positive for syphilis at SNF -ID following, pcn inj x 3 days 12. S/P head lice. Plan Keep g tube site dry and clean. Keep abdominal binder at all times Continue present care Monitor residuals Pt examined and plan of care discussed with Dr. Eid Consultation Date/Type/Reason Admit Date/Time February 18, 2019 at 17:32 Initial Consult Date Date/Time of Note DATE: 03/04/19 TIME: 16:38 24 HR Interval Summary Free Text/Dictation Pt has been confused and intermittently agitate. Tolerating tube feeds. Per RN has not c/o g tube site pain. Exam/Review of Systems Exam Vitals Vital Signs Date Temp Pulse Resp B/P (MAP) Pulse Ox O2 O2 Flow FiO2 Time Delivery Rate 03/04/19 75 17 96 21 14:33 03/04/19 98.2 152/67 Room Air 14:05 (95) Intake and Output 03/03/19 03/03/19 03/04/19 1515:00 23:00 07:00 IntakeIntake Total 920 ml 1410 ml OutputOutput Total 750 ml 750 ml BalanceBalance 170 ml 660 ml Constitutional: other (NAD) Head: normocephalic Gastrointestinal: soft, non-tender, bowel sounds Extremities: other (No cyanosis, warm) Neurological: confused Results Result Diagram: 03/04/19 0842 03/04/19 0501 Results 24hrs Laboratory Tests Test 03/03/19 17:32 03/03/19 23:53 03/04/19 05:01 03/04/19 05:34 Bedside Glucose 124 133 147 Sodium Level 131 L Potassium Level 4.6 Chloride Level 98 Carbon Dioxide Level 28 Anion Gap 5 Blood Urea Nitrogen 14 Creatinine 0.54 L Est Glomerular Filtrat Rate mL/min Glucose Level 128 Calcium Level 8.4 Test 03/04/19 08:06 03/04/19 08:42 03/04/19 13:10 Bedside Glucose 104 178 White Blood Count 10.4 Red Blood Count 2.97 L Hemoglobin 8.7 L Hematocrit 26.3 L Mean Corpuscular 88.6 Volume Mean Corpuscular 29.3 Hemoglobin Mean Corpuscular 33.1 Hemoglobin Concent Red Cell 14.7 H Distribution Width Platelet Count 411 # Mean Platelet Volume 8.7 Immature 0.600 H Granulocytes % Neutrophils % 86.1 H Lymphocytes % 7.2 L Monocytes % 4.9 Eosinophils % 0.7 Basophils % 0.5 Nucleated Red Blood 0.0 Cells % Immature 0.060 H Granulocytes # Neutrophils # 9.0 H Lymphocytes # 0.8 Monocytes # 0.5 Eosinophils # 0.1 Basophils # 0.1 Nucleated Red Blood 0.0 Cells # Medications Medication Current Medications Tamsulosin HCl (Flomax) 0.4 mg HS PO Last administered on 03/03/19 20:37; Admin Dose 0.4 MG; Start 02/18/19 at 22:00 IV Flush (NS 3 ml) 3 ml PER PROTOCOL IV Last administered on 03/03/19 10:02; Admin Dose 3 ML; Start 02/18/19 at 20:30 Ondansetron HCl (Zofran Inj) 4 mg Q6H PRN IV NAUSEA AND/OR VOMITING; Start 02/18/19 at 20:30 Acetaminophen (Tylenol Liquid) 650 mg Q6H PRN PO PAIN LEVEL 1-3 OR FEVER Last administered on 03/03/19 09:58; Admin Dose 650 MG; Start 02/18/19 at 20:30 Amlodipine Besylate (Norvasc) 10 mg DAILY GTB Last administered on 03/04/19 09:39; Admin Dose 10 MG; Start 02/19/19 at 09:00 Aspirin (Aspirin) 81 mg DAILY GTB Last administered on 03/04/19 09:39; Admin Dose 81 MG; Start 02/19/19 at 09:00 Lisinopril (Zestril) 40 mg DAILY GTB Last administered on 03/04/19 09:39; Admin Dose 40 MG; Start 02/19/19 at 09:00 Polyethylene Glycol (Miralax) 17 gm DAILY GTB Last administered on 03/04/19at 09:38; Admin Dose 17 GM; Start 02/19/19 at 09:00 Amiodarone HCl (Cordarone) 200 mg BID GTB Last administered on 03/04/19at 09:39; Admin Dose 200 MG; Start 02/19/19 at 09:00 Hydralazine HCl (Apresoline) 10 mg Q4H PRN IV ELEVATED BLOOD PRESSURE Last administered on 02/26/19at 02:53; Admin Dose 10 MG; Start 02/19/19 at 20:30 Lorazepam (Ativan) 0.5 mg Q6H PRN IV AGITATION/ANXIETY Last administered on 03/04/19at 14:19; Admin Dose 0.5 MG; Start 02/22/19 at 16:00 Albuterol/ Ipratropium (Duoneb) 3 ml Q6H RESP THERAPY HHN Last administered on 03/04/19at 14:33; Admin Dose 3 ML; Start 02/23/19 at 09:30 Miscellaneous Information 1 ea NOTE XX ; Start 02/25/19 at 20:30 Glucose (Glutose) 15 gm Q15M PRN PO DECREASED GLUCOSE; Start 02/25/19 at 20:30 Glucose (Glutose) 22.5 gm Q15M PRN PO DECREASED GLUCOSE; Start 02/25/19 at 20:30 Dextrose (D50w Syringe) 25 ml Q15M PRN IV DECREASED GLUCOSE; Start 02/25/19 at 20:30 Dextrose (D50w Syringe) 50 ml Q15M PRN IV DECREASED GLUCOSE; Start 02/25/19 at 20:30 Glucagon (Glucagen) 1 mg Q15M PRN IM DECREASED GLUCOSE; Start 02/25/19 at 20:30 Glucose (Glutose) 15 gm Q15M PRN BUCCAL DECREASED GLUCOSE; Start 02/25/19 at 20:30 Bisacodyl (Dulcolax Supp) 10 mg ONCE PRN [place] CONSTIPATION; Start 02/27/19 at 11:00 Insulin Aspart (Novolog Insulin Pen) (Adult SC Insulin - Mild Algorithm)... Q6 SC Last administered on 03/04/19at 13:14; Admin Dose 1 UNIT; Start 02/27/19 at 18:00 Metoclopramide HCl (Reglan) 10 mg Q6H PRN IV nausea; Start 02/27/19 at 17:00 Sodium Chloride 1,000 ml @ 60 mls/hr [id number] IV Last administered on 03/04/19at 09:41; Admin Dose 60 MLS/HR; Start 03/03/19 at 11:00 Quetiapine Fumarate (Seroquel) 25 mg BID GTB Last administered on 03/04/19at 09:40; Admin Dose 25 MG; Start 03/03/19 at 21:00 Famotidine (Pepcid) 20 mg BID GTB ; Start 03/04/19 at 21:00 Penicillin G Benzathine (Bicillin La) 2,400,000 units Th@1630 IM Last administered on 03/04/19at 16:25; Admin Dose 2,400,000 UNITS; Start 03/04/19 at 16:30; Stop 03/18/19 at 16:31 BHARGAVI MONTELONGO Mar 04, 2019 16:39
[2019-03-04 20:00] VITALS: BP 129/80; PULSE 65; RESP 19
[2019-03-04] MEDS: FAMOTIDINE 20 MG TAB GTB SCH (20:09)
[2019-03-04] MEDS: TAMSULOSIN (SR) 0.4 MG CAP PO SCH (20:10)
--- NOTE | 2019-03-04 22:36 | DS ---
Date/Time of Note Date/Time of Note DATE: 03/04/19 TIME: 22:28 Discharge Summary Admission/Discharge Info Admit Date/Time February 18, 2019 at 17:32 Discharge Date/Time Patient Condition: Stable Hx of Present Illness The patient is 73-year-old male known to me from previous admission. Patient with extensive medical history including aortic aneurysm status post repair, hypertension, CVA, late syphilis, diabetes, history of pneumonia and urinary tract infection, diabetes BPH, history of urethral stricture. Patient was recently admitted UTI and hematuria. Patient was able void, completed treatment with antibiotic for urinary tract infection, and was discharged to [facility] in stable condition. Patient was brought tonight to emergency room from senior care facility due to hypoxic respiratory failure and altered mental status. Patient was intubated and placed on mechanical ventilation patient. Patient was noted to have leukocytosis and elevated lactate. Urinalysis and chest x-ray were unremarkable. Patient was started on broad-spectrum antibiotics. Patient is seen in ER and he will be admitted for further evaluation and management to intensive care unit. Hospital Course Pending DC to senior care facility -Dementia with agitation, continue Seroquel. -Hyponatremia, resolving. -Moderate malnutrition, failed swallow evaluation, s/p GT placement by Dr. Eid, gastroenterology consultation. Tolerates G-tube feeding at the goal rate. -Acute respiratory failure requiring intubation and placement on mechanical ventilation, now extubated. Dr Addison for pulm consult. -Severe sepsis with shock secondary to pneumonia. Completed treatment with antibiotics. ID Consult Dr. Guevara. -History of aortic aneurysm, status post repair. -Atrial fibrillation -Hypertension -Hx of right temporo-parietal infarct -Urinary retention with urethral stricture. Continue Cavanaugh catheter. -Diabetes, continue Lantus and NovoLog. Plan of care discussed with Dr. Moreno. Home Meds Active Scripts Cephalexin* (Keflex*) 500 Mg Capsule, 500 MG PO Q6, #40 CAP Prov:SANTOS HOLT MD 02/04/19 Reported Medications Pantoprazole* (Pantoprazole*) 40 Mg Tablet., 40 MG PO AC BREAKFAST, TAB 02/18/19 Quetiapine Fumarate* (Quetiapine Fumarate*) 25 Mg Tablet, 25 MG PO BID, TAB 02/18/19 Lisinopril* (Lisinopril*) 40 Mg Tablet, 40 MG PO DAILY, #30 TAB 02/04/19 Magnesium Hydroxide* (Milk Of Magnesia*) 400 Mg/5 Ml Oral.susp, 30 ML PO BID, ML 02/04/19 Acetaminophen* (Tylenol*) 325 Mg Tablet, 650 MG PO Q4H PRN for MILD PAIN LEVEL 1-3, TAB AND FEVER >100f 02/04/19 Albuterol Sulfate* (Albuterol Sulfate* Neb) 0.083%-3 Ml Neb, 2.5 MG NEB Q4H PRN for WHEEZING AND SOB, #30 VIAL 02/04/19 Tamsulosin Hcl* (Flomax*) 0.4 Mg Cap.er.24h, 0.4 MG PO DAILY, CAP 02/04/19 Polyethylene Glycol* (Polyethylene Glycol*) 17 Gm Powd.pack, 17 GM PO DAILY, #30 PACKET 02/04/19 Melatonin (Melatonin) 5 Mg Tablet, 5 MG PO HS, TAB 02/04/19 Insulin Aspart* (Novolog Insulin Pen*) 100 Unit/Ml Soln, 0 SC .SLIDING SCALE AC, EA IF BS 150-199=2 UNITS. 200-249=4 UNITS, 250-299=6 UNITS,300-349-8 UNITS,350-399=10 UNITS,400-449=12 UNITS AND CALL MD. 02/04/19 Heparin Sodium,Porcine/Pf (HEPARIN SOD 5,000 UNIT/ 0.5 ML) 5,000 Unit/0.5 Ml Vial, 5000 UNIT IJ Q8H, VIAL 02/04/19 Bisacodyl (Dulcolax) 10 Mg Supp.rect, 10 MG RC DAILY, SUPP.RECT 02/04/19 Aspirin* (Aspirin* Chew) 81 Mg Tab.chew, 81 MG PO DAILY, TAB.CHEW 02/04/19 Amlodipine Besylate* (Amlodipine Besylate*) 10 Mg Tablet, 10 MG PO DAILY, #30 TAB 02/04/19 Amiodarone Hcl* (Amiodarone Hcl*) 200 Mg Tablet, 200 MG PO BID, #60 TAB 02/04/19 Follow-up Plan BMP in 1 week Primary Care Provider Curtis Moreno MD Time spent on discharge: > 30 minutes Pending Labs Laboratory Tests Test 03/03/19 23:53 03/04/19 05:01 6/13/19 05:34 03/04/19 08:06 Bedside 133 147 104 Glucose mg/dL (70-220) mg/dL (70-220) mg/dL (70-220) Sodium Level 131 mmol/L (135-14 4) Potassium 4.6 Level mmol/L (3.5-5. 1) Chloride Level 98 mmol/L (97-110 ) Carbon Dioxide 28 Level mmol/L (21-31) Anion Gap 5 (5-13) Blood Urea 14 Nitrogen mg/dl (7-20) Creatinine 0.54 mg/dl (0.61-1. 24) Est Glomerular mL/min (>60) Filtrat Rate mL/min Glucose Level 128 mg/dl (70-220) Calcium Level 8.4 mg/dl (8.4-10. 2) Test 03/04/19 08:42 03/04/19 13:10 03/04/19 17:42 White Blood 10.4 Count 10^3/ul (4.8-10 .8) Red Blood 2.97 Count 10^6/ul (4.70-6 .10) Hemoglobin 8.7 g/dl (14.0-18.0 ) Hematocrit 26.3 % (42.0-52.0) Mean 88.6 Corpuscular fl (82.0-101.0) Volume Mean 29.3 Corpuscular pg (29.0-33.0) Hemoglobin Mean 33.1 Corpuscular g/dl (32.0-37.0 Hemoglobin Conc ) ent Red Cell 14.7 Distribution % (11.5-14.5) Width Platelet Count 411 10^3/UL (140-41 5) Mean Platelet 8.7 Volume fl (7.4-10.4) Immature 0.600 Granulocytes % % (0.001-0.429) Neutrophils % 86.1 % (39.0-77.0) Lymphocytes % 7.2 % (15.0-51.0) Monocytes % 4.9 % (0.0-11.0) Eosinophils % 0.7 % (0.0-7.0) Basophils % 0.5 % (0.0-2.0) Nucleated Red 0.0 Blood Cells % /100WBC (0.0-0. 0) Immature 0.060 Granulocytes # 10^3/ul (0.0-0. 031) Neutrophils # 9.0 10^3/ul (1.6-7. 5) Lymphocytes # 0.8 10^3/ul (0.8-2. 9) Monocytes # 0.5 10^3/ul (0.3-0. 9) Eosinophils # 0.1 10^3/ul (0.0-0. 5) Basophils # 0.1 10^3/ul (0.0-0. 1) Nucleated Red 0.0 Blood Cells # 10^3/ul (0.0-0. 0) Bedside 178 135 Glucose mg/dL (70-220) mg/dL (70-220) GIANNA DE JESUS Mar 04, 2019 22:36
[2019-03-05] MEDS: Insulin NOVOLOG SS MILD Algorithm (NPO/TPN/ENTERAL FEEDS) SC SCH ×4 (00:12→18:00)
[2019-03-05] MEDS: ALBUTEROL/IPRATROPIUM (NEB) 3 ML AMP HHN SCH ×3 (01:51→14:20)
[2019-03-05 02:30] VITALS: BP 133/63; PULSE 68; RESP 18
[2019-03-05] MEDS: SOD CHLORIDE 0.9% 1,000 ML IV SCH ×2 (02:54→12:24)
--- NOTE | 2019-03-05 05:30 | PN ---
Date/Time of Note Date/Time of Note DATE: 03/05/19 TIME: 05:30 Assessment/Plan VTE Prophylaxis Risk score (from Nsg)>0 risk: 7 SCD applied (from Nsg): Yes Lines/Catheters IV Catheter Type (from Nrsg): Mid Line Urinary Cath still in place: Yes Assessment/Plan Assessment/Plan -Hyponatremia, will decrease water flushes through G-tube, normal saline IV fluids, BMP tomorrow. -Moderate malnutrition, failed swallow evaluation, s/p GT placement by Dr. Eid, gastroenterology consultation. -Acute respiratory failure requiring intubation and placement on mechanical ventilation, now extubated. Dr Addison for pulm consult. -Severe sepsis with shock secondary to pneumonia. Completed treatment with antibiotics. ID Consult Dr. Guevara. -ALOC -History of aortic aneurysm, status post repair. -Atrial fibrillation -Hypertension -Cerebrovascular disease -Urinary retention with urethral stricture. -Diabetes, continue Lantus and NovoLog. Further recommendations based on clinical course. Plan of care discussed with Dr. Moreno. Result Diagram: 03/04/19 0842 03/04/19 0501 Results 24hrs Laboratory Tests Test 03/04/19 05:34 03/04/19 08:06 03/04/19 08:42 03/04/19 13:10 Bedside Glucose 147 104 178 White Blood Count 10.4 Red Blood Count 2.97 L Hemoglobin 8.7 L Hematocrit 26.3 L Mean Corpuscular 88.6 Volume Mean Corpuscular 29.3 Hemoglobin Mean Corpuscular 33.1 Hemoglobin Concent Red Cell 14.7 H Distribution Width Platelet Count 411 # Mean Platelet Volume 8.7 Immature 0.600 H Granulocytes % Neutrophils % 86.1 H Lymphocytes % 7.2 L Monocytes % 4.9 Eosinophils % 0.7 Basophils % 0.5 Nucleated Red Blood 0.0 Cells % Immature 0.060 H Granulocytes # Neutrophils # 9.0 H Lymphocytes # 0.8 Monocytes # 0.5 Eosinophils # 0.1 Basophils # 0.1 Nucleated Red Blood 0.0 Cells # Rapid Plasma Reagin REACTIVE H RPR Titer Additional 1:64 H Testing Test 03/04/19 17:42 03/05/19 00:09 Bedside Glucose 135 147 Subjective 24 Hr Interval Summary Free Text/Dictation SNF transfer today Exam/Review of Systems Exam Vitals Vital Signs Date Temp Pulse Resp B/P (MAP) Pulse Ox O2 O2 Flow FiO2 Time Delivery Rate 03/05/19 98.0 68 18 133/63 94 02:30 (86) 03/05/19 21 01:52 03/04/19 Room Air 20:00 Intake and Output 03/04/19 03/04/19 03/05/19 1515:00 23:00 07:00 IntakeIntake Total 140 ml 1330 ml 520 ml OutputOutput Total 1200 ml 1100 ml BalanceBalance 140 ml 130 ml -580 ml Results Results 24hrs Laboratory Tests Test 03/04/19 05:34 03/04/19 08:06 03/04/19 08:42 03/04/19 13:10 Bedside Glucose 147 104 178 White Blood Count 10.4 Red Blood Count 2.97 L Hemoglobin 8.7 L Hematocrit 26.3 L Mean Corpuscular 88.6 Volume Mean Corpuscular 29.3 Hemoglobin Mean Corpuscular 33.1 Hemoglobin Concent Red Cell 14.7 H Distribution Width Platelet Count 411 # Mean Platelet Volume 8.7 Immature 0.600 H Granulocytes % Neutrophils % 86.1 H Lymphocytes % 7.2 L Monocytes % 4.9 Eosinophils % 0.7 Basophils % 0.5 Nucleated Red Blood 0.0 Cells % Immature 0.060 H Granulocytes # Neutrophils # 9.0 H Lymphocytes # 0.8 Monocytes # 0.5 Eosinophils # 0.1 Basophils # 0.1 Nucleated Red Blood 0.0 Cells # Rapid Plasma Reagin REACTIVE H RPR Titer Additional 1:64 H Testing Test 03/04/19 17:42 03/05/19 00:09 Bedside Glucose 135 147 Medications Medication Current Medications Tamsulosin HCl (Flomax) 0.4 mg HS PO Last administered on 03/04/19at 20:10; Admin Dose 0.4 MG; Start 02/18/19 at 22:00 IV Flush (NS 3 ml) 3 ml PER PROTOCOL IV Last administered on 03/03/19at 10:02; Admin Dose 3 ML; Start 02/18/19 at 20:30 Ondansetron HCl (Zofran Inj) 4 mg Q6H PRN IV NAUSEA AND/OR VOMITING; Start 02/18/19 at 20:30 Acetaminophen (Tylenol Liquid) 650 mg Q6H PRN PO PAIN LEVEL 1-3 OR FEVER Last administered on 03/03/19at 09:58; Admin Dose 650 MG; Start 02/18/19 at 20:30 Amlodipine Besylate (Norvasc) 10 mg DAILY GTB Last administered on 03/04/19 09:39; Admin Dose 10 MG; Start 02/19/19 at 09:00 Aspirin (Aspirin) 81 mg DAILY GTB Last administered on 03/04/19 09:39; Admin Dose 81 MG; Start 02/19/19 at 09:00 Lisinopril (Zestril) 40 mg DAILY GTB Last administered on 03/04/19 09:39; Admin Dose 40 MG; Start 02/19/19 at 09:00 Polyethylene Glycol (Miralax) 17 gm DAILY GTB Last administered on 03/04/19 09:38; Admin Dose 17 GM; Start 02/19/19 at 09:00 Amiodarone HCl (Cordarone) 200 mg BID GTB Last administered on 03/04/19 20:10; Admin Dose 200 MG; Start 02/19/19 at 09:00 Hydralazine HCl (Apresoline) 10 mg Q4H PRN IV ELEVATED BLOOD PRESSURE Last administered on 02/26/19 02:53; Admin Dose 10 MG; Start 02/19/19 at 20:30 Lorazepam (Ativan) 0.5 mg Q6H PRN IV AGITATION/ANXIETY Last administered on 03/04/19at 14:19; Admin Dose 0.5 MG; Start 02/22/19 at 16:00 Albuterol/ Ipratropium (Duoneb) 3 ml Q6H RESP THERAPY HHN Last administered on 03/05/19at 01:51; Admin Dose 3 ML; Start 02/23/19 at 09:30 Miscellaneous Information 1 ea NOTE XX ; Start 02/25/19 at 20:30 Glucose (Glutose) 15 gm Q15M PRN PO DECREASED GLUCOSE; Start 02/25/19 at 20:30 Glucose (Glutose) 22.5 gm Q15M PRN PO DECREASED GLUCOSE; Start 02/25/19 at 20:30 Dextrose (D50w Syringe) 25 ml Q15M PRN IV DECREASED GLUCOSE; Start 02/25/19 at 20:30 Dextrose (D50w Syringe) 50 ml Q15M PRN IV DECREASED GLUCOSE; Start 02/25/19 at 20:30 Glucagon (Glucagen) 1 mg Q15M PRN IM DECREASED GLUCOSE; Start 02/25/19 at 20:30 Glucose (Glutose) 15 gm Q15M PRN BUCCAL DECREASED GLUCOSE; Start 02/25/19 at 20:30 Bisacodyl (Dulcolax Supp) 10 mg ONCE PRN [place] CONSTIPATION; Start 02/27/19 at 11:00 Insulin Aspart (Novolog Insulin Pen) (Adult SC Insulin - Mild Algorithm)... Q6 SC Last administered on 03/05/19at 00:12; Admin Dose 1 UNIT; Start 02/27/19 at 18:00 Metoclopramide HCl (Reglan) 10 mg Q6H PRN IV nausea; Start 02/27/19 at 17:00 Sodium Chloride 1,000 ml @ 60 mls/hr [id number] IV Last administered on 03/05/19at 02:54; Admin Dose 60 MLS/HR; Start 03/03/19 at 11:00 Quetiapine Fumarate (Seroquel) 25 mg BID GTB Last administered on 03/04/19 20:09; Admin Dose 25 MG; Start 03/03/19 at 21:00 Famotidine (Pepcid) 20 mg BID GTB Last administered on 03/04/19at 20:09; Admin Dose 20 MG; Start 03/04/19 at 21:00 Penicillin G Benzathine (Bicillin La) 2,400,000 units Th@1630 IM Last administe red on 03/04/19at 16:25; Admin Dose 2,400,000 UNITS; Start 03/04/19 at 16:30; Stop 03/18/19 at 16:31 CAMILLE NIEVES Mar 05, 2019 05:30
[2019-03-05 07:40] VITALS: BP 166/66; PULSE 64; RESP 19
[2019-03-05] MEDS: POLYETHYLENE GLYCOL 17 GM PACKET GTB SCH (08:55)
[2019-03-05] MEDS: ASPIRIN 81 MG TAB GTB SCH (08:55)
[2019-03-05] MEDS: LISINOPRIL 20 MG TAB GTB SCH (08:56)
[2019-03-05] MEDS: AMIODARONE 200 MG TAB GTB SCH (08:56)
[2019-03-05] MEDS: FAMOTIDINE 20 MG TAB GTB SCH (08:56)
[2019-03-05] MEDS: QUETIAPINE 25 MG TAB GTB SCH (08:56)
[2019-03-05] MEDS: AMLODIPINE 10 MG TAB GTB SCH (09:14)
--- NOTE | 2019-03-05 11:59 | CONS ---
Assessment/Plan Assessment/Plan Hospital Course (Demo Recall) No acute events overnight. Microbiology: All cultures negative Indwelling's: Cavanaugh PEG Antimicrobials: none Physical examination: This is a well-developed very seen elderly man who is in no distress. Head atraumatic normocephalic, sclera nonicteric vehicle mucosa dry neck is supple chest rise symmetrical breath sounds diminished bases. Heart: S1-S2. Abdomen soft bowel sounds present. Extremities without cyanosis Assessment: 1. S/p sepsis, status post shock likely secondary to aspiration 2. Acute hypoxemic respiratory failure, status post extubated 3. Possible aspiration pneumonia 4. History of CABG 5. History of CVA 6. Atrial fibrillation 7. Head lice, s/p shaved 8. + RPR Plan: Remains stable, s/p PCN IM yesterday, recommend to repeat weekly for 2 more weeks Consultation Date/Type/Reason Admit Date/Time February 18, 2019 at 17:32 Initial Consult Date Type of Consult id Date/Time of Note DATE: 03/05/19 TIME: 11:58 Exam/Review of Systems Exam Vitals Vital Signs Date Temp Pulse Resp B/P (MAP) Pulse Ox O2 O2 Flow FiO2 Time Delivery Rate 03/05/19 97.8 64 19 166/66 100 Room Air 07:40 (99) 03/05/19 21 07:30 Intake and Output 03/04/19 03/04/19 03/05/19 1515:00 23:00 07:00 IntakeIntake Total 140 ml 1330 ml 1500 ml OutputOutput Total 1200 ml 1100 ml BalanceBalance 140 ml 130 ml 400 ml Results Result Diagram: 03/04/19 0842 03/05/19 0535 Results 24hrs Laboratory Tests Test 03/04/19 13:10 03/04/19 17:42 03/05/19 00:09 03/05/19 05:35 Bedside Glucose 178 135 147 Sodium Level 133 L Potassium Level 4.5 Chloride Level 100 Carbon Dioxide Level 27 Anion Gap 6 Blood Urea Nitrogen 15 Creatinine 0.47 L Est Glomerular Filtrat Rate mL/min Glucose Level 133 Calcium Level 7.9 L Test 03/05/19 05:45 Bedside Glucose 146 Medications Medication Current Medications Tamsulosin HCl (Flomax) 0.4 mg HS PO Last administered on 03/04/19at 20:10; Admin Dose 0.4 MG; Start 02/18/19 at 22:00 IV Flush (NS 3 ml) 3 ml PER PROTOCOL IV Last administered on 03/03/19 10:02; Admin Dose 3 ML; Start 02/18/19 at 20:30 Ondansetron HCl (Zofran Inj) 4 mg Q6H PRN IV NAUSEA AND/OR VOMITING; Start 02/18/19 at 20:30 Acetaminophen (Tylenol Liquid) 650 mg Q6H PRN PO PAIN LEVEL 1-3 OR FEVER Last administered on 03/03/19 09:58; Admin Dose 650 MG; Start 02/18/19 at 20:30 Amlodipine Besylate (Norvasc) 10 mg DAILY GTB Last administered on 03/05/19 09:14; Admin Dose 10 MG; Start 02/19/19 at 09:00 Aspirin (Aspirin) 81 mg DAILY GTB Last administered on 03/05/19 08:55; Admin Dose 81 MG; Start 02/19/19 at 09:00 Lisinopril (Zestril) 40 mg DAILY GTB Last administered on 03/05/19 08:56; Admin Dose 40 MG; Start 02/19/19 at 09:00 Polyethylene Glycol (Miralax) 17 gm DAILY GTB Last administered on 03/05/19 08:55; Admin Dose 17 GM; Start 02/19/19 at 09:00 Amiodarone HCl (Cordarone) 200 mg BID GTB Last administered on 03/05/19 08:56; Admin Dose 200 MG; Start 02/19/19 at 09:00 Hydralazine HCl (Apresoline) 10 mg Q4H PRN IV ELEVATED BLOOD PRESSURE Last administered on 02/26/19 02:53; Admin Dose 10 MG; Start 02/19/19 at 20:30 Lorazepam (Ativan) 0.5 mg Q6H PRN IV AGITATION/ANXIETY Last administered on 03/04/19 14:19; Admin Dose 0.5 MG; Start 02/22/19 at 16:00 Albuterol/ Ipratropium (Duoneb) 3 ml Q6H RESP THERAPY HHN Last administered on 03/05/19 07:33; Admin Dose 3 ML; Start 02/23/19 at 09:30 Miscellaneous Information 1 ea NOTE XX ; Start 02/25/19 at 20:30 Glucose (Glutose) 15 gm Q15M PRN PO DECREASED GLUCOSE; Start 02/25/19 at 20:30 Glucose (Glutose) 22.5 gm Q15M PRN PO DECREASED GLUCOSE; Start 02/25/19 at 20:30 Dextrose (D50w Syringe) 25 ml Q15M PRN IV DECREASED GLUCOSE; Start 02/25/19 at 20:30 Dextrose (D50w Syringe) 50 ml Q15M PRN IV DECREASED GLUCOSE; Start 02/25/19 at 20:30 Glucagon (Glucagen) 1 mg Q15M PRN IM DECREASED GLUCOSE; Start 02/25/19 at 20:30 Glucose (Glutose) 15 gm Q15M PRN BUCCAL DECREASED GLUCOSE; Start 02/25/19 at 20:30 Bisacodyl (Dulcolax Supp) 10 mg ONCE PRN TX CONSTIPATION; Start 02/27/19 at 11:00 Insulin Aspart (Novolog Insulin Pen) (Adult SC Insulin - Mild Algorithm)... Q6 SC Last administered on 03/05/19at 05:46; Admin Dose 1 UNIT; Start 02/27/19 at 18:00 Metoclopramide HCl (Reglan) 10 mg Q6H PRN IV nausea; Start 02/27/19 at 17:00 Sodium Chloride 1,000 ml @ 60 mls/hr [id number] IV Last administered on 03/05/19at 02:54; Admin Dose 60 MLS/HR; Start 03/03/19 at 11:00 Quetiapine Fumarate (Seroquel) 25 mg BID GTB Last administered on 03/05/19at 08:56; Admin Dose 25 MG; Start 03/03/19 at 21:00 Famotidine (Pepcid) 20 mg BID GTB Last administered on 03/05/19at 08:56; Admin Dose 20 MG; Start 03/04/19 at 21:00 Penicillin G Benzathine (Bicillin La) 2,400,000 units Th@1630 IM Last administered on 03/04/19 16:25; Admin Dose 2,400,000 UNITS; Start 03/04/19 at 16:30; Stop 03/18/19 at 16:31 LUCINA DOMINGUEZ NP Mar 05, 2019 11:59
--- NOTE | 2019-03-05 17:46 | CONS ---
Assessment/Plan Assessment/Plan Assessment/Plan (Daily) Hospital Course (Demo Recall) 73 yo male s/p PEG 1. Dysphagia with malnutrition. Status post a PEG. Patient is tolerating feeding. No issues now patient is tolerating feeding at 50 cc/h 2. Respiratory failure. The patient on supplemental oxygen now. 3. Altered level of consciousness. 4. History of aortic aneurysm, status post repair. 5. Atrial fibrillation. 6. Hypertension. 7. Cerebrovascular accident. 8. Urinary retention secondary to urethral stricture. 9. Diabetes mellitus. 10. Pain around the G-tube site, -KUB wnl -no redness or swelling at site. 11. Positive for syphilis at SNF -ID following, pcn inj x 3 days 12. S/P head lice. Plan Keep g tube site dry and clean. Keep abdominal binder at all times Continue present care Monitor residuals Consultation Date/Type/Reason Admit Date/Time February 18, 2019 at 17:32 Initial Consult Date Date/Time of Note DATE: 03/05/19 TIME: 17:45 24 HR Interval Summary Constitutional: no complaints, improved Exam/Review of Systems Exam Vitals Vital Signs Date Temp Pulse Resp B/P (MAP) Pulse Ox O2 O2 Flow FiO2 Time Delivery Rate 03/05/19 74 18 95 21 14:20 03/05/19 97.8 166/66 Room Air 07:40 (99) Intake and Output 03/04/19 03/04/19 03/05/19 1515:00 23:00 07:00 IntakeIntake Total 140 ml 1330 ml 1500 ml OutputOutput Total 1200 ml 1100 ml BalanceBalance 140 ml 130 ml 400 ml Constitutional: alert, oriented, well developed Psych: no complaints, nl mood/affect Head: normocephalic, atraumatic Eyes: nl conjunctiva, EOMI, nl lids, nl sclera, PERRL ENMT: nl external ears & nose, nl lips & teeth, nl nasal mucosa & septum Neck: supple, non-tender Respiratory: clear to auscultation, normal air movement Cardiovascular: regular rate and rhythm, nl pulses Gastrointestinal: soft, nl liver, spleen, non-tender Musculoskeletal: nl extremities to inspection, nl gait and stance Extremities: normal pulses Neurological: [employer]ICIAN II-XII intact, nl mental status, nl speech, nl strength Skin: nl turgor; No rash or lesions Lymph: nl lymph nodes Results Result Diagram: 03/04/19 0842 03/05/19 0535 Results 24hrs Laboratory Tests Test 03/05/19 00:09 03/05/19 05:35 03/05/19 05:45 03/05/19 12:22 Bedside Glucose 147 146 184 Sodium Level 133 L Potassium Level 4.5 Chloride Level 100 Carbon Dioxide Level 27 Anion Gap 6 Blood Urea Nitrogen 15 Creatinine 0.47 L Est Glomerular Filtrat Rate mL/min Glucose Level 133 Calcium Level 7.9 L Medications Medication Current Medications Tamsulosin HCl (Flomax) 0.4 mg HS PO Last administered on 03/04/19 20:10; Admin Dose 0.4 MG; Start 02/18/19 at 22:00 IV Flush (NS 3 ml) 3 ml PER PROTOCOL IV Last administered on 03/03/19 10:02; Admin Dose 3 ML; Start 02/18/19 at 20:30 Ondansetron HCl (Zofran Inj) 4 mg Q6H PRN IV NAUSEA AND/OR VOMITING; Start 02/18/19 at 20:30 Acetaminophen (Tylenol Liquid) 650 mg Q6H PRN PO PAIN LEVEL 1-3 OR FEVER Last administered on 03/03/19 09:58; Admin Dose 650 MG; Start 02/18/19 at 20:30 Amlodipine Besylate (Norvasc) 10 mg DAILY GTB Last administered on 03/05/19 09:14; Admin Dose 10 MG; Start 02/19/19 at 09:00 Aspirin (Aspirin) 81 mg DAILY GTB Last administered on 03/05/19 08:55; Admin Dose 81 MG; Start 02/19/19 at 09:00 Lisinopril (Zestril) 40 mg DAILY GTB Last administered on 03/05/19 08:56; Admin Dose 40 MG; Start 02/19/19 at 09:00 Polyethylene Glycol (Miralax) 17 gm DAILY GTB Last administered on 03/05/19 08:55; Admin Dose 17 GM; Start 02/19/19 at 09:00 Amiodarone HCl (Cordarone) 200 mg BID GTB Last administered on 03/05/19 08:56; Admin Dose 200 MG; Start 02/19/19 at 09:00 Hydralazine HCl (Apresoline) 10 mg Q4H PRN IV ELEVATED BLOOD PRESSURE Last administered on 02/26/19at 02:53; Admin Dose 10 MG; Start 02/19/19 at 20:30 Lorazepam (Ativan) 0.5 mg Q6H PRN IV AGITATION/ANXIETY Last administered on 03/04/19 14:19; Admin Dose 0.5 MG; Start 02/22/19 at 16:00 Albuterol/ Ipratropium (Duoneb) 3 ml Q6H RESP THERAPY HHN Last administered on 03/05/19at 14:20; Admin Dose 3 ML; Start 02/23/19 at 09:30 Miscellaneous Information 1 ea NOTE XX ; Start 02/25/19 at 20:30 Glucose (Glutose) 15 gm Q15M PRN PO DECREASED GLUCOSE; Start 02/25/19 at 20:30 Glucose (Glutose) 22.5 gm Q15M PRN PO DECREASED GLUCOSE; Start 02/25/19 at 20:30 Dextrose (D50w Syringe) 25 ml Q15M PRN IV DECREASED GLUCOSE; Start 02/25/19 at 20:30 Dextrose (D50w Syringe) 50 ml Q15M PRN IV DECREASED GLUCOSE; Start 02/25/19 at 20:30 Glucagon (Glucagen) 1 mg Q15M PRN IM DECREASED GLUCOSE; Start 02/25/19 at 20:30 Glucose (Glutose) 15 gm Q15M PRN BUCCAL DECREASED GLUCOSE; Start 02/25/19 at 20:30 Bisacodyl (Dulcolax Supp) 10 mg ONCE PRN IN CONSTIPATION; Start 02/27/19 at 11:00 Insulin Aspart (Novolog Insulin Pen) (Adult SC Insulin - Mild Algorithm)... Q6 SC Last administered on 03/05/19at 12:23; Admin Dose 2 UNIT; Start 02/27/19 at 18:00 Metoclopramide HCl (Reglan) 10 mg Q6H PRN IV nausea; Start 02/27/19 at 17:00 Sodium Chloride 1,000 ml @ 60 mls/hr [id number] IV Last administered on 03/05/19at 02:54; Admin Dose 60 MLS/HR; Start 03/03/19 at 11:00 Quetiapine Fumarate (Seroquel) 25 mg BID GTB Last administered on 03/05/19at 08:56; Admin Dose 25 MG; Start 03/03/19 at 21:00 Famotidine (Pepcid) 20 mg BID GTB Last administered on 03/05/19 08:56; Admin Dose 20 MG; Start 03/04/19 at 21:00 Penicillin G Benzathine (Bicillin La) 2,400,000 units Th@1630 IM Last administ ered on 03/04/19at 16:25; Admin Dose 2,400,000 UNITS; Start 03/04/19 at 16:30; Stop 03/18/19 at 16:31 JOSE ANTONIO SALINAS MD Mar 05, 2019 17:46
[2019-03-11] MEDS ORDERED: PENICILLIN G BENZ 2.4 MIL UNIT SYG IM SCH (13:00)
== END 2019-03-05 18:20 | disposition home or self-care (01) | DRG 870 ==
LOC: E/R 17:17 → ICU 17:32 → TEL 02-23 20:38 → MS1 02-26 05:48 → 2NE 02-28 23:30
PROVIDERS: ADMIT Internal Medicine; ATTEND Internal Medicine
PROC: 5A1955Z Respiratory Ventilation, Greater than 96 Consecutive Hours (ICD-10-PCS; principal; 2019-02-18)
PROC: 0BH17EZ Insertion of Endotracheal Airway into Trachea, Via Natural or Artificial Opening (ICD-10-PCS; 2019-02-18)
PROC: 0DH63UZ Insertion of Feeding Device into Stomach, Percutaneous Approach (ICD-10-PCS; 2019-02-26)
DX: A41.9 Sepsis, unspecified organism (principal); R65.21 Severe sepsis with septic shock; J96.01 Acute respiratory failure with hypoxia; G93.41 Metabolic encephalopathy; J69.0 Pneumonitis due to inhalation of food and vomit; E44.0 Moderate protein-calorie malnutrition; Z68.1 Body mass index [BMI] 19.9 or less, adult; E87.1 Hypo-osmolality and hyponatremia; F03.90 Unspecified dementia, unspecified severity, without behavioral disturbance, psychotic disturbance, mood disturbance, and anxiety; R45.1 Restlessness and agitation; I48.91 Unspecified atrial fibrillation; I10 Essential (primary) hypertension; N35.919 Unspecified urethral stricture, male, unspecified site; R33.9 Retention of urine, unspecified; E11.9 Type 2 diabetes mellitus without complications; D64.9 Anemia, unspecified; R13.10 Dysphagia, unspecified; Z95.1 Presence of aortocoronary bypass graft; Z86.73 Personal history of transient ischemic attack (TIA), and cerebral infarction without residual deficits; B85.0 Pediculosis due to Pediculus humanus capitis; A53.9 Syphilis, unspecified
CPT/HCPCS: 31500; 36415; 36600; 70450; 71045; 74018; 80048; 80053; 80202; 81001; 82803; 82962; 83605; 83735; 84100; 84145; 84484; 85025; 85610; 85730; 86592; 87081; 87086; 92526; 92610; 93005; 94002; 94003; 94640; 94770; J0360; J0561; J0690; J0692; J1650; J1815; J2060; J2250; J2765; J3010; J3370; J3475; J3480; J7030

== ENCOUNTER 2019-03-07 10:25 | Emergency (ER) | payer OTHER ==
[~2019-03-07] VITALS: Ht 167.6 cm; Wt 65.0 kg
[~2019-03-07 10:25] MED LIST changes: -ETOMIDATE 20 MG INJ ONE; +PANT40TA4 PO; +QUET25TA33 GTB; -SUCCINYLCHOLINE CHLORIDE 100 MG/5 ML SYG IV ONE
[2019-03-07 10:41] VITALS: Ht 167.6 cm; Wt 65.0 kg
[2019-03-07] MEDS ORDERED: FAMO20TA18 GTB (11:20)
[2019-03-07] MEDS ORDERED: IOHEXOL 300MG/ML 30 ML BTL ONE (13:19)
--- NOTE | 2019-03-07 13:37 | ERD ---
ER Documentation Chief Complaint Chief Complaint BIB private amb; from [facility], pt pulled gtube out HPI Is a 73-year-old male that was brought into the emergency department by EMS from his jail facility at [facility] for accident removal of his G-tube which was removed an hour prior to arrival. Patient has a history of diabetes and anemia failure to thrive and status post aortic aneurysm repair. The patient's PEG tube was a size 20 Bolivian. ROS All systems reviewed and are negative except as per history of present illness. Medications Home Meds Reported Medications Famotidine* (Famotidine*) 20 Mg Tablet, 20 MG GTB BID, #60 TAB 03/07/19 Quetiapine Fumarate* (Quetiapine Fumarate*) 25 Mg Tablet, 25 MG GTB BID, TAB 02/18/19 Lisinopril* (Lisinopril*) 40 Mg Tablet, 40 MG GTB DAILY, #30 TAB HOLD IF SBP<100 02/04/19 Magnesium Hydroxide* (Milk Of Magnesia*) 400 Mg/5 Ml Oral.susp, 30 ML GTB QHS, ML 02/04/19 Acetaminophen* (Tylenol*) 325 Mg Tablet, 650 MG GTB Q4H PRN for MILD PAIN LEVEL 1-3, TAB AND FEVER >100f 02/04/19 Albuterol Sulfate* (Albuterol Sulfate* Neb) 0.083%-3 Ml Neb, 2.5 MG NEB Q6H PRN for WHEEZING AND SOB, #30 VIAL 02/04/19 Tamsulosin Hcl* (Flomax*) 0.4 Mg Cap.er.24h, 0.4 MG GTB DAILY, CAP 02/04/19 Polyethylene Glycol* (Polyethylene Glycol*) 17 Gm Powd.pack, 17 GM GTB DAILY, #30 PACKET 02/04/19 Insulin Aspart* (Novolog Insulin Pen*) 100 Unit/Ml Soln, 0 SC .SLIDING SCALE AC, EA IF BS 150-199=2 UNITS. 200-249=4 UNITS, 250-299=6 UNITS,300-349-8 UNITS,350-399=10 UNITS,400-449=12 UNITS AND CALL 02/04/19 Bisacodyl (Dulcolax) 10 Mg Supp.rect, 10 MG RC Q2D, SUPP.RECT 02/04/19 Aspirin* (Aspirin* Chew) 81 Mg Tab.chew, 81 MG GTB DAILY, TAB.CHEW 02/04/19 Amlodipine Besylate* (Amlodipine Besylate*) 10 Mg Tablet, 10 MG GTB DAILY, #30 TAB 02/04/19 Amiodarone Hcl* (Amiodarone Hcl*) 200 Mg Tablet, 200 MG GTB BID, #60 TAB 02/04/19 Discontinued Reported Medications Pantoprazole* (Pantoprazole*) 40 Mg Tablet.dr, 40 MG PO AC BREAKFAST, TAB 02/18/19 Melatonin (Melatonin) 5 Mg Tablet, 5 MG PO HS, TAB 02/04/19 Heparin Sodium,Porcine/Pf (HEPARIN SOD 5,000 UNIT/ 0.5 ML) 5,000 Unit/0.5 Ml Vial, 5000 UNIT IJ Q8H, VIAL 02/04/19 Discontinued Scripts Cephalexin* (Keflex*) 500 Mg Capsule, 500 MG PO Q6, #40 CAP Prov:SANTOS HOLT MD 02/04/19 Allergies Allergies: Coded Allergies: No Known Allergy (Unverified , 03/07/19) PMhx/Soc History of Surgery: Yes (CABG/OPEN HEART, ABD?) Anesthesia Reaction: No Hx Neurological Disorder: Yes (CVA) Hx Respiratory Disorders: Yes (respiratory distress) Hx Cardiac Disorders: Yes (HTN, A-FIB) Hx Psychiatric Problems: No Hx Miscellaneous Medical Probl: No Hx Alcohol Use: No Hx Substance Use: No Hx Tobacco Use: No Smoking Status: Unknown if ever smoked Physical Exam Vitals Vital Signs Date Temp Pulse Resp B/P (MAP) Pulse Ox O2 O2 Flow FiO2 Time Delivery Rate 03/07/19 98.6 59 16 149/41 100 10:41 (77) Physical Exam Constitutional:Well-developed. Cachectic HEENT:Normocephalic. Atraumatic.Pupils were equal round reactive to light. Respiratory: Not using accessory muscles of respiration.Lungs were clear to auscultation bilaterally. No rhonchi. No rales. No wheezing. Cardiovascular: Regular rate regular rhythm.No murmurs. No rubs were appreciated.S1, S2 normal. Distal pulses are palpable 2+ bilaterally. GI: Abdomen was soft. Nontender. Ostomy site from PEG tube in the left upper quadrant was patent with no purulent drainage and no surrounding tenderness or erythremia NEURO: Patient was alert, awake, to person but not to place or time. Gait not observed as patient is bedbound Results 24 hrs Current Medications Medications Dose Sig/Mamie Start Time Status Last (Trade) Ordered Route PRN Stop Time Admin Dose Reason Admin Iohexol 30 ml STK-MED 03/07/19 DC (Omnipaque ONCE .ROUTE 13:19 300mg/ ml) 03/07/19 13:20 Procedures/MDM This is a 73-year-old male presented to the emergency department for placement of his gastrostomy tube that had been accidentally removed. The wound was irrigated using Betadine. A 20 Bolivian gastrostomy tube was replaced. KUB indicated no extravasation and reviewed by myself. Ambulance transfer will be arranged for the patient to go back to [facility]. There were no complications with gastrostomy tube replacement. Departure Diagnosis: Primary Impression: Encounter for feeding tube placement Condition: SANTOS Don MD Mar 07, 2019 13:37
[2019-03-07 17:26] VITALS: BP 136/40; PULSE 60; RESP 18
== END 2019-03-07 18:41 | disposition home or self-care (01) ==
LOC: E/R 10:25
DX: Z46.59 Encounter for fitting and adjustment of other gastrointestinal appliance and device (principal); E11.9 Type 2 diabetes mellitus without complications; I10 Essential (primary) hypertension; Z79.82 Long term (current) use of aspirin; Z79.84 Long term (current) use of oral hypoglycemic drugs; Z86.73 Personal history of transient ischemic attack (TIA), and cerebral infarction without residual deficits; Z95.1 Presence of aortocoronary bypass graft
CPT/HCPCS: 43761; 74018; 99284; Q9967

== ENCOUNTER 2019-03-14 22:59 | Emergency (ER) | payer OTHER ==
[~2019-03-14] VITALS: Ht 180.3 cm; Wt 50.0 kg
[~2019-03-14 22:59] MED LIST changes: -CEPH-443 PO; +FAMO20TA18 GTB; -HEPA500021 IJ; -MELA5TAB4 PO; -PANT40TA4 PO
[2019-03-14 23:03] VITALS: Ht 180.3 cm; Wt 50.0 kg
[2019-03-14] MEDS ORDERED: LORAZEPAM 2 MG INJ IM ONE (23:30)
[2019-03-15] MEDS ORDERED: IOHEXOL 300MG/ML 30 ML BTL ONE (01:27)
[2019-03-15] MEDS ORDERED: DIATR MEGLU/DIATRIZOATE SODIUM 30 ML SOLUTION PO ONE (01:30)
--- NOTE | 2019-03-15 02:18 | ERD ---
ER Documentation Chief Complaint Chief Complaint BIB AMB. [facility] - G TUBE REPLACEMENT.LUNDBERG CATHETER INSERTION HPI This is a 73-year-old male who is here for Lundberg placement and G-tube placement. The patient probably pulled his Lundberg NG tube out this morning and was sent to [place] [facility] with up with the Lundberg in but not the G-tube. Patient was then sent back and he pulled the Lundberg out. The patient is sent here instead. The patient is demented and is DNR and is unable to give any history whatsoever. ROS All systems reviewed and are negative except as per history of present illness. Medications Home Meds Reported Medications Famotidine* (Famotidine*) 20 Mg Tablet, 20 MG GTB BID, #60 TAB 03/07/19 Quetiapine Fumarate* (Quetiapine Fumarate*) 25 Mg Tablet, 25 MG GTB BID, TAB 02/18/19 Lisinopril* (Lisinopril*) 40 Mg Tablet, 40 MG GTB DAILY, #30 TAB HOLD IF SBP<100 02/04/19 Magnesium Hydroxide* (Milk Of Magnesia*) 400 Mg/5 Ml Oral.susp, 30 ML GTB QHS, ML 02/04/19 Acetaminophen* (Tylenol*) 325 Mg Tablet, 650 MG GTB Q4H PRN for MILD PAIN LEVEL 1-3, TAB AND FEVER >100f 02/04/19 Albuterol Sulfate* (Albuterol Sulfate* Neb) 0.083%-3 Ml Neb, 2.5 MG NEB Q6H PRN for WHEEZING AND SOB, #30 VIAL 02/04/19 Tamsulosin Hcl* (Flomax*) 0.4 Mg Cap.er.24h, 0.4 MG GTB DAILY, CAP 02/04/19 Polyethylene Glycol* (Polyethylene Glycol*) 17 Gm Powd.pack, 17 GM GTB DAILY, #30 PACKET 02/04/19 Insulin Aspart* (Novolog Insulin Pen*) 100 Unit/Ml Soln, 0 SC .SLIDING SCALE AC, EA IF BS 150-199=2 UNITS. 200-249=4 UNITS, 250-299=6 UNITS,300-349-8 UNITS,350-399=10 UNITS,400-449=12 UNITS AND CALL 02/04/19 Bisacodyl (Dulcolax) 10 Mg Supp.rect, 10 MG RC Q2D, SUPP.RECT 02/04/19 Aspirin* (Aspirin* Chew) 81 Mg Tab.chew, 81 MG GTB DAILY, TAB.CHEW 02/04/19 Amlodipine Besylate* (Amlodipine Besylate*) 10 Mg Tablet, 10 MG GTB DAILY, #30 TAB 02/04/19 Amiodarone Hcl* (Amiodarone Hcl*) 200 Mg Tablet, 200 MG GTB BID, #60 TAB 02/04/19 Allergies Allergies: Coded Allergies: No Known Allergy (Unverified , 03/07/19) PMhx/Soc History of Surgery: Yes (CABG/OPEN HEART, ABD?) Anesthesia Reaction: No Hx Neurological Disorder: Yes (CVA) Hx Respiratory Disorders: Yes (respiratory distress) Hx Cardiac Disorders: Yes (HTN, A-FIB) Hx Psychiatric Problems: No Hx Miscellaneous Medical Probl: No Hx Alcohol Use: No Hx Substance Use: No Hx Tobacco Use: No Smoking Status: Unknown if ever smoked FmHx Family History: No coronary disease Physical Exam Vitals Vital Signs Date Temp Pulse Resp B/P (MAP) Pulse Ox O2 O2 Flow FiO2 Time Delivery Rate 03/14/19 98.5 69 16 127/69 99 Room Air 23:24 (88) 03/14/19 98.7 66 14 130/61 99 23:03 (84) Physical Exam Const: Well-developed, well-nourished Head: Atraumatic, normocephalic Eyes: Normal Conjunctiva, PERRLA, EOMI, normal sclera, no nystagmus ENT: Normal External Ears, Nose and Mouth, moist mucus membranes. Neck: Full range of motion. No meningismus, no lymphadenopathy. Resp: Clear to auscultation bilaterally, no wheezing, rhonchi, rales Cardio: Regular rate and rhythm, no murmurs, S1 S2 present Abd: Soft, non tender x 4, non distended. Normal bowel sounds, no guarding or rebound, no pulsitile abdominal masses or bruits, G-tube stoma is open, some blood in his diaper no penile or testicular swelling Skin: No petechiae or rashes, no ecchymosis , no maculopapular rash Back: No midline or flank tenderness Ext: No cyanosis, or edema, FROM x 4, normal inspection, neurovascularly intact x 4 Neur: Awake and alert, STR 5/5 x 4, sensation intact x 4, no focal findi ngs, cerebellum intact Psych: Normal Mood and Affect Results 24 hrs Current Medications Medications Dose Sig/Mamie Start Time Status Last (Trade) Ordered Route PRN Stop Time Admin Dose Reason Admin Lorazepam 1 mg ONCE ONCE 03/14/19 DC 03/14/19 (Ativan) IM 23:30 23:42 03/14/19 23:31 Diatrizoate 30 ml ONCE ONCE 03/15/19 DC Meglum/ PO 01:30 Diatrizoate 03/15/19 01:31 Sod (Gastrografin 66-10 Solution) Iohexol 30 ml STK-MED 03/15/19 DC 03/15/19 (Omnipaque ONCE .ROUTE 01:27 01:41 300mg/ ml) 03/15/19 01:28 Procedures/MDM Lundberg catheter was placed by the nurse without difficulty. G-tube Insertion by me: Sterile technique, local prep and lubrication, time out performed. Location: Epigastrum Device: 18 upper sorbian G-tube Technique: Cinthia pressure with twisting motion. Balloon inflation Results: Gastric contents expressed. Compl: none X-ray Abdomen 1V Interpreted by me: Free Air: None Bowel Gas: Nonspecific Contrast: Intraluminal We will send patient back to care facility Departure Diagnosis: Primary Impression: Encounter for feeding tube placement Additional Impression: Encounter for Lundberg catheter replacement Condition: Stable DEMI HELM DO Mar 15, 2019 02:18
[2019-03-15 06:00] VITALS: BP 173/84; PULSE 74; RESP 19
== END 2019-03-15 06:05 | disposition home or self-care (01) ==
LOC: E/R 22:59
DX: K94.23 Gastrostomy malfunction (principal); I10 Essential (primary) hypertension; Z95.1 Presence of aortocoronary bypass graft; Z86.73 Personal history of transient ischemic attack (TIA), and cerebral infarction without residual deficits; Z79.4 Long term (current) use of insulin
CPT/HCPCS: 43761; 51702; 74018; 82962; J2060; Q9967; 96372

== ENCOUNTER 2019-03-19 17:01 | Emergency (ER) | payer OTHER ==
[~2019-03-19] VITALS: Wt 65.0 kg
--- NOTE | 2019-03-19 17:22 | ERD ---
ER Documentation Chief Complaint Chief Complaint HPI This is a 73-year-old man who has a DNR/DNI status, is on long-term artificial n utrition via gastrostomy tube, brought in by private ambulance from alf for accidental dislodgment of Cavanaugh catheter tube. Was followed by some meatal bleeding which has since stopped, he is being treated for urinary tract infection. He had no fevers today, no vomiting or diarrhea, no complaints of chest pain or shortness of breath. ROS All systems reviewed and are negative except as per history of present illness. Medications Home Meds Active Scripts Cephalexin* (Keflex*) 500 Mg Capsule, 500 MG PO QID for 5 Days, CAP Prov:GERMAIN SULLIVAN MD 03/19/19 Reported Medications Ipratropium-Albuterol (Ipratropium-Albuterol) 0.5-3 Mg/3 Ml Ampul.neb, 3 ML INHALATION Q6, #30 VIAL 03/19/19 Famotidine* (Famotidine*) 20 Mg Tablet, 20 MG GTB BID, #60 TAB 03/07/19 Quetiapine Fumarate* (Quetiapine Fumarate*) 25 Mg Tablet, 25 MG GTB BID, TAB 02/18/19 Lisinopril* (Lisinopril*) 40 Mg Tablet, 40 MG GTB DAILY, #30 TAB HOLD IF SBP<100 02/04/19 Magnesium Hydroxide* (Milk Of Magnesia*) 400 Mg/5 Ml Oral.susp, 30 ML GTB QHS, ML 02/04/19 Acetaminophen* (Tylenol*) 325 Mg Tablet, 650 MG GTB Q4H PRN for MILD PAIN LEVEL 1-3, TAB AND FEVER >100f 02/04/19 Tamsulosin Hcl* (Flomax*) 0.4 Mg Cap.er.24h, 0.4 MG GTB DAILY, CAP 02/04/19 Polyethylene Glycol* (Polyethylene Glycol*) 17 Gm Powd.pack, 17 GM GTB DAILY, #30 PACKET 02/04/19 Insulin Aspart* (Novolog Insulin Pen*) 100 Unit/Ml Soln, 0 SC .SLIDING SCALE AC, EA IF BS 150-199=2 UNITS. 200-249=4 UNITS, 250-299=6 UNITS,300-349-8 UNITS,350-399=10 UNITS,400-449=12 UNITS AND CALL 02/04/19 Bisacodyl (Dulcolax) 10 Mg Supp.rect, 10 MG RC Q2D, SUPP.RECT 02/04/19 Aspirin* (Aspirin* Chew) 81 Mg Tab.chew, 81 MG GTB DAILY, TAB.CHEW 02/04/19 Amlodipine Besylate* (Amlodipine Besylate*) 10 Mg Tablet, 10 MG GTB DAILY, #30 TAB 02/04/19 Amiodarone Hcl* (Amiodarone Hcl*) 200 Mg Tablet, 200 MG GTB BID, #60 TAB 02/04/19 Discontinued Reported Medications Albuterol Sulfate* (Albuterol Sulfate* Neb) 0.083%-3 Ml Neb, 2.5 MG NEB Q6H PRN for WHEEZING AND SOB, #30 VIAL 02/04/19 Allergies Allergies: Coded Allergies: No Known Allergy (Unverified , 03/19/19) PMhx/Soc History of stroke with dysphasia and gastrostomy tube, chronic encephalopathy, BPH, hypertension, diabetes mellitus, atrial fibrillation, bedbound, Cavanaugh catheter History of Surgery: Yes (CABG/OPEN HEART, ABD?) Anesthesia Reaction: No Hx Neurological Disorder: Yes (CVA) Hx Respiratory Disorders: Yes (respiratory distress) Hx Cardiac Disorders: Yes (HTN, A-FIB) Hx Psychiatric Problems: No Hx Miscellaneous Medical Probl: No Hx Alcohol Use: No Hx Substance Use: No Hx Tobacco Use: No Physical Exam Vitals Vital Signs Date Temp Pulse Resp B/P (MAP) Pulse Ox O2 O2 Flow FiO2 Time Delivery Rate 03/19/19 98.3 75 18 138/74 98 17:04 (95) Physical Exam Const: Elderly, chronically debilitated man, appears dehydrated, afebrile HEENT: Dry mucous membranes, eyes closed, pupils equal round reactive to light Resp: Clear to auscultation bilaterally Cardio: Regular rate and rhythm, no murmurs Abd: Soft, non tender, non distended. No guarding, no masses or rebound Skin: No petechiae or rashes, no lacerations or hematomas Neur: Eyes closed, nonverbal, no focal deficits or facial asymmetry Result Diagram: 03/19/19 1743 03/19/19 1741 Results 24 hrs Laboratory Tests Test 03/19/19 17:43 03/19/19 18:00 White Blood Count 9.8 10^3/ul Red Blood Count 3.20 10^6/ul Hemoglobin 9.2 g/dl Hematocrit 27.6 % Mean Corpuscular Volume 86.3 fl Mean Corpuscular Hemoglobin 28.8 pg Mean Corpuscular Hemoglobin Concent 33.3 g/dl Red Cell Distribution Width 14.7 % Platelet Count 353 10^3/UL Mean Platelet Volume 9.1 fl Immature Granulocytes % 0.600 % Neutrophils % 87.7 % Lymphocytes % 7.4 % Monocytes % 3.8 % Eosinophils % 0.2 % Basophils % 0.3 % Nucleated Red Blood Cells % 0.0 /100WBC Immature Granulocytes # 0.060 10^3/ul Neutrophils # 8.6 10^3/ul Lymphocytes # 0.7 10^3/ul Monocytes # 0.4 10^3/ul Eosinophils # 0.0 10^3/ul Basophils # 0.0 10^3/ul Nucleated Red Blood Cells # 0.0 10^3/ul Sodium Level 134 mmol/L Potassium Level 4.9 mmol/L Chloride Level 99 mmol/L Carbon Dioxide Level 27 mmol/L Anion Gap 8 Blood Urea Nitrogen 23 mg/dl Creatinine 0.70 mg/dl Est Glomerular Filtrat Rate mL/min mL/min Glucose Level 109 mg/dl Calcium Level 8.9 mg/dl Urine Color YELLOW Urine Clarity CLOUDY Urine pH 8.0 Urine Specific [place] 1.006 Urine Ketones NEGATIVE mg/dL Urine Nitrite NEGATIVE mg/dL Urine Bilirubin NEGATIVE mg/dL Urine Urobilinogen NEGATIVE mg/dL Urine Leukocyte Esterase TRACE Claudia/ul Urine Microscopic RBC 109 /HPF Urine Microscopic WBC 11 /HPF Urine Bacteria FEW /HPF Urine Hemoglobin 3+ mg/dL Urine Glucose NEGATIVE mg/dL Urine Total Protein NEGATIVE mg/dl Current Medications Medications Dose Sig/Mamie Start Time Status Last (Trade) Ordered Route PRN Stop Time Admin Dose Reason Admin Sodium 1,000 ml @ Q1H STAT 03/19/19 DC 03/19/19 Chloride 1,000 mls/hr IV 17:25 18:07 03/19/19 18:24 Ceftriaxone 50 ml @ ONCE ONCE 03/19/19 UNV Sodium 100 mls/hr IVPB 19:00 03/19/19 19:29 Procedures/MDM IV line was established patient was placed on residential monitor rhythm strip rev ealed a sinus rhythm at about 70 bpm with upright P and T waves. Patient was afebrile I administered 1 L normal saline IV for dehydration CBC was unremarkable, electrolytes revealed dehydration with a BUN/creatinine of 23/0.7. Patient's Cavanaugh catheter was replaced in about 200 cc of clear urine was obtained, UA was positive for infection so I administered ceftriaxone 1 g IV here in the ER. Patient will also be discharged with a prescription for oral antibiotics if he is not already using antibiotics at the alf. Departure Diagnosis: Primary Impression: Complication of catheter Encounter type: initial encounter Qualified Codes: T85.9XXA - Unspecified complication of internal prosthetic device, implant and graft, initial encounter Additional Impressions: Acute dehydration Acute UTI Condition: Good GERMAIN SULLIVAN MD Mar 19, 2019 17:22
[2019-03-19] MEDS ORDERED: SOD CHLORIDE 0.9% 1,000 ML IV STA (17:25)
[2019-03-19] MEDS ORDERED: IPRA3AMP29 INHALATION (17:41)
[2019-03-19] MEDS ORDERED: CEPH-443 PO (18:41)
[2019-03-19] MEDS ORDERED: CEFTRIAXONE 1 GM/50 ML (PMX) 50 ML IVPB ONE (19:00)
[2019-03-19 21:59] VITALS: BP 127/56; PULSE 72; RESP 19
== END 2019-03-19 22:03 | disposition home or self-care (01) ==
LOC: E/R 17:01
DX: T83.098A Other mechanical complication of other urinary catheter, initial encounter (principal); I10 Essential (primary) hypertension; E11.9 Type 2 diabetes mellitus without complications; E86.0 Dehydration; N39.0 Urinary tract infection, site not specified; Y73.2 Prosthetic and other implants, materials and accessory gastroenterology and urology devices associated with adverse incidents; Z79.82 Long term (current) use of aspirin; Z79.4 Long term (current) use of insulin; Z86.73 Personal history of transient ischemic attack (TIA), and cerebral infarction without residual deficits; Z95.1 Presence of aortocoronary bypass graft
CPT/HCPCS: 36415; 51702; 80048; 81001; 85025; 87086; 96374; 99284; J0696; J7030